=== PATIENT | male | born 1970 | race American Indian/Alaskan Native ===

== ENCOUNTER 2017-04-18 13:06 | Inpatient (IN) | payer MEDICARE ==
[2017-04-18 13:43] LABS: Basophils % (Auto) 0.7 % (0.0-1.8); Eosinophils % (Auto) 2.8 % (0.0-4.3); Hematocrit 25.9 % (35.5-45.6); Hemoglobin 8.1 gm/dl (11.8-15.2); Mean Corpuscular HGB Conc 31 % (32-34); Mean Corpuscular Hemoglobin 31 pg (28-32); Mean Corpuscular Volume 99 fl (84-94); Platelet Count 189 K/mm3 (140-440); Red Blood Count 2.61 M/mm3 (3.65-5.03); Red Cell Distribution Width 15.6 % (13.2-15.2); White Blood Count 6.1 K/mm3 (4.5-11.0)
[2017-04-18 13:56] LABS: BUN/Creatinine Ratio 1.57; Calcium 7.4 mg/dL (8.4-10.2); Chloride 94.6 mmol/L (98-107); Potassium 5.1 mmol/L (3.6-5.0)
[2017-04-18] MEDS ORDERED: D50W (25GM) IV PRN ×2 (14:21→15:58)
[2017-04-18] MEDS ORDERED: ZOFRAN IV ONE (14:22)
[2017-04-18] MEDS ORDERED: DILAUDID IV ONE (14:22)
--- NOTE | 2017-04-18 14:27 | Emergency Department Report ---
ED General Adult HPI - General Chief complaint: Hyperglycemia Stated complaint: HYPERGLYCEMICA Time Seen by Provider: 04/18/17 14:09 Source: patient, EMS, old records reviewed Mode of arrival: Stretcher Limitations: No Limitations - History of Present Illness Initial comments: Chief complaint: Hyperglycemia HPI: 37-year-old male with a past medical history of asthma. Diabetes, end- stage disease on dialysis, CHF, COPD, hypertension, and diabetic gastroparesis presents to the hospital with hyperglycemia. Patient was at an outpatient vascular procedure for left arm pain and sore to the left middle finger on the same side of his AV access. Glucose was found to be elevated and therefore patient was sent to the ER for evaluation. History of cholecystectomy. Last dialysis was yesterday (Monday, Monday, Monday) Mode of arrival: [EMS] Source: [Patient] Began: Today Duration: Continuous Context: Noncompliant with Levemir 10 mg twice a day 1 week. He states that his sugar dropped to 23 last week and has been afraid to take it ever since. Quality: Patient having aching lower abdominal pain that is constant Severity: 6 out of 10 Improved with: Nothing Worsened with: Palpation Associated signs and symptoms: Nausea without vomiting. No diarrhea. Patient also complains of chronic back pain and ongoing left arm pain. No fever. Patient does not make urine. 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 200] Allergies Allergy/AdvReac Type Severity Reaction Status Date / Time No Known Allergies Allergy Verified 06/20/14 15:21 ED Review of Systems ROS: Stated complaint: HYPERGLYCEMICA Other details as noted in HPI Comment: All other systems reviewed and negative Other: Constitutional: No fevers chills Eyes: No eye pain visual changes ENT: No ear pain or throat pain Neck: Denies pain Respiratory: Denies cough wheezing shortness of breath Cardiovascular: Denies chest pain, palpitations, syncope GI: As per HPI : Patient does not making Musculoskeletal: Denies back pain Skin: Denies rash, lesions, erythema Neurologic: Denies headache, numbness, weakness Psychiatric: Denies suicidal ideation, hallucinations ED Past Medical Hx - Past Medical History Previous Medical History?: Yes Hx Hypertension: Yes Hx Congestive Heart Failure: Yes Hx Diabetes: Yes Hx Pulmonary Embolism: No Hx Renal Disease: Yes (MWF dialysis) Hx Kidney Stones: Yes Hx Asthma: Yes Hx COPD: Yes Hx Tuberculosis: No Hx HIV: No Additional medical history: Diabetic gastroparesis - Surgical History Past Surgical History?: Yes Hx Cholecystectomy: Yes (In 2014) Additional Surgical History: LUE AVG - Social History Smoking Status: Never Smoker Substance Use Type: None - Medications Home Medications: Home Medications Medication Instructions Recorded Confirmed Last Taken Type Pantoprazole [Protonix TAB] 40 mg PO QDAY #30 tablet 09/10/16 10/26/16 1 Day Ago Rx Epoetin Iker 10,000 Unit [Procrit] 10,000 unit IV ELISHA PRN #1 vial 09/11/1610/26 1 Day Ago Rx Insulin Glargine [Lantus VIAL] 5 units SUB-Q QHS #100 units 09/11/16 10/26/16 1 Day Ago Rx Erythromycin Ethylsuccinate 200 mg PO Q6H 14 Days 09/13/16 10/26/16 1 Day Ago Rx [E.e.s. 200] ED Physical Exam - General Limitations: No Limitations - Other Other exam information: General: No limitations, patient is alert in no acute distress Head exam: Atraumatic, normocephalic Eyes exam: Normal appearance ENT: Moist mucous membrane Neck exam: Normal inspection, full range of motion Respiratory exam: Clear to auscultation bilateral, no wheezes, rales, crackles Cardiovascular: Normal rate and rhythm, normal heart sounds Abdomen: Soft, nondistended, lower abdominal tenderness, with normal bowel sounds, no rebound, or guarding Extremity: Full range of motion normal inspection no deformity. Left arm AV access positive thrill. Ulceration noted to the radial side of the left middle finger with edema. No erythema or warmth Back: Normal Inspection, full range of motion, no tenderness Neurologic: Alert, oriented x3, cranial nerves intact, no motor or sensory deficit Psychiatric: normal affect, normal mood Skin: Warm, dry, intact ED Course Vital Signs 04/18/17 04/18/17 14:18 14:20 Temperature 98.3 F Pulse Rate 97 H Respiratory 16 18 Rate Blood Pressure 136/85 [Right] O2 Sat by Pulse 100 99 Oximetry - Reevaluation(s) Reevaluation #1: 04/18/17 14:28 Meds ordered Regular insulin bolus Regular insulin IV drip Dilaudid and Zofran ED Medical Decision Making - Lab Data Result diagrams: 04/18/17 13:25 04/18/17 13:25 Lab Results 04/18/17 04/18/17 04/18/17 Range/Units 13:25 13:25 13:25 WBC 6.1 (4.5-11.0) K/mm3 RBC 2.61 L (3.65-5.03) M/mm3 Hgb 8.1 L (11.8-15.2) gm/dl Hct 25.9 L (35.5-45.6) % MCV 99 H (84-94) fl MCH 31 (28-32) pg MCHC 31 L (32-34) % RDW 15.6 H (13.2-15.2) % Plt Count 189 (140-440) K/mm3 Lymph % (Auto) 17.3 (13.4-35.0) % [place] % (Auto) 10.9 H (0.0-7.3) % Eos % (Auto) 2.8 (0.0-4.3) % Baso % (Auto) 0.7 (0.0-1.8) % Lymph # 1.0 L (1.2-5.4) K/mm3 [place] # 0.7 (0.0-0.8) K/mm3 Eos # 0.2 (0.0-0.4) K/mm3 Baso # 0.0 (0.0-0.1) K/mm3 Seg Neutrophils % 68.3 (40.0-70.0) % Seg Neutrophils # 4.1 (1.8-7.7) K/mm3 VBG pH 7.282 L (7.320-7.420) Sodium 130 L (137-145) mmol/L Potassium 5.1 H (3.6-5.0) mmol/L Chloride 94.6 L (98-107) mmol/L Carbon Dioxide 20 L (22-30) mmol/L Anion Gap 21 mmol/L BUN 12 (9-20) mg/dL Creatinine 7.6 H (0.8-1.5) mg/dL Estimated GFR 9 ml/min BUN/Creatinine Ratio 1.57 % Glucose 737 H* (75-100) mg/dL Calcium 7.4 L (8.4-10.2) mg/dL - EKG Data -: EKG Interpreted by Me (sinus rate 92) - EKG Data When compared to previous EKG there are: no significant change (compared to 2015) - Medical Decision Making Patient requires admission to the hospital for hypoglycemia with findings of DKA. Medications initiated. Patient also likely need further vascular consultation for resolution of left arm issues. - Differential Diagnosis gastroparesis, hyperglycemia, DKA, medication noncompliance, vascular abnor Critical Care Time: No Critical care attestation.: If time is entered above; I have spent that time in minutes in the direct care of this critically ill patient, excluding procedure time. ED Disposition Clinical Impression: DKA (diabetic ketoacidoses), Noncompliance with medication regimen, Hyperkalemia, Finger ulcer, Abdominal pain, Anemia, ESRD (end stage renal disease) on dialysis Disposition: OP ADMIT IP TO THIS HOSP Is pt being admited?: Yes Time of Disposition: 14:32 (DR kennedy/hosp)
--- NOTE | 2017-04-18 14:56 | History and Physical Report ---
History of Present Illness Chief complaint: My sugar is high History of present illness: 47 YO Male with ESRD on HD(M,W,F), HTN, DM, Gastroparesis, CHF, COPD presents to ED for evaluation. Pt states that his blood sugar is really high. Pt was seen in an outpatient clinic for a preop evaluation for a vascular procedure and a lesion on his Left middle finger. Pt was found to have an elevated glucose and was instructed to present to ED for evaluation. Pt seen and evaluated in ED and found to be in DKA and fluid overload. Past History Past Medical History: COPD, diabetes, dialysis, ESRD, heart failure, hypertension Past Surgical History: cholecystectomy, Other (LUE AVF) Social history: . denies: smoking, alcohol abuse, prescription drug abuse Family history: diabetes, hypertension Medications and Allergies Allergies Allergy/AdvReac Type Severity Reaction Status Date / Time No Known Allergies Allergy Verified 06/20/14 15:21 Home Medications Medication Instructions Recorded Confirmed Last Taken Type No Known Home Medications [No 04/18/17 04/18/17 Unknown History Reported Home Medications] Active Meds: Active Medications Dextrose (D50w (25gm)) 0 ml IV PRN PRN PRN Reason: Hypoglycemia Insulin Human Regular 100 (units/ Sodium Chloride) 100 mls @ 1 mls/hr IV TITR OLIVIA; 1 UNITS/HR PRN Reason: Protocol Review of Systems All systems: negative Constitutional: other (high blood glucose) Exam - Constitutional Vitals: Temp Pulse Resp BP Pulse Ox 98.3 F 97 H 18 136/85 99 04/18/17 14:18 04/18/17 14:18 04/18/17 14:20 04/18/17 14:18 04/18/17 14:20 General appearance: Present: mild distress - EENT Eyes: Present: PERRL ENT: hearing intact, clear oral mucosa - Neck Neck: Present: supple, normal ROM - Respiratory Respiratory: bilateral: diminished - Cardiovascular Rhythm: regular Heart Sounds: Present: S1 & S2 - Extremities Extremities: pulses symmetrical, No edema Peripheral Pulses: within normal limits - Abdominal General gastrointestinal: Present: soft, non-tender, non-distended Male genitourinary: Present: normal - Integumentary Integumentary: Present: clear, dry, decreased turgor - Musculoskeletal Musculoskeletal: gait normal, strength equal bilaterally - Psychiatric Psychiatric: appropriate mood/affect, intact judgment & insight - Neurologic Neurologic: CNII-XII intact, moves all extremities Results - Labs CBC & Chem 7: 04/18/17 13:25 04/18/17 16:19 Labs: Abnormal lab results 04/18/17 04/18/17 04/18/17 Range/Units 13:25 13:25 13:25 RBC 2.61 L (3.65-5.03) M/mm3 Hgb 8.1 L (11.8-15.2) gm/dl Hct 25.9 L (35.5-45.6) % MCV 99 H (84-94) fl MCHC 31 L (32-34) % RDW 15.6 H (13.2-15.2) % [place] % (Auto) 10.9 H (0.0-7.3) % Lymph # 1.0 L (1.2-5.4) K/mm3 VBG pH 7.282 L (7.320-7.420) Sodium 130 L (137-145) mmol/L Potassium 5.1 H (3.6-5.0) mmol/L Chloride 94.6 L (98-107) mmol/L Carbon Dioxide 20 L (22-30) mmol/L Creatinine 7.6 H (0.8-1.5) mg/dL Glucose 737 H* (75-100) mg/dL Calcium 7.4 L (8.4-10.2) mg/dL Assessment and Plan - Patient Problems (1) DKA (diabetic ketoacidoses) Current Visit: Yes Status: Acute Qualifiers: Diabetes mellitus type: D Diabetes mellitus complication detail: D Plan to address problem: DKA Protocol: Insulin drip, serial bmp, monitor anion gap, gentle ivf, The high probability of a clinically significant, sudden or life threatening deterioration of the [endocrine, renal, pulmonary] system(s) required my full and direct attention, intervention and personal management. The aggregate critical care time was [65] minutes. This time is in addition to time spent performing reported procedures but includes the following: [x] Data Review and interpretation [x] Patient assessment and monitoring of vital signs [x] Documentation [x] Medication orders and management (2) ESRD (end stage renal disease) on dialysis Current Visit: Yes Status: Acute Plan to address problem: Nephrology consulted in ED, dialysis as per renal service (3) Finger ulcer Current Visit: Yes Status: Acute Qualifiers: Non-pressure ulcer stage: N Plan to address problem: wound care consulted, (4) Noncompliance with medication regimen Current Visit: Yes Status: Acute Plan to address problem: PT counseled (5) Metabolic acidosis Current Visit: Yes Status: Acute Plan to address problem: Treat DKA, IVF, supportive care (6) DVT prophylaxis Current Visit: No Status: Acute
[2017-04-18] MEDS ORDERED: NovoLIN R 100 UNITS in NACL 0.9% 99 ML IV SCH ×2 (15:00→16:00)
--- NOTE | 2017-04-18 15:07 | Admit Criteria Form ---
Admission Criteria Documentation: GENERAL ADMISSION CRITERIA (Place 'X' for any and all applicable criteria): Admission is indicated for ANY ONE of the following: [ ]I. Hemodynamic instability as indicated by ANY ONE of the following(1)(2) (3)(4)(5): [ ]a) Vital sign abnormality not readily corrected by appropriate treatment within 12 to 24 hours indicated by ANY ONE of the following: [ ]i) Hypotension [ ]ii) Symptomatic Tachycardia unresponsive to treatment (eg , analgesia, fluids, sedation as indicated) [ ]iii) Orthostatic vital sign changes unresponsive to treatment (eg, fluids) [ ]b) Vital sign abnormality that is severe indicated by ANY ONE of the following: [ ]i) Inadequate perfusion indicated by ANY ONE of the following: [ ]1) Lactic acidosis (greater than 2 mmol/L) [ ]2) New abnormal capillary refill (greater than 3 seconds) [ ]3) Other metabolic acidosis (arterial pH less than 7.35) not otherwise explained [ ]4) Reduced urine output [ ]5) Altered mental status [ ]6) Myocardial Ischemia [ ]v) Mean arterial pressure[A] less than 60 mm Hg [ ]vi) Mean arterial pressure[A] less than 70 mm Hg after 30 minutes of appropriate treatment (eg, fluid resuscitation) [ ]vii) IV inotropic or vasopressor medication required to maintain adequate blood pressure or perfusion [ ]viii) Sustained heart rate greater than 120 beats per minute in adult or child 6 years or older[B]] [ ]II. Hypertension requiring inpatient treatment as indicated by ANY ONE of the following(6)(7)(8): [ ]a) SBP greater than 220 mm Hg or DBP greater than 120 mm Hg despite treatment [ ]b) SBP greater than 140 mm Hg or DBP greater than 100 mm Hg with evidence of acute end organ damage as indicated by ANY ONE of the following: [ ]i) Encephalopathy [ ]ii) Acute renal failure as indicated by new onset of ANY ONE of the following(9)(10)(11)(12)(13): [ ]1) A 3-fold rise in serum creatinine from baseline [ ]2) Serum creatinine greater than 4 mg/dL ( 354 micromoles/L) with acute rise greater than 0.5 mg/dL (44.2 micromoles/L) [ ]3) Reduction of more than 75% in estimated glomerular filtration rate from baseline [ ]4) Estimated glomerular filtration rate less than 35 mL/min/1.73m2 (0.59 mL/sec/1.73m2) in child up to 18 years of age [ ]5) Cessation of urine output indicated by ALL of the following: [ ]A. Adequate volume status [ ]B. Inadequate urine output as indicated by ANY ONE of the following: [ ]a. Urine output less than 0.3 mL/kg/hr for 24 hours [ ]b. Anuria (urine output less than 0.1 mL/kg/hr) for 12 hours [ ]iii) Aortic dissection [ ]iv) Myocardial ischemia [ ]v) Left ventricular heart failure [ ]vi) Retinal hemorrhage [ ]vii) Other significant finding [ ]c) Hypertension in child requiring inpatient treatment as indicated by ALL of the following(14)(15)(16): [ ]i) Outpatient treatment not effective, not available, or not appropriate [ ]ii) SBP or DBP greater than 95th percentile for age [ ]iii) Evidence of acute end organ damage as indicated by ANY ONE of the following: [ ]1) Altered mental status [ ]2) Acute renal failure as indicated by new onset of ANY ONE of the following(9)(10)(11)(12)(13): [ ]A. A 3-fold rise in serum creatinine from baseline [ ]B. Serum creatinine greater than 4 mg/dL (354 micromoles/L) with acute rise greater than 0.5 mg/dL (44.2 micromoles/L) [ ]C. Reduction of more than 75% in estimated glomerular filtration rate from baseline [ ]D. Estimated glomerular filtration rate less than 35 mL/min/1.73m2 (0.59 mL/sec/1.73m2)in child up to 18 years of age [ ]E. Cessation of urine output indicated by ALL of the following: [ ]a. Adequate volume status [ ]b. Inadequate urine output as indicated by ANY ONE of the following: [ ]1) Urine output less than 0.3 mL/kg/hr for 24 hours [ ]2) Anuria (urine output less than 0.1 mL/kg/hr) for 12 hours [ ]3) Severe headache [ ]4) Visual disturbance [ ]5) Retinal hemorrhage [ ]6) Other significant finding [ ]III. Acute cardiac or peripheral ischemia as indicated by ANY ONE of the following: [ ]a) Acute coronary syndrome(17)(18) [ ]b) Acute peripheral ischemia (eg, pulseless, cool, mottled, or cyanotic extremity)(19) [ ]IV. Cardiac arrhythmias or findings of immediate concern indicated by ANY ONE of the following(20)(21): [ ]a) Heart rhythms that are inherently dangerous or unstable indicated by ANY ONE of the following(22)(23)(24): [ ]i) Resuscitated ventricular fibrillation or cardiac arrest [ ]ii) Ventricular escape rhythm [ ]iii) Sustained ventricular tachycardia (30 seconds or more of ventricular rhythm at greater than 100 beats per minute) [ ]iv) Nonsustained ventricular tachycardia and ANY ONE of the following: [ ]1) Suspected cardiac ischemia as cause or consequence of ventricular tachycardia [ ]2) In setting of acute myocarditis [ ]b) Unstable cardiac conduction defects indicated by ANY ONE of the following(24)(25)(26): [ ]i) Type II second-degree atrioventricular block [ ]ii) Third-degree atrioventricular block [ ]iii) New-onset left bundle branch block with suspected myocardial ischemia [ ]c) Any heart rhythm and ANY ONE of the following(22)(23)(27)(28)( 29): [ ] i) Continuous long-term ECG monitoring needed (eg, initiation of drug requiring monitoring for more than 24 hours) [ ] ii) Patient has automatic implanted cardioverter defibrillator that is repeatedly firing, malfunctioning, or in need of immediate adjustment of settings beyond the scope of ambulatory or observation care. [ ]d) Heart rhythms of concern due to ANY ONE of the following: [ ]i) Hypotension [ ]ii) Respiratory distress [ ]iii) Association with other significant symptoms (eg, bradycardia with syncope or ongoing dizziness, supraventricular tachycardia with chest pain) (27)(28) (30) [ ] V. Severe heart failure as indicated by ANY ONE of the following ( 31)(32): [ ]a) Respiratory distress [ ]b) Hypotension [ ]c) Anasarca (refractory to outpatient therapy) [ ]d) Cardiac arrhythmias of immediate concern [ ]e) Myocardial ischemia [ ]. Respiratory abnormalities, including ANY ONE of the following(33)(34) (35)(36): [ ]a) Respiratory rate greater than 30 breaths per minute unresponsive to treatment [A] [ ]b) New saturation of arterial oxygen less than 90% [ ]c) New partial pressure of carbon dioxide greater than 44 mm Hg ( 5.9 kPa) [ ]d) Supplemental oxygen or respiratory treatments needed that are new or not performable at other levels of care [ ]e) New-onset cyanosis [ ]f) Inability to protect airway [ ]g) Chronic lung disease with severe deterioration (not responsive to emergency and observation care treatment as appropriate) as indicated by ANY ONE of the following(34)(36 ): [ ]i) SaO2 5% below baseline in patient with chronic hypoxemia [ ]ii) New requirement for supplemental oxygen to keep SaO2 at baseline or acceptable level [ ]iii) Required supplemental oxygen performable only in acute inpatient setting [ ]iv) Severe airflow or ventilation abnormalities [ ]v) Previously mobile patient unable to walk between rooms [ ]vi Inability to eat or sleep due to dyspnea [ ]vii) Rapid rate of exacerbation onset [ ]viii) Altered mental status ]VII. Severe airflow or ventilation abnormalities (not responsive to emergency and observation care treatment as appropriate) as indicated by ANY ONE of the following(33)(34)(35)(37): [ ]a) PCO2 greater than 42 mm Hg (5.6 kPa) and pH less than 7.35 (new ) [ ]b) Documented PCO2 increased more than 5 mm Hg (0.7 kPa) from disease baseline [ ]c) Airflow measurements [B] less than 60% of previous best or predicted (eg, peak expiratory flow rate less than 300 L/minute) despite intensive emergent treatment [C] [ ]d) Required respiratory treatments that are performable only in acute inpatient setting [ ]VIII. Impending or actual respiratory arrest ( Also use Respiratory Failure GRG for severe respiratory disease and long-term mechanical ventilation patients) [ ]IX. Neurologic abnormalities, including ANY ONE of the following: [ ]a) New findings that suggest ANY ONE of the following: [ ]i) [employer] infection(38) [ ]ii) Cerebral bleeding, ischemia, or vasospasm(39)(40) [ ]iii) Increased intracranial pressure, hydrocephalus, or cerebral edema(41)(42)(43) [ ]iv) Spinal cord injury(44) [ ]b) Uncontrolled seizures(45) [ ]c) New-onset coma (eg, [place] coma scale score less than 9) or unexplained abnormal mental status (eg, [place] coma scale score less than 14) [D](41)(46)(47) [ ]X. New-onset severe neurologic findings requiring inpatient care; examples include(42)(48)(49): [ ]a) Papilledema [ ]b) Cerebral edema [ ]c) Mass effect on CT scan [ ]XI. Suspected acute intra-abdominal process with peritoneal signs, abdominal mass, or similar findings (50)(51)(52) [X ]XII. Severe physiologic disorder remaining after emergency or observation level care (as appropriate) as indicated by ANY ONE of the following (53): [ ]a) Significant dehydration [ X]b) Diabetic ketoacidosis [ ]c) Hyperglycemic hyperosmolar state (eg, osmolality greater than 320 mOsm/kg (mmol/kg) [ ]d) Hypoglycemia [ ]e) Other (new) acid-base disorder with pH less than 7.35 or greater than 7.5(54) [ ]f) Thyroid storm (55) [ ]g) Myxedema coma (55) [ ]XIII. Abdominal abnormalities with ANY ONE of the following(56)(57): [ ]a) Absent bowel sounds with complete ileus [ ]b) Signs of intestinal obstruction or peritonitis [E] [ ]c) Nausea and vomiting that cannot be controlled with outpatient or observation care [ ]XIV. Acute renal failure as indicated by new onset of ANY ONE of the following(9)(10)(11)(12)(13): [ ]a) A 3-fold rise in serum creatinine from baseline [ ]b) Serum creatinine greater than 4 mg/dL (354 micromoles/L) with acute rise greater than 0.5 mg/dL (44.2 micromoles/L) [ ]c) Reduction of more than 75% in estimated glomerular filtration rate from baseline [ ]d) Estimated glomerular filtration rate less than 35 mL/min/ 1.73m2 (0.59 mL/sec/1.73m2) in child up to 18 years of age [ ]e) Cessation of urine output indicated by ALL of the following: [ ]i) Adequate volume status [ ]ii) Inadequate urine output as indicated by ANY ONE of the following: [ ]1) Urine output less than 0.3 mL/kg/hr for 24 hours [ ]2) Anuria (urine output less than 0.1 mL/kg/hr) for 12 hours [ ]XV. Significant uremic complications as indicated by ANY ONE of the following(58)(59)(60): [ ]a) Outpatient therapy is ineffective or not feasible for ANY ONE of the following: [ ]i) Severe heart failure [ ]ii) Severehypertension [ ]iii) Pleural effusion [ ]iv) Pericarditis or pericardial effusion [ ]b) Cardiac arrhythmias of immediate concern [ ]c) Intractable nausea or vomiting [ ]d) Recurrent seizures [ ]e) Encephalopathy [ ]f) Bleeding abnormalities (eg, platelet dysfunction) with active (eg, gastrointestinal) bleeding [ ]g) Dialysis indicated before long-term access or ambulatory arrangements can be made [ ]h) Significant metabolic or electrolyte abnormalities (eg, severe acidosis or hyperkalemia) [ ]XVI. High fever or other high-risk infection situation as indicated by ANY ONE of the following(61)(62)(63)(64): [ ]a) Outpatient and observation care antimicrobial treatment unavailable, not effective, or not appropriate [ ]b) Documented bacteremia [ ]c) Temperature greater than 40.5 degrees C (104.9 degrees F) ( oral) [ ]d) Temperature greater than 39.5 degrees C (103.1 degrees F) ( oral) or less than 36 degrees C (96.8 degrees F) (rectal) that does not respond to e treatment and observation care [ ] XVII. Temperature less than 95 degrees F (35 degrees C)(rectal)(65) [ ] XVIII. Severe nutritional abnormalities as indicated by ALL of the following (66)(67): [ ]a) Inability to tolerate or establish sufficient oral or other enteral nutrition in outpatient setting [ ]b) Parenteral nutrition regimen need that must be implemented on inpatient basis [ ] XIX. Severe electrolyte abnormalities indicated by ALL of the following(68) (69)(70): [ ]a) Electrolytes and associated findings are not as expected for patient baseline or acceptable treatment effects. [ ]b) Severe abnormalities indicated by ANY ONE of the following: [ ]i) Sodium less than 130 mEq/L (mmol/L) (new) [ ]ii)Sodium less than 135 mEq/L (mmol/L) with ANY ONE of the following: [ ]1) Uncorrectable (to near normal or chronic baseline) after trial of outpatient and emergency treatment [ ]2) Altered mental status [ ]3) Seizures [ ]4) Severe medical etiology requiring inpatient management (eg, heart failure, hypovolemia) [ ]iii) Sodium greater than 155 mEq/L (mmol/L) [ ]iv) Sodium greater than 150 mEq/L (mmol/L) with ANY ONE of the following: [ ]1) Uncorrectable (to near normal or chronic baseline) with outpatient and emergency treatment [ ]2) Altered mental status [ ]3) Seizures [ ]4) Severe medical etiology (eg, hypovolemia, diabetes insipidus) [ ]v) Potassium less than 2.5 mEq/L (mmol/L) despite outpatient and emergency treatment [ ]vi) Potassium less than 3 mEq/L (mmol/L) with ANY ONE of the following: [ ]1) Weakness [ ]2) Cardiac abnormality (eg, arrhythmia, conduction disturbance) [ ]3) Cardiac ischemia [ ]4) Ileus [ ]5) Ongoing medical cause requiring inpatient management (eg, acute renal wasting or SIADH) [ ]6) Other severe symptoms [ ]vii) Potassium greater than 6.5 mEq/L (mmol/L) [ ]viii) Potassium greater than 5 mEq/L (mmol/L) with ANY ONE of the following: [ ]1) Uncorrectable (to near normal or chronic baseline) with outpatient and emergency treatment [ ]2) Severe ECG findings [F] [ ]3) Acute worsening of renal failure (creatinine greater than 2.5 mg/dL (221 micromoles/L) or significant elevation for age and size) [ ]4) Severe weakness [ ]5) Severe medical etiology (eg, hemolysis, infection, drug overdose) [ ]ix) Calcium less than 7 mg/dL (1.75 mmol/L) despite outpatient and emergency treatment (72) [ ]x) Calcium less than 8 mg/dL (2 mmol/L) with significant symptoms or findings; examples include(72): [ ]1) Altered mental status [ ]2) Muscle spasms [ ]3) Seizures [ ]4) Breathing difficulty [ ]5) Cardiac abnormality (eg, arrhythmia or conduction disturbance) [ ]xi) Calcium greater than 14 mg/dL (3.5 mmol/L)(72) [ ]xii) Calcium greater than 12 mg/dL (3 mmol/L) with ANY ONE of the following(72): [ ]1) Uncorrectable (to near normal or chronic baseline) with outpatient and emergency treatment [ ]2) Significant dehydration or hypovolemia as indicated by ALL of the following(70)(73)(74): [ ]A. Not resolved with initial treatments [ ]B. Clinically significant dehydration as indicated by ANY ONE of the following: [ ]a. Vomiting refractory to outpatient treatment (ie, precluding oral rehydration) [ ]b. Inability to drink [ ]c. Hypernatremia or other electrolyte abnormality unable to be corrected with outpatient and emergency treatment [ ]d. Failure to remain hydrated with outpatient therapy [ ]e. Reduced urine output [ ]f. Hypotension [ ]g. Serious cause for dehydration requiring acute hospitalization (eg, bowel obstruction, increased intracranial pressure, infectious cause) [ ]h. Child with ANY ONE of the following(75): [ ]1) Severe abdominal tenderness [ ]2) Adequate care not available at home [ ]3) Severe dehydration ( greater than 9% loss of body weight) [ ]4) Significant symptoms or findings; examples include: [ ]A. Altered mental status [ ]B. Cardiac abnormality (eg, arrhythmia, conduction disturbance) [ ]C. Malignant etiology requiring inpatient treatment [ ]xiii) Phosphorus less than 1 mg/dL (0.32 mmol/L) [ ]xiv) Phosphorus less than 1.5 mg/dL (0.48 mmol/L) with ANY ONE of the following: [ ]1) Patient unresponsive to outpatient and emergency treatment [ ]2) Significant symptoms or findings; examples include: [ ]A. Weakness [ ]B. Altered mental status [ ]C. Breathing difficulty [ ]D. Seizures [ ]E. Rhabdomyolysis [ ]xv) Phosphorus greater than 10 mg/dL (3.2 mmol/L) [ ]xvi) Phosphorus greater than 4.5 mg/dL (1.45 mmol/L) (new) with ANY ONE of the following: [ ]1) Severe medical etiology (eg, crush injury, acute renal failure) [ ]2) Associated hypocalcemia with significant findings; examples include: [ ]A. Neurologic symptoms [ ]B. Altered mental status [ ]C. Muscle spasms [ ]D. Seizures [ ]E. Breathing difficulty [ ]F. Cardiac abnormality (eg, arrhythmia, conduction disturbance) [ ]xvii) Magnesium less than 1 mg/dL (0.41 mmol/L) [ ]xviii) Magnesium less than 1.5 mg/dL (0.62 mmol/L) with ANY ONE of the following: [ ]1) Patient unresponsive to outpatient and emergency treatment [ ]2) Associated hypocalcemia with significant findings; examples include: [ ]A. Altered mental status [ ]B. Muscle spasms [ ]C. Seizures [ ]D. Breathing difficulty [ ]E. Cardiac abnormality (eg, arrhythmia , conduction disturbance) [ ]3) Associated hypokalemia (potassium less than 3 mEq/L (mmol/L)) with risk of arrhythmia [ ]xix) Magnesium greater than 4 mEq/L (2 mmol/L) [ ]xx) Magnesium greater than 2.5 mEq/L (1.25 mmol/L) with significant symptoms or findings; examples include: [ ]1) Weakness [ ]2) Altered mental status [ ]3) Cardiac abnormality (eg, arrhythmia, conduction disturbance) [ ]4) Breathing difficulty [ ]5) Severe medical etiology (eg, renal failure, hypovolemia) [ ]xxi) Uric acid greater than 20 mg/dL (1190 micromoles/L)(76) [ ]xxii) Uric acid greater than 8 mg/dL (476 micromoles/L) with significant symptoms or findings of tumor lysis syndrome; examples include(76): [ ]1) Creatinine greater than 1.5 times upper limit of normal [ ]2) Cardiac abnormality (eg, arrhythmia, conduction disturbance) [ ]3) Seizure [ ]XX. Acute blood loss causing significant abnormality as indicated by ANY ONE of the following(77)(78): [ ]a) Hemoglobin less than 10 g/dL (100 g/L) (not baseline) [ ]b) Hematocrit less than 30% (0.30) (not baseline) [ ]c) Repeat hematocrit decreased more than 2% (0.02) [ ]d) Uncontrolled bleeding [ ]XXI. Severe anemia indicated by ANY ONE of the following(78)(79): [ ]a) Altered mental status [ ]b) Chest pain [ ]c) Exertional dyspnea [ ]d) Syncope [ ]e) Other findings suggesting inadequate perfusion [ ]f) Treatment with transfusion or volume replacement is ineffective at resolving ANY ONE of the following [G]: [ ]i) Tachycardia for age [ ]ii) Orthostatic vital sign changes as indicated by ANY ONE of the following(80): [ ]1) Fall in SBP of 20 mm Hg or more 1 to 3 minutes after patient sits or stands from recumbent position [ ]2) Fall in DBP of 10 mm Hg or more 1 to 3 minutes after patient sits or stands from recumbent position [ ]XXII. High-risk low platelet count as indicated by ANY ONE of the following( 81)(82): [ ]a) Severe or life-threatening bleeding (eg, intracranial, major gastrointestinal, or extensive mucosal bleeding), with any reduced platelet count [ ]b) Platelet count less than 20,000/mm3 (20 x109/L) with any active bleeding [ ]c) Platelet count less than 10,000/mm3 (10 x109/L) with minor purpura or petechiae [ ]d) Platelet count less than 5000/mm3 (5 x109/L) [ ]e) Low platelet count with hemolytic anemia [ ]XXIII. Disseminated intravascular coagulation(77)(83) [ ]XXIV. Severe adverse drug or systemic toxin reaction requiring inpatient treatment; examples include(84)(85): [ ]a) Serotonin syndrome(86) [ ]b) Neuroleptic malignant syndrome(86) [ ]c) Cholinergic syndrome with severe symptoms (eg, bronchorrhea, weakness, mental status changes, seizures) [ ]d) Sympathetic syndrome with severe symptoms (eg, seizures, mental status changes, cardiac dysrhythmias) [ ]e) Anticholinergic syndrome [ ]XXV. Severe pain requiring acute inpatient management as indicated by ALL of the following (87)(88)(89): [ ]a) Continuous or frequent (eg, every 2 to 4 hours) parenteral analgesics required [H] [ ]b) Rapid improvement expected from treatment or acute intervention (eg, surgery, anesthesia procedure) [ ]XXVI.Severe behavioral health issues judged unmanageable at a lower level of care (eg, residential) in a patient who is ANY ONE of the following(91) [ ]a) Acutely suicidal [ ]b) A danger to self (eg, self-mutilating or suicidal behavior) [ ]c) A danger to others (eg, assaultive or homicidal behavior) [ ]d) Incapacitated because of grave disability (eg, inability to provide for self at lower level of care) (92) [ ]XXVII. Inpatient monitoring needed; examples include(1)(3)(87)(93)(94)(95)(96 ): [ ]a) Vital signs, neurologic signs, or vascular checks more frequently than every 4 hours [ ]b) Cardiac or respiratory monitoring beyond the scope (eg, over 24 hours) of observation care [ ]c) Pulmonary artery catheter monitoring [ ]d) Suspected compartment syndrome(97) (98) [ ]e) Cerebral bleeding, hydrocephalus, or vasospasm monitoring [ ]f) Increased intracranial pressure or cerebral edema monitoring [ ]g) monitoring [ ]XXVIII. Treatment requiring inpatient care; examples include: [ ]a) IV fluid to replace significant ongoing losses (greater than 3 L/m2 per day)(53) [ ]b) High concentration oxygen (greater than 40%)(33)(99)(100) [ ]c) Frequent respiratory therapy (more frequently than every 4 hours) to maintain airflow rates greater than 60% of baseline(33)(99)(100) [ ]d) Epidural analgesia(87) [ ]e) IV anticoagulation, vasoactive, or antiarrhythmic medication(19 )(23) [ ]f) Acute thrombolytics (generally require 24 hours of observation )(101)(102) [ ]XXIX. Emergency procedures needed; examples include: [ ]a) Emergency inpatient surgery [ ]b) Temporary pacemaker placement(103) [ ]c) Chest tube placement with active evacuation (eg, suction, drainage)(104) [ ]d) Emergent cardioversion(105) [ ]e) Emergent cardiac or vascular procedures (eg, cardiac catheterization, angioplasty) (17)(18) [ ]f) Emergent dialysis access placement and institution(10)(106) [ ]g) Emergent pericardiocentesis(107) [ ]h) Emergent plasmapheresis or leukapheresis(83) [ ]i) Emergent tracheostomy The original [employer] content created by [employer] has been revised. The portions of the content which have been revised are identified through the use of italic text or in bold, and [employer] has neither reviewed nor approved the modified material. All other unmodified content is copyright [employer]. Please see references footnoted in the original [employer] edition 2016 Admission Criteria Met: Yes
[2017-04-18] MEDS ORDERED: NACL 0.9% 1000 ML 1,000 ML IV SCH (16:00)
[2017-04-18 16:56] LABS: BUN/Creatinine Ratio 1.51; Calcium 7.6 mg/dL (8.4-10.2); Chloride 91.8 mmol/L (98-107)
[2017-04-18 17:16] LABS: Phosphorous 4.5 mg/dL (2.5-4.5)
[2017-04-18] MEDS: E.E.S. 200 PO SCH (18:58)
[2017-04-18 19:08] LABS: BUN/Creatinine Ratio 1.53; Calcium 7.9 mg/dL (8.4-10.2); Chloride 93.7 mmol/L (98-107); Potassium 4.3 mmol/L (3.6-5.0)
[2017-04-18] MEDS ORDERED: D5W/0.45% NACL/KCL 20 MEQ 20 MEQ/1,000 ML BAG IV ONE (19:10)
[2017-04-18] MEDS ORDERED: NACL 0.45% 1000 ML 1,000 ML IV SCH (20:00)
[2017-04-18] MEDS ORDERED: PERCOCET 5/325 PO ONE (20:00)
[2017-04-18 20:34] LABS: BUN/Creatinine Ratio 1.64; Calcium 8.3 mg/dL (8.4-10.2); Chloride 97.9 mmol/L (98-107); Potassium 3.5 mmol/L (3.6-5.0)
[2017-04-19 00:12] LABS: BUN/Creatinine Ratio 1.58; Calcium 7.9 mg/dL (8.4-10.2); Chloride 98.9 mmol/L (98-107); Potassium 3.9 mmol/L (3.6-5.0)
[2017-04-19] MEDS: E.E.S. 200 PO SCH ×5 (00:50→22:36)
[2017-04-19 05:52] LABS: BUN/Creatinine Ratio 1.66; Chloride 98.8 mmol/L (98-107); Potassium 4.3 mmol/L (3.6-5.0)
[2017-04-19 09:21] LABS: BUN/Creatinine Ratio 1.49; Calcium 7.7 mg/dL (8.4-10.2); Chloride 101.4 mmol/L (98-107); Potassium 4.2 mmol/L (3.6-5.0)
--- NOTE | 2017-04-19 09:29 | Progress Note ---
Assessment and Plan 47 YO Male with ESRD on HD(M,W,F), HTN, DM, Gastroparesis, CHF, COPD presents to ED for evaluation. Pt states that his blood sugar is really high. Pt was seen in an outpatient clinic for a preop evaluation for a vascular procedure and a lesion on his Left middle finger. Pt was found to have an elevated glucose and was instructed to present to ED for evaluation. Pt seen and evaluated in ED and found to be in DKA and fluid overload. DKA (diabetic ketoacidoses) Placed on DKA Protocol: Insulin drip, serial bmp, monitor anion gap, gentle ivf, BG much improved, will d/c insulin drip will place on ADA diet and subcu insulin ESRD (end stage renal disease) on dialysis Nephrology consulted in ED, dialysis as per renal service Finger ulcer wound care consulted, Plan for angeogram per vascular surgery tomorrow consulted ortho for further recommendation Noncompliance with medication regimen PT counseled COPD not on any exacerbation Treat with as needed nebulizer CHF with EF 40-45% (chronic) cont aspirin, statin No ACEI or beta juan as BP at low normotensive DVT prophylaxis place on heparin Subjective Date of service: 04/19/17 Interval history: Patient seen and examined. Medical records and medication list reviewed. No acute event overnight noted by the RN. Patient c/o left hand pain, getting HD today Objective - Exam Narrative Exam: GENERAL: well-developed AAM lying on bed appeared to be in no discomfort. HEENT: Normocephalic. Atraumatic. No conjunctival congestion or icterus. Patient has moist mucous membranes. NECK: Supple. Trachea midline. CHEST/LUNGS: Clear to auscultated bilaterally, breathing nonlabored. No wheezes crackles or rhonchi. HEART/CARDIOVASCULAR: Regular in rate and rhythm. S1 and S2 positive. ABDOMEN: Abdomen is soft, nontender. Patient has normal bowel sounds. SKIN: There is no rash. Warm and dry. NEURO: No focal motor deficit. Follows command. MUSCULOSKELETAL: ulceration of the lateral aspect of the left third digit along the middle phalanx. EXTRIMITY: No edema, no cyanosis or clubbing. PSYCH: Cooperative. - Constitutional Vitals: Vital Signs - 12hr 04/18/17 04/18/17 04/18/17 21:41 21:50 22:00 Temperature Pulse Rate 89 85 83 Pulse Rate [ Left Radial] Pulse Rate [ Right Radial] Respiratory 20 15 12 Rate Blood Pressure 107/56 Blood Pressure [Left Arm] Blood Pressure [Right Arm] O2 Sat by Pulse 100 100 100 Oximetry 04/18/17 04/19/17 22:45 07:15 Temperature 97.8 F 98.2 F Pulse Rate Pulse Rate [ 86 Left Radial] Pulse Rate [ 94 H Right Radial] Respiratory 18 16 Rate Blood Pressure Blood Pressure 111/63 [Left Arm] Blood Pressure 119/77 [Right Arm] O2 Sat by Pulse 97 100 Oximetry - Labs CBC & Chem 7: 04/18/17 13:25 04/19/17 17:15 Labs: Abnormal lab results 04/18/17 04/18/17 04/18/17 Range/Units 16:19 16:19 18:37 Sodium 127 L 131 L (137-145) mmol/L Potassium 6.0 H (3.6-5.0) mmol/L Chloride 91.8 L 93.7 L (98-107) mmol/L Carbon Dioxide 18 L 17 L (22-30) mmol/L Creatinine 7.9 H 7.8 H (0.8-1.5) mg/dL Glucose 690 H* 652 H* (75-100) mg/dL POC Glucose (70-105) Hemoglobin A1c 10.4 H (4-6) % Calcium 7.6 L 7.9 L (8.4-10.2) mg/dL 04/18/17 04/18/17 04/18/17 Range/Units 20:05 21:45 23:33 Sodium 135 L (137-145) mmol/L Potassium 3.5 L (3.6-5.0) mmol/L Chloride 97.9 L (98-107) mmol/L Carbon Dioxide 20 L (22-30) mmol/L Creatinine 7.9 H 8.2 H (0.8-1.5) mg/dL Glucose 49 L 225 H (75-100) mg/dL POC Glucose 183 H (70-105) Hemoglobin A1c (4-6) % Calcium 8.3 L 7.9 L (8.4-10.2) mg/dL 04/19/17 04/19/17 04/19/17 Range/Units 04:41 06:14 08:17 Sodium 135 L 135 L (137-145) mmol/L Potassium (3.6-5.0) mmol/L Chloride (98-107) mmol/L Carbon Dioxide 20 L 21 L (22-30) mmol/L Creatinine 8.4 H 8.7 H (0.8-1.5) mg/dL Glucose 230 H 199 H (75-100) mg/dL POC Glucose 227 H (70-105) Hemoglobin A1c (4-6) % Calcium 8.0 L 7.7 L (8.4-10.2) mg/dL
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
--- NOTE | 2017-04-19 09:59 | Consultation ---
History of Present Illness - Reason for Consult Consult date: 04/19/17 - History of Present Illness pt was seen and examined. Admitted for hyperglycemia. HD on //-HD as ordered for today Past History Past Medical History: COPD, diabetes, dialysis, ESRD, heart failure, hypertension Past Surgical History: cholecystectomy, Other (LUE AVF) Social history: . denies: smoking, alcohol abuse, prescription drug abuse Family history: diabetes, hypertension Medications and Allergies Allergies Allergy/AdvReac Type Severity Reaction Status Date / Time No Known Allergies Allergy Verified 06/20/14 15:21 Home Medications Medication Instructions Recorded Confirmed Last Taken Type No Known Home Medications [No 04/18/17 04/18/17 Unknown History Reported Home Medications] Active Meds: Active Medications Dextrose (D50w (25gm)) 0 ml IV ONCE PRN PRN Reason: Hypoglycemia Epoetin Iker (Procrit) 10,000 unit IV ELISHA PRN PRN Reason: hemodialysis Erythromycin Ethylsuccinate (E.E.S. 200) 200 mg PO Q6H OLIVIA Last Admin: 04/19/17 05:25 Dose: 200 mg Insulin Human Regular 100 (units/ Sodium Chloride) 100 mls @ 1 mls/hr IV TITR OLIVIA; 1 UNITS/HR PRN Reason: Protocol Last Titration: 04/18/17 19:04 Dose: 0 units/hr, 0 mls/hr Sodium Chloride (Nacl 0.45% 1000 Ml) 1,000 mls @ 42 mls/hr IV DIRECT OLIVIA Last Admin: 04/18/17 20:23 Dose: 42 mls/hr Pantoprazole Sodium (Protonix) 40 mg PO QDAY OLIVIA Exam - Constitutional Vitals: Temp Pulse Resp BP Pulse Ox 98.2 F 94 H 16 119/77 100 04/19/17 07:15 04/19/17 07:15 04/19/17 07:15 04/19/17 07:15 04/19/17 07:15 Results - Labs CBC & Chem 7: 04/18/17 13:25 04/19/17 08:17 Labs: Abnormal lab results 04/18/17 04/18/17 04/18/17 Range/Units 16:19 16:19 18:37 Sodium 127 L 131 L (137-145) mmol/L Potassium 6.0 H (3.6-5.0) mmol/L Chloride 91.8 L 93.7 L (98-107) mmol/L Carbon Dioxide 18 L 17 L (22-30) mmol/L Creatinine 7.9 H 7.8 H (0.8-1.5) mg/dL Glucose 690 H* 652 H* (75-100) mg/dL POC Glucose (70-105) Hemoglobin A1c 10.4 H (4-6) % Calcium 7.6 L 7.9 L (8.4-10.2) mg/dL 04/18/17 04/18/17 04/18/17 Range/Units 20:05 21:45 23:33 Sodium 135 L (137-145) mmol/L Potassium 3.5 L (3.6-5.0) mmol/L Chloride 97.9 L (98-107) mmol/L Carbon Dioxide 20 L (22-30) mmol/L Creatinine 7.9 H 8.2 H (0.8-1.5) mg/dL Glucose 49 L 225 H (75-100) mg/dL POC Glucose 183 H (70-105) Hemoglobin A1c (4-6) % Calcium 8.3 L 7.9 L (8.4-10.2) mg/dL 04/19/17 04/19/17 04/19/17 Range/Units 04:41 06:14 08:17 Sodium 135 L 135 L (137-145) mmol/L Potassium (3.6-5.0) mmol/L Chloride (98-107) mmol/L Carbon Dioxide 20 L 21 L (22-30) mmol/L Creatinine 8.4 H 8.7 H (0.8-1.5) mg/dL Glucose 230 H 199 H (75-100) mg/dL POC Glucose 227 H (70-105) Hemoglobin A1c (4-6) % Calcium 8.0 L 7.7 L (8.4-10.2) mg/dL
[2017-04-19] MEDS: PROTONIX PO SCH (10:00)
[2017-04-19] MEDS ORDERED: NACL 0.9% 100 ML IV PRN ×2 (10:02→10:07)
[2017-04-19] MEDS ORDERED: NACL 0.9 (PRIMING MACHINE ONLY DIALYSIS) MC ONE (11:24)
[2017-04-19] MEDS: PROCRIT IV PRN (11:30)
--- NOTE | 2017-04-19 15:07 | Event Note ---
Date: 04/19/17 Dr. Pearson thank you for asking me to participate in the care of this patient. Full consultation dictated. Pulmonary consultation dictation number [id number] This is 47 year old male admitted for DKA.Patient also has history of COPD,CHF, diabetes, gastroperesis and ESRD on dialysis.Patient has history of smoking !/2 a pack a day for 30 years. Denies alcohol or drug abuse.Denies allergies to the medications.Not and has 3 children. IMMPRESSION; 1. DKA 2. COPD 3. ESRD AND ON DIALYSIS. 4. HYPERTENSION 5. GASTROPERESIS. PLAN; 1.O2 2 LITRES VIA NASAL CANULA 2.ABGS ON ROOM AIR 3.ALBUTEROL/ATROVENT AEROSOL TREATMENTS Q 6 HOURS. 4. LOVENOX 30 MG s/c QD. 5. CONTINUE PROTONIX. 6. PFTs as outpatient.
[2017-04-19] MEDS: PERCOCET 5/325 PO PRN ×2 (15:54→22:35)
[2017-04-19 16:20] LABS: BUN/Creatinine Ratio 1.31; Calcium 9.4 mg/dL (8.4-10.2); Chloride 97.4 mmol/L (98-107)
[2017-04-19 18:04] LABS: BUN/Creatinine Ratio 1.21; Calcium 8.7 mg/dL (8.4-10.2); Chloride 94.6 mmol/L (98-107); Potassium 4.3 mmol/L (3.6-5.0)
[2017-04-19] MEDS ORDERED: DUONEB 0.5 MG-3 MG/3 ML SOLN IH SCH (20:00)
[2017-04-19] MEDS ORDERED: PROVENTIL IH PRN (20:17)
[2017-04-19] MEDS ORDERED: LEVEMIR SUB-Q SCH (22:00)
[2017-04-19] MEDS: ZOFRAN IV PRN (22:36)
[2017-04-20] MEDS: E.E.S. 200 PO SCH ×5 (05:29→23:35)
[2017-04-20] MEDS: D50W (25GM) IV PRN (06:29)
--- NOTE | 2017-04-20 07:17 | Consultation ---
RENAL CONSULTATION REASON FOR CONSULTATION: Renal failure. HISTORY OF PRESENT ILLNESS: This 47-year-old -Spanish male with end-stage renal disease, diabetes with end-organ damage, hypertension, was brought to the access procedure over the left upper arm dialysis access. However, procedure was canceled because of significantly elevated blood sugar levels, hence he was admitted for further evaluation. The patient goes to [facility] on Monday, Monday, and Monday. The patient lately developed ischemic sore over the left middle finger and left index finger for which he is followed by [facility]. The patient has history of recurrent diabetic gastroparesis and frequent admissions for uncontrolled diabetes and gastroparesis. PAST MEDICAL HISTORY: COPD, hypertension, congestive heart failure, brittle diabetes, end-stage renal disease, status post cholecystectomy. PERSONAL HISTORY: Denies smoking, alcohol, or drug abuse. FAMILY HISTORY: No family history of kidney failure. ALLERGIES: None. CURRENT MEDICATIONS: Erythromycin 200 mg q.6 hours, insulin, Zofran p.r.n., pantoprazole 40 mg once a day. REVIEW OF SYSTEMS: The patient complains of generalized weakness and tiredness. Complains of chronic pain, asking for pain medications, history of recurrent nausea and vomiting. Denies fever or chills. Denies chest pain or shortness of breath at present time. Appetite poor. Denies abdominal pain or GI bleeding. Other review of systems reviewed and negative. PHYSICAL EXAMINATION: GENERAL: The patient is alert, oriented x3, chronically ill looking thin built male. VITAL SIGNS: Blood pressure 118/78, pulse 98, afebrile. HEENT: Conjunctivae pale. Oral mucosa and tongue are dry. Lips noncyanotic. NECK: No JVD. No thyroid enlargement. LUNGS: Diminished breath sounds in bases. HEART: S1, S2 regular. No pericardial rub. A 2/6 systolic murmur along the left sternal border. ABDOMEN: Soft, bowel sounds present, nontender. No liver or spleen palpable. EXTREMITIES: A 1+ edema, left upper arm AV access has bruit and thrill. Left middle finger lateral aspect and index finger medial aspect has ischemic sores. LABORATORY DATA: WBC 6.1, hemoglobin 8.1, hematocrit 25.9, platelets 189. Sodium 127, potassium 6.0, chloride 91, CO2 18, BUN 12, creatinine 7.9, glucose 690. Venous; pH 7.282. ASSESSMENT AND PLAN: 1. Brittle diabetes with hyperglycemia. 2. End-stage renal disease. 3. Ischemic ulcer over the left middle and index fingers. 4. Metabolic acidosis. 5. End-stage renal disease. 6. Anemia and chronic kidney disease. 7. Malnutrition. Hemodialysis on Monday, Monday, Monday as scheduled. Advised on tight glycemic control. Consider nutrition support. Naseem per protocol. JOB# [id number] K/NTS
[2017-04-20] MEDS ORDERED: D50W (25GM) IV ONE ×2 (08:30→12:47)
[2017-04-20] MEDS ORDERED: GLUCAGEN IM ONE (09:00)
--- NOTE | 2017-04-20 09:31 | Progress Note ---
Assessment and Plan - Patient Problems (1) ESRD (end stage renal disease) Current Visit: Yes Status: Acute Plan to address problem: HD on M/W/F (2) Diabetes Current Visit: Yes Status: Chronic Qualifiers: Diabetes mellitus type: D Diabetes mellitus complication status: with hyperglycemia Diabetes mellitus complication detail: D Diabetic retinopathy severity: D Proliferative retinopathy type: P Diabetes mellitus macular edema: D Diabetes mellitus correction insulin use: D Laterality: L Chronic kidney disease stage: C Plan to address problem: brittle DM, noted hypoglycemic episode earlier (3) Diabetic gastroparesis associated with type 2 diabetes mellitus Current Visit: Yes Status: Acute (4) Finger ulcer Current Visit: Yes Status: Acute Qualifiers: Non-pressure ulcer stage: N Plan to address problem: had AV access procedure today--vascular surgery notes reviewed (5) Diabetic gastroparesis Current Visit: No Status: Chronic (6) Hypertension Current Visit: No Status: Chronic Qualifiers: Hypertension type: H Subjective Date of service: 04/20/17 Interval history: pt is alert, oriented, denies nausea or vomitings. Denies bleeding. Had access procedure today Objective - Vital Signs Vital signs: Vital Signs - 12hr 04/19/17 04/20/17 04/20/17 22:35 00:00 08:00 Temperature 98.4 F 97.9 F Pulse Rate [ 104 H 84 Right Radial] Respiratory 20 18 18 Rate Blood Pressure 102/56 112/68 [Right Arm] O2 Sat by Pulse 100 97 Oximetry - General Appearance General appearance: chronically ill EENT: mucous membranes moist Neck: no JVD Respiratory: Present: Clear to Ascultation Cardiology: regular, systolic murmur Gastrointestinal: normoactive bowel sounds Neurologic: alert and oriented x3 Musculoskeletal: other (left arm AVF has bruit and thrill, left middle finger ischemic sore-same) Psychiatric: mood/affect appropriate, cooperative - Lab 04/18/17 13:25 04/19/17 17:15 Most recent lab results Calcium 8.7 mg/dL (8.4-10.2) 04/19/17 17:15 Phosphorus 4.50 mg/dL (2.5-4.5) 04/18/17 16:19 Magnesium 2.00 mg/dL (1.7-2.3) 04/18/17 16:19
[2017-04-20] MEDS: HALFPRIN EC PO SCH (09:56)
[2017-04-20] MEDS: PERCOCET 5/325 PO PRN ×2 (09:56→14:06)
[2017-04-20] MEDS: LOVENOX SUB-Q SCH (09:57)
[2017-04-20] MEDS: PROTONIX PO SCH (09:58)
[2017-04-20] MEDS ORDERED: D5NS 1,000 ML IV SCH (10:00)
[2017-04-20] MEDS ORDERED: HEPARIN/NS 5000 UNIT/500ML(CATH LAB) 1,000 ML IR ONE (11:48)
[2017-04-20] MEDS ORDERED: NACL 0.9% 250ML 250 ML ONE (11:49)
[2017-04-20] MEDS ORDERED: HEPARIN 10,000 UNITS/10 ML ONE (11:49)
[2017-04-20] MEDS ORDERED: ANCEF/STERILE WATER 2 GM/20 ML 2 GM/20 ML SYRINGE IV ONE (11:49)
--- NOTE | 2017-04-20 12:29 | Progress Note ---
Assessment and Plan - Patient Problems (1) DKA (diabetic ketoacidoses) Current Visit: Yes Status: Acute Qualifiers: Diabetes mellitus type: D Diabetes mellitus complication detail: D Plan to address problem: - resolved - encouraged better medication compliance - continue SSI - re-introduced home meds (2) ESRD (end stage renal disease) on dialysis Current Visit: Yes Status: Acute Plan to address problem: - HD/UF per nephrology - no signs of significant volume overload - follow electrolytes and correct as necessary (3) Pleural effusion, right Current Visit: No Status: Acute Plan to address problem: - not clinically evident - continue HD/UF for volume control (4) COPD (chronic obstructive pulmonary disease) Current Visit: Yes Status: Acute Qualifiers: COPD type: C Chronic bronchitis type: C Emphysema type: E Plan to address problem: - he denies a history of COPD - continue prn albuterol - outpatient pulmonary clinic f/up +/- PFT's Subjective Date of service: 04/20/17 Principal diagnosis: DKA; Shortness of breath: COPD Interval history: Seen and examined at bedside; 24 hour events reviewed; nursing and respiratory care staff consulted; no adverse overnight events reported to me; weaned off IV insulin; denies acute chest pains or increased SOB; No N/V/F/C/Abdominal pains today Objective Vital Signs - 12hr 04/20/17 08:00 Temperature 97.9 F Pulse Rate [ 84 Right Radial] Respiratory 18 Rate Blood Pressure 112/68 [Right Arm] O2 Sat by Pulse 97 Oximetry Constitutional: no acute distress, alert Eyes: non-icteric ENT: oropharynx moist Neck: supple Effort: normal Ascultation: Bilateral: clear, diminished breath sounds Cardiovascular: regular rate and rhythm Gastrointestinal: normoactive bowel sounds, soft, non-tender, non-distended Integumentary: normal Extremities: no cyanosis, no edema, pulses normal, no ischemia or petechiae Neurologic: normal mental status, non-focal exam, pupils equal and round, motor strength normal and Psychiatric: mood appropriate, affect normal CBC and BMP: 04/18/17 13:25 04/22/17 13:36 Abnormal lab findings: Abnormal Labs 04/18/17 04/18/17 04/18/17 16:19 16:19 18:37 Sodium 127 L 131 L Potassium 6.0 H Chloride 91.8 L 93.7 L Carbon Dioxide 18 L 17 L BUN Creatinine 7.9 H 7.8 H Glucose 690 H* 652 H* POC Glucose Hemoglobin A1c 10.4 H Calcium 7.6 L 7.9 L 04/18/17 04/18/17 04/18/17 20:05 21:45 23:33 Sodium 135 L Potassium 3.5 L Chloride 97.9 L Carbon Dioxide 20 L BUN Creatinine 7.9 H 8.2 H Glucose 49 L 225 H POC Glucose 183 H Hemoglobin A1c Calcium 8.3 L 7.9 L 04/19/17 04/19/17 04/19/17 04:41 06:14 08:17 Sodium 135 L 135 L Potassium Chloride Carbon Dioxide 20 L 21 L BUN Creatinine 8.4 H 8.7 H Glucose 230 H 199 H POC Glucose 227 H Hemoglobin A1c Calcium 8.0 L 7.7 L 04/19/17 04/19/17 04/19/17 14:48 15:14 15:25 Sodium Potassium Chloride 97.4 L Carbon Dioxide BUN 5 L Creatinine 3.8 H D Glucose 214 H POC Glucose 268 H 233 H Hemoglobin A1c Calcium 04/19/17 04/19/17 04/20/17 17:15 21:04 06:05 Sodium 136 L Potassium Chloride 94.6 L Carbon Dioxide BUN 5 L Creatinine 4.1 H Glucose 340 H POC Glucose 392 H < 40 L Hemoglobin A1c Calcium 04/20/17 04/20/17 06:59 07:42 Sodium Potassium Chloride Carbon Dioxide BUN Creatinine Glucose POC Glucose 45 L < 40 L Hemoglobin A1c Calcium
[2017-04-20] MEDS: SUBLIMAZE ONE ×2 (12:38→12:55)
[2017-04-20] MEDS: VERSED ONE ×2 (12:38→12:55)
[2017-04-20] MEDS: XYLOCAINE 2% INFILTRATI ONE ×2 (12:40→12:54)
[2017-04-20] MEDS: BENADRYL ONE ×2 (13:21→13:28)
--- NOTE | 2017-04-20 13:42 | Operative Report ---
Operative Report Operative Report: EXAM: 1. Ultrasound-guided access of the left common femoral vein 2. Placement of a 7 [place] triple-lumen catheter in the left common femoral vein 3. Ultrasound-guided access of the right common femoral artery 4. Angiography of the right lower extremity 5. Selection of the ascending thoracic aorta with aortography 6. Selection of the left brachial artery with angiography of the left upper extremity 7. Angioplasty of the left brachial artery with a 6 mg angioplasty balloon 8. Selection of the left axillary artery with left upper extremity angiography 9. Selection of the left subclavian artery with left upper extremity angiography 10. Closure of the arteriotomy with a 6 [place] Angio-Seal DATE: 04/20/17 TURPENTINE FARMER: BOBBY ALBARRAN MD INDICATION: Ulcer of the left third digit of the upper extremity with a left upper extremity dialysis access. Patient has been hypoglycemic with difficulty obtaining IV access with persistent hypoglycemia. MEDICATIONS: Please see nursing report for full details. DEVICES: 6 mm angioplasty balloon CONTRAST: 190 mL of nonionic contrast PROCEDURE: The risks, benefits, and alternatives were discussed with the patient; written informed consent was obtained. The patient's groins were prepped and draped in a sterile fashion. The patient's blood sugar was checked and was found to be 41. The left common femoral vein was evaluated under ultrasound was patent. Under direct ultrasound guidance, the left common femoral vein was accessed with a 21- gauge micro-puncture needle. 0.018 inch wire was passed into the IVC. Wire was exchanged with a transitional dilator for 0.035 inch wire. Transitional dilator was exchanged for a 7 [place] triple lumen catheter. 2-0 Ethilon was used to secure the catheter and sterile dressing with Biopatch was applied. All lumens were aspirated and flushed with heparinized normal saline. D50 was then administered to one of the lumens and flushed with heparinized normal saline. 15 minutes later, blood sugar was rechecked and was in the low 100s. The right common femoral artery was evaluated under ultrasound and was patent. Under direct ultrasound guidance, the right common femoral artery was accessed with a 21-gauge micropuncture needle. 0.018 inch wire was passed into the aorta. Wire was exchanged with a transitional dilator for a 0.035 inch wire. Transitional dilator was exchanged for a 5 [place] sheath. Digital subtraction angiography was performed demonstrating an appropriate puncture, above the bifurcation and below the inferior epigastric artery. The right common femoral artery, the right external iliac artery, the right proximal superficial femoral artery, and the right profunda femoral artery were patent. 5 [place] pigtail catheter was advanced over the 0.035 inch Miller wire into the ascending thoracic aorta. Digital subtraction angiography was performed demonstrating patency of the ascending and descending thoracic aorta. The right innominate artery, the right proximal subclavian artery, the right proximal common carotid artery, the r left proximal common carotid artery, and the left subclavian artery were patent. The patient was heparinized. Glidewire advantage in a 4 [place]i vertebral catheter used to select the left brachial artery. Digital subtraction angiography was performed demonstrating patency of the left ulnar, radial, and interosseous artery. The dominant artery was the radial artery. Flow extended into the palmar arches of the hands. The catheter was retracted into the proximal brachial artery and digital subtraction angiography was performed, but visualize if there is narrowing in the brachial artery near the left brachial axillary graft take off possibly from a mild clamp injury. This was repeated demonstrating mild narrowing at this location. Sheath was then exchanged for a 6 [place] 90 cm [place] destination. 6 mm angioplasty balloon was advanced over the wire needs to perform very angioplasty of the distal brachial artery. Digital subtraction angiography demonstrated resolution of the 30-40% narrowing of the distal brachial artery. Digital subtraction angiography was repeated demonstrating patency of the radial , ulnar, and interosseous arteries area she does retracted into the axillary artery which was then selected. Digital subtraction angiography demonstrated patency of the left axillary artery and proximal brachial artery. She does retracted into the left subclavian artery and digital subtraction angiography was performed of ensuring patency of the left labia and artery and vertebral artery. The AV graft was also visualized, which demonstrated mild narrowing at the venous anastomosis. The rest of the graft was patent. The central venous circulation was also patent. Sheath was retracted into the abdominal aorta and a wire was retracted into the thoracic aorta. Sheath was then removed exchanged for 6 [place] Angio-Seal which was used to close the arteriotomy with near immediate hemostasis. No immediate postprocedural cup rotation. Patient tolerated the procedure well. Dermabond applied. Sterile dressing applied. Patient had a palpable left ulnar and radial artery at the conclusion of the procedure. Patient was alert and oriented, not encephalopathic from hypoglycemia which had been corrected. FINDINGS: Please see procedure note above IMPRESSION: 1. Successful selection of the left upper extremity and angiography of the left upper extremity. 2. Successful revascularization of the left brachial artery. 3. Successful placement with fluoroscopic and sonography guidance of a left common femoral vein triple lumen catheter.
--- NOTE | 2017-04-20 16:09 | Progress Note ---
Assessment and Plan 47 YO Male with ESRD on HD(M,W,F), HTN, DM, Gastroparesis, CHF, COPD presents to ED for evaluation. Pt states that his blood sugar is really high. Pt was seen in an outpatient clinic for a preop evaluation for a vascular procedure and a lesion on his Left middle finger. Pt was found to have an elevated glucose and was instructed to present to ED for evaluation. Pt seen and evaluated in ED and found to be in DKA and fluid overload. DKA (diabetic ketoacidoses) Placed on DKA Protocol: Insulin drip, serial bmp, monitor anion gap, gentle ivf, BG much improved, insulin drip now off will continue on ADA diet and subcu insulin ESRD (end stage renal disease) on dialysis Nephrology consulted in ED, dialysis as per renal service Finger ulcer wound care consulted, s/p Angioplasty of the left brachial artery with a 6 mg angioplasty balloon by vascular consulted ortho for further recommendation, which is pending Noncompliance with medication regimen PT counseled COPD not on any exacerbation Treat with as needed nebulizer CHF with EF 40-45% (chronic) cont aspirin, statin No ACEI or beta juan as BP at low normotensive DVT prophylaxis placed on heparin ` Subjective Date of service: 04/20/17 Interval history: Patient seen and examined. Medical records and medication list reviewed. No acute event overnight noted by the RN. Patient is s/p angiogram with Angioplasty of the left brachial artery with a 6 mg angioplasty balloon tolerated procedure well, left hand pain much improved Objective - Exam Narrative Exam: GENERAL: well-developed AAM lying on bed appeared to be in no discomfort. HEENT: Normocephalic. Atraumatic. No conjunctival congestion or icterus. Patient has moist mucous membranes. NECK: Supple. Trachea midline. CHEST/LUNGS: Clear to auscultated bilaterally, breathing nonlabored. No wheezes crackles or rhonchi. HEART/CARDIOVASCULAR: Regular in rate and rhythm. S1 and S2 positive. ABDOMEN: Abdomen is soft, nontender. Patient has normal bowel sounds. SKIN: There is no rash. Warm and dry. NEURO: No focal motor deficit. Follows command. MUSCULOSKELETAL: ulceration of the lateral aspect of the left third digit along the middle phalanx. EXTRIMITY: No edema, no cyanosis or clubbing. PSYCH: Cooperative. - Constitutional Vitals: Vital Signs - 12hr 04/20/17 08:00 Temperature 97.9 F Pulse Rate [ 84 Right Radial] Respiratory 18 Rate Blood Pressure 112/68 [Right Arm] O2 Sat by Pulse 97 Oximetry - Labs CBC & Chem 7: 04/18/17 13:25 04/19/17 17:15 Labs: Abnormal lab results 04/19/17 04/19/17 04/19/17 Range/Units 15:25 17:15 21:04 Sodium 136 L (137-145) mmol/L Chloride 97.4 L 94.6 L (98-107) mmol/L BUN 5 L 5 L (9-20) mg/dL Creatinine 3.8 H D 4.1 H (0.8-1.5) mg/dL Glucose 214 H 340 H (75-100) mg/dL POC Glucose 392 H (70-105) 04/20/17 04/20/17 04/20/17 Range/Units 06:05 06:59 07:42 Sodium (137-145) mmol/L Chloride (98-107) mmol/L BUN (9-20) mg/dL Creatinine (0.8-1.5) mg/dL Glucose (75-100) mg/dL POC Glucose < 40 L 45 L < 40 L (70-105)
[2017-04-20] MEDS: ZOFRAN IV PRN (17:50)
[2017-04-20 17:58] LABS: ISTAT Base Excess -3; ISTAT DEVICE 0; ISTAT HCO3 23.2; ISTAT PCO2 44.6 (35-45); ISTAT PH 7.324 (7.35-7.45); ISTAT PO2 98 (80-105); ISTAT SO2 97; ISTAT TCO2 25
[2017-04-21] MEDS: ZOFRAN IV PRN ×3 (01:07→18:09)
[2017-04-21] MEDS: PERCOCET 5/325 PO PRN ×4 (01:07→22:13)
[2017-04-21] MEDS: E.E.S. 200 PO SCH ×2 (05:37→12:00)
[2017-04-21] MEDS: LEVEMIR SUB-Q SCH (08:45)
--- NOTE | 2017-04-21 09:01 | XRay Report ---
X-ray RIGHT MIDDLE FINGER THREE VIEWS: 04/21/17 CLINICAL: Ulcer of the middle finger. FINDINGS: No fracture or dislocation. Soft tissue swelling of the middle finger and a soft tissue ulcer on the medial aspect of the distal half of the digit. No foreign body. There is questionable air in the web spaces of digits 2 through five. The bones are normal. The joint spaces are normal. IMPRESSION: Soft tissue ulcer of the middle finger and possible soft tissue air in the web spaces of the hand. No signs of osteomyelitis.
[2017-04-21] MEDS: HALFPRIN EC PO SCH (09:11)
[2017-04-21] MEDS: LOVENOX SUB-Q SCH (09:11)
[2017-04-21] MEDS: PROTONIX PO SCH (09:12)
[2017-04-21] MEDS ORDERED: BENADRYL PO ONE (11:30)
[2017-04-21] MEDS ORDERED: NACL 0.9 (PRIMING MACHINE ONLY DIALYSIS) MC ONE (12:04)
[2017-04-21] MEDS: PROCRIT IV PRN (12:07)
--- NOTE | 2017-04-21 12:15 | Progress Note ---
Assessment and Plan (1) DKA (diabetic ketoacidoses) Current Visit: Yes Status: Acute Qualifiers: Diabetes mellitus type: D Diabetes mellitus complication detail: D Plan to address problem: - resolved - again encouraged better medication compliance - continue SSI - re-introduced home meds (2) ESRD (end stage renal disease) on dialysis Current Visit: Yes Status: Acute Plan to address problem: - continue HD/UF per nephrology - follow electrolytes and correct as necessary (3) Pleural effusion, right Current Visit: No Status: Acute Plan to address problem: - not clinically evident - continue HD/UF for volume control - CXR if clinically indicated (4) COPD (chronic obstructive pulmonary disease) Current Visit: Yes Status: Acute Qualifiers: COPD type: C Chronic bronchitis type: C Emphysema type: E Plan to address problem: - earlier denies a history of COPD (but states that he has used broncchodilators in past) - continue prn albuterol - outpatient pulmonary clinic f/up +/- PFT's Subjective Date of service: 04/21/17 Principal diagnosis: DKA; COPD Interval history: Seen and examined at bedside; 24 hour events reviewed; nursing and respiratory care staff consulted; no adverse overnight events reported to me; continues to do well; denies acute chest pains or increased SOB Objective Vital Signs - 12hr 04/21/17 04/21/17 04/21/17 04:29 08:00 10:00 Temperature 98.9 F 98.1 F 98.2 F Pulse Rate 95 H Pulse Rate [ 89 94 H Right Radial] Respiratory 20 16 18 Rate Blood Pressure 140/82 Blood Pressure 95/64 112/62 [Right Arm] O2 Sat by Pulse 100 98 Oximetry 04/21/17 04/21/17 04/21/17 10:15 10:30 10:45 Temperature Pulse Rate 92 H 87 92 H Pulse Rate [ Right Radial] Respiratory Rate Blood Pressure 126/76 100/45 107/53 Blood Pressure [Right Arm] O2 Sat by Pulse Oximetry 04/21/17 04/21/17 04/21/17 11:00 11:15 11:30 Temperature Pulse Rate 88 89 92 H Pulse Rate [ Right Radial] Respiratory Rate Blood Pressure 123/76 122/76 117/72 Blood Pressure [Right Arm] O2 Sat by Pulse Oximetry Constitutional: no acute distress, alert Eyes: non-icteric ENT: oropharynx moist Neck: supple, no lymphadenopathy Effort: normal Ascultation: Bilateral: diminished breath sounds, rales (posterior bases) Cardiovascular: regular rate and rhythm Gastrointestinal: normoactive bowel sounds, soft, non-tender, non-distended Integumentary: normal Extremities: no cyanosis, no edema, pulses normal, no ischemia or petechiae Neurologic: normal mental status, non-focal exam, pupils equal and round, motor strength normal and Psychiatric: mood appropriate, affect normal CBC and BMP: 04/18/17 13:25 04/22/17 13:36 ABG, PT/INR, D-dimer: ABG POC ABG pH 7.324 (7.35-7.45) L 04/20/17 17:49 POC ABG pCO2 44.6 (35-45) 04/20/17 17:49 POC ABG pO2 98 (80-105) 04/20/17 17:49 POC ABG HCO3 23.2 04/20/17 17:49 POC ABG Total CO2 25 04/20/17 17:49 POC ABG O2 Sat 97 04/20/17 17:49 Abnormal lab findings: Abnormal Labs 04/18/17 04/18/17 04/18/17 16:19 16:19 18:37 POC ABG pH Sodium 127 L 131 L Potassium 6.0 H Chloride 91.8 L 93.7 L Carbon Dioxide 18 L 17 L BUN Creatinine 7.9 H 7.8 H Glucose 690 H* 652 H* POC Glucose Hemoglobin A1c 10.4 H Calcium 7.6 L 7.9 L 04/18/17 04/18/17 04/18/17 20:05 21:45 23:33 POC ABG pH Sodium 135 L Potassium 3.5 L Chloride 97.9 L Carbon Dioxide 20 L BUN Creatinine 7.9 H 8.2 H Glucose 49 L 225 H POC Glucose 183 H Hemoglobin A1c Calcium 8.3 L 7.9 L 04/19/17 04/19/17 04/19/17 04:41 06:14 08:17 POC ABG pH Sodium 135 L 135 L Potassium Chloride Carbon Dioxide 20 L 21 L BUN Creatinine 8.4 H 8.7 H Glucose 230 H 199 H POC Glucose 227 H Hemoglobin A1c Calcium 8.0 L 7.7 L 06/14/17 06/14/17 06/14/17 14:48 15:14 15:25 POC ABG pH Sodium Potassium Chloride 97.4 L Carbon Dioxide BUN 5 L Creatinine 3.8 H D Glucose 214 H POC Glucose 268 H 233 H Hemoglobin A1c Calcium 04/19/17 04/19/17 04/20/17 17:15 21:04 06:05 POC ABG pH Sodium 136 L Potassium Chloride 94.6 L Carbon Dioxide BUN 5 L Creatinine 4.1 H Glucose 340 H POC Glucose 392 H < 40 L Hemoglobin A1c Calcium 04/20/17 04/20/17 04/20/17 06:59 07:42 16:43 POC ABG pH Sodium Potassium Chloride Carbon Dioxide BUN Creatinine Glucose POC Glucose 45 L < 40 L 253 H Hemoglobin A1c Calcium 04/20/17 04/20/17 04/21/17 17:49 21:24 06:40 POC ABG pH 7.324 L Sodium Potassium Chloride Carbon Dioxide BUN Creatinine Glucose POC Glucose > 500 H 162 H Hemoglobin A1c Calcium
--- NOTE | 2017-04-21 12:33 | Progress Note ---
Assessment and Plan Impression * End-stage renal disease on maintenance hemodialysis * Peripheral vascular disease * Hypertension * COPD * Diabetes * Anemia secondary to ESRD Recommendations * Patient is undergoing hemodialysis. Tolerating well * Shall keep him on Monday, Wednesdays and Fridays schedule for now * Patient is status post angioplasty of his left brachial artery * Adjust diet and meds for ESRD state * No IV, BP or venipuncture in his access arm * Binders with diet * Procrit with dialysis per protocol Subjective Date of service: 04/21/17 Principal diagnosis: DKA; COPD Interval history: Patient is currently undergoing dialysis. Tolerating well. He does complain of some itching and requesting Benadryl. No shortness of breath. No nausea or vomiting. Objective - Vital Signs Vital signs: Vital Signs - 12hr 04/21/17 04/21/17 04/21/17 04:29 08:00 10:00 Temperature 98.9 F 98.1 F 98.2 F Pulse Rate 95 H Pulse Rate [ 89 94 H Right Radial] Respiratory 20 16 18 Rate Blood Pressure 140/82 Blood Pressure 95/64 112/62 [Right Arm] O2 Sat by Pulse 100 98 Oximetry 04/21/17 04/21/17 04/21/17 10:15 10:30 10:45 Temperature Pulse Rate 92 H 87 92 H Pulse Rate [ Right Radial] Respiratory Rate Blood Pressure 126/76 100/45 107/53 Blood Pressure [Right Arm] O2 Sat by Pulse Oximetry 04/21/17 04/21/17 04/21/17 11:00 11:15 11:30 Temperature Pulse Rate 88 89 92 H Pulse Rate [ Right Radial] Respiratory Rate Blood Pressure 123/76 122/76 117/72 Blood Pressure [Right Arm] O2 Sat by Pulse Oximetry - General Appearance General appearance: well-developed, well-nourished, appears stated age EENT: PERRL, mucous membranes moist Neck: no JVD, no thyromegaly, no carotid bruit, supple Respiratory: Present: Clear to Ascultation Cardiology: regular, normal heart rate, S1S2, no murmurs Gastrointestinal: normal, normoactive bowel sounds Integumentary: no rash, warm and dry, other (AV fistula in his left upper arm. Cannulated for dialysis. Left middle finger wrapped with a bandage) - Lab 04/18/17 13:25 04/19/17 17:15 Most recent lab results Calcium 8.7 mg/dL (8.4-10.2) 04/19/17 17:15 Phosphorus 4.50 mg/dL (2.5-4.5) 04/18/17 16:19 Magnesium 2.00 mg/dL (1.7-2.3) 04/18/17 16:19
--- NOTE | 2017-04-21 12:41 | Discharge Summary ---
Providers - Providers Date of Admission: 04/18/17 15:58 Date of discharge: 04/21/17 Attending physician: ANDRES SALINAS 04/18/17 17:20 Consult to Physician [CONS] Urgent Consulting Provider: ROME GIBBS Reason For Exam: ccu admit Place consult to:: Dr. Vázquez Notified:: Y Was contact made?: Yes If yes, spoke with:: Elliott NUÑEZ Time called:: 17:25 04/19/17 09:28 Consult to Physician [CONS] Routine Consulting Provider: HUGO SALGADO Reason For Exam: ESRD Place consult to:: renal Notified:: office Phone number called:: [phone] Was contact made?: Yes If yes, spoke with:: radha Time called:: 10:17 04/19/17 09:40 Consult to Wound/ET Nurse [CONS] Routine Reason For Exam: wound eval 04/19/17 14:22 Consult to Physician [CONS] Routine Consulting Provider: LOU GALEANO Reason For Exam: 4th infected digit Place consult to:: director of curriculum and instruction ortho Notified:: dr. galeano Phone number called:: [phone] Was contact made?: No Time called:: 15:10 Comment:: left message on cell phone 04/20/17 08:35 Midline [Consult to PICC Line RN] [CONS] Stat Reason For Exam: no INT FOR SURGERY TODAY Type Line:: Midline Primary care physician: ELECTROPHYSIOLOGY SCIENTIST Hospitalization Condition: Stable Disposition: DC-01 TO HOME OR SELFCARE Time spent for discharge: 32 minutes Core Measure Documentation - Palliative Care Palliative Care/ Comfort Measures: Not Applicable - Core Measures Any of the following diagnoses?: none Exam - Physical Exam Narrative exam: GENERAL: well-developed AAM lying on bed appeared to be in no discomfort. HEENT: Normocephalic. Atraumatic. No conjunctival congestion or icterus. Patient has moist mucous membranes. NECK: Supple. Trachea midline. CHEST/LUNGS: Clear to auscultated bilaterally, breathing nonlabored. No wheezes crackles or rhonchi. HEART/CARDIOVASCULAR: Regular in rate and rhythm. S1 and S2 positive. ABDOMEN: Abdomen is soft, nontender. Patient has normal bowel sounds. SKIN: There is no rash. Warm and dry. NEURO: No focal motor deficit. Follows command. MUSCULOSKELETAL: ulceration of the lateral aspect of the left third digit along the middle phalanx. EXTRIMITY: No edema, no cyanosis or clubbing. PSYCH: Cooperative. - Constitutional Vitals: Temp Pulse Resp BP Pulse Ox 98.2 F 89 18 122/76 98 04/21/17 10:00 04/21/17 11:45 04/21/17 10:00 04/21/17 11:45 04/21/17 08:00 Plan Activity: advance as tolerated Weight Bearing Status: Weight Bear as Tolerated Diet: diabetic, renal Wound: per wound nurse instructions Follow up with: PRIMARY CARE,MD [Primary Care Provider] - 7 Days Prescriptions: AtorvaSTATin [Lipitor] 20 mg PO QHS #30 tablet Aspirin EC [Aspirin Enteric Coated TAB] 81 mg PO QDAY #30 tablet Clindamycin [Clindamycin CAP] 600 mg PO BID #14 capsule Insulin Detemir [Levemir] 10 units SUB-Q QAMDIAB 30 Days Pantoprazole [Protonix TAB] 40 mg PO QDAY #30 tablet
[2017-04-21] MEDS ORDERED: CLEOCIN PO SCH (14:00)
--- NOTE | 2017-04-21 14:54 | Vascular Lab Report ---
MISCELLANEOUS VESSEL IDENTIFICATION: COMMENTS ON THE SCAN: The left common femoral vein was identified and under real-time ultrasound guidance was cannulated. IMPRESSION: Successful ultrasound guided vein cannulation.
--- NOTE | 2017-04-21 14:57 | Vascular Lab Report ---
MISCELLANEOUS VESSEL IDENTIFICATION: COMMENTS ON THE SCAN: The right common femoral artery was identified and under real-time ultrasound guidance was cannulated. IMPRESSION: Successful ultrasound guided arterial cannulation.
--- NOTE | 2017-04-21 15:11 | Event Note ---
Date: 04/21/17 Patient is awake and alert without specific complaint at present. He is status post revascularization of his left upper extremity secondary steal syndrome. He states his arm pain is significantly improved, he continues to have mild-to- moderate discomfort to the lower arm and hand. Patient was draining purulence from his left third finger upon admission. An x- ray of the digit suggest possible soft tissue air in the webspace of the hand. Orthopedics have been consulted. When hold discharge until patient has been evaluated. Patient states the hemodialysis nurse had difficulty accessing his AV graft yesterday. He has a slightly diminished thrill from the midportion of the access distally. He likely would benefit from fistulogram. Patient will follow -up in our office as an outpatient.
--- NOTE | 2017-04-21 15:35 | Progress Note ---
Assessment and Plan 47 YO Male with ESRD on HD(M,W,F), HTN, DM, Gastroparesis, CHF, COPD presents to ED for evaluation. Pt states that his blood sugar is really high. Pt was seen in an outpatient clinic for a preop evaluation for a vascular procedure and a lesion on his Left middle finger. Pt was found to have an elevated glucose and was instructed to present to ED for evaluation. Pt seen and evaluated in ED and found to be in DKA and fluid overload. DKA (diabetic ketoacidoses) Placed on DKA Protocol: Insulin drip, serial bmp, monitor anion gap, gentle ivf, BG much improved, insulin drip now off will continue on ADA diet and subcu insulin Superior vena cava steel syndrom s/p Angioplasty of the left brachial artery with a 6 mg angioplasty balloon by vascular ESRD (end stage renal disease) on dialysis Nephrology consulted in ED, dialysis as per renal service pt has AV graft with diminished thrill, need fistulogram as outpt Finger ulcer wound care following consulted ortho for further recommendation, which is pending on clindamycin iv Noncompliance with medication regimen Patient counseled COPD not on any exacerbation Treat with as needed nebulizer CHF with EF 40-45% (chronic) cont aspirin, statin No ACEI or beta juan as BP at low normotensive DVT prophylaxis placed on heparin ` Subjective Date of service: 04/21/17 Principal diagnosis: DKA; COPD Interval history: Patient seen and examined. Medical records and medication list reviewed. No acute event overnight noted by the RN. still having purulent discharges from the left 3rd finger XRY of hand showed soft tissue infection with gas formation at the finger web space Objective - Exam Narrative Exam: GENERAL: well-developed AAM lying on bed appeared to be in no discomfort. HEENT: Normocephalic. Atraumatic. No conjunctival congestion or icterus. Patient has moist mucous membranes. NECK: Supple. Trachea midline. CHEST/LUNGS: Clear to auscultated bilaterally, breathing nonlabored. No wheezes crackles or rhonchi. HEART/CARDIOVASCULAR: Regular in rate and rhythm. S1 and S2 positive. ABDOMEN: Abdomen is soft, nontender. Patient has normal bowel sounds. SKIN: There is no rash. Warm and dry. NEURO: No focal motor deficit. Follows command. MUSCULOSKELETAL: ulceration of the lateral aspect of the left third digit along the middle phalanx. EXTRIMITY: No edema, no cyanosis or clubbing. PSYCH: Cooperative. - Constitutional Vitals: Vital Signs - 12hr 04/21/17 04/21/17 04/21/17 04:29 08:00 10:00 Temperature 98.9 F 98.1 F 98.2 F Pulse Rate 95 H Pulse Rate [ 89 94 H Right Radial] Respiratory 20 16 18 Rate Blood Pressure 140/82 Blood Pressure 95/64 112/62 [Right Arm] O2 Sat by Pulse 100 98 Oximetry 04/21/17 04/21/17 04/21/17 10:15 10:30 10:45 Temperature Pulse Rate 92 H 87 92 H Pulse Rate [ Right Radial] Respiratory Rate Blood Pressure 126/76 100/45 107/53 Blood Pressure [Right Arm] O2 Sat by Pulse Oximetry 04/21/17 04/21/17 04/21/17 11:00 11:15 11:30 Temperature Pulse Rate 88 89 92 H Pulse Rate [ Right Radial] Respiratory Rate Blood Pressure 123/76 122/76 117/72 Blood Pressure [Right Arm] O2 Sat by Pulse Oximetry 04/21/17 04/21/17 04/21/17 11:45 12:00 12:15 Temperature Pulse Rate 89 91 H 92 H Pulse Rate [ Right Radial] Respiratory Rate Blood Pressure 122/76 113/70 122/75 Blood Pressure [Right Arm] O2 Sat by Pulse Oximetry 04/21/17 04/21/17 04/21/17 12:30 12:45 13:00 Temperature Pulse Rate 91 H 90 88 Pulse Rate [ Right Radial] Respiratory Rate Blood Pressure 138/82 125/65 130/87 Blood Pressure [Right Arm] O2 Sat by Pulse Oximetry 04/21/17 04/21/17 04/21/17 13:15 13:30 13:50 Temperature 98.1 F Pulse Rate 88 90 93 H Pulse Rate [ Right Radial] Respiratory 18 Rate Blood Pressure 132/86 127/77 146/82 Blood Pressure [Right Arm] O2 Sat by Pulse Oximetry - Labs CBC & Chem 7: 04/18/17 13:25 04/21/17 15:29 Labs: Abnormal lab results 04/20/17 04/20/17 04/20/17 Range/Units 16:43 17:49 21:24 POC ABG pH 7.324 L (7.35-7.45) POC Glucose 253 H > 500 H (70-105) 04/21/17 Range/Units 06:40 POC ABG pH (7.35-7.45) POC Glucose 162 H (70-105)
[2017-04-21 16:24] LABS: BUN/Creatinine Ratio 1.42; Calcium 8.8 mg/dL (8.4-10.2); Chloride 99.3 mmol/L (98-107); Potassium 4.6 mmol/L (3.6-5.0)
[2017-04-21] MEDS: CLEOCIN 600 MG/50 mL 600 MG/50 ML BAG IV SCH (18:03)
[2017-04-22] MEDS: CLEOCIN 600 MG/50 mL 600 MG/50 ML BAG IV SCH ×2 (01:10→11:05)
[2017-04-22] MEDS: ZOFRAN IV PRN ×2 (01:11→09:11)
[2017-04-22] MEDS: PERCOCET 5/325 PO PRN ×3 (06:15→16:44)
[2017-04-22] MEDS: LEVEMIR SUB-Q SCH (09:05)
[2017-04-22] MEDS: HALFPRIN EC PO SCH (11:02)
[2017-04-22] MEDS: LOVENOX SUB-Q SCH (11:02)
[2017-04-22] MEDS: PROTONIX PO SCH (11:02)
--- NOTE | 2017-04-22 11:53 | Discharge Summary ---
Providers - Providers Date of Admission: 04/18/17 15:58 Date of discharge: 04/22/17 Attending physician: DEVIN RAMIREZ 04/18/17 17:20 Consult to Physician [CONS] Urgent Consulting Provider: ROME GIBBS Reason For Exam: ccu admit Place consult to:: Dr. Vázquez Notified:: Y Was contact made?: Yes If yes, spoke with:: Elliott NUÑEZ Time called:: 17:25 04/19/17 09:28 Consult to Physician [CONS] Routine Consulting Provider: HUGO SALGADO Reason For Exam: ESRD Place consult to:: renal Notified:: office Phone number called:: [phone] Was contact made?: Yes If yes, spoke with:: radha Time called:: 10:17 04/19/17 09:40 Consult to Wound/ET Nurse [CONS] Routine Reason For Exam: wound eval 04/19/17 14:22 Consult to Physician [CONS] Routine Consulting Provider: LOU GALEANO Reason For Exam: 4th infected digit Place consult to:: special education aide ortho Notified:: dr. galeano Phone number called:: [phone] Was contact made?: No Time called:: 15:10 Comment:: left message on cell phone 04/20/17 08:35 Midline [Consult to PICC Line RN] [CONS] Stat Reason For Exam: no INT FOR SURGERY TODAY Type Line:: Midline Primary care physician: RETAIL SALESMAN Hospitalization Reason for admission: DKA Condition: Stable Procedures: HD, angioplasty left brachial artery and left femoral catheter placement Hospital course: 47 YO Male with ESRD on HD(M,W,F), HTN, DM, Gastroparesis, CHF, COPD presents to ED for evaluation. Pt states that his blood sugar is really high. Pt was seen in an outpatient clinic for a preop evaluation for a vascular procedure and a lesion on his Left middle finger. Pt was found to have an elevated glucose and was instructed to present to ED for evaluation. Pt seen and evaluated in ED and found to be in DKA and fluid overload. Assessment and plan: DKA (diabetic ketoacidoses) Placed on DKA Protocol: Insulin drip, serial bmp, monitor anion gap, gentle ivf, BG much improved, insulin drip now off stable for discharge We will provide scripts for basal insulin and regular insulin and syringes per patient request Superior vena cava steel syndrom s/p Angioplasty of the left brachial artery with a 6 mg angioplasty balloon by vascular ESRD (end stage renal disease) on dialysis Nephrology consulted in ED, dialysis as per renal service pt has AV graft with diminished thrill, need fistulogram as outpt He will follow-up with vascular for outpatient fistulogram He says he goes to hemodialysis in [place] Finger ulcer Wound is dry and now Be hemolytic tender We will discharge the patient on oral Cleocin for 7 days Noncompliance with medication regimen Patient counseled COPD not on any exacerbation Treat with as needed nebulizer CHF with EF 40-45% (chronic) cont aspirin, statin No ACEI or beta juan as BP at low normotensive Patient is alert and oriented and clinically and medically stable for discharge His blood sugars are still moderately high Patient states that his diabetes is labile, and his sugars drop when he exceeds more than 10 units of Levemir insulin twice daily Prefers to keep the same dose and continue with the sliding scale Disposition: DC- TO HOME OR SELFCARE Time spent for discharge: 35 min Core Measure Documentation - Palliative Care Palliative Care/ Comfort Measures: Not Applicable - Core Measures Any of the following diagnoses?: none Exam - Constitutional Vitals: Temp Pulse Resp BP Pulse Ox 98.3 F 95 H 14 112/74 100 04/22/17 07:30 04/22/17 07:30 04/22/17 07:30 04/22/17 07:30 04/22/17 07:30 General appearance: Present: no acute distress - EENT Eyes: Present: PERRL, EOM intact ENT: hearing intact, clear oral mucosa, no thrush - Neck Neck: Present: supple, normal ROM. Absent: masses or JVD - Respiratory Respiratory effort: normal Respiratory: bilateral: CTA - Cardiovascular Rhythm: regular Heart Sounds: Present: S1 & S2 - Extremities Extremities: No edema Extremity abnormal: other (dry ulcer over the mid left index finger. Minimally tender and there is no discharge) - Abdominal General gastrointestinal: Present: soft, non-tender. Absent: hepatomegaly, splenomegaly - Rectal Rectal Exam: deferred - Musculoskeletal Musculoskeletal: strength equal bilaterally - Neurologic Neurologic: no focal deficits Plan Activity: advance as tolerated Weight Bearing Status: Full Weight Bearing Diet: low fat, low cholesterol, low salt, diabetic, renal, low carbohydrate Wound: keep clean and dry Special Instructions: restrict fluid intake to (1000 cc/day) Follow up with: PRIMARY CARE, [Primary Care Provider] - 7 Days ROXI YUSUF MD [Staff Physician] - 7 Days BOBBY ALBARRAN MD [Staff Physician] - 7 Days Prescriptions: Aspirin EC [Aspirin Enteric Coated TAB] 81 mg PO QDAY #30 tablet AtorvaSTATin [Lipitor] 20 mg PO QHS #30 tablet Clindamycin [Clindamycin CAP] 600 mg PO BID #14 capsule Insulin Detemir [Levemir] 10 units SUB-Q QAMDIAB 30 Days Insulin Regular, Human [HumuLIN R] 6 units SUB-Q ACHS #10 ml oxyCODONE /ACETAMINOPHEN [Percocet 5/325 mg] 1 tab PO Q4H PRN #14 tablet PRN Reason: Pain, Moderate (4-6) Pantoprazole [Protonix TAB] 40 mg PO QDAY #30 tablet
[2017-04-22] MEDS: D50W (25GM) IV PRN (12:09)
--- NOTE | 2017-04-22 14:32 | Progress Note ---
Assessment and Plan Impression * End-stage renal disease on maintenance hemodialysis * Peripheral vascular disease * Hypertension * COPD * Diabetes * Anemia secondary to ESRD Recommendations * Uneventful hemodialysis yesterday * Shall keep him on Monday, Wednesdays and Fridays schedule for now * Patient is status post angioplasty of his left brachial artery * Adjust diet and meds for ESRD state * No IV, BP or venipuncture in his access arm * Binders with diet * Procrit with dialysis per protocol * Okay to discharge patient home from renal standpoint Subjective Date of service: 04/22/17 Principal diagnosis: DKA; COPD Interval history: Patient feels well this morning. Anxious to go home. Denies any shortness of breath. Uneventful hemodialysis yesterday Objective - Vital Signs Vital signs: Vital Signs - 12hr 04/22/17 04/22/17 04:21 07:30 Temperature 98.9 F 98.3 F Pulse Rate [ 94 H 95 H Right Radial] Respiratory 18 14 Rate Blood Pressure 93/61 112/74 [Right Arm] O2 Sat by Pulse 100 100 Oximetry - General Appearance General appearance: well-developed, well-nourished, appears stated age EENT: PERRL, mucous membranes moist Neck: no JVD, no thyromegaly, no carotid bruit, supple Respiratory: Present: Clear to Ascultation Cardiology: regular, normal heart rate Gastrointestinal: normal, normoactive bowel sounds Integumentary: no rash, other (AV fistula in his left upper arm. Good bruit and thrill. Ulceration noted in his left middle finger) - Lab 04/18/17 13:25 04/22/17 13:36 Most recent lab results Calcium 8.8 mg/dL (8.4-10.2) 04/21/17 15:29 Phosphorus 4.50 mg/dL (2.5-4.5) 04/18/17 16:19 Magnesium 2.00 mg/dL (1.7-2.3) 04/18/17 16:19
--- NOTE | 2017-04-22 15:11 | Progress Note ---
Assessment and Plan - Patient Problems (1) COPD (chronic obstructive pulmonary disease) Current Visit: Yes Status: Acute Qualifiers: COPD type: C Chronic bronchitis type: C Emphysema type: E Qualified Code(s): J42 - Unspecified chronic bronchitis Plan to address problem: Albuterol inhalor 2 puffs po qid prn for shortness of breath. Counselled to stop smoking. PFTs as out patient. (2) DKA (diabetic ketoacidoses) Current Visit: Yes Status: Acute Qualifiers: Diabetes mellitus type: D Diabetes mellitus complication detail: D Plan to address problem: Improved. Management as per primary care. (3) ESRD (end stage renal disease) on dialysis Current Visit: Yes Status: Acute Plan to address problem: Management as per nephrology. Subjective Date of service: 04/22/17 Principal diagnosis: DKA; COPD Interval history: No complaint of chest pain or shortness of breath or cough. Patient still smoking, Before coming into the hospital.Counselled to stop smoking. If any pulmonary help needed can come to my office as out patient. Objective Vital Signs - 12hr 04/22/17 04/22/17 04:21 07:30 Temperature 98.9 F 98.3 F Pulse Rate [ 94 H 95 H Right Radial] Respiratory 18 14 Rate Blood Pressure 93/61 112/74 [Right Arm] O2 Sat by Pulse 100 100 Oximetry Constitutional: no acute distress, alert Eyes: non-icteric ENT: oropharynx moist Neck: supple, no lymphadenopathy Effort: normal Ascultation: Bilateral: diminished breath sounds, rales (posterior bases) Cardiovascular: regular rate and rhythm Gastrointestinal: normoactive bowel sounds, soft, non-tender, non-distended Integumentary: normal Extremities: no cyanosis, no edema, pulses normal, no ischemia or petechiae Neurologic: normal mental status, non-focal exam, pupils equal and round, motor strength normal and Psychiatric: mood appropriate, affect normal CBC and BMP: 04/18/17 13:25 04/22/17 13:36 ABG, PT/INR, D-dimer: ABG POC ABG pH 7.324 (7.35-7.45) L 04/20/17 17:49 POC ABG pCO2 44.6 (35-45) 04/20/17 17:49 POC ABG pO2 98 (80-105) 04/20/17 17:49 POC ABG HCO3 23.2 04/20/17 17:49 POC ABG Total CO2 25 04/20/17 17:49 POC ABG O2 Sat 97 04/20/17 17:49 Abnormal lab findings: Abnormal Labs 04/18/17 04/18/17 04/18/17 16:19 16:19 18:37 POC ABG pH Sodium 127 L 131 L Potassium 6.0 H Chloride 91.8 L 93.7 L Carbon Dioxide 18 L 17 L BUN Creatinine 7.9 H 7.8 H Glucose 690 H* 652 H* POC Glucose Hemoglobin A1c 10.4 H Calcium 7.6 L 7.9 L 04/18/17 04/18/17 04/18/17 20:05 21:45 23:33 POC ABG pH Sodium 135 L Potassium 3.5 L Chloride 97.9 L Carbon Dioxide 20 L BUN Creatinine 7.9 H 8.2 H Glucose 49 L 225 H POC Glucose 183 H Hemoglobin A1c Calcium 8.3 L 7.9 L 04/19/17 04/19/17 04/19/17 04:41 06:14 08:17 POC ABG pH Sodium 135 L 135 L Potassium Chloride Carbon Dioxide 20 L 21 L BUN Creatinine 8.4 H 8.7 H Glucose 230 H 199 H POC Glucose 227 H Hemoglobin A1c Calcium 8.0 L 7.7 L 04/19/17 04/19/17 04/19/17 14:48 15:14 15:25 POC ABG pH Sodium Potassium Chloride 97.4 L Carbon Dioxide BUN 5 L Creatinine 3.8 H D Glucose 214 H POC Glucose 268 H 233 H Hemoglobin A1c Calcium 04/19/17 04/19/17 04/20/17 17:15 21:04 06:05 POC ABG pH Sodium 136 L Potassium Chloride 94.6 L Carbon Dioxide BUN 5 L Creatinine 4.1 H Glucose 340 H POC Glucose 392 H < 40 L Hemoglobin A1c Calcium 04/20/17 04/20/17 04/20/17 06:59 07:42 16:43 POC ABG pH Sodium Potassium Chloride Carbon Dioxide BUN Creatinine Glucose POC Glucose 45 L < 40 L 253 H Hemoglobin A1c Calcium 04/20/17 04/20/17 04/21/17 17:49 21:24 06:40 POC ABG pH 7.324 L Sodium Potassium Chloride Carbon Dioxide BUN Creatinine Glucose POC Glucose > 500 H 162 H Hemoglobin A1c Calcium 04/21/17 04/21/17 04/21/17 15:29 17:22 20:57 POC ABG pH Sodium Potassium Chloride Carbon Dioxide BUN 5 L Creatinine 3.5 H Glucose 155 H POC Glucose 302 H 137 H Hemoglobin A1c Calcium 04/22/17 04/22/17 04/22/17 06:29 11:59 13:36 POC ABG pH Sodium Potassium Chloride Carbon Dioxide BUN Creatinine Glucose 218 H POC Glucose 420 H < 40 L Hemoglobin A1c Calcium
[2017-04-22] MEDS ORDERED: TRIPLE ANTIBIOTIC TP ONE (18:06)
[2017-04-22 18:31] VITALS: BP 95/70
[2017-04-22] MEDS ORDERED: TRIPLE ANTIBIOTIC TP SCH (20:00)
--- NOTE | 2017-04-23 01:34 | Consultation ---
CONSULTED BY: Dr. Alexandre PIPE WASHER: Dr. Demond Chavez REASON FOR CONSULTATION: COPD and his smoking history. Dr. Alexandre Thank you for asking us to participate in the care of this patient. HISTORY OF PRESENT ILLNESS: This is a 47-year-old -[place] male admitted for BKA. The patient has a history of COPD, CHF, diabetes mellitus, gastroparesis and end-stage renal disease, on dialysis. The patient has a history of smoking half a pack a day for 30 years. Denies alcohol or drug abuse and denies any allergies to the medications. He is not . He has 3 children. The patient was seen in outpatient clinic for vascular procedure and the patient was found to have an elevated glucose and the patient came to the Emergency Room. The patient found to be in BKA and the patient was treated with insulin and IV fluids and his BKA is improved and the patient is noncompliant with his medications and I counseled him the importance of taking his medications. PHYSICAL EXAMINATION: GENERAL: The patient is alert, awake, not in any acute respiratory distress. HEENT: Pupils are equal and reactive. NECK: Supple. RESPIRATORY: There is slight wheezing and no rales and rhonchi. CARDIOVASCULAR: Regular rate and rhythm. ABDOMEN: Soft. Bowel sounds present. No CVA tenderness. MUSCULOSKELETAL: No edema. No calf tenderness. NEUROLOGIC: DTRs present. Babinski negative. No focal neurological deficits. LABORATORY DATA: The patient's CBC: WBC 6.1, hemoglobin 8.1, hematocrit 26 and platelet count is 189. This patient's PT 14, INR is ____, PTT is 26. The patient's arterial blood gases: pH 7.32, pCO2 of 45, pO2 98, bicarbonate 25 and O2 saturation 97%. The patient's CMP: Sodium 140, potassium 4.6, BUN 5, creatinine 3.5 and AST 87, ALT 93. Chest x-ray not done. IMPRESSION: 1. Diabetic ketoacidosis. 2. Possible chronic obstructive pulmonary disease. 3. End-stage renal disease, on dialysis. 4. Hypertension. 5. Gastroparesis. PLAN: 1. O2 of 2 liters via nasal cannula. 2. ABGs on room air. 3. Albuterol, Atrovent, aerosol treatments. 4. Lovenox 30 mg subQ once a day. 5. Continue Protonix. 6. Chest x-ray. 7. PFTs as an outpatient. I want to thank Dr. Alexandre for this consultation. I will follow the patient with her. JOB# [id number] ALBARO/BETH
== END 2017-04-22 19:30 | disposition home or self-care (01) | DRG 628 ==
LOC: ED 13:06 → CC1 15:58 → 3A 20:35
PROVIDERS: ADMIT Internal Medicine; ATTEND Internal Medicine
PROC: 5A1D60Z (ICD-10-PCS; 2017-04-19)
PROC: 03783ZZ Dilation of Left Brachial Artery, Percutaneous Approach (ICD-10-PCS; principal; 2017-04-20)
PROC: B41F1ZZ Fluoroscopy of Right Lower Extremity Arteries using Low Osmolar Contrast (ICD-10-PCS; 2017-04-20)
PROC: B3101ZZ Fluoroscopy of Thoracic Aorta using Low Osmolar Contrast (ICD-10-PCS; 2017-04-20)
PROC: B31J1ZZ Fluoroscopy of Left Upper Extremity Arteries using Low Osmolar Contrast (ICD-10-PCS; 2017-04-20)
PROC: 03763ZZ Dilation of Left Axillary Artery, Percutaneous Approach (ICD-10-PCS; 2017-04-20)
PROC: 037Y3ZZ Dilation of Upper Artery, Percutaneous Approach (ICD-10-PCS; 2017-04-20)
PROC: 05HM33Z Insertion of Infusion Device into Right Internal Jugular Vein, Percutaneous Approach (ICD-10-PCS; 2017-04-20)
PROC: 06HN33Z Insertion of Infusion Device into Left Femoral Vein, Percutaneous Approach (ICD-10-PCS; 2017-04-20)
PROC: 4A033R1 Measurement of Arterial Saturation, Peripheral, Percutaneous Approach (ICD-10-PCS; 2017-04-20)
DX: E13.10 Other specified diabetes mellitus with ketoacidosis without coma (principal); N18.6 End stage renal disease; I13.2 Hypertensive heart and chronic kidney disease with heart failure and with stage 5 chronic kidney disease, or end stage renal disease; E46 Unspecified protein-calorie malnutrition; I50.9 Heart failure, unspecified; J44.9 Chronic obstructive pulmonary disease, unspecified; E11.43 Type 2 diabetes mellitus with diabetic autonomic (poly)neuropathy; K31.84 Gastroparesis; E11.22 Type 2 diabetes mellitus with diabetic chronic kidney disease; D63.1 Anemia in chronic kidney disease; L98.499 Non-pressure chronic ulcer of skin of other sites with unspecified severity; Z90.49 Acquired absence of other specified parts of digestive tract; Z91.14 Patient's other noncompliance with medication regimen; Z79.4 Long term (current) use of insulin; Z91.19 Patient's noncompliance with other medical treatment and regimen; Z83.3 Family history of diabetes mellitus; Z99.2 Dependence on renal dialysis; Z82.49 Family history of ischemic heart disease and other diseases of the circulatory system; Z68.25 Body mass index [BMI] 25.0-25.9, adult; Z71.6 Tobacco abuse counseling
CPT/HCPCS: 36415; 36556; 36600; 37246; 75605; 75710; 76937; 77001; 80048; 82803; 82805; 82947; 82962; 83036; 83735; 84100; 85025; 93005; 93010; 96374; 96375; 96376; 99406; A6250; A9270-GY; C1725; C1751; C1760; C1769; C1887; J0690; J0885; J1170; J1200; J1610; J1644; J1650; J1815; J1818; J2250; J2405; J3010; J7030; J7042; J7050; Q9967

== ENCOUNTER 2017-05-12 18:50 | Emergency (ER) | payer MEDICARE ==
[2017-05-12 20:19] LABS: Basophils % (Auto) 0.4 % (0.0-1.8); Eosinophils % (Auto) 0.6 % (0.0-4.3); Hematocrit 34.2 % (35.5-45.6); Hemoglobin 10.9 gm/dl (11.8-15.2); Mean Corpuscular HGB Conc 32 % (32-34); Mean Corpuscular Hemoglobin 30 pg (28-32); Mean Corpuscular Volume 93 fl (84-94); Platelet Count 167 K/mm3 (140-440); Red Blood Count 3.68 M/mm3 (3.65-5.03); Red Cell Distribution Width 16.7 % (13.2-15.2); White Blood Count 9.5 K/mm3 (4.5-11.0)
[2017-05-12 20:40] LABS: Albumin 3.6 g/dL (3.9-5); Albumin/Globulin Ratio 0.8 %; BUN/Creatinine Ratio 1.42; Bilirubin,Total 0.9 mg/dL (0.1-1.2); Calcium 8.3 mg/dL (8.4-10.2); Chloride 93.2 mmol/L (98-107); Total Protein 7.9 g/dL (6.3-8.2)
[2017-05-13] MEDS ORDERED: ZOFRAN ONE (01:25)
[2017-05-13] MEDS ORDERED: ZOFRAN IM ONE (01:25)
[2017-05-13] MEDS ORDERED: PEPCID IV ONE (03:25)
[2017-05-13] MEDS ORDERED: ZOFRAN IV ONE (03:25)
[2017-05-13] MEDS ORDERED: NACL 0.9% 250ML 250 ML IV ONE (03:25)
[2017-05-13] MEDS ORDERED: DILAUDID IV ONE ×2 (03:25→05:03)
--- NOTE | 2017-05-13 04:52 | Cat Scan Report ---
FINAL REPORT PROCEDURE: CT ABDOMEN PELVIS WO CON TECHNIQUE: Computerized axial tomography of the abdomen and pelvis was performed without intravenous contrast. This study is performed without intravascular contrast material and its sensitivity for abdominal and pelvic pathology, including neoplasms, inflammation, abscess, free fluid, thrombosis, arterial dissection and infarction, is reduced compared with a contrast enhanced study. HISTORY: abd pain n,v COMPARISON: No prior studies are available for comparison. FINDINGS: Visualized lower thorax: No significant abnormality. Liver: Normal size and attenuation. Spleen: Normal size and attenuation. Gallbladder and biliary system: The gallbladder is absent. No dilatation of biliary ductal system. Pancreas: Normal. Adrenals: Normal. Kidneys: Both kidneys have normal size. No hydronephrosis. There is a 2 millimeter right renal calculus.. GI tract: Stomach is normal. The small bowel has a normal appearance without obstruction, ileus or enteritis. The cecum, appendix region and colon are normal.. Lymph nodes and mesentery: Normal. Vasculature: Mild atherosclerosis of the aorta and branching vessels.. Bladder: Normal. Reproductive organs: Normal. Peritoneum: No free fluid. Musculoskeletal structures: No significant abnormality. Other: None. IMPRESSION: There is no evidence of intestinal or urinary tract obstruction. No ileus or enteritis. Previous cholecystectomy..
--- NOTE | 2017-05-13 05:03 | Emergency Department Report ---
ED Abdominal Pain HPI - General Chief Complaint: Abdominal Pain Stated Complaint: ABD PAIN Time Seen by Provider: 05/13/17 03:14 Source: patient Mode of arrival: Ambulatory Limitations: No Limitations - History of Present Illness Initial Comments: 47-year-old male with a past medical history asthma, CHF, COPD, diabetes, hypertension, kidney stones, gastroparesis, end-stage renal disease on dialysis and previous cholecystectomy presents to the hospital complaints of abdominal pain, nausea, and vomiting with diarrhea 3 days. Patient unsure if this is similar to his previous gastroparesis episodes. Patient having lower abdominal cramping and epigastric pain. Pain is constant, worse with palpation, rated 10/ 10 intensity, and no alleviating factors reported. Patient states he does not make urine. Has been compliant with his dialysis with last dialysis on Monday ( yesterday). No complaints of recent travel, sick contacts, or fever. Severity scale (0 -10): 8 - Related Data Home Medications Medication Instructions Recorded Confirmed Last Taken Insulin Regular, Human [HumuLIN R] 0 units SUB-Q PRN 05/13/17 05/13/17 Unknown Previous Rx's Medication Instructions Recorded Last Taken Type Aspirin EC [Aspirin Enteric Coated 81 mg PO QDAY #30 tablet 04/21/17 Unknown Rx TAB] Insulin Detemir [Levemir] 10 units SUB-Q QAMDIAB 30 Days 04/21/17 Unknown Rx HYDROcodone/APAP 7.5-325 [Counce 1 each PO Q6HR PRN #20 tablet 05/13/17 Unknown Rx 7.5/325] Ondansetron [Zofran Odt] 4 mg PO Q8HR PRN #20 tab.rapdis 05/13/17 Unknown Rx Pantoprazole [Protonix] 40 mg PO QDAY #30 tablet 05/13/17 Unknown Rx Allergies Allergy/AdvReac Type Severity Reaction Status Date / Time No Known Allergies Allergy Verified 06/20/14 15:21 ED Review of Systems ROS: Stated complaint: ABD PAIN Other details as noted in HPI Comment: All other systems reviewed and negative Other: Constitutional: No fevers chills Eyes: No eye pain visual changes ENT: No ear pain or throat pain Neck: Denies pain Respiratory: Denies cough wheezing shortness of breath Cardiovascular: Denies chest pain, palpitations, syncope GI: As per HPI : aneuric Musculoskeletal: Denies back pain, joint swelling Skin: Denies rash, lesions, erythema Neurologic: Denies headache, numbness, weakness Psychiatric: Denies suicidal ideation, hallucinations ED Past Medical Hx - Past Medical History Hx Hypertension: Yes Hx Congestive Heart Failure: Yes Hx Diabetes: Yes Hx Pulmonary Embolism: No Hx Renal Disease: Yes (MWF dialysis) Hx Kidney Stones: Yes Hx Asthma: Yes Hx COPD: Yes Hx Tuberculosis: No Hx HIV: No Additional medical history: Diabetic gastroparesis - Surgical History Hx Cholecystectomy: Yes (In 2014) Additional Surgical History: LUE AVG - Social History Smoking Status: Current Every Day Smoker Substance Use Type: None - Medications Home Medications: Home Medications Medication Instructions Recorded Confirmed Last Taken Type Aspirin EC [Aspirin Enteric Coated 81 mg PO QDAY #30 tablet 04/21/17 05/13/17 Unknown Rx TAB] Insulin Detemir [Levemir] 10 units SUB-Q QAMDIAB 30 Days 04/21/17 05/13/17 Unknown Rx HYDROcodone/APAP 7.5-325 [Counce 1 each PO Q6HR PRN #20 tablet 05/13/17 Unknown Rx 7.5/325] Insulin Regular, Human [HumuLIN R] 0 units SUB-Q PRN 05/13/17 05/13/17 Unknown History Ondansetron [Zofran Odt] 4 mg PO Q8HR PRN #20 tab.rapdis 05/13/17 Unknown Rx Pantoprazole [Protonix] 40 mg PO QDAY #30 tablet 05/13/17 Unknown Rx ED Physical Exam - General Limitations: No Limitations - Other Other exam information: General: Moderate distress secondary to pain Head exam: Atraumatic, normocephalic Eyes exam: Normal appearance ENT: Dry mucous membrane Neck exam: Normal inspection, full range of motion, no meningismus nontender Respiratory exam: Clear to auscultation bilateral, no wheezes, rales, crackles Cardiovascular: Tachycardia regular rhythm Abdomen: Soft, nondistended, generalized tenderness, normal bowel sounds, no rebound or guarding Extremity: Full range of motion normal inspection no deformity Back: Normal Inspection, full range of motion, no tenderness Neurologic: Alert, oriented x3, cranial nerves intact, no motor or sensory deficit Psychiatric: normal affect, normal mood Skin: Warm, dry, intact ED Course Vital Signs 05/12/17 05/13/17 05/13/17 19:57 01:10 05:12 Temperature 98.1 F 98.6 F Pulse Rate 102 H 104 H 89 Respiratory 16 20 20 Rate Blood Pressure 130/95 Blood Pressure 129/89 133/90 [Right] O2 Sat by Pulse 100 98 100 Oximetry - Reevaluation(s) Reevaluation #1: 05/13/17 05:22 Symptoms improved with treatment. Glucose now 247. Vital signs also improved ED Medical Decision Making - Lab Data Result diagrams: 05/12/17 20:05 05/12/17 20:05 Lab Results 05/12/17 05/12/17 05/13/17 Range/Units 20:05 20:05 01:13 WBC 9.5 (4.5-11.0) K/mm3 RBC 3.68 (3.65-5.03) M/mm3 Hgb 10.9 L (11.8-15.2) gm/dl Hct 34.2 L (35.5-45.6) % MCV 93 (84-94) fl MCH 30 (28-32) pg MCHC 32 (32-34) % RDW 16.7 H (13.2-15.2) % Plt Count 167 (140-440) K/mm3 Lymph % (Auto) 8.6 L (13.4-35.0) % [place] % (Auto) 5.8 (0.0-7.3) % Eos % (Auto) 0.6 (0.0-4.3) % Baso % (Auto) 0.4 (0.0-1.8) % Lymph # 0.8 L (1.2-5.4) K/mm3 [place] # 0.5 (0.0-0.8) K/mm3 Eos # 0.1 (0.0-0.4) K/mm3 Baso # 0.0 (0.0-0.1) K/mm3 Seg Neutrophils % 84.6 H (40.0-70.0) % Seg Neutrophils # 8.0 H (1.8-7.7) K/mm3 Sodium 134 L (137-145) mmol/L Potassium 4.0 (3.6-5.0) mmol/L Chloride 93.2 L (98-107) mmol/L Carbon Dioxide 21 L (22-30) mmol/L Anion Gap 24 mmol/L BUN 10 (9-20) mg/dL Creatinine 7.0 H (0.8-1.5) mg/dL Estimated GFR 10 ml/min BUN/Creatinine Ratio 1.42 % Glucose 299 H (75-100) mg/dL POC Glucose 307 H (70-105) Calcium 8.3 L (8.4-10.2) mg/dL Total Bilirubin 0.90 (0.1-1.2) mg/dL AST 32 (5-40) units/L ALT 27 (7-56) units/L Alkaline Phosphatase 135 H (35-129) units/L Total Protein 7.9 (6.3-8.2) g/dL Albumin 3.6 L (3.9-5) g/dL Albumin/Globulin Ratio 0.8 % Lipase 17 (13-60) units/L - Radiology Data Radiology results: report reviewed (CT abdomen and pelvis noncontrast: No acute findings, previous cholecystectomy) - Medical Decision Making Meds received any ED: Dilaudid, Zofran, Pepcid, regular insulin, and 250 mL normal saline Patient feeling much better with the ED treatment and will be discharged home on meds - Differential Diagnosis gastroparesis, pancreatitis, gastroenteritis, diverticulitis, appendicitis, Critical Care Time: No Critical care attestation.: If time is entered above; I have spent that time in minutes in the direct care of this critically ill patient, excluding procedure time. ED Disposition Clinical Impression: Diabetic gastroparesis associated with type 2 diabetes mellitus, ESRD (end stage renal disease) on dialysis, Hyperglycemia Disposition: TO HOME OR SELFCARE Is pt being admited?: No Does the pt Need Aspirin: No Condition: Stable Instructions: Diabetes Mellitus Type 2 in Adults (ED), Gastroenteritis (ED) Additional Instructions: Take the medication as needed for pain and nausea. Return if symptoms worsen. Follow-up with his doctor and continue his dialysis as scheduled. Prescriptions: HYDROcodone/APAP 7.5-325 [Counce 7.5/325] 1 each PO Q6HR PRN #20 tablet PRN Reason: Pain Ondansetron [Zofran Odt] 4 mg PO Q8HR PRN #20 tab.rapdis PRN Reason: Nausea And Vomiting Pantoprazole [Protonix] 40 mg PO QDAY #30 tablet Referrals: MACEY FERNANDEZ MD [Staff Physician] - 3-5 Days PAGE,DUANE, MD [Staff Physician] - 3-5 Days (GI doctor ) Time of Disposition: 05:38
[2017-05-13 05:13] VITALS: BP 133/90
== END 2017-05-13 06:11 | disposition home or self-care (01) ==
LOC: ED 18:50
DX: E11.43 Type 2 diabetes mellitus with diabetic autonomic (poly)neuropathy (principal); E11.22 Type 2 diabetes mellitus with diabetic chronic kidney disease; I12.0 Hypertensive chronic kidney disease with stage 5 chronic kidney disease or end stage renal disease; N18.6 End stage renal disease; E11.65 Type 2 diabetes mellitus with hyperglycemia; K31.84 Gastroparesis; J44.9 Chronic obstructive pulmonary disease, unspecified; J45.909 Unspecified asthma, uncomplicated; Z79.82 Long term (current) use of aspirin; Z79.4 Long term (current) use of insulin
CPT/HCPCS: 36415; 74176; 80053; 82962; 83690; 85025; 96361; 96372; 96374; 96375; 96376; 99284; J1170; J2405; J7050; J1815

== ENCOUNTER 2017-05-14 17:52 | Inpatient (IN) | payer MEDICARE ==
[2017-05-14 18:29] LABS: Basophils % (Auto) 0.8 % (0.0-1.8); Eosinophils % (Auto) 1.7 % (0.0-4.3); Hematocrit 34.9 % (35.5-45.6); Hemoglobin 10.8 gm/dl (11.8-15.2); Mean Corpuscular HGB Conc 31 % (32-34); Mean Corpuscular Hemoglobin 30 pg (28-32); Mean Corpuscular Volume 98 fl (84-94); Platelet Count 223 K/mm3 (140-440); Red Blood Count 3.56 M/mm3 (3.65-5.03); Red Cell Distribution Width 17.6 % (13.2-15.2); White Blood Count 8.4 K/mm3 (4.5-11.0)
[2017-05-14 18:41] LABS: Albumin 3.5 g/dL (3.9-5); Albumin/Globulin Ratio 0.8 %; BUN/Creatinine Ratio 2.66; Bilirubin,Total 0.4 mg/dL (0.1-1.2); Calcium 8.2 mg/dL (8.4-10.2); Chloride 91.6 mmol/L (98-107); Potassium 4.5 mmol/L (3.6-5.0)
[2017-05-14] MEDS ORDERED: ZOFRAN IV ONE (23:29)
[2017-05-14] MEDS ORDERED: MORPHINE IV ONE (23:29)
[2017-05-14] MEDS ORDERED: NACL 0.45% 1000 ML 1,000 ML IV ONE (23:33)
[2017-05-14] MEDS ORDERED: NACL 0.45% 500 ML IV SCH (23:45)
--- NOTE | 2017-05-15 00:08 | Emergency Department Report ---
ED Abdominal Pain HPI - General Chief Complaint: Abdominal Pain Stated Complaint: CHEST AND ABD PAIN,DIARRHEA,VOMITTING Time Seen by Provider: 05/14/17 23:26 Source: patient Mode of arrival: Ambulatory Limitations: No Limitations - History of Present Illness Initial Comments: 47 yo male with PMHX end-stage renal disease, gastroparesis, chronic diarrhea is presenting to the ED complaining of abdominal pain. Patient states pain is located in epigastric region, onset started 2 days prior shortly after patient was discharged from ED with similar complaints. Patient states pain is dull intermittent pain that has no relaxing or worsening factors. Patient states pain is located in the epigastric area. Pertinent negatives: Fever/chills, cough, chest pain, bloody stools. MD Complaint: abdominal pain -: Gradual, days(s) (2) Location: epigastric Radiation: other (entire abdomen ) Severity: moderate Severity scale (0 -10): 5 Quality: cramping Consistency: intermittent Improves With: nothing Worsens With: nothing Associated Symptoms: nausea, diarrhea. denies: vomiting, constipation, dysuria , melena - Related Data Home Medications Medication Instructions Recorded Confirmed Last Taken Insulin Regular, Human [HumuLIN R] See Protocol SUB-Q PRN 05/13/17 05/15/17 2 Days Ago Insulin Detemir [Levemir] 10 units SUB-Q BID 05/15/17 05/15/17 2 Days Ago Previous Rx's Medication Instructions Recorded Last Taken Type Aspirin EC [Aspirin Enteric Coated 81 mg PO QDAY #30 tablet 04/21/17 2 Days Ago Rx TAB] Allergies Allergy/AdvReac Type Severity Reaction Status Date / Time No Known Allergies Allergy Verified 06/20/14 15:21 ED Review of Systems ROS: Stated complaint: CHEST AND ABD PAIN,DIARRHEA,VOMITTING Other details as noted in HPI ED Past Medical Hx - Past Medical History Hx Hypertension: Yes Hx Congestive Heart Failure: Yes Hx Diabetes: Yes Hx Pulmonary Embolism: No Hx Renal Disease: Yes (MWF dialysis) Hx Kidney Stones: Yes Hx Asthma: Yes Hx COPD: Yes Hx Tuberculosis: No Hx HIV: No Additional medical history: Diabetic gastroparesis - Surgical History Hx Cholecystectomy: Yes (In 2014) Additional Surgical History: LUE AVG - Social History Smoking Status: Current Every Day Smoker Substance Use Type: None - Medications Home Medications: Home Medications Medication Instructions Recorded Confirmed Last Taken Type Aspirin EC [Aspirin Enteric Coated 81 mg PO QDAY #30 tablet 04/21/17 05/15/17 2 Days Ago Rx TAB] Insulin Regular, Human [HumuLIN R] See Protocol SUB-Q PRN 05/13/17 05/15/17 2 Days Ago History Insulin Detemir [Levemir] 10 units SUB-Q BID 05/15/17 05/15/17 2 Days Ago History ED Physical Exam - General Limitations: No Limitations General appearance: alert, in no apparent distress - Head Head exam: Present: atraumatic, normocephalic - Eye Eye exam: Present: normal appearance - ENT ENT exam: Present: mucous membranes moist - Neck Neck exam: Present: normal inspection - Respiratory Respiratory exam: Present: normal lung sounds bilaterally. Absent: respiratory distress - Cardiovascular Cardiovascular Exam: Present: regular rate, normal rhythm. Absent: systolic murmur, diastolic murmur, rubs, gallop - GI/Abdominal GI/Abdominal exam: Present: soft, normal bowel sounds - Rectal Rectal exam: Present: deferred - Extremities Exam Extremities exam: Present: normal inspection - Back Exam Back exam: Present: normal inspection - Neurological Exam Neurological exam: Present: alert, oriented X3 - Psychiatric Psychiatric exam: Present: normal affect, normal mood - Skin Skin exam: Present: warm, dry, intact, normal color. Absent: rash ED Course Vital Signs 05/14/17 05/14/17 05/15/17 18:01 23:20 00:00 Temperature 98.1 F Pulse Rate 105 H Respiratory 20 Rate Blood Pressure 111/84 174/104 O2 Sat by Pulse 100 100 100 Oximetry 05/15/17 05/15/17 05/15/17 00:50 01:00 02:00 Temperature Pulse Rate Respiratory 18 Rate Blood Pressure 174/104 174/104 O2 Sat by Pulse 100 100 100 Oximetry 05/15/17 05/15/17 05/15/17 03:00 03:49 04:00 Temperature Pulse Rate Respiratory Rate Blood Pressure 174/104 146/94 O2 Sat by Pulse 100 98 100 Oximetry 05/15/17 05/15/17 05:00 06:00 Temperature Pulse Rate Respiratory Rate Blood Pressure 146/94 146/94 O2 Sat by Pulse 100 100 Oximetry ED Medical Decision Making - Lab Data Result diagrams: 05/14/17 18:17 05/16/17 02:50 - EKG Data -: EKG Interpreted by Me EKG shows normal: sinus rhythm, axis (negative), intervals (normal) Rate: tachycardia (102) Critical Care Time: Yes Critical care time in (mins) excluding proc time.: 35 Critical care attestation.: If time is entered above; I have spent that time in minutes in the direct care of this critically ill patient, excluding procedure time. 35 minutes ED Disposition Clinical Impression: Diabetes mellitus type 2 in nonobese, Acute gastroenteritis, Diabetic gastroparesis, DKA (diabetic ketoacidoses) Disposition: DC-09 OP ADMIT IP TO THIS HOSP Is pt being admited?: Yes Does the pt Need Aspirin: No Condition: Stable
[2017-05-15] MEDS ORDERED: D50W (25GM) IV PRN (02:11)
[2017-05-15] MEDS ORDERED: NovoLIN R 100 UNITS in NACL 0.9% 99 ML IV SCH (03:00)
[2017-05-15] MEDS ORDERED: NACL 0.9% 1000 ML 1,000 ML IV SCH ×2 (03:00→08:00)
[2017-05-15] MEDS ORDERED: MORPHINE IV ONE (03:29)
[2017-05-15] MEDS ORDERED: ZOFRAN ONE (03:41)
[2017-05-15 04:10] LABS: BUN/Creatinine Ratio 2.74; Calcium 8.4 mg/dL (8.4-10.2); Chloride 93.7 mmol/L (98-107); Potassium 3.9 mmol/L (3.6-5.0)
[2017-05-15 04:20] LABS: Magnesium 2.4 mg/dL (1.7-2.3); Phosphorous 6.7 mg/dL (2.5-4.5)
[2017-05-15] MEDS ORDERED: ZOFRAN IV ONE (04:40)
[2017-05-15 05:16] LABS: BUN/Creatinine Ratio 3.19; Calcium 8.2 mg/dL (8.4-10.2); Chloride 91.8 mmol/L (98-107)
[2017-05-15 05:43] LABS: Potassium 5.6 mmol/L (3.6-5.0)
[2017-05-15] MEDS ORDERED: D5W/0.45% NACL/KCL 20 MEQ 20 MEQ/1,000 ML BAG IV SCH ×3 (06:13→10:00)
--- NOTE | 2017-05-15 07:38 | XRay Report ---
ABDOMINAL SERIES: History: Abdominal pain. Erect chest film shows no acute or significant changes involving the heart or lung dewey. There is no evidence of free air beneath the diaphragms. The gas pattern within the abdomen is unremarkable. There is no evidence of bowel dilatation, significant air-fluid levels, or masses. Organ shadows are unremarkable. Cholecystectomy changes are noted. IMPRESSION: Abdominal series within normal limits.
--- NOTE | 2017-05-15 07:41 | History and Physical Report ---
History of Present Illness Date of examination: 05/15/17 Date of admission: 05/15/17 02:09 Chief complaint: Chief complaint is abdominal pain History of present illness: History of present illness patient is a 47-year-old male with epigastric abdominal pain going on for about 2 days, pain is associated with shortness of breath nausea vomiting and diaphoresis, there is no history of fever or chills and no history of diarrhea, patient states pain occasionally radiates up to the retrosternal area Past History Past Medical History: COPD, diabetes, ESRD, other (GASTRITIS,ASTHMA) Past Surgical History: cholecystectomy, Other (LEFT UPPER LIMB DIALYSIS A-V GRAFT) Medications and Allergies Allergies Allergy/AdvReac Type Severity Reaction Status Date / Time No Known Allergies Allergy Verified 06/20/14 15:21 Home Medications Medication Instructions Recorded Confirmed Last Taken Type Aspirin EC [Aspirin Enteric Coated 81 mg PO QDAY #30 tablet 04/21/17 05/15/17 2 Days Ago Rx TAB] Insulin Regular, Human [HumuLIN R] See Protocol SUB-Q PRN 05/13/17 05/15/17 2 Days Ago History Insulin Detemir [Levemir] 10 units SUB-Q BID 05/15/17 05/15/17 2 Days Ago History Active Meds: Active Medications Dextrose (D50w (25gm)) 0 ml IV PRN PRN PRN Reason: Hypoglycemia Heparin Sodium (Porcine) (Heparin) 5,000 unit SUB-Q Q12HR OLIVIA Sodium Chloride (Nacl 0.9% 1000 Ml) 1,000 mls @ 100 mls/hr IV DIRECT OLIVIA Last Admin: 05/15/17 06:14 Dose: Not Given Insulin Human Regular 100 (units/ Sodium Chloride) 100 mls @ 1 mls/hr IV TITR OLIVIA; 1 UNITS/HR PRN Reason: Protocol Last Admin: 05/15/17 06:09 Dose: 5 units/hr, 5 mls/hr Potassium Chloride/Dextrose/Sod Cl (D5w/0.45% Nacl/Kcl 20 Meq) 20 meq in 1,000 mls @ 75 mls/hr IV DIRECT OLIVIA Last Admin: 05/15/17 06:13 Dose: 75 mls/hr Review of Systems Constitutional: no weight loss, no weight gain, no fever, no sweats, no night sweats, no weakness, no malaise, no daytime sleepiness Eyes: bilateral: other (NO BILATERAL EYE SYMPTOMS) Ears, nose, mouth and throat: no ear pain, no ear discharge, no decreased hearing, no nose pain, no nasal congestion, no mouth pain, no dysphagia, no hoarseness, no post-nasal drip, no headache, no pain front of neck Cardiovascular: chest pain, shortness of breath, no edema, no syncope, no lightheadedness, no paroxysmal nocturnal dyspnea, no high blood pressure, no decreased exercise tolerance Respiratory: shortness of breath, no cough, no cough with sputum, no excessive sputum, no congestion, no wheezing, no pleurisy, no respiratory infections Gastrointestinal: abdominal pain, nausea, vomiting, no diarrhea, no constipation , no change in bowel habits, no melena, no hematochezia, no loss of appetite, no early satiety, no dyspepsia/bloating, no early satiety Genitourinary Male: dysuria, no hematuria, no flank pain, no discharge, no urinary frequency, no urinary hesitancy, no nocturia, no incontinence, no decreased libido, no testicular pain, no testicular lump, no urinary retention Rectal: no pain, no itching, no hemorrhoids, no flatulence Musculoskeletal: no neck pain, no shooting arm pain, no arm numbness/tingling, no low back pain, no morning stiffness, no muscle weakness, no muscle cramps, no fractures, no loss of height Integumentary: no rash, no pruritis, no redness, no sores, no wounds, no jaundice, no bullae, no lesions, no darkening of skin, no depigmentation, no acne, no dryness, no brittle nails, no striae, no hirsutism, no onychomycosis Neurological: no transient paralysis, no weakness, no parathesias, no numbness, no seizures, no syncope, no tremors, no vertigo, no headaches, no migraines, no convulsions, no change in speech, no change in mentation, no confusion, no motor disturbance, no sensory deficit, no double vision, no loss of vision, no hearing difficulties Psychiatric: no memory loss, no change in sleep habits, no insomnia, no hypersomnia, no change in appetite, no change in libido, no suicidal ideation, no disorientation, no depression, no anhedonia, no anxiety attacks, no difficulties concentrating, no confusion Endocrine: no cold intolerance, no polyphagia, no polydipsia, no polyuria, no increase in ring/shoe/hat size, no deepening of the voice, no thyroid mass, no palpatations, no high blood sugars, no low blood sugars Hematologic/Lymphatic: no easy bruising, no easy bleeding, no lymphadenopathy, no thrombophilia Exam - Constitutional Vitals: Temp Pulse Resp BP Pulse Ox 98.1 F 105 H 18 146/94 100 05/14/17 18:01 05/14/17 18:01 05/15/17 00:50 05/15/17 06:00 05/15/17 06:00 General appearance: Present: no acute distress - EENT Eyes: Present: PERRL, EOM intact. Absent: conjunctival injection, miosis ENT: hearing intact, clear oral mucosa, no oropharyngeal erythema, no poor dentition, no edentulous - Neck Neck: Present: supple, normal ROM. Absent: masses or JVD, carotid bruits - Respiratory Respiratory effort: normal - Cardiovascular Rhythm: regular Heart Sounds: Present: S1 & S2. Absent: gallop, systolic murmur, diastolic murmur, rub, click - Extremities Extremities: no ischemia, No edema Peripheral Pulses: within normal limits - Abdominal General gastrointestinal: Present: soft, non-tender, non-distended, normal bowel sounds. Absent: tender, distended, rigid, hepatomegaly, splenomegaly Male genitourinary: Present: deferred - Rectal Rectal Exam: deferred - Integumentary Integumentary: Present: clear, warm, dry. Absent: jaundice, clammy, normal turgor - Musculoskeletal Musculoskeletal: strength equal bilaterally - Psychiatric Psychiatric: appropriate mood/affect Results - Labs CBC & Chem 7: 05/14/17 18:17 05/15/17 Unknown Labs: Laboratory Last Values WBC 8.4 K/mm3 (4.5-11.0) 05/14/17 18: RBC 3.56 M/mm3 (3.65-5.03) L 05/14/17 18: Hgb 10.8 gm/dl (11.8-15.2) L 05/14/17 18: Hct 34.9 % (35.5-45.6) L 05/14/17 18:17 MCV 98 fl (84-94) H D 05/14/17 18:17 MCH 30 pg (28-32) 05/14/17 18:17 MCHC 31 % (32-34) L 05/14/17 18:17 RDW 17.6 % (13.2-15.2) H 05/14/17 18:17 Plt Count 223 K/mm3 (140-440) 05/14/17 18:17 Lymph % (Auto) 10.9 % (13.4-35.0) L 05/14/17 18:17 [place] % (Auto) 5.6 % (0.0-7.3) 05/14/17 18:17 Eos % (Auto) 1.7 % (0.0-4.3) 05/14/17 18:17 Baso % (Auto) 0.8 % (0.0-1.8) 05/14/17 18:17 Lymph # 0.9 K/mm3 (1.2-5.4) L 05/14/17 18:17 [place] # 0.5 K/mm3 (0.0-0.8) 05/14/17 18:17 Eos # 0.1 K/mm3 (0.0-0.4) 05/14/17 18:17 Baso # 0.1 K/mm3 (0.0-0.1) 05/14/17 18:17 Seg Neutrophils % 81.0 % (40.0-70.0) H 05/14/17 18:17 Seg Neutrophils # 6.8 K/mm3 (1.8-7.7) 05/14/17 18:17 VBG pH 7.318 (7.320-7.420) L 05/14/17 20:11 Sodium 137 mmol/L (137-145) 05/15/17 Unknown Potassium 3.9 mmol/L (3.6-5.0) 05/15/17 Unknown Chloride 93.7 mmol/L (98-107) L 05/15/17 Unknown Carbon Dioxide 17 mmol/L (22-30) L 05/15/17 Unknown Anion Gap 30 mmol/L 05/15/17 Unknown BUN 36 mg/dL (9-20) H 05/15/17 Unknown Creatinine 13.1 mg/dL (0.8-1.5) H 05/15/17 Unknown Estimated GFR 5 ml/min 05/15/17 Unknown BUN/Creatinine Ratio 2.74 % 05/15/17 Unknown Glucose 276 mg/dL (75-100) H 05/15/17 Unknown POC Glucose 252 (70-105) H 05/15/17 06:59 Lactic Acid 1.80 mmol/L (0.7-2.0) 05/14/17 20:11 Calcium 8.4 mg/dL (8.4-10.2) 05/15/17 Unknown Phosphorus 6.70 mg/dL (2.5-4.5) H 05/15/17 Unknown Magnesium 2.40 mg/dL (1.7-2.3) H 05/15/17 Unknown Total Bilirubin 0.40 mg/dL (0.1-1.2) 05/14/17 18:17 AST 13 units/L (5-40) 05/14/17 18:17 ALT 15 units/L (7-56) 05/14/17 18:17 Alkaline Phosphatase 124 units/L (35-129) 05/14/17 18:17 Troponin T 0.076 ng/mL (0.00-0.029) H 05/15/17 01:53 Total Protein 8.0 g/dL (6.3-8.2) 05/14/17 18:17 Albumin 3.5 g/dL (3.9-5) L 05/14/17 18:17 Albumin/Globulin Ratio 0.8 % 05/14/17 18:17 Triglycerides 307 mg/dL (2-149) H 05/14/17 18:17 Cholesterol 164 mg/dL (50-199) 05/14/17 18:17 LDL Cholesterol Direct 40 mg/dL (50-130) L 05/14/17 18:17 HDL Cholesterol 63 mg/dL (40-59) H 05/14/17 18:17 Cholesterol/HDL Ratio 2.60 % 05/14/17 18:17 Lipase 17 units/L (13-60) 05/14/17 18:17 Assessment and Plan - Patient Problems (1) DKA (diabetic ketoacidoses) Current Visit: Yes Status: Acute Qualifiers: Diabetes mellitus type: D Diabetes mellitus complication detail: D Plan to address problem: Patient will be admitted to ICU using DKA pathway and will be on IV insulin drip , also patient will be on IV normal saline at 75 mL an hour because of end- stage renal disease, the insulin drip will be titrated onto blood sugar is below 2 50 mg/dL and then the IV fluid will be changed to D5 half-normal with potassium. Patient will have nephrology consult with Dr. Kaur for management of end-stage renal disease. Patient will have cardiac enzyme checked every 6 hours 2 more levels and will be on IV Zofran 4 mg every 6 hours for nausea vomiting and IV morphine 2 mg every 3 hours as needed for pain (2) ESRD needing dialysis Current Visit: No Status: Chronic
[2017-05-15 08:19] LABS: BUN/Creatinine Ratio 2.96; Calcium 8.4 mg/dL (8.4-10.2); Chloride 91.8 mmol/L (98-107); Potassium 4.7 mmol/L (3.6-5.0)
[2017-05-15 09:18] LABS: BUN/Creatinine Ratio 3.02; Calcium 8.1 mg/dL (8.4-10.2); Chloride 98.2 mmol/L (98-107); Potassium 3.7 mmol/L (3.6-5.0)
[2017-05-15] MEDS: HALFPRIN EC PO SCH (09:24)
[2017-05-15] MEDS: MORPHINE IV PRN ×3 (09:25→23:24)
[2017-05-15] MEDS: HEPARIN SUB-Q SCH ×2 (09:25→22:17)
--- NOTE | 2017-05-15 09:33 | Consultation ---
History of Present Illness - Reason for Consult Consult date: 05/15/17 - History of Present Illness This 47 yr old AA male with Brittle DM, Recurrent diabetic gastroparesis, ESRD, HTN was brought to ER with Nausea, vomitings, Hyperglycemia/DKA. Pt says that he did not take Insulin as his appetite been poor, not eating much. Denies fever or chills. Pt goes to [facility] [place] for HD on // Past History Past Medical History: COPD, diabetes, ESRD, other (GASTRITIS,ASTHMA) Past Surgical History: cholecystectomy, Other (LEFT UPPER LIMB DIALYSIS A-V GRAFT) Medications and Allergies Allergies Allergy/AdvReac Type Severity Reaction Status Date / Time No Known Allergies Allergy Verified 06/20/14 15:21 Home Medications Medication Instructions Recorded Confirmed Last Taken Type Aspirin EC [Aspirin Enteric Coated 81 mg PO QDAY #30 tablet 04/21/17 05/15/17 2 Days Ago Rx TAB] Insulin Regular, Human [HumuLIN R] See Protocol SUB-Q PRN 05/13/17 05/15/17 2 Days Ago History Insulin Detemir [Levemir] 10 units SUB-Q BID 05/15/17 05/15/17 2 Days Ago History Active Meds: Active Medications Aspirin (Halfprin Ec) 81 mg PO QDAY OL[facility] Last Admin: 05/15/17 09:24 Dose: 81 mg Dextrose (D50w (25gm)) 0 ml IV PRN PRN PRN Reason: Hypoglycemia Heparin Sodium (Porcine) (Heparin) 5,000 unit SUB-Q Q12HR OLIV[facility] Last Admin: 05/15/17 09:25 Dose: 5,000 unit Sodium Chloride (Nacl 0.9% 1000 Ml) 1,000 mls @ 100 mls/hr IV DIRECT [facility]IV[facility] Last Admin: 05/15/17 06:14 Dose: Not Given Insulin Human Regular 100 (units/ Sodium Chloride) 100 mls @ 1 mls/hr IV TITR OLIVIA; 1 UNITS/HR PRN Reason: Protocol Last Titration: 05/15/17 09:00 Dose: 1 units/hr, 1 mls/hr Potassium Chloride/Dextrose/Sod Cl (D5w/0.45% Nacl/Kcl 20 Meq) 20 meq in 1,000 mls @ 75 mls/hr IV DIRECT OLIVIA Morphine Sulfate (Morphine) 2 mg IV Q4H PRN PRN Reason: Pain, Moderate (4-6) Last Admin: 05/15/17 09:25 Dose: 2 mg Review of Systems All systems: negative Constitutional: fatigue, weakness, poor appetite Gastrointestinal: abdominal pain, nausea, vomiting Exam - Constitutional Vitals: Temp Pulse Resp BP Pulse Ox 97.8 F 86 18 146/94 100 05/15/17 08:00 05/15/17 08:12 05/15/17 00:50 05/15/17 06:00 05/15/17 06:00 General appearance: Present: other (chronically ill looking) - EENT ENT: other (oral mucosa dry) - Respiratory Respiratory: bilateral: CTA - Cardiovascular Rhythm: regular Heart Sounds: Present: systolic murmur - Extremities Extremities: No edema - Abdominal General gastrointestinal: Present: soft, non-distended, normal bowel sounds - Musculoskeletal Musculoskeletal: other (upper arm AV access has bruit and thrill) Results - Labs CBC & Chem 7: 05/14/17 18:17 05/15/17 Unknown Labs: Abnormal lab results 05/15/17 05/15/17 05/15/17 Range/Units 03:07 04:20 05:50 Sodium 131 L (137-145) mmol/L Potassium 5.6 H D (3.6-5.0) mmol/L Chloride 91.8 L (98-107) mmol/L Carbon Dioxide 16 L (22-30) mmol/L BUN 38 H (9-20) mg/dL Creatinine 11.9 H (0.8-1.5) mg/dL Glucose 208 H (75-100) mg/dL POC Glucose 200 H 253 H (70-105) Calcium 8.2 L (8.4-10.2) mg/dL Phosphorus (2.5-4.5) mg/dL Magnesium (1.7-2.3) mg/dL Troponin T (0.00-0.029) ng/mL 05/15/17 05/15/17 05/15/17 Range/Units 06:15 06:30 06:59 Sodium 134 L (137-145) mmol/L Potassium (3.6-5.0) mmol/L Chloride 91.8 L (98-107) mmol/L Carbon Dioxide 13 L (22-30) mmol/L BUN 38 H (9-20) mg/dL Creatinine 12.8 H (0.8-1.5) mg/dL Glucose 239 H (75-100) mg/dL POC Glucose 252 H (70-105) Calcium (8.4-10.2) mg/dL Phosphorus (2.5-4.5) mg/dL Magnesium (1.7-2.3) mg/dL Troponin T 0.071 H (0.00-0.029) ng/mL 05/15/17 05/15/17 05/15/17 Range/Units 08:01 08:33 08:55 Sodium (137-145) mmol/L Potassium (3.6-5.0) mmol/L Chloride (98-107) mmol/L Carbon Dioxide 19 L (22-30) mmol/L BUN 39 H (9-20) mg/dL Creatinine 12.9 H (0.8-1.5) mg/dL Glucose 136 H (75-100) mg/dL POC Glucose 161 H 122 H (70-105) Calcium 8.1 L (8.4-10.2) mg/dL Phosphorus (2.5-4.5) mg/dL Magnesium (1.7-2.3) mg/dL Troponin T (0.00-0.029) ng/mL 05/15/17 05/15/17 Range/Units Unknown Unknown Sodium (137-145) mmol/L Potassium (3.6-5.0) mmol/L Chloride 93.7 L (98-107) mmol/L Carbon Dioxide 17 L (22-30) mmol/L BUN 36 H (9-20) mg/dL Creatinine 13.1 H (0.8-1.5) mg/dL Glucose 276 H (75-100) mg/dL POC Glucose (70-105) Calcium (8.4-10.2) mg/dL Phosphorus 6.70 H (2.5-4.5) mg/dL Magnesium 2.40 H (1.7-2.3) mg/dL Troponin T (0.00-0.029) ng/mL Assessment and Plan - Patient Problems (1) DKA (diabetic ketoacidoses) Current Visit: Yes Status: Acute Qualifiers: Diabetes mellitus type: D Diabetes mellitus complication detail: D (2) DKA (diabetic ketoacidoses) Current Visit: No Status: Acute Qualifiers: Diabetes mellitus type: D Diabetes mellitus complication detail: D (3) ESRD (end stage renal disease) on dialysis Current Visit: No Status: Chronic Plan to address problem: HD today as ordered. Stop IVF. Encourage oral hydration and protein supplements. BG readings better. Counseling done on compliance. Pt to follow up with [facility] doctor regarding recurrent diabetic gastroparesis. (4) Malnutrition Current Visit: No Status: Acute (5) Metabolic acidosis Current Visit: No Status: Acute (6) Diabetic gastroparesis associated with type 2 diabetes mellitus Current Visit: No Status: Chronic (7) Hypertension Current Visit: No Status: Chronic Qualifiers: Hypertension type: H
[2017-05-15] MEDS ORDERED: NACL 0.9% 1,000 ML IV PRN (09:36)
--- NOTE | 2017-05-15 11:23 | Consultation ---
History of Present Illness - Reason for Consult Consult date: 05/15/17 DKA Requesting physician: MAURY PEARCE - History of Present Illness 47 y/o male with known ESRD on HD MWF, known history of gastroparesis admitted with nausea vomiting and abdominal pain. Found to have a blood sugar greater than 400 and started on Insulin Drip. K was elevated but has since improved with insulin drip. Sugars are better and patient is now actually hypoglycemic. Remainder of the review is positive for persistent nausea. Past History Past Medical History: diabetes, ESRD, other (GASTRITIS,ASTHMA) Past Surgical History: cholecystectomy, Other (LEFT UPPER LIMB DIALYSIS A-V GRAFT) Medications and Allergies Allergies Allergy/AdvReac Type Severity Reaction Status Date / Time No Known Allergies Allergy Verified 06/20/14 15:21 Home Medications Medication Instructions Recorded Confirmed Last Taken Type Aspirin EC [Aspirin Enteric Coated 81 mg PO QDAY #30 tablet 04/21/17 05/15/17 2 Days Ago Rx TAB] Insulin Regular, Human [HumuLIN R] See Protocol SUB-Q PRN 05/13/17 05/15/17 2 Days Ago History Insulin Detemir [Levemir] 10 units SUB-Q BID 05/15/17 05/15/17 2 Days Ago History Active Meds: Active Medications Aspirin (Halfprin Ec) 81 mg PO QDAY [facility] Last Admin: 05/15/17 09:24 Dose: 81 mg Dextrose (D50w (25gm)) 0 ml IV PRN PRN PRN Reason: Hypoglycemia Dextrose (D50w (25gm)) 50 gm IV ONCE ONE Stop: 05/15/17 12:01 Last Admin: 05/15/17 11:13 Dose: 50 gm Heparin Sodium (Porcine) (Heparin) 5,000 unit SUB-Q Q12HR [facility] Last Admin: 05/15/17 09:25 Dose: 5,000 unit Sodium Chloride (Nacl 0.9% 1000 Ml) 1,000 mls @ 100 mls/hr IV DIRECT [facility] Last Admin: 05/15/17 06:14 Dose: Not Given Insulin Human Regular 100 (units/ Sodium Chloride) 100 mls @ 1 mls/hr IV TITR OLIVIA; 1 UNITS/HR PRN Reason: Protocol Last Titration: 05/15/17 09:00 Dose: 1 units/hr, 1 mls/hr Sodium Chloride (Nacl 0.9%) 1,000 mls @ 999 mls/hr IV ELISHA PRN PRN Reason: Hypotension Morphine Sulfate (Morphine) 2 mg IV Q4H PRN PRN Reason: Pain, Moderate (4-6) Last Admin: 05/15/17 09:25 Dose: 2 mg Review of Systems All systems: negative Exam - Constitutional Vitals: Temp Pulse Resp BP Pulse Ox 97.8 F 86 18 146/94 100 05/15/17 08:00 05/15/17 08:12 05/15/17 00:50 05/15/17 06:00 05/15/17 06:00 General appearance: Present: no acute distress - EENT Eyes: Present: PERRL ENT: hearing intact - Neck Neck: Present: supple - Respiratory Respiratory effort: normal Respiratory: bilateral: CTA - Cardiovascular Rhythm: regular Heart Sounds: Present: S1 & S2 - Extremities Extremities: no ischemia Results - Labs CBC & Chem 7: 05/14/17 18:17 05/15/17 Unknown Labs: Abnormal lab results 05/15/17 05/15/17 05/15/17 Range/Units 03:07 04:20 05:50 Sodium 131 L (137-145) mmol/L Potassium 5.6 H D (3.6-5.0) mmol/L Chloride 91.8 L (98-107) mmol/L Carbon Dioxide 16 L (22-30) mmol/L BUN 38 H (9-20) mg/dL Creatinine 11.9 H (0.8-1.5) mg/dL Glucose 208 H (75-100) mg/dL POC Glucose 200 H 253 H (70-105) Calcium 8.2 L (8.4-10.2) mg/dL Phosphorus (2.5-4.5) mg/dL Magnesium (1.7-2.3) mg/dL Troponin T (0.00-0.029) ng/mL 05/15/17 05/15/17 05/15/17 Range/Units 06:15 06:30 06:59 Sodium 134 L (137-145) mmol/L Potassium (3.6-5.0) mmol/L Chloride 91.8 L (98-107) mmol/L Carbon Dioxide 13 L (22-30) mmol/L BUN 38 H (9-20) mg/dL Creatinine 12.8 H (0.8-1.5) mg/dL Glucose 239 H (75-100) mg/dL POC Glucose 252 H (70-105) Calcium (8.4-10.2) mg/dL Phosphorus (2.5-4.5) mg/dL Magnesium (1.7-2.3) mg/dL Troponin T 0.071 H (0.00-0.029) ng/mL 05/15/17 05/15/17 05/15/17 Range/Units 08:01 08:33 08:55 Sodium (137-145) mmol/L Potassium (3.6-5.0) mmol/L Chloride (98-107) mmol/L Carbon Dioxide 19 L (22-30) mmol/L BUN 39 H (9-20) mg/dL Creatinine 12.9 H (0.8-1.5) mg/dL Glucose 136 H (75-100) mg/dL POC Glucose 161 H 122 H (70-105) Calcium 8.1 L (8.4-10.2) mg/dL Phosphorus (2.5-4.5) mg/dL Magnesium (1.7-2.3) mg/dL Troponin T (0.00-0.029) ng/mL 05/15/17 05/15/17 Range/Units Unknown Unknown Sodium (137-145) mmol/L Potassium (3.6-5.0) mmol/L Chloride 93.7 L (98-107) mmol/L Carbon Dioxide 17 L (22-30) mmol/L BUN 36 H (9-20) mg/dL Creatinine 13.1 H (0.8-1.5) mg/dL Glucose 276 H (75-100) mg/dL POC Glucose (70-105) Calcium (8.4-10.2) mg/dL Phosphorus 6.70 H (2.5-4.5) mg/dL Magnesium 2.40 H (1.7-2.3) mg/dL Troponin T (0.00-0.029) ng/mL - Imaging and Cardiology Chest x-ray: image reviewed (per report from abdominal series, clear) Assessment and Plan 47 y/o male with known ESRD, Diabetes and history of gastroparesis admitted with DKA and hyperkalemia. 1. Stop insulin drip and start long acting insulin with sliding scale 2. Add zofran for nausea 3. May need GI consult for recs on how to treat gastroparesis outside of glucose control 4. Should be stable for transfer to floor, later this afternoon. CCT 31 minutes.
[2017-05-15] MEDS ORDERED: D5W/0.45% NACL/KCL 20 MEQ 20 MEQ/1,000 ML BAG IV ONE (11:59)
[2017-05-15] MEDS ORDERED: D50W (25GM) IV ONE (12:00)
[2017-05-15] MEDS: ZOFRAN IV PRN (12:36)
[2017-05-15] MEDS: NOVOLOG SUB-Q SCH ×3 (12:36→22:15)
[2017-05-15 13:51] LABS: BUN/Creatinine Ratio 2.87; Chloride 95.2 mmol/L (98-107); Potassium 3.9 mmol/L (3.6-5.0)
--- NOTE | 2017-05-15 14:55 | Event Note ---
Date: 05/15/17 Patient seen and evaluated in ICU this morning medical records reviewed Patient was admitted this morning DKA, elevated cardiac enzymes, end-stage renal disease On insulin drip per protocol, patient's blood sugars are reasonably level, insulin drip discontinued Started on long-acting 70/30, change Accu-Cheks to 2 before meals and at bedtime , sliding scale coverage H with NovoLog Diabetic diet, diabetic education and nutrition education requested Patient is stable to be transferred out of ICU to medical flow, possible discharge in 1-2 days if stable Counseling done patient strongly advised to comply with medications diet and follow-up with PMD
--- NOTE | 2017-05-15 16:15 | Admit Criteria Form ---
Admission Criteria Documentation: GENERAL ADMISSION CRITERIA (Place 'X' for any and all applicable criteria): Admission is indicated for ANY ONE of the following: [ ]I. Hemodynamic instability as indicated by ANY ONE of the following(1)(2) (3)(4)(5): [ ]a) Vital sign abnormality not readily corrected by appropriate treatment within 12 to 24 hours indicated by ANY ONE of the following: [ ]i) Hypotension [ ]ii) Symptomatic Tachycardia unresponsive to treatment (eg , analgesia, fluids, sedation as indicated) [ ]iii) Orthostatic vital sign changes unresponsive to treatment (eg, fluids) [ ]b) Vital sign abnormality that is severe indicated by ANY ONE of the following: [ ]i) Inadequate perfusion indicated by ANY ONE of the following: [ ]1) Lactic acidosis (greater than 2 mmol/L) [ ]2) New abnormal capillary refill (greater than 3 seconds) [ ]3) Other metabolic acidosis (arterial pH less than 7.35) not otherwise explained [ ]4) Reduced urine output [ ]5) Altered mental status [ ]6) Myocardial Ischemia [ ]v) Mean arterial pressure[A] less than 60 mm Hg [ ]vi) Mean arterial pressure[A] less than 70 mm Hg after 30 minutes of appropriate treatment (eg, fluid resuscitation) [ ]vii) IV inotropic or vasopressor medication required to maintain adequate blood pressure or perfusion [ ]viii) Sustained heart rate greater than 120 beats per minute in adult or child 6 years or older[B]] [ ]II. Hypertension requiring inpatient treatment as indicated by ANY ONE of the following(6)(7)(8): [ ]a) SBP greater than 220 mm Hg or DBP greater than 120 mm Hg despite treatment [ ]b) SBP greater than 140 mm Hg or DBP greater than 100 mm Hg with evidence of acute end organ damage as indicated by ANY ONE of the following: [ ]i) Encephalopathy [ ]ii) Acute renal failure as indicated by new onset of ANY ONE of the following(9)(10)(11)(12)(13): [ ]1) A 3-fold rise in serum creatinine from baseline [ ]2) Serum creatinine greater than 4 mg/dL ( 354 micromoles/L) with acute rise greater than 0.5 mg/dL (44.2 micromoles/L) [ ]3) Reduction of more than 75% in estimated glomerular filtration rate from baseline [ ]4) Estimated glomerular filtration rate less than 35 mL/min/1.73m2 (0.59 mL/sec/1.73m2) in child up to 18 years of age [ ]5) Cessation of urine output indicated by ALL of the following: [ ]A. Adequate volume status [ ]B. Inadequate urine output as indicated by ANY ONE of the following: [ ]a. Urine output less than 0.3 mL/kg/hr for 24 hours [ ]b. Anuria (urine output less than 0.1 mL/kg/hr) for 12 hours [ ]iii) Aortic dissection [ ]iv) Myocardial ischemia [ ]v) Left ventricular heart failure [ ]vi) Retinal hemorrhage [ ]vii) Other significant finding [ ]c) Hypertension in child requiring inpatient treatment as indicated by ALL of the following(14)(15)(16): [ ]i) Outpatient treatment not effective, not available, or not appropriate [ ]ii) SBP or DBP greater than 95th percentile for age [ ]iii) Evidence of acute end organ damage as indicated by ANY ONE of the following: [ ]1) Altered mental status [ ]2) Acute renal failure as indicated by new onset of ANY ONE of the following(9)(10)(11)(12)(13): [ ]A. A 3-fold rise in serum creatinine from baseline [ ]B. Serum creatinine greater than 4 mg/dL (354 micromoles/L) with acute rise greater than 0.5 mg/dL (44.2 micromoles/L) [ ]C. Reduction of more than 75% in estimated glomerular filtration rate from baseline [ ]D. Estimated glomerular filtration rate less than 35 mL/min/1.73m2 (0.59 mL/sec/1.73m2)in child up to 18 years of age [ ]E. Cessation of urine output indicated by ALL of the following: [ ]a. Adequate volume status [ ]b. Inadequate urine output as indicated by ANY ONE of the following: [ ]1) Urine output less than 0.3 mL/kg/hr for 24 hours [ ]2) Anuria (urine output less than 0.1 mL/kg/hr) for 12 hours [ ]3) Severe headache [ ]4) Visual disturbance [ ]5) Retinal hemorrhage [ ]6) Other significant finding [ ]III. Acute cardiac or peripheral ischemia as indicated by ANY ONE of the following: [ ]a) Acute coronary syndrome(17)(18) [ ]b) Acute peripheral ischemia (eg, pulseless, cool, mottled, or cyanotic extremity)(19) [ ]IV. Cardiac arrhythmias or findings of immediate concern indicated by ANY ONE of the following(20)(21): [ ]a) Heart rhythms that are inherently dangerous or unstable indicated by ANY ONE of the following(22)(23)(24): [ ]i) Resuscitated ventricular fibrillation or cardiac arrest [ ]ii) Ventricular escape rhythm [ ]iii) Sustained ventricular tachycardia (30 seconds or more of ventricular rhythm at greater than 100 beats per minute) [ ]iv) Nonsustained ventricular tachycardia and ANY ONE of the following: [ ]1) Suspected cardiac ischemia as cause or consequence of ventricular tachycardia [ ]2) In setting of acute myocarditis [ ]b) Unstable cardiac conduction defects indicated by ANY ONE of the following(24)(25)(26): [ ]i) Type II second-degree atrioventricular block [ ]ii) Third-degree atrioventricular block [ ]iii) New-onset left bundle branch block with suspected myocardial ischemia [ ]c) Any heart rhythm and ANY ONE of the following(22)(23)(27)(28)( 29): [ ] i) Continuous long-term ECG monitoring needed (eg, initiation of drug requiring monitoring for more than 24 hours) [ ] ii) Patient has automatic implanted cardioverter defibrillator that is repeatedly firing, malfunctioning, or in need of immediate adjustment of settings beyond the scope of ambulatory or observation care. [ ]d) Heart rhythms of concern due to ANY ONE of the following: [ ]i) Hypotension [ ]ii) Respiratory distress [ ]iii) Association with other significant symptoms (eg, bradycardia with syncope or ongoing dizziness, supraventricular tachycardia with chest pain) (27)(28) (30) [ ] V. Severe heart failure as indicated by ANY ONE of the following ( 31)(32): [ ]a) Respiratory distress [ ]b) Hypotension [ ]c) Anasarca (refractory to outpatient therapy) [ ]d) Cardiac arrhythmias of immediate concern [ ]e) Myocardial ischemia [ ]. Respiratory abnormalities, including ANY ONE of the following(33)(34) (35)(36): [ ]a) Respiratory rate greater than 30 breaths per minute unresponsive to treatment [A] [ ]b) New saturation of arterial oxygen less than 90% [ ]c) New partial pressure of carbon dioxide greater than 44 mm Hg ( 5.9 kPa) [ ]d) Supplemental oxygen or respiratory treatments needed that are new or not performable at other levels of care [ ]e) New-onset cyanosis [ ]f) Inability to protect airway [ ]g) Chronic lung disease with severe deterioration (not responsive to emergency and observation care treatment as appropriate) as indicated by ANY ONE of the following(34)(36 ): [ ]i) SaO2 5% below baseline in patient with chronic hypoxemia [ ]ii) New requirement for supplemental oxygen to keep SaO2 at baseline or acceptable level [ ]iii) Required supplemental oxygen performable only in acute inpatient setting [ ]iv) Severe airflow or ventilation abnormalities [ ]v) Previously mobile patient unable to walk between rooms [ ]vi Inability to eat or sleep due to dyspnea [ ]vii) Rapid rate of exacerbation onset [ ]viii) Altered mental status ]VII. Severe airflow or ventilation abnormalities (not responsive to emergency and observation care treatment as appropriate) as indicated by ANY ONE of the following(33)(34)(35)(37): [ ]a) PCO2 greater than 42 mm Hg (5.6 kPa) and pH less than 7.35 (new ) [ ]b) Documented PCO2 increased more than 5 mm Hg (0.7 kPa) from disease baseline [ ]c) Airflow measurements [B] less than 60% of previous best or predicted (eg, peak expiratory flow rate less than 300 L/minute) despite intensive emergent treatment [C] [ ]d) Required respiratory treatments that are performable only in acute inpatient setting [ ]VIII. Impending or actual respiratory arrest ( Also use Respiratory Failure GRG for severe respiratory disease and long-term mechanical ventilation patients) [ ]IX. Neurologic abnormalities, including ANY ONE of the following: [ ]a) New findings that suggest ANY ONE of the following: [ ]i) RIGHT OF WAY CLEARER infection(38) [ ]ii) Cerebral bleeding, ischemia, or vasospasm(39)(40) [ ]iii) Increased intracranial pressure, hydrocephalus, or cerebral edema(41)(42)(43) [ ]iv) Spinal cord injury(44) [ ]b) Uncontrolled seizures(45) [ ]c) New-onset coma (eg, Eola coma scale score less than 9) or unexplained abnormal mental status (eg, E[place] coma scale score less than 14) [D](41)(46)(47) [ ]X. New-onset severe neurologic findings requiring inpatient care; examples include(42)(48)(49): [ ]a) Papilledema [ ]b) Cerebral edema [ ]c) Mass effect on CT scan [ ]XI. Suspected acute intra-abdominal process with peritoneal signs, abdominal mass, or similar findings (50)(51)(52) [X ]XII. Severe physiologic disorder remaining after emergency or observation level care (as appropriate) as indicated by ANY ONE of the following (53): [ ]a) Significant dehydration [ X]b) Diabetic ketoacidosis [ ]c) Hyperglycemic hyperosmolar state (eg, osmolality greater than 320 mOsm/kg (mmol/kg) [ ]d) Hypoglycemia [ ]e) Other (new) acid-base disorder with pH less than 7.35 or greater than 7.5(54) [ ]f) Thyroid storm (55) [ ]g) Myxedema coma (55) [ ]XIII. Abdominal abnormalities with ANY ONE of the following(56)(57): [ ]a) Absent bowel sounds with complete ileus [ ]b) Signs of intestinal obstruction or peritonitis [E] [ ]c) Nausea and vomiting that cannot be controlled with outpatient or observation care [ ]XIV. Acute renal failure as indicated by new onset of ANY ONE of the following(9)(10)(11)(12)(13): [ ]a) A 3-fold rise in serum creatinine from baseline [ ]b) Serum creatinine greater than 4 mg/dL (354 micromoles/L) with acute rise greater than 0.5 mg/dL (44.2 micromoles/L) [ ]c) Reduction of more than 75% in estimated glomerular filtration rate from baseline [ ]d) Estimated glomerular filtration rate less than 35 mL/min/ 1.73m2 (0.59 mL/sec/1.73m2) in child up to 18 years of age [ ]e) Cessation of urine output indicated by ALL of the following: [ ]i) Adequate volume status [ ]ii) Inadequate urine output as indicated by ANY ONE of the following: [ ]1) Urine output less than 0.3 mL/kg/hr for 24 hours [ ]2) Anuria (urine output less than 0.1 mL/kg/hr) for 12 hours [ ]XV. Significant uremic complications as indicated by ANY ONE of the following(58)(59)(60): [ ]a) Outpatient therapy is ineffective or not feasible for ANY ONE of the following: [ ]i) Severe heart failure [ ]ii) Severehypertension [ ]iii) Pleural effusion [ ]iv) Pericarditis or pericardial effusion [ ]b) Cardiac arrhythmias of immediate concern [ ]c) Intractable nausea or vomiting [ ]d) Recurrent seizures [ ]e) Encephalopathy [ ]f) Bleeding abnormalities (eg, platelet dysfunction) with active (eg, gastrointestinal) bleeding [ ]g) Dialysis indicated before long-term access or ambulatory arrangements can be made [ ]h) Significant metabolic or electrolyte abnormalities (eg, severe acidosis or hyperkalemia) [ ]XVI. High fever or other high-risk infection situation as indicated by ANY ONE of the following(61)(62)(63)(64): [ ]a) Outpatient and observation care antimicrobial treatment unavailable, not effective, or not appropriate [ ]b) Documented bacteremia [ ]c) Temperature greater than 40.5 degrees C (104.9 degrees F) ( oral) [ ]d) Temperature greater than 39.5 degrees C (103.1 degrees F) ( oral) or less than 36 degrees C (96.8 degrees F) (rectal) that does not respond to e treatment and observation care [ ] XVII. Temperature less than 95 degrees F (35 degrees C)(rectal)(65) [ ] XVIII. Severe nutritional abnormalities as indicated by ALL of the following (66)(67): [ ]a) Inability to tolerate or establish sufficient oral or other enteral nutrition in outpatient setting [ ]b) Parenteral nutrition regimen need that must be implemented on inpatient basis [ ] XIX. Severe electrolyte abnormalities indicated by ALL of the following(68) (69)(70): [ ]a) Electrolytes and associated findings are not as expected for patient baseline or acceptable treatment effects. [ ]b) Severe abnormalities indicated by ANY ONE of the following: [ ]i) Sodium less than 130 mEq/L (mmol/L) (new) [ ]ii)Sodium less than 135 mEq/L (mmol/L) with ANY ONE of the following: [ ]1) Uncorrectable (to near normal or chronic baseline) after trial of outpatient and emergency treatment [ ]2) Altered mental status [ ]3) Seizures [ ]4) Severe medical etiology requiring inpatient management (eg, heart failure, hypovolemia) [ ]iii) Sodium greater than 155 mEq/L (mmol/L) [ ]iv) Sodium greater than 150 mEq/L (mmol/L) with ANY ONE of the following: [ ]1) Uncorrectable (to near normal or chronic baseline) with outpatient and emergency treatment [ ]2) Altered mental status [ ]3) Seizures [ ]4) Severe medical etiology (eg, hypovolemia, diabetes insipidus) [ ]v) Potassium less than 2.5 mEq/L (mmol/L) despite outpatient and emergency treatment [ ]vi) Potassium less than 3 mEq/L (mmol/L) with ANY ONE of the following: [ ]1) Weakness [ ]2) Cardiac abnormality (eg, arrhythmia, conduction disturbance) [ ]3) Cardiac ischemia [ ]4) Ileus [ ]5) Ongoing medical cause requiring inpatient management (eg, acute renal wasting or SIADH) [ ]6) Other severe symptoms [ ]vii) Potassium greater than 6.5 mEq/L (mmol/L) [ ]viii) Potassium greater than 5 mEq/L (mmol/L) with ANY ONE of the following: [ ]1) Uncorrectable (to near normal or chronic baseline) with outpatient and emergency treatment [ ]2) Severe ECG findings [F] [ ]3) Acute worsening of renal failure (creatinine greater than 2.5 mg/dL (221 micromoles/L) or significant elevation for age and size) [ ]4) Severe weakness [ ]5) Severe medical etiology (eg, hemolysis, infection, drug overdose) [ ]ix) Calcium less than 7 mg/dL (1.75 mmol/L) despite outpatient and emergency treatment (72) [ ]x) Calcium less than 8 mg/dL (2 mmol/L) with significant symptoms or findings; examples include(72): [ ]1) Altered mental status [ ]2) Muscle spasms [ ]3) Seizures [ ]4) Breathing difficulty [ ]5) Cardiac abnormality (eg, arrhythmia or conduction disturbance) [ ]xi) Calcium greater than 14 mg/dL (3.5 mmol/L)(72) [ ]xii) Calcium greater than 12 mg/dL (3 mmol/L) with ANY ONE of the following(72): [ ]1) Uncorrectable (to near normal or chronic baseline) with outpatient and emergency treatment [ ]2) Significant dehydration or hypovolemia as indicated by ALL of the following(70)(73)(74): [ ]A. Not resolved with initial treatments [ ]B. Clinically significant dehydration as indicated by ANY ONE of the following: [ ]a. Vomiting refractory to outpatient treatment (ie, precluding oral rehydration) [ ]b. Inability to drink [ ]c. Hypernatremia or other electrolyte abnormality unable to be corrected with outpatient and emergency treatment [ ]d. Failure to remain hydrated with outpatient therapy [ ]e. Reduced urine output [ ]f. Hypotension [ ]g. Serious cause for dehydration requiring acute hospitalization (eg, bowel obstruction, increased intracranial pressure, infectious cause) [ ]h. Child with ANY ONE of the following(75): [ ]1) Severe abdominal tenderness [ ]2) Adequate care not available at home [ ]3) Severe dehydration ( greater than 9% loss of body weight) [ ]4) Significant symptoms or findings; examples include: [ ]A. Altered mental status [ ]B. Cardiac abnormality (eg, arrhythmia, conduction disturbance) [ ]C. Malignant etiology requiring inpatient treatment [ ]xiii) Phosphorus less than 1 mg/dL (0.32 mmol/L) [ ]xiv) Phosphorus less than 1.5 mg/dL (0.48 mmol/L) with ANY ONE of the following: [ ]1) Patient unresponsive to outpatient and emergency treatment [ ]2) Significant symptoms or findings; examples include: [ ]A. Weakness [ ]B. Altered mental status [ ]C. Breathing difficulty [ ]D. Seizures [ ]E. Rhabdomyolysis [ ]xv) Phosphorus greater than 10 mg/dL (3.2 mmol/L) [ ]xvi) Phosphorus greater than 4.5 mg/dL (1.45 mmol/L) (new) with ANY ONE of the following: [ ]1) Severe medical etiology (eg, crush injury, acute renal failure) [ ]2) Associated hypocalcemia with significant findings; examples include: [ ]A. Neurologic symptoms [ ]B. Altered mental status [ ]C. Muscle spasms [ ]D. Seizures [ ]E. Breathing difficulty [ ]F. Cardiac abnormality (eg, arrhythmia, conduction disturbance) [ ]xvii) Magnesium less than 1 mg/dL (0.41 mmol/L) [ ]xviii) Magnesium less than 1.5 mg/dL (0.62 mmol/L) with ANY ONE of the following: [ ]1) Patient unresponsive to outpatient and emergency treatment [ ]2) Associated hypocalcemia with significant findings; examples include: [ ]A. Altered mental status [ ]B. Muscle spasms [ ]C. Seizures [ ]D. Breathing difficulty [ ]E. Cardiac abnormality (eg, arrhythmia , conduction disturbance) [ ]3) Associated hypokalemia (potassium less than 3 mEq/L (mmol/L)) with risk of arrhythmia [ ]xix) Magnesium greater than 4 mEq/L (2 mmol/L) [ ]xx) Magnesium greater than 2.5 mEq/L (1.25 mmol/L) with significant symptoms or findings; examples include: [ ]1) Weakness [ ]2) Altered mental status [ ]3) Cardiac abnormality (eg, arrhythmia, conduction disturbance) [ ]4) Breathing difficulty [ ]5) Severe medical etiology (eg, renal failure, hypovolemia) [ ]xxi) Uric acid greater than 20 mg/dL (1190 micromoles/L)(76) [ ]xxii) Uric acid greater than 8 mg/dL (476 micromoles/L) with significant symptoms or findings of tumor lysis syndrome; examples include(76): [ ]1) Creatinine greater than 1.5 times upper limit of normal [ ]2) Cardiac abnormality (eg, arrhythmia, conduction disturbance) [ ]3) Seizure [ ]XX. Acute blood loss causing significant abnormality as indicated by ANY ONE of the following(77)(78): [ ]a) Hemoglobin less than 10 g/dL (100 g/L) (not baseline) [ ]b) Hematocrit less than 30% (0.30) (not baseline) [ ]c) Repeat hematocrit decreased more than 2% (0.02) [ ]d) Uncontrolled bleeding [ ]XXI. Severe anemia indicated by ANY ONE of the following(78)(79): [ ]a) Altered mental status [ ]b) Chest pain [ ]c) Exertional dyspnea [ ]d) Syncope [ ]e) Other findings suggesting inadequate perfusion [ ]f) Treatment with transfusion or volume replacement is ineffective at resolving ANY ONE of the following [G]: [ ]i) Tachycardia for age [ ]ii) Orthostatic vital sign changes as indicated by ANY ONE of the following(80): [ ]1) Fall in SBP of 20 mm Hg or more 1 to 3 minutes after patient sits or stands from recumbent position [ ]2) Fall in DBP of 10 mm Hg or more 1 to 3 minutes after patient sits or stands from recumbent position [ ]XXII. High-risk low platelet count as indicated by ANY ONE of the following( 81)(82): [ ]a) Severe or life-threatening bleeding (eg, intracranial, major gastrointestinal, or extensive mucosal bleeding), with any reduced platelet count [ ]b) Platelet count less than 20,000/mm3 (20 x109/L) with any active bleeding [ ]c) Platelet count less than 10,000/mm3 (10 x109/L) with minor purpura or petechiae [ ]d) Platelet count less than 5000/mm3 (5 x109/L) [ ]e) Low platelet count with hemolytic anemia [ ]XXIII. Disseminated intravascular coagulation(77)(83) [ ]XXIV. Severe adverse drug or systemic toxin reaction requiring inpatient treatment; examples include(84)(85): [ ]a) Serotonin syndrome(86) [ ]b) Neuroleptic malignant syndrome(86) [ ]c) Cholinergic syndrome with severe symptoms (eg, bronchorrhea, weakness, mental status changes, seizures) [ ]d) Sympathetic syndrome with severe symptoms (eg, seizures, mental status changes, cardiac dysrhythmias) [ ]e) Anticholinergic syndrome [ ]XXV. Severe pain requiring acute inpatient management as indicated by ALL of the following (87)(88)(89): [ ]a) Continuous or frequent (eg, every 2 to 4 hours) parenteral analgesics required [H] [ ]b) Rapid improvement expected from treatment or acute intervention (eg, surgery, anesthesia procedure) [ ]XXVI.Severe behavioral health issues judged unmanageable at a lower level of care (eg, residential) in a patient who is ANY ONE of the following(91) [ ]a) Acutely suicidal [ ]b) A danger to self (eg, self-mutilating or suicidal behavior) [ ]c) A danger to others (eg, assaultive or homicidal behavior) [ ]d) Incapacitated because of grave disability (eg, inability to provide for self at lower level of care) (92) [ ]XXVII. Inpatient monitoring needed; examples include(1)(3)(87)(93)(94)(95)(96 ): [ ]a) Vital signs, neurologic signs, or vascular checks more frequently than every 4 hours [ ]b) Cardiac or respiratory monitoring beyond the scope (eg, over 24 hours) of observation care [ ]c) Pulmonary artery catheter monitoring [ ]d) Suspected compartment syndrome(97) (98) [ ]e) Cerebral bleeding, hydrocephalus, or vasospasm monitoring [ ]f) Increased intracranial pressure or cerebral edema monitoring [ ]g) monitoring [ ]XXVIII. Treatment requiring inpatient care; examples include: [ ]a) IV fluid to replace significant ongoing losses (greater than 3 L/m2 per day)(53) [ ]b) High concentration oxygen (greater than 40%)(33)(99)(100) [ ]c) Frequent respiratory therapy (more frequently than every 4 hours) to maintain airflow rates greater than 60% of baseline(33)(99)(100) [ ]d) Epidural analgesia(87) [ ]e) IV anticoagulation, vasoactive, or antiarrhythmic medication(19 )(23) [ ]f) Acute thrombolytics (generally require 24 hours of observation )(101)(102) [ ]XXIX. Emergency procedures needed; examples include: [ ]a) Emergency inpatient surgery [ ]b) Temporary pacemaker placement(103) [ ]c) Chest tube placement with active evacuation (eg, suction, drainage)(104) [ ]d) Emergent cardioversion(105) [ ]e) Emergent cardiac or vascular procedures (eg, cardiac catheterization, angioplasty) (17)(18) [ ]f) Emergent dialysis access placement and institution(10)(106) [ ]g) Emergent pericardiocentesis(107) [ ]h) Emergent plasmapheresis or leukapheresis(83) [ ]i) Emergent tracheostomy The original [employer] content created by [employer] has been revised. The portions of the content which have been revised are identified through the use of italic text or in bold, and [employer] has neither reviewed nor approved the modified material. All other unmodified content is copyright [employer]. Please see references footnoted in the original [employer] edition 2016 Admission Criteria Met: Yes
[2017-05-15] MEDS ORDERED: NOVOLOG SUB-Q SCH (16:30)
--- NOTE | 2017-05-15 16:51 | Consultation ---
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 Patient also had the abdominal pain/discomfort. He also had nausea, vomiting and diarrhea. He was seen during hemodialysis. His chest pain was not radiating and not associated with any palpitations or diaphoresism,increases on breathing. No history of presyncope or syncope. His serial troponins were minimally increased to 0.082, 0.076 and 0.071. Blood sugar was found to be more than 400 and he was diagnosed as having diabetic ketoacidosis and treated for the same with improvement. Most recent blood sugar is 296. He is known to have an dilated nonischemic cardiomyopathy and his Lexiscan stress nuclear scan done on 06/18/2016 did not reveal any perfusion defect. Left ventricle ejection fraction at that time by myocardial scan was 39%. His echocardiogram done on 07/02/16 revealed mild concentric left hypertrophy and mild dilatation. His CAT scan of the chest done on 2015 revealed a large right pleural effusion and right basilar infiltrate versus atelectasis and also lung nodules. He also has history of kidney stones in the past. He has history of firm surgery for AV fistula placement in the left upper extremity and history of cholecystectomy in the past.. Past History Past Medical History: diabetes, ESRD, other (GASTRITIS,ASTHMA, Diabetic gastroparesis) Past Surgical History: cholecystectomy, Other (LEFT UPPER LIMB DIALYSIS A-V GRAFT) Social history: denies: smoking, alcohol abuse Family history: other (Negative for premature CAD.) Medications and Allergies Allergies Allergy/AdvReac Type Severity Reaction Status Date / Time No Known Allergies Allergy Verified 06/20/14 15:21 Home Medications Medication Instructions Recorded Confirmed Last Taken Type Aspirin EC [Aspirin Enteric Coated 81 mg PO QDAY #30 tablet 04/21/17 05/15/17 2 Days Ago Rx TAB] Insulin Regular, Human [HumuLIN R] See Protocol SUB-Q PRN 05/13/17 05/15/17 2 Days Ago History Insulin Detemir [Levemir] 10 units SUB-Q BID 05/15/17 05/15/17 2 Days Ago History Active Meds: Active Medications Aspirin (Halfprin Ec) 81 mg PO QDAY [facility] Last Admin: 05/15/17 09:24 Dose: 81 mg Dextrose (D50w (25gm)) 0 ml IV PRN PRN PRN Reason: Hypoglycemia Heparin Sodium (Porcine) (Heparin) 5,000 unit SUB-Q Q12HR [facility] Last Admin: 05/15/17 09:25 Dose: 5,000 unit Sodium Chloride (Nacl 0.9%) 1,000 mls @ 999 mls/hr IV ELISHA PRN PRN Reason: Hypotension Insulin Aspart (Novolog) 0 units SUB-Q ACHS OLIVIA PRN Reason: Protocol Last Admin: 05/15/17 12:36 Dose: 3 units Insulin Detemir (Levemir) 5 units SUB-Q QHS OLIVIA Morphine Sulfate (Morphine) 2 mg IV Q4H PRN PRN Reason: Pain, Moderate (4-6) Last Admin: 05/15/17 09:25 Dose: 2 mg Ondansetron HCl (Zofran) 4 mg IV Q6H PRN PRN Reason: Nausea And Vomiting Last Admin: 05/15/17 12:36 Dose: 4 mg Review of Systems Constitutional: fatigue Ears, nose, mouth and throat: no ear discharge, no bleeding gums Cardiovascular: chest pain, shortness of breath, dyspnea on exertion Respiratory: cough, shortness of breath, dyspnea on exertion Gastrointestinal: abdominal pain, nausea, vomiting, diarrhea, heartburn Genitourinary Male: kidney stones Musculoskeletal: no low back pain, no redness of joints, no frequent falls Integumentary: no rash Neurological: no tremors, no ataxia, no convulsions, no paralysis Psychiatric: no anxiety, no hallucinations Endocrine: polydipsia, polyuria Hematologic/Lymphatic: no easy bruising Allergic/Immunologic: no urticaria Physical Examination Vital Signs Temp Pulse Resp BP Pulse Ox 98.1 F 105 H 20 111/84 100 05/14/17 18:01 05/14/17 18:01 05/14/17 18:01 05/14/17 18:01 05/14/17 18:01 General appearance: other (Not in acute distress.) HEENT: Positive: PERRL, Mucus Membranes Moist Neck: Positive: neck supple, trachea midline Cardiac: Positive: Reg Rate and Rhythm Lungs: Positive: clear to auscultation, Normal Breath Sounds, No Wheeze, Rales, Rhonchi Neuro: Positive: Grossly Intact Abdomen: Positive: Soft, Active Bowel Sounds Male genitourinary: Positive: deferred Skin: Negative: Rash Musculoskeletal: No Fluid Collection, No Pain, Normal Range of Motion Extremities: Present: upper extr. pulses, lower extr. pulses. Absent: edema Results 05/14/17 18:17 05/15/17 Unknown Comprehensive Metabolic Panel 05/15/17 05/15/17 05/15/17 Range/Units 04:20 06:15 08:33 Sodium 131 L 134 L 137 (137-145) mmol/L Potassium 5.6 H D 4.7 3.7 D (3.6-5.0) mmol/L Chloride 91.8 L 91.8 L 98.2 (98-107) mmol/L Carbon Dioxide 16 L 13 L 19 L (22-30) mmol/L BUN 38 H 38 H 39 H (9-20) mg/dL Creatinine 11.9 H 12.8 H 12.9 H (0.8-1.5) mg/dL Glucose 208 H 239 H 136 H (75-100) mg/dL Calcium 8.2 L 8.4 8.1 L (8.4-10.2) mg/dL 05/15/17 05/15/17 Range/Units 12:43 Unknown Sodium 137 137 (137-145) mmol/L Potassium 3.9 3.9 (3.6-5.0) mmol/L Chloride 95.2 L 93.7 L (98-107) mmol/L Carbon Dioxide 18 L 17 L (22-30) mmol/L BUN 38 H 36 H (9-20) mg/dL Creatinine 13.2 H 13.1 H (0.8-1.5) mg/dL Glucose 268 H 276 H (75-100) mg/dL Calcium 8.0 L 8.4 (8.4-10.2) mg/dL - Imaging and Cardiology Echo: report reviewed EKG: report reviewed, image reviewed - EKG Interpretation EKG: sinus rhythm EKG shows: tachycardia EKG interpretations - Telemetry EKG Rhythm: Sinus Rhythm - EKG Sinus rhythms and dysrhythmias: sinus tachycardia Chamber hypertrophy or enlargement: left atrial enlargement Myocardial infarction: septal [place] (old age or ind Assessment and Plan Negative Lexiscan stress less than a year ago.Mild increase in troponins - most likely secondary to CKD and CHF. Pleuritic type of CP.Will order Echo in AM to assess LV function and to rule out pericardial effusion. - Patient Problems (1) DKA (diabetic ketoacidoses) Current Visit: Yes Status: Acute Qualifiers: Diabetes mellitus type: D Diabetes mellitus complication detail: D (2) Acute abdominal pain Current Visit: No Status: Acute (3) Acute gastroenteritis Current Visit: No Status: Acute (4) Acute hyperglycemia Current Visit: No Status: Acute (5) Acute on chronic renal failure Current Visit: No Status: Acute Qualifiers: Acute renal failure type: A Chronic kidney disease stage: C (6) Anemia Current Visit: No Status: Chronic Qualifiers: Anemia type: A Iron deficiency anemia type: I Vitamin B12 deficiency anemia type: V Folate deficiency anemia type: F Bone marrow failure anemia type: B Hemolytic anemia type: H Other causes of anemia: O Chronic kidney disease stage: C (7) Atypical chest pain Current Visit: No Status: Acute (8) CHF (congestive heart failure) Current Visit: No Status: Acute Qualifiers: Congestive heart failure type: systolic Congestive heart failure chronicity : C (9) CKD (chronic kidney disease) Current Visit: No Status: Chronic Qualifiers: Chronic kidney disease stage: C (10) COPD (chronic obstructive pulmonary disease) Current Visit: No Status: Chronic Qualifiers: COPD type: C Chronic bronchitis type: C Emphysema type: E Qualified Code(s): J42 - Unspecified chronic bronchitis (11) Diabetic gastroparesis associated with type 2 diabetes mellitus Current Visit: No Status: Chronic (12) Elevated troponin Current Visit: No Status: Acute (13) Full code status Current Visit: No Status: Acute (14) Hyperkalemia Current Visit: No Status: Acute (15) Malnutrition Current Visit: No Status: Acute (16) Chronic diarrhea Current Visit: No Status: Chronic (17) GERD (gastroesophageal reflux disease) Current Visit: No Status: Chronic Qualifiers: Esophagitis presence: E
--- NOTE | 2017-05-15 18:37 | Progress Note ---
Assessment and Plan Assessment and plan: --DKA; continue insulin drip, DC'd drip and start long-acting insulin once her anion gap is reduced IV hydration, clear liquid diet, advance as tolerated --Type 2 diabetes mellitus; on insulin and medical noncompliance Patient counseled the importance of adhering to the treatment plan --End-stage renal disease on hemodialysis; nephrology evaluation Dialysis per schedule --Nonspecific elevated cardiac enzymes/atypical chest pain Cardiology evaluation, continue current cardiac medications follow echocardiogram and cardiology recommendations --Anemia; secondary to end-stage renal disease Closely monitor transfuse as needed --GERD; continue Protonix and supportive care --DVT prophylaxis; with heparin renal dose Closely monitor the patient and adjust management as needed Once insulin drip is discontinued , will start long-acting insulin , and transfer out of ICU in stable Possible discharge in 1-2 days if hemodynamically and clinically stable Plan of care discussed with the patient, his nurse and the case management History Interval history: Patient seen and evaluated in ICU, medical records reviewed Admitted with diabetic ketoacidosis, on DKA protocol, insulin drip Patient's blood sugars are reasonable level Alert awake oriented 3 no new complaints Hospitalist Physical - Constitutional Vitals: Temp Pulse Resp BP Pulse Ox 97.5 F L 83 20 103/56 99 05/15/17 14:00 05/15/17 17:30 05/15/17 14:00 05/15/17 17:30 05/15/17 17:20 General appearance: Present: no acute distress, well-nourished, other (Not in acute distress.) - EENT Eyes: Present: PERRL, EOM intact - Neck Neck: Present: supple, normal ROM - Respiratory Respiratory effort: normal Respiratory: negative: rales, rhonchi, wheezing - Cardiovascular Rhythm: regular Heart Sounds: Present: S1 & S2 - Extremities Extremities: no ischemia, pulses intact - Abdominal General gastrointestinal: soft, non-tender, non-distended, normal bowel sounds - Integumentary Integumentary: Present: clear, warm - Psychiatric Psychiatric: appropriate mood/affect, cooperative - Neurologic Neurologic: CNII-XII intact, moves all extremities Results - Labs CBC & Chem 7: 05/14/17 18:17 05/16/17 02:50 Labs: Laboratory Last Values WBC 8.4 K/mm3 (4.5-11.0) 05/14/17 18:17 RBC 3.56 M/mm3 (3.65-5.03) L 05/14/17 18:17 Hgb 10.8 gm/dl (11.8-15.2) L 05/14/17 18:17 Hct 34.9 % (35.5-45.6) L 05/14/17 18:17 MCV 98 fl (84-94) H D 05/14/17 18:17 MCH 30 pg (28-32) 05/14/17 18:17 MCHC 31 % (32-34) L 05/14/17 18:17 RDW 17.6 % (13.2-15.2) H 05/14/17 18:17 Plt Count 223 K/mm3 (140-440) 05/14/17 18:17 Lymph % (Auto) 10.9 % (13.4-35.0) L 05/14/17 18:17 [place] % (Auto) 5.6 % (0.0-7.3) 05/14/17 18:17 Eos % (Auto) 1.7 % (0.0-4.3) 05/14/17 18:17 Baso % (Auto) 0.8 % (0.0-1.8) 05/14/17 18:17 Lymph # 0.9 K/mm3 (1.2-5.4) L 05/14/17 18:17 [place] # 0.5 K/mm3 (0.0-0.8) 05/14/17 18:17 Eos # 0.1 K/mm3 (0.0-0.4) 05/14/17 18:17 Baso # 0.1 K/mm3 (0.0-0.1) 05/14/17 18:17 Seg Neutrophils % 81.0 % (40.0-70.0) H 05/14/17 18:17 Seg Neutrophils # 6.8 K/mm3 (1.8-7.7) 05/14/17 18:17 VBG pH 7.318 (7.320-7.420) L 05/14/17 20:11 Sodium 137 mmol/L (137-145) 05/15/17 Unknown Potassium 3.9 mmol/L (3.6-5.0) 05/15/17 Unknown Chloride 93.7 mmol/L (98-107) L 05/15/17 Unknown Carbon Dioxide 17 mmol/L (22-30) L 05/15/17 Unknown Anion Gap 30 mmol/L 05/15/17 Unknown BUN 36 mg/dL (9-20) H 05/15/17 Unknown Creatinine 13.1 mg/dL (0.8-1.5) H 05/15/17 Unknown Estimated GFR 5 ml/min 05/15/17 Unknown BUN/Creatinine Ratio 2.74 % 05/15/17 Unknown Glucose 276 mg/dL (75-100) H 05/15/17 Unknown POC Glucose 296 (70-105) H 05/15/17 11:48 Lactic Acid 1.80 mmol/L (0.7-2.0) 05/14/17 20:11 Calcium 8.4 mg/dL (8.4-10.2) 05/15/17 Unknown Phosphorus 6.70 mg/dL (2.5-4.5) H 05/15/17 Unknown Magnesium 2.40 mg/dL (1.7-2.3) H 05/15/17 Unknown Total Bilirubin 0.40 mg/dL (0.1-1.2) 05/14/17 18:17 AST 13 units/L (5-40) 05/14/17 18:17 ALT 15 units/L (7-56) 05/14/17 18:17 Alkaline Phosphatase 124 units/L (35-129) 05/14/17 18:17 Troponin T 0.071 ng/mL (0.00-0.029) H 05/15/17 06:30 Total Protein 8.0 g/dL (6.3-8.2) 05/14/17 18:17 Albumin 3.5 g/dL (3.9-5) L 05/14/17 18:17 Albumin/Globulin Ratio 0.8 % 05/14/17 18:17 Triglycerides 307 mg/dL (2-149) H 05/14/17 18:17 Cholesterol 164 mg/dL (50-199) 05/14/17 18:17 LDL Cholesterol Direct 40 mg/dL (50-130) L 05/14/17 18:17 HDL Cholesterol 63 mg/dL (40-59) H 05/14/17 18:17 Cholesterol/HDL Ratio 2.60 % 05/14/17 18:17 Lipase 17 units/L (13-60) 05/14/17 18:17
[2017-05-15] MEDS ORDERED: LEVEMIR SUB-Q SCH ×2 (22:00)
[2017-05-16 03:36] LABS: BUN/Creatinine Ratio 2.55; Calcium 8.4 mg/dL (8.4-10.2); Chloride 93.5 mmol/L (98-107)
[2017-05-16] MEDS: MORPHINE IV PRN ×3 (04:20→12:42)
--- NOTE | 2017-05-16 08:25 | Progress Note ---
Assessment and Plan Assessment and plan: --DKA; resolved Blood sugars reasonable levels, continue Accu-Chek sliding scale coverage and ADA diet insulin --Type 2 diabetes mellitus; moderate control, continue current management --End-stage renal disease on hemodialysis; nephrology following Dialysis prescription scheduled --Nonspecific elevated cardiac enzymes/atypical chest pain Cardiology following, follow echocardiogram and cardiology recommendations --Anemia; secondary to end-stage renal disease Closely monitor transfuse as needed --GERD; continue Protonix and supportive care --DVT prophylaxis; with heparin renal dose Closely monitor the patient and adjust management as needed Follow the echocardiogram, possible discharge in 1-2 days if stable And cleared by nephrology and cardiology Plan of care discussed with the patient and his nurse History Interval history: Patient Seen and evaluated medical records reviewed No new events reported by the nursing staff blood sugars reasonable levels Hospitalist Physical - Constitutional Vitals: Temp Pulse Resp BP Pulse Ox 97.5 F L 83 18 119/76 100 05/15/17 23:00 05/15/17 23:00 05/16/17 04:20 05/15/17 23:00 05/15/17 23:00 General appearance: Present: no acute distress, well-nourished, other ( chronically ill looking) - EENT Eyes: Present: PERRL, EOM intact - Neck Neck: Present: supple, normal ROM - Respiratory Respiratory effort: normal Respiratory: negative: rales, rhonchi, wheezing - Cardiovascular Rhythm: regular Heart Sounds: Present: S1 & S2 - Extremities Extremities: no ischemia, pulses intact, pulses symmetrical - Abdominal General gastrointestinal: soft, non-tender, non-distended, normal bowel sounds - Integumentary Integumentary: Present: clear, warm - Psychiatric Psychiatric: appropriate mood/affect, cooperative - Neurologic Neurologic: CNII-XII intact, moves all extremities Results - Labs CBC & Chem 7: 05/14/17 18:17 05/16/17 02:50 Labs: Laboratory Last Values WBC 8.4 K/mm3 (4.5-11.0) 05/14/17 18: RBC 3.56 M/mm3 (3.65-5.03) L 05/14/17 18:17 Hgb 10.8 gm/dl (11.8-15.2) L 05/14/17 18: Hct 34.9 % (35.5-45.6) L 05/14/17 18:17 MCV 98 fl (84-94) H D 05/14/17 18:17 MCH 30 pg (28-32) 05/14/17 18:17 MCHC 31 % (32-34) L 05/14/17 18:17 RDW 17.6 % (13.2-15.2) H 05/14/17 18:17 Plt Count 223 K/mm3 (140-440) 05/14/17 18:17 Lymph % (Auto) 10.9 % (13.4-35.0) L 05/14/17 18:17 [place] % (Auto) 5.6 % (0.0-7.3) 05/14/17 18:17 Eos % (Auto) 1.7 % (0.0-4.3) 05/14/17 18:17 Baso % (Auto) 0.8 % (0.0-1.8) 05/14/17 18:17 Lymph # 0.9 K/mm3 (1.2-5.4) L 05/14/17 18:17 [place] # 0.5 K/mm3 (0.0-0.8) 05/14/17 18:17 Eos # 0.1 K/mm3 (0.0-0.4) 05/14/17 18:17 Baso # 0.1 K/mm3 (0.0-0.1) 05/14/17 18:17 Seg Neutrophils % 81.0 % (40.0-70.0) H 05/14/17 18:17 Seg Neutrophils # 6.8 K/mm3 (1.8-7.7) 05/14/17 18:17 VBG pH 7.318 (7.320-7.420) L 05/14/17 20:11 Sodium 135 mmol/L (137-145) L 05/16/17 02:50 Potassium 4.0 mmol/L (3.6-5.0) 05/16/17 02:50 Chloride 93.5 mmol/L (98-107) L 05/16/17 02:50 Carbon Dioxide 25 mmol/L (22-30) D 05/16/17 02:50 Anion Gap 21 mmol/L 05/16/17 02:50 BUN 22 mg/dL (9-20) H 05/16/17 02:50 Creatinine 8.6 mg/dL (0.8-1.5) H 05/16/17 02:50 Estimated GFR 8 ml/min 05/16/17 02:50 BUN/Creatinine Ratio 2.55 % 05/16/17 02:50 Glucose 41 mg/dL (75-100) L 05/16/17 02:50 POC Glucose 172 (70-105) H 05/16/17 05:14 Lactic Acid 1.80 mmol/L (0.7-2.0) 05/14/17 20:11 Calcium 8.4 mg/dL (8.4-10.2) 05/16/17 02:50 Phosphorus 6.70 mg/dL (2.5-4.5) H 05/15/17 Unknown Magnesium 2.40 mg/dL (1.7-2.3) H 05/15/17 Unknown Total Bilirubin 0.40 mg/dL (0.1-1.2) 05/14/17 18:17 AST 13 units/L (5-40) 05/14/17 18:17 ALT 15 units/L (7-56) 05/14/17 18:17 Alkaline Phosphatase 124 units/L (35-129) 05/14/17 18:17 Troponin T 0.071 ng/mL (0.00-0.029) H 05/15/17 06:30 Total Protein 8.0 g/dL (6.3-8.2) 05/14/17 18:17 Albumin 3.5 g/dL (3.9-5) L 05/14/17 18:17 Albumin/Globulin Ratio 0.8 % 05/14/17 18:17 Triglycerides 307 mg/dL (2-149) H 05/14/17 18:17 Cholesterol 164 mg/dL (50-199) 05/14/17 18:17 LDL Cholesterol Direct 40 mg/dL (50-130) L 05/14/17 18:17 HDL Cholesterol 63 mg/dL (40-59) H 05/14/17 18:17 Cholesterol/HDL Ratio 2.60 % 05/14/17 18:17 Lipase 17 units/L (13-60) 05/14/17 18:17
[2017-05-16] MEDS: NOVOLOG SUB-Q SCH ×2 (08:30→12:46)
[2017-05-16] MEDS: ZOFRAN IV PRN (08:31)
[2017-05-16 08:45] VITALS: BP 104/75
--- NOTE | 2017-05-16 09:18 | Progress Note ---
Assessment and Plan - Patient Problems (1) DKA (diabetic ketoacidoses) Current Visit: Yes Status: Acute Qualifiers: Diabetes mellitus type: D Diabetes mellitus complication detail: D (2) DKA (diabetic ketoacidoses) Current Visit: No Status: Acute Qualifiers: Diabetes mellitus type: D Diabetes mellitus complication detail: D (3) ESRD (end stage renal disease) on dialysis Current Visit: No Status: Chronic (4) Malnutrition Current Visit: No Status: Acute (5) Metabolic acidosis Current Visit: No Status: Acute (6) Diabetic gastroparesis associated with type 2 diabetes mellitus Current Visit: No Status: Chronic (7) Hypertension Current Visit: No Status: Chronic Qualifiers: Hypertension type: H Subjective Date of service: 05/16/17 Objective - Vital Signs Vital signs: Vital Signs - 12hr 05/15/17 05/15/17 05/15/17 22:00 23:00 23:24 Temperature 97.5 F L Pulse Rate [ 83 From Monitor] Pulse Rate [ 83 Left Radial] Pulse Rate [ 83 Right] Respiratory 16 18 Rate Respiratory 18 Rate [chest pain] Blood Pressure 119/76 [Right Arm] O2 Sat by Pulse 100 Oximetry 05/16/17 05/16/17 04:20 07:45 Temperature 98.9 F Pulse Rate [ 93 H From Monitor] Pulse Rate [ 93 H Left Radial] Pulse Rate [ 93 H Right] Respiratory 18 18 Rate Respiratory Rate [chest pain] Blood Pressure 104/75 [Right Arm] O2 Sat by Pulse 100 Oximetry - Lab 05/14/17 18:17 05/16/17 02:50 Most recent lab results Calcium 8.4 mg/dL (8.4-10.2) 05/16/17 02:50 Phosphorus 6.70 mg/dL (2.5-4.5) H 05/15/17 Unknown Magnesium 2.40 mg/dL (1.7-2.3) H 05/15/17 Unknown
[2017-05-16] MEDS: HALFPRIN EC PO SCH (12:46)
[2017-05-16] MEDS: HEPARIN SUB-Q SCH (12:47)
--- NOTE | 2017-05-16 12:53 | Progress Note ---
Assessment and Plan Negative Lexiscan stress less than a year ago. Mild increase in troponins - most likely secondary to ESRD and CHF. Await echo. Consider GI consultation. The patient has been seen in conjunction with Dr. Bonds who agrees with the assessment and plan of care. - Patient Problems (1) DKA (diabetic ketoacidoses) Current Visit: Yes Status: Acute Qualifiers: Diabetes mellitus type: D Diabetes mellitus complication detail: D (2) Acute abdominal pain Current Visit: No Status: Acute (3) Acute gastroenteritis Current Visit: No Status: Acute (4) Acute hyperglycemia Current Visit: No Status: Acute (5) Acute on chronic renal failure Current Visit: No Status: Acute Qualifiers: Acute renal failure type: A Chronic kidney disease stage: C (6) Anemia Current Visit: No Status: Chronic Qualifiers: Anemia type: A Iron deficiency anemia type: I Vitamin B12 deficiency anemia type: V Folate deficiency anemia type: F Bone marrow failure anemia type: B Hemolytic anemia type: H Other causes of anemia: O Chronic kidney disease stage: C (7) Atypical chest pain Current Visit: No Status: Acute (8) CHF (congestive heart failure) Current Visit: No Status: Acute Qualifiers: Congestive heart failure type: systolic Congestive heart failure chronicity : C (9) CKD (chronic kidney disease) Current Visit: No Status: Chronic Qualifiers: Chronic kidney disease stage: C (10) COPD (chronic obstructive pulmonary disease) Current Visit: No Status: Chronic Qualifiers: COPD type: C Chronic bronchitis type: C Emphysema type: E Qualified Code(s): J42 - Unspecified chronic bronchitis (11) Diabetic gastroparesis associated with type 2 diabetes mellitus Current Visit: No Status: Chronic (12) Elevated troponin Current Visit: No Status: Acute (13) Full code status Current Visit: No Status: Acute (14) Hyperkalemia Current Visit: No Status: Acute (15) Malnutrition Current Visit: No Status: Acute (16) Chronic diarrhea Current Visit: No Status: Chronic (17) GERD (gastroesophageal reflux disease) Current Visit: No Status: Chronic Qualifiers: Esophagitis presence: E Subjective Date of service: 05/16/17 Principal diagnosis: atypical chest pain Interval history: Pt resting comfortably in bed. Had echo this AM. Still c/o intermittent epigastric and substernal pain which is aggravated by eating. Also c/o "food getting stuck" in his throat. VSS. Objective Last Vital Signs Temp 98.9 F 05/16/17 07:45 Pulse 93 H 05/16/17 07:45 Resp 18 05/16/17 07:45 BP 104/75 05/16/17 07:45 Pulse Ox 100 05/16/17 07:45 - Physical Examination General: Appears Well HEENT: Positive: PERRL, Mucus Membranes Moist Neck: Positive: neck supple, trachea midline Cardiac: Positive: Reg Rate and Rhythm, S1/S2 Lungs: Positive: clear to auscultation Neuro: Positive: Grossly Intact Abdomen: Positive: Soft, Active Bowel Sounds Skin: Negative: Rash Musculoskeletal: No Fluid Collection, No Pain, Normal Range of Motion Extremities: Present: upper extr. pulses, lower extr. pulses. Absent: edema - Labs and Meds Comprehensive Metabolic Panel 05/15/17 05/16/17 Range/Units 12:43 02:50 Sodium 137 135 L (137-145) mmol/L Potassium 3.9 4.0 (3.6-5.0) mmol/L Chloride 95.2 L 93.5 L (98-107) mmol/L Carbon Dioxide 18 L 25 D (22-30) mmol/L BUN 38 H 22 H (9-20) mg/dL Creatinine 13.2 H 8.6 H (0.8-1.5) mg/dL Glucose 268 H 41 L (75-100) mg/dL Calcium 8.0 L 8.4 (8.4-10.2) mg/dL - Imaging and Cardiology EKG: report reviewed, image reviewed Echo: report reviewed - Telemetry EKG Rhythm: Sinus Rhythm - EKG Sinus rhythms and dysrhythmias: sinus tachycardia Chamber hypertrophy or enlargement: left atrial enlargement Myocardial infarction: septal [place] (old age or ind
== END 2017-05-16 14:00 | disposition left against medical advice (07) | DRG 637 ==
LOC: ED 17:52 → CC1 05-15 02:09 → 3A 05-15 17:44
PROVIDERS: ADMIT Internal Medicine; ATTEND Internal Medicine
PROC: 5A1D00Z (ICD-10-PCS; principal; 2017-05-15)
DX: E13.10 Other specified diabetes mellitus with ketoacidosis without coma (principal); N18.6 End stage renal disease; I13.2 Hypertensive heart and chronic kidney disease with heart failure and with stage 5 chronic kidney disease, or end stage renal disease; E46 Unspecified protein-calorie malnutrition; Z68.1 Body mass index [BMI] 19.9 or less, adult; I42.0 Dilated cardiomyopathy; N17.9 Acute kidney failure, unspecified; I50.22 Chronic systolic (congestive) heart failure; E11.22 Type 2 diabetes mellitus with diabetic chronic kidney disease; E11.43 Type 2 diabetes mellitus with diabetic autonomic (poly)neuropathy; K31.84 Gastroparesis; J44.9 Chronic obstructive pulmonary disease, unspecified; F17.210 Nicotine dependence, cigarettes, uncomplicated; E87.5 Hyperkalemia; R07.89 Other chest pain; D63.1 Anemia in chronic kidney disease; K21.9 Gastro-esophageal reflux disease without esophagitis; R91.1 Solitary pulmonary nodule; K52.9 Noninfective gastroenteritis and colitis, unspecified; Z79.4 Long term (current) use of insulin; Z99.2 Dependence on renal dialysis; Z90.49 Acquired absence of other specified parts of digestive tract; Z79.82 Long term (current) use of aspirin
CPT/HCPCS: 36415; 74022; 74176; 80048; 80053; 80061; 82140; 82805; 82962; 83690; 83735; 84100; 84484; 85025; 93005; 93010; 96361; 96372; 96374; 96375; 96376; 99406; J1170; J1644; J1815; J1818; J2270; J2405; J7030; J7050

== ENCOUNTER 2017-07-04 05:59 | Emergency (ER) | payer MEDICARE ==
[2017-07-04 07:29] LABS: Basophils % (Auto) 0.8 % (0.0-1.8); Eosinophils % (Auto) 4.7 % (0.0-4.3); Hematocrit 38.3 % (35.5-45.6); Hemoglobin 12.1 gm/dl (11.8-15.2); Mean Corpuscular HGB Conc 32 % (32-34); Mean Corpuscular Hemoglobin 30 pg (28-32); Mean Corpuscular Volume 94 fl (84-94); Platelet Count 258 K/mm3 (140-440); Red Blood Count 4.07 M/mm3 (3.65-5.03); Red Cell Distribution Width 15.8 % (13.2-15.2); White Blood Count 9.1 K/mm3 (4.5-11.0)
[2017-07-04 07:41] LABS: Albumin 3.4 g/dL (3.9-5); Albumin/Globulin Ratio 0.8 %; BUN/Creatinine Ratio 2.63; Bilirubin,Total 0.2 mg/dL (0.1-1.2); Calcium 7.9 mg/dL (8.4-10.2); Chloride 94.8 mmol/L (98-107); Potassium 3.8 mmol/L (3.6-5.0); Total Protein 7.9 g/dL (6.3-8.2)
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
[2017-07-04 12:48] VITALS: BP 110/70
== END 2017-07-04 12:48 | disposition home or self-care (01) ==
LOC: ED 05:59
DX: L02.811 Cutaneous abscess of head [any part, except face] (principal); I12.0 Hypertensive chronic kidney disease with stage 5 chronic kidney disease or end stage renal disease; N18.6 End stage renal disease; E10.65 Type 1 diabetes mellitus with hyperglycemia; I50.9 Heart failure, unspecified; E10.43 Type 1 diabetes mellitus with diabetic autonomic (poly)neuropathy; K31.84 Gastroparesis; F17.200 Nicotine dependence, unspecified, uncomplicated; J45.909 Unspecified asthma, uncomplicated; Z99.2 Dependence on renal dialysis; Z79.82 Long term (current) use of aspirin; Z79.4 Long term (current) use of insulin
CPT/HCPCS: 36415; 80053; 85025; 96372; J1815

== ENCOUNTER 2017-11-14 16:20 | Inpatient (IN) | payer MEDICARE ==
[2017-11-14 18:07] LABS: Basophils # (Auto) 0.1 K/mm3 (0.0-0.1); Basophils % (Auto) 1.4 % (0.0-1.8); Eosinophils # (Auto) 0.3 K/mm3 (0.0-0.4); Eosinophils % (Auto) 5.4 % (0.0-4.3); Hematocrit 26.2 % (35.5-45.6); Hemoglobin 8.5 gm/dl (11.8-15.2); Lymphocytes # (Auto) 0.9 K/mm3 (1.2-5.4); Lymphocytes % (Auto) 18.4 % (13.4-35.0); Mean Corpuscular HGB Conc 32 % (32-34); Mean Corpuscular Hemoglobin 31 pg (28-32); Mean Corpuscular Volume 95 fl (84-94); Monocytes # (Auto) 0.7 K/mm3 (0.0-0.8); Monocytes % (Auto) 13.6 % (0.0-7.3); Platelet Count 274 K/mm3 (140-440); Red Blood Count 2.77 M/mm3 (3.65-5.03); Red Cell Distribution Width 15.8 % (13.2-15.2)
[2017-11-14 18:19] LABS: Calcium 7.3 mg/dL (8.4-10.2)
--- NOTE | 2017-11-14 18:43 | XRay Report ---
FINAL REPORT EXAM: XR CHEST ROUTINE 2V HISTORY: Shortness of breath TECHNIQUE: Two view chest PA and lateral PRIORS: Comparison is dated August 17, 2016 FINDINGS: Cardiac and mediastinal contours are unremarkable. No focal pulmonary infiltrate is identified. No pleural fluid collection seen. Pulmonary vasculature is unremarkable. IMPRESSION: Negative two-view chest
[2017-11-14 18:49] LABS: Chol/HDL Ratio 2.02 %
[2017-11-15] MEDS ORDERED: KIONEX PO ONE (12:17)
[2017-11-15] MEDS ORDERED: D50W (25GM) Syringe IV ONE (12:17)
[2017-11-15] MEDS ORDERED: MORPHINE IV ONE (12:18)
[2017-11-15] MEDS ORDERED: ZOFRAN IV ONE (12:18)
--- NOTE | 2017-11-15 12:23 | Emergency Department Report ---
ED Chest Pain HPI - General Chief Complaint: Chest Pain Stated Complaint: CHEST PAIN Time Seen by Provider: 11/15/17 12:12 Source: patient, EMS Mode of arrival: Wheelchair Limitations: Other - History of Present Illness Initial Comments: Patient is 47 years old male history of end-stage renal disease on dialysis. Patient stated that he missed a whole week dialysis because he was in jail and he was just released. Patient complaining of chest pain and asking for pain medicine. He also reported a vomiting and diarrhea. He denied any fever cough or congestion. MD Complaint: chest pain -: week(s) Onset: during rest Pain Location: left chest Severity: moderate Severity scale (0 -10): 8 Quality: tightness Improves With: nothing - Related Data Home Medications Medication Instructions Recorded Confirmed Last Taken Insulin Regular, Human [HumuLIN R] See Protocol SUB-Q PRN 05/13/17 05/15/17 2 Days Ago ~05/13/17 Insulin Detemir [Levemir] 10 units SUB-Q BID 05/15/17 05/15/17 2 Days Ago ~05/13/17 Previous Rx's Medication Instructions Recorded Last Taken Type Aspirin EC [Aspirin Enteric Coated 81 mg PO QDAY #30 tablet 04/21/17 2 Days Ago Rx TAB] ~05/13/17 Sulfamethoxazole/Trimethoprim 1 each PO BID #14 tablet 07/04/17 Unknown Rx [Bactrim DS TAB] traMADol [Ultram] 50 mg PO Q6HR PRN #10 tablet 07/04/17 Unknown Rx HYDROcodone/APAP 5-325 [[place] 1 each PO Q6HR PRN #15 tablet 09/06/17 Unknown Rx 5/325] Allergies Allergy/AdvReac Type Severity Reaction Status Date / Time No Known Allergies Allergy Verified 06/20/14 15:21 Heart Score - HEART Score History: Moderately suspicious EKG: Non-specific Age: 45-65 Risk factors: > 3 risk factors or hx of atherosclerotic disease Troponin: < normal limit HEART Score: 5 - Critical Actions Critical Actions: 4-6 pts:12-16.6% risk of adverse cardiac event. Should be admitted ED Review of Systems ROS: Stated complaint: CHEST PAIN Other details as noted in HPI Comment: All other systems reviewed and negative Constitutional: denies: chills, fever Respiratory: shortness of breath. denies: cough, orthopnea, SOB with exertion, SOB at rest Cardiovascular: chest pain. denies: palpitations, dyspnea on exertion Gastrointestinal: nausea, vomiting, diarrhea. denies: constipation, hematemesis , hematochezia Neurological: denies: headache, weakness, numbness, paresthesias, confusion, abnormal gait, vertigo ED Past Medical Hx - Past Medical History Previous Medical History?: Yes Hx Hypertension: Yes Hx Congestive Heart Failure: No Hx Diabetes: Yes Hx Pulmonary Embolism: No Hx Renal Disease: Yes (MWF dialysis) Hx Kidney Stones: No Hx Asthma: No Hx COPD: No Hx Tuberculosis: No Hx HIV: No Additional medical history: Diabetic gastroparesis, chronic diarrhea - Surgical History Past Surgical History?: Yes Hx Cholecystectomy: Yes (In 2014) Additional Surgical History: LUE AVG - Social History Smoking Status: Current Every Day Smoker Substance Use Type: Alcohol, Marijuana, Prescribed - Medications Home Medications: Home Medications Medication Instructions Recorded Confirmed Last Taken Type Aspirin EC [Aspirin Enteric Coated 81 mg PO QDAY #30 tablet 04/21/17 05/15/17 2 Days Ago Rx TAB] ~05/13/17 Insulin Regular, Human [HumuLIN R] See Protocol SUB-Q PRN 05/13/17 05/15/17 2 Days Ago History ~05/13/17 Insulin Detemir [Levemir] 10 units SUB-Q BID 05/15/17 05/15/17 2 Days Ago History ~05/13/17 Sulfamethoxazole/Trimethoprim 1 each PO BID #14 tablet 07/04/17 Unknown Rx [Bactrim DS TAB] traMADol [Ultram] 50 mg PO Q6HR PRN #10 tablet 07/04/17 Unknown Rx HYDROcodone/APAP 5-325 [[place] 1 each PO Q6HR PRN #15 tablet 09/06/17 Unknown Rx 5/325] ED Physical Exam - General Limitations: Other General appearance: alert, in no apparent distress - Head Head exam: Present: atraumatic, normocephalic - Eye Eye exam: Present: normal appearance, PERRL - ENT ENT exam: Present: normal exam, normal orophraynx, mucous membranes moist - Neck Neck exam: Present: normal inspection, full ROM. Absent: tenderness, meningismus, lymphadenopathy - Respiratory Respiratory exam: Present: normal lung sounds bilaterally. Absent: respiratory distress, wheezes, rales, rhonchi, chest wall tenderness, accessory muscle use, decreased breath sounds, prolonged expiratory - Cardiovascular Cardiovascular Exam: Present: regular rate, normal rhythm, normal heart sounds - GI/Abdominal GI/Abdominal exam: Present: soft, normal bowel sounds. Absent: distended, tenderness, guarding, rebound, rigid, organomegaly, mass, bruit, pulsatile mass , hernia - Extremities Exam Extremities exam: Present: normal inspection, full ROM, normal capillary refill - Back Exam Back exam: Present: normal inspection, full ROM. Absent: tenderness, CVA tenderness (R), CVA tenderness (L), muscle spasm - Neurological Exam Neurological exam: Present: alert, oriented X3, CN II-XII intact, normal gait - Skin Skin exam: Present: warm, intact, normal color ED Course Vital Signs 11/14/17 11/15/17 11/15/17 16:55 04:15 11:21 Temperature 97.4 F L 98.6 F 98.6 F Pulse Rate 77 72 68 Respiratory 20 18 16 Rate Blood Pressure 120/60 104/66 Blood Pressure 93/55 [Left] O2 Sat by Pulse 98 99 100 Oximetry - Reevaluation(s) Reevaluation #1: 11/15/17 12:36 Discussed with Alessandra DETENTION OFFICER with Dr. Rock, informed about the patient she stated that she will "order for emergency dialysis. ED Medical Decision Making - Lab Data Result diagrams: 11/14/17 17:30 11/14/17 17:30 - EKG Data -: EKG Interpreted by Sd EKG shows normal: sinus rhythm Rate: normal - EKG Data Interpretation: no acute changes - Radiology Data Radiology results: report reviewed Referring Physician: ED DOC Patient Name: LONNIE RICO Date of : 1970 Sex: Male Report Date: 2017-11-14 Report Status: Finalized Findings [facility] [address] [place] [address] XRay Report Signed Patient: LONNIE RICO JR MR#: [id number] : 1970 Acct:[id number] Age/Sex: 47 / M ADM Date: 11/14/17 Loc: ED Attending Dr: Ordering Physician: ED MD TOO Date of Service: 11/14/17 Procedure(s): XR chest routine 2V Accession Number(s): [id number] cc: ED DOC, Fluoro Time In Minutes: FINAL REPORT EXAM: XR CHEST ROUTINE 2V HISTORY: Shortness of breath TECHNIQUE: Two view chest PA and lateral PRIORS: Comparison is dated August 17, 2016 FINDINGS: Cardiac and mediastinal contours are unremarkable. No focal pulmonary infiltrate is identified. No pleural fluid collection seen. Pulmonary vasculature is unremarkable. IMPRESSION: Negative two-view chest Transcribed By: LILLIE Dictated By: LILLIAM MURPHY MD Electronically Authenticated By: LILLIAM MURPHY MD Signed Date/Time: 11/14/171439 DD/ 39 TD/TT: 11/14/171439 - Medical Decision Making Discussed with Dr. Lama, I presented the patient to him, he agreed to admit the patient to his service. Critical Care Time: Yes Critical care time in (mins) excluding proc time.: 35 Critical care attestation.: If time is entered above; I have spent that time in minutes in the direct care of this critically ill patient, excluding procedure time. ED Disposition Clinical Impression: Elevated troponin, Chest pain, ESRD needing dialysis, Acute hyperkalemia Disposition: OP ADMIT IP TO THIS HOSP Is pt being admited?: Yes Condition: Stable Instructions: Chest Pain (ED) Referrals: CHARLES JOHNSON MD [Primary Care Provider] - 3-5 Days
[2017-11-15] MEDS ORDERED: NACL 0.9 (PRIMING MACHINE ONLY DIALYSIS) MC ONE (19:07)
--- NOTE | 2017-11-15 23:37 | History and Physical Report ---
History of Present Illness Date of examination: 11/15/17 Date of admission: 11/15/17 13:09 Chief complaint: SOB 1 day History of present illness: History of Present Illness Patient is 47 years old male history of end-stage renal disease on dialysis. Patient stated that he missed a whole week dialysis because he was in long-term and he was just released. Patient complaining of chest pain and asking for pain medicine. He also reported a vomiting and diarrhea. He denied any fever cough or congestion.No exacerbating or relieving factors Past Medical History Previous Medical History?: Yes Hypertension: Yes Diabetes: Yes Renal Disease: Yes (MWF dialysis) Diabetic gastroparesis, chronic diarrhea Surgical History Past Surgical History?: Yes Hx Cholecystectomy: Yes (In 2014) Additional Surgical History: [place] Social History Smoking Status: Current Every Day Smoker Substance Use Type: Alcohol, Marijuana, Prescribed Fam Hx HTn Medications Home Medications: Home Medications Medication Instructions Recorded Confirmed Last Taken Type Aspirin EC [Aspirin Enteric Coated 81 mg PO QDAY #30 tablet 04/21/17 05/15/17 2 Days Ago Rx TAB] ~05/13/17 Insulin Regular, Human [HumuLIN R] See Protocol SUB-Q PRN 05/13/17 05/15/17 2 Days Ago History ~05/13/17 Insulin Detemir [Levemir] 10 units SUB-Q BID 05/15/17 05/15/17 2 Days Ago History ~05/13/17 Sulfamethoxazole/Trimethoprim 1 each PO BID #14 tablet 07/04/17 Unknown Rx [Bactrim DS TAB] traMADol [Ultram] 50 mg PO Q6HR PRN #10 tablet 07/04/17 Unknown Rx HYDROcodone/APAP 5-325 [[place] 1 each PO Q6HR PRN #15 tablet 09/06/17 Unknown Rx 5/325] ROS: Stated complaint: CHEST PAIN Other details as noted in HPI Comment: All other systems reviewed and negative Constitutional: denies: chills, fever Respiratory: shortness of breath. denies: cough, orthopnea, SOB with exertion, SOB at rest Cardiovascular: chest pain. denies: palpitations, dyspnea on exertion Gastrointestinal: nausea, vomiting, diarrhea. denies: constipation, hematemesis , hematochezia Neurological: denies: headache, weakness, numbness, paresthesias, confusion, abnormal gait, vertigo Medications and Allergies Allergies Allergy/AdvReac Type Severity Reaction Status Date / Time No Known Allergies Allergy Verified 06/20/14 15:21 Home Medications Medication Instructions Recorded Confirmed Last Taken Type Insulin Regular, Human [HumuLIN R] See Protocol SUB-Q PRN 05/13/17 11/15/17 2 Days Ago History ~05/13/17 Insulin Detemir [Levemir] 10 units SUB-Q BID 05/15/17 11/15/17 2 Days Ago History ~05/13/17 Active Meds: Active Medications Oxycodone/Acetaminophen (Percocet 5/325) 1 tab PO Q4H PRN PRN Reason: Pain, Moderate (4-6) Exam - Constitutional Vitals: Temp Pulse Resp BP Pulse Ox 98.6 F 75 22 128/77 100 11/15/17 11:21 11/15/17 15:30 11/15/17 15:05 11/15/17 15:30 11/15/17 15:05 General appearance: Present: mild distress, well-nourished - EENT Eyes: Present: PERRL ENT: hearing intact, clear oral mucosa - Neck Neck: Present: supple, normal ROM - Respiratory Respiratory effort: normal Respiratory: bilateral: CTA - Cardiovascular Heart rate: 80 Rhythm: regular Heart Sounds: Present: S1 & S2. Absent: rub, click - Extremities Extremities: no ischemia, pulses intact, pulses symmetrical, No edema Peripheral Pulses: within normal limits - Abdominal General gastrointestinal: Present: soft, non-tender, non-distended, normal bowel sounds Male genitourinary: Present: normal - Integumentary Integumentary: Present: clear, warm, dry - Musculoskeletal Musculoskeletal: gait normal, strength equal bilaterally - Psychiatric Psychiatric: appropriate mood/affect, intact judgment & insight - Neurologic Neurologic: CNII-XII intact, moves all extremities - Allied Health Allied health notes reviewed: nursing, case management Results - Labs CBC & Chem 7: 11/14/17 17:30 11/16/17 04:40 Labs: Laboratory Last Values WBC 5.1 K/mm3 (4.5-11.0) 11/14/17 17:30 RBC 2.77 M/mm3 (3.65-5.03) L 11/14/17 17:30 Hgb 8.5 gm/dl (11.8-15.2) L 11/14/17 17:30 Hct 26.2 % (35.5-45.6) L 11/14/17 17:30 MCV 95 fl (84-94) H 11/14/17 17:30 MCH 31 pg (28-32) 11/14/17 17:30 MCHC 32 % (32-34) 11/14/17 17:30 RDW 15.8 % (13.2-15.2) H 11/14/17 17:30 Plt Count 274 K/mm3 (140-440) 11/14/17 17:30 Lymph % (Auto) 18.4 % (13.4-35.0) 11/14/17 17:30 [place] % (Auto) 13.6 % (0.0-7.3) H 11/14/17 17:30 Eos % (Auto) 5.4 % (0.0-4.3) H 11/14/17 17:30 Baso % (Auto) 1.4 % (0.0-1.8) 11/14/17 17:30 Lymph # 0.9 K/mm3 (1.2-5.4) L 11/14/17 17:30 [place] # 0.7 K/mm3 (0.0-0.8) 11/14/17 17:30 Eos # 0.3 K/mm3 (0.0-0.4) 11/14/17 17:30 Baso # 0.1 K/mm3 (0.0-0.1) 11/14/17 17:30 Seg Neutrophils % 61.2 % (40.0-70.0) 11/14/17 17:30 Seg Neutrophils # 3.1 K/mm3 (1.8-7.7) 11/14/17 17:30 Sodium 141 mmol/L (137-145) 11/14/17 17:30 Potassium 6.7 mmol/L (3.6-5.0) H* 11/14/17 17:30 Chloride 103.8 mmol/L (98-107) 11/14/17 17:30 Carbon Dioxide 10 mmol/L (22-30) L 11/14/17 17:30 Anion Gap 34 mmol/L 11/14/17 17:30 BUN 65 mg/dL (9-20) H 11/14/17 17:30 Creatinine 24.0 mg/dL (0.8-1.5) H 11/14/17 17:30 Estimated GFR 2 ml/min 11/14/17 17:30 BUN/Creatinine Ratio 3 % 11/14/17 17:30 Glucose 231 mg/dL (75-100) H 11/14/17 17:30 POC Glucose 124 (70-105) H 11/15/17 21:53 Calcium 7.3 mg/dL (8.4-10.2) L 11/14/17 17:30 Troponin T 0.104 ng/mL (0.00-0.029) H* 11/14/17 17:30 Triglycerides 128 mg/dL (2-149) 11/14/17 17:30 Cholesterol 99 mg/dL (50-199) 11/14/17 17:30 LDL Cholesterol Direct 25 mg/dL (50-130) L 11/14/17 17:30 HDL Cholesterol 49 mg/dL (40-59) 11/14/17 17:30 Cholesterol/HDL Ratio 2.02 % 11/14/17 17:30 - Imaging and Cardiology EKG: report reviewed Chest x-ray: report reviewed Assessment and Plan Advance Directives: Yes (Full code) VTE prophylaxis?: Chemical Plan of care discussed with patient/family: Yes - Patient Problems (1) Acute hyperkalemia Current Visit: Yes Status: Acute Plan to address problem: Was [id number]/Insulin and Kayexalate in Er and undergoing emergent HD (2) Chest pain Current Visit: Yes Status: Acute Qualifiers: Chest pain type: unspecified Qualified Code(s): R07.9 - Chest pain, unspecified Plan to address problem: Sec to volume overload Lexiscan for 11/16 (3) Elevated troponin Current Visit: Yes Status: Acute Plan to address problem: To trend Troponin Mostly nonspecific sec to ESRD (4) ESRD needing dialysis Current Visit: Yes Status: Chronic Plan to address problem: Emergent HD (5) CHF (congestive heart failure) Current Visit: No Status: Chronic Qualifiers: Congestive heart failure type: combined Plan to address problem: Increased UF (6) IDDM (insulin dependent diabetes mellitus) Current Visit: Yes Status: Chronic Plan to address problem: Adjust dosage Check A1c (7) DVT prophylaxis Current Visit: Yes Status: Acute Plan to address problem: Heparin SQ
[2017-11-16] MEDS: PERCOCET 5/325 PO PRN ×2 (01:09→17:52)
[2017-11-16] MEDS: LEVEMIR SUB-Q SCH ×2 (02:07→10:57)
[2017-11-16] MEDS ORDERED: D50W (25GM) Syringe IV ONE (07:30)
--- NOTE | 2017-11-16 09:16 | Consultation ---
History of Present Illness - Reason for Consult Consult date: 11/16/17 end stage renal disease - History of Present Illness Mr. Scott is a 47yo with ESRD on HD who presented to the ED with chest pain He was recently incarcerated and released last week. However, dialysis clinic was not secured prior to release. He has not dialyzed in appx 1 week. He is s/p dialysis yesterday. Today, he is feeling better. He denies SOB, nausea, vomiting. Appetite is good. He denies chest pain. Past History Past Medical History: diabetes, ESRD, hypertension Past Surgical History: Other (AV access placement) Family history: no significant family history Medications and Allergies Allergies Allergy/AdvReac Type Severity Reaction Status Date / Time No Known Allergies Allergy Verified 06/20/14 15:21 Home Medications Medication Instructions Recorded Confirmed Last Taken Type Insulin Regular, Human [HumuLIN R] See Protocol SUB-Q PRN 05/13/17 11/15/17 2 Days Ago History ~05/13/17 Insulin Detemir [Levemir] 10 units SUB-Q BID 05/15/17 11/15/17 2 Days Ago History ~05/13/17 Active Meds: Active Medications Insulin Detemir (Levemir) 10 units SUB-Q BID [facility] Last Admin: 11/16/17 02:07 Dose: 10 units Insulin Human Regular (Novolin R) 0 units SUB-Q ACHS [facility] PRN Reason: Protocol Last Admin: 11/16/17 08:38 Dose: 2 units Oxycodone/Acetaminophen (Percocet 5/325) 1 tab PO Q4H PRN PRN Reason: Pain, Moderate (4-6) Last Admin: 11/16/17 01:09 Dose: 1 tab Review of Systems All systems: negative Cardiovascular: no chest pain Respiratory: no shortness of breath Gastrointestinal: no nausea, no vomiting Exam - Vital Signs Vital signs: Vital Signs Temp Pulse Resp BP Pulse Ox 97.4 F L 77 20 120/60 98 11/14/17 16:55 11/14/17 16:55 11/14/17 16:55 11/14/17 16:55 11/14/17 16:55 - General Appearance General appearance: well-developed, well-nourished EENT: ATNC Respiratory: Clear to Ascultation Heart: regular, S1S2 Gastrointestinal: Present: normal. Absent: tenderness, distended Integumentary: no rash Neurologic: alert and oriented x3 Musculoskeletal: Present: other (no edema) Psychiatric: cooperative Results - Lab Results 11/14/17 17:30 11/16/17 04:40 Most recent lab results Calcium 7.0 mg/dL (8.4-10.2) L 11/16/17 04:40 Assessment and Plan Impression * End stage renal disease on IHD * Chest pain * Diabetes mellitus * Anemia secondary to ESRD * Secondary hyperparathyroidism Recommendations * Continue HD MWF * Glycemic control per primary team * Epogen with dialysis * Avoid nephrotoxins * No IV, BP or venipuncture in his access arm * Renal diet
--- NOTE | 2017-11-16 10:48 | Progress Note ---
Assessment and Plan Assessment and plan: Patient is 47 years old male history of end-stage renal disease on dialysis. Patient stated that he missed a whole week dialysis because he was in [facility] and he was just released. Patient complaining of chest pain and asking for pain medicine. He also reported a vomiting and diarrhea. He denied any fever cough or congestion.No exacerbating or relieving factors Acute hyperkalemia Was [id number]/Insulin and Kayexalate in Er and undergoing emergent HD Chest pain Sec to volume overload Lexiscan for 11/17 Elevated troponin To trend Troponin Mostly nonspecific sec to ESRD ESRD needing dialysis Emergent HD Patient does not have an outpatient hemodialysis center, this was discussed with case management. Awaiting dialysis placement and chair time CHF (congestive heart failure) Increased UF IDDM (insulin dependent diabetes mellitus) was hypoglycemic, dc levemir, continue ssi DVT prophylaxis Heparin SQ History Interval history: His nurse reported multiple episodes of hypoglycemia. He did receive Levemir last night which he had not been getting while he was in [facility] Review of systems Constitutional: No fevers, no malaise, no joint pains CVS: No chest pain, no orthopnea, no dyspnea on exertion, no pedal edema GI: No abdominal pain, no diarrhea, no vomiting, no constipation Respiratory: No shortness of breath, no wheezing, no coughing Hospitalist Physical - Physical exam Narrative exam: General.: Appears well, no distress, nontoxic HEENT: Moist mucous membranes, extraocular muscles intact, no lymphadenopathy Neck: supple Cardiac: S1-S2 heard Lungs: clear to auscultation bilaterally Abdomen: soft , nontender, nondistended, bowel sounds positive Extremities: no edema clubbing or cyanosis Skin: no rash or lesions Neurologic: no gross focal deficits Psych: appropriate behavior, appropriate mood, corporative, judgment intact - Constitutional Vitals: Temp Pulse Resp BP Pulse Ox 97.6 F 81 16 98/45 100 11/16/17 07:45 11/16/17 07:45 11/16/17 07:45 11/16/17 07:45 11/16/17 07:45 General appearance: Present: mild distress, well-nourished Results - Labs CBC & Chem 7: 11/14/17 17:30 11/16/17 04:40 Labs: Laboratory Last Values WBC 5.1 K/mm3 (4.5-11.0) 11/14/17 17:30 RBC 2.77 M/mm3 (3.65-5.03) L 11/14/17 17:30 Hgb 8.5 gm/dl (11.8-15.2) L 11/14/17 17:30 Hct 26.2 % (35.5-45.6) L 11/14/17 17:30 MCV 95 fl (84-94) H 11/14/17 17:30 MCH 31 pg (28-32) 11/14/17 17:30 MCHC 32 % (32-34) 11/14/17 17:30 RDW 15.8 % (13.2-15.2) H 11/14/17 17:30 Plt Count 274 K/mm3 (140-440) 11/14/17 17:30 Lymph % (Auto) 18.4 % (13.4-35.0) 11/14/17 17:30 [place] % (Auto) 13.6 % (0.0-7.3) H 11/14/17 17:30 Eos % (Auto) 5.4 % (0.0-4.3) H 11/14/17 17:30 Baso % (Auto) 1.4 % (0.0-1.8) 11/14/17 17:30 Lymph # 0.9 K/mm3 (1.2-5.4) L 11/14/17 17:30 [place] # 0.7 K/mm3 (0.0-0.8) 11/14/17 17:30 Eos # 0.3 K/mm3 (0.0-0.4) 11/14/17 17:30 Baso # 0.1 K/mm3 (0.0-0.1) 11/14/17 17:30 Seg Neutrophils % 61.2 % (40.0-70.0) 11/14/17 17:30 Seg Neutrophils # 3.1 K/mm3 (1.8-7.7) 11/14/17 17:30 Sodium 143 mmol/L (137-145) 11/16/17 04:40 Potassium 4.2 mmol/L (3.6-5.0) D 11/16/17 04:40 Chloride 98.4 mmol/L (98-107) 11/16/17 04:40 Carbon Dioxide 23 mmol/L (22-30) D 11/16/17 04:40 Anion Gap 26 mmol/L 11/16/17 04:40 BUN 31 mg/dL (9-20) H 11/16/17 04:40 Creatinine 13.8 mg/dL (0.8-1.5) H 11/16/17 04:40 Estimated GFR 5 ml/min 11/16/17 04:40 BUN/Creatinine Ratio 2 % 11/16/17 04:40 Glucose 52 mg/dL (75-100) L 11/16/17 04:40 POC Glucose 183 (70-105) H 11/16/17 08:04 Calcium 7.0 mg/dL (8.4-10.2) L 11/16/17 04:40 Troponin T 0.104 ng/mL (0.00-0.029) H* 11/14/17 17:30 Triglycerides 128 mg/dL (2-149) 11/14/17 17:30 Cholesterol 99 mg/dL (50-199) 11/14/17 17:30 LDL Cholesterol Direct 25 mg/dL (50-130) L 11/14/17 17:30 HDL Cholesterol 49 mg/dL (40-59) 11/14/17 17:30 Cholesterol/HDL Ratio 2.02 % 11/14/17 17:30
--- NOTE | 2017-11-16 14:44 | Consultation ---
History of Present Illness Consult date: 11/16/17 Requesting physician: BUTCH CONN Consult reason: elevated troponin History of present illness: Patient is 47 years old male with a past medical history significant for dilated CMP (presumably nonischemic given negative stress test 06/2016), ESRD on HD, COPD, DM, gastroparesis, GERD and tobacco use. He has been seen by our practice on prior hospitalization but is not regularly followed in our office. He presented with complaints of "hurting all over", including an aching pain in his chest for several days prior to arrival. He reports that he missed a week of HD because he was just released from correction. He also c/o some SOB and nausea and vomiting. Pt is a rather poor historian and provides no additional details. Lexiscan stress nuclear scan done on 06/18/2016 did not reveal any perfusion defect, LVEF 39%. His echocardiogram done on 07/02/16 revealed mild concentric left hypertrophy and mild dilatation with EF 40-45%. Past History Past Medical History: COPD, diabetes, dialysis, ESRD Past Surgical History: cholecystectomy Social history: smoking. denies: alcohol abuse, prescription drug abuse Medications and Allergies Allergies Allergy/AdvReac Type Severity Reaction Status Date / Time No Known Allergies Allergy Verified 06/20/14 15:21 Home Medications Medication Instructions Recorded Confirmed Last Taken Type Insulin Regular, Human [HumuLIN R] See Protocol SUB-Q PRN 05/13/17 11/15/17 2 Days Ago History ~05/13/17 Insulin Detemir [Levemir] 10 units SUB-Q BID 05/15/17 11/15/17 2 Days Ago History ~05/13/17 Active Meds: Active Medications Insulin Human Regular (Novolin R) 0 units SUB-Q ACHS [facility] PRN Reason: Protocol Last Admin: 11/16/17 11:18 Dose: Not Given Oxycodone/Acetaminophen (Percocet 5/325) 1 tab PO Q4H PRN PRN Reason: Pain, Moderate (4-6) Last Admin: 11/16/17 01:09 Dose: 1 tab Review of Systems Constitutional: other (generalized pain ), no weight loss, no weight gain, no fever, no chills, no sweats Ears, nose, mouth and throat: no ear pain, no nose pain Cardiovascular: chest pain, shortness of breath, no orthopnea, no palpitations, no rapid/irregular heart beat, no edema, no syncope, no lightheadedness, no high blood pressure, no leg edema Respiratory: shortness of breath, no cough, no congestion, no wheezing, no pain on inspiration Gastrointestinal: nausea, vomiting, no abdominal pain, no diarrhea, no constipation, no change in bowel habits Genitourinary Male: no dysuria, no hematuria, no flank pain, no discharge, no urinary frequency, no urinary hesitancy Musculoskeletal: no neck stiffness, no neck pain, no shooting arm pain, no arm numbness/tingling, no low back pain, no shooting leg pain, no leg numbness/ tingling, no redness of joints Integumentary: no rash, no pruritis, no redness, no sores, no wounds Neurological: no head injury, no syncope Endocrine: no cold intolerance, no heat intolerance Hematologic/Lymphatic: no easy bruising, no easy bleeding Allergic/Immunologic: no urticaria, no wheezing Physical Examination Vital Signs Temp Pulse Resp BP Pulse Ox 97.4 F L 77 20 120/60 98 11/14/17 16:55 11/14/17 16:55 11/14/17 16:55 11/14/17 16:55 11/14/17 16:55 General appearance: other (restless, NAD) HEENT: Positive: PERRL, Normocephaly, Mucus Membranes Moist Neck: Positive: neck supple, trachea midline Cardiac: Positive: Reg Rate and Rhythm, S1/S2 Lungs: Positive: clear to auscultation Neuro: Positive: Grossly Intact Abdomen: Positive: Soft. Negative: Tender Skin: Positive: Clear. Negative: Rash, Wound Musculoskeletal: No Fluid Collection, No Pain, Normal Range of Motion Extremities: Absent: edema Results 11/14/17 17:30 11/16/17 04:40 Comprehensive Metabolic Panel 11/16/17 Range/Units 04:40 Sodium 143 (137-145) mmol/L Potassium 4.2 D (3.6-5.0) mmol/L Chloride 98.4 (98-107) mmol/L Carbon Dioxide 23 D (22-30) mmol/L BUN 31 H (9-20) mg/dL Creatinine 13.8 H (0.8-1.5) mg/dL Glucose 52 L (75-100) mg/dL Calcium 7.0 L (8.4-10.2) mg/dL - Imaging and Cardiology Echo: report reviewed (07/02/16 revealed mild concentric left hypertrophy and mild dilatation with EF 40-45%) EKG: report reviewed, image reviewed EKG interpretations - Telemetry EKG Rhythm: Sinus Rhythm - EKG Sinus rhythms and dysrhythmias: sinus rhythm Assessment and Plan Assessment: Chest pain - ECG with NAF Elevated troponin - currently nonspecific in setting of ESRD Dilated CMP - EF 40-45% ESRD on HD / noncompliance with HD Anemia Hyperkalemia - improved DM Gastroparesis COPD Tobacco use - cessation encouraged Plan: Cont to trend Shaggy. Plan for lexiscan MPI stress test in AM. NPO after MN. F/u echo. Assessment and plan reviewed with pt at bedside. The patient has been seen in conjunction with Dr. Ramachandran who agrees with the assessment and plan of care.
[2017-11-16] MEDS ORDERED: D50W (25GM) Syringe IV PRN (15:31)
[2017-11-16 16:09] LABS: Creatine Kinase MB 4.5 ng/mL (0.0-4.0)
[2017-11-16 16:17] LABS: Hepatitis A Antibody IgM Non-Reactive (NonReactive); Hepatitis B Core IgM Non-Reactive (NonReactive); Hepatitis B Surface Antigen Non-Reactive (Negative); Hepatitis C Virus Antibody Non-Reactive (NonReactive)
[2017-11-16] MEDS: NOVOLOG SUB-Q SCH ×2 (17:50→23:12)
[2017-11-16] MEDS: ASPIRIN PO SCH (17:52)
[2017-11-17] MEDS ORDERED: LEXISCAN IV ONE ×2 (08:02→08:03)
[2017-11-17] MEDS: NOVOLOG SUB-Q SCH ×4 (08:26→23:37)
--- NOTE | 2017-11-17 10:37 | Progress Note ---
Assessment and Plan Assessment: Chest pain - currently resolved; ECG with NAF Elevated troponin - flat; currently nonspecific in setting of ESRD H/o Dilated CMP - EF 40-45% ESRD on HD / noncompliance with HD Anemia Hyperkalemia - improved DM Gastroparesis COPD Tobacco use - cessation encouraged Plan: S/p lexiscan NE stress test this AM which was negative for ischemia. Echo reviewed - EF 50-55%, impaired relaxation. Currently stable cardiac status. Pt may discharge home from cardiology standpoint. Recommend follow up in our office with Marilyn Dee NP, within 1-2 weeks of hospital discharge ([phone]). Assessment and plan reviewed with pt at bedside. The patient has been seen in conjunction with Dr. Ramachandran who agrees with the assessment and plan of care. Subjective Date of service: 11/17/17 Principal diagnosis: cp Interval history: Pt seen in stress lab. no current complaints. Objective Last Vital Signs Temp 98.9 F 11/17/17 03:34 Pulse 95 H 11/17/17 08:55 Resp 16 11/17/17 03:34 BP 88/56 11/17/17 08:55 Pulse Ox 98 11/17/17 03:34 - Physical Examination HEENT: Positive: PERRL, Normocephaly, Mucus Membranes Moist Neck: Positive: neck supple, trachea midline Cardiac: Positive: Reg Rate and Rhythm, S1/S2 Lungs: Positive: clear to auscultation Neuro: Positive: Grossly Intact Abdomen: Positive: Soft. Negative: Tender Skin: Positive: Clear. Negative: Rash, Wound Musculoskeletal: No Fluid Collection, No Pain, Normal Range of Motion Extremities: Absent: edema - Labs and Meds Cardiac Enzymes 11/16/17 Range/Units 14:55 CK-MB (CK-2) 4.5 H (0.0-4.0) ng/mL - Imaging and Cardiology EKG: report reviewed, image reviewed Echo: report reviewed (07/02/16 revealed mild concentric left hypertrophy and mild dilatation with EF 40-45%) - EKG Sinus rhythms and dysrhythmias: sinus rhythm
[2017-11-17] MEDS: PERCOCET 5/325 PO PRN ×2 (12:30→20:49)
[2017-11-17] MEDS: ASPIRIN PO SCH (12:33)
[2017-11-17] MEDS ORDERED: NACL 0.9% 100 ML IV PRN (13:44)
--- NOTE | 2017-11-17 14:39 | Progress Note ---
Assessment and Plan Impression * End stage renal disease on IHD * Chest pain * Diabetes mellitus * Anemia secondary to ESRD * Secondary hyperparathyroidism Recommendations * Continue HD MWF * Glycemic control per primary team * Epogen with dialysis * Avoid nephrotoxins * No IV, BP or venipuncture in his access arm * Renal diet * Awaiting outpatient dialysis clinic placement Subjective Date of service: 11/17/17 Interval history: Patient has no complaints today - seen on HD. Objective - Vital Signs Vital signs: Vital Signs - 12hr 11/17/17 11/17/17 11/17/17 03:34 08:10 08:51 Temperature 98.9 F Pulse Rate 94 H 90 92 H Respiratory 16 Rate Blood Pressure 86/47 116/80 88/56 O2 Sat by Pulse 98 Oximetry 11/17/17 11/17/17 11/17/17 08:52 08:53 08:54 Temperature Pulse Rate 95 H 95 H 95 H Respiratory Rate Blood Pressure 88/56 88/56 88/56 O2 Sat by Pulse Oximetry 11/17/17 11/17/17 08:55 12:12 Temperature 98.3 F Pulse Rate 95 H Respiratory 18 Rate Blood Pressure 88/56 112/63 O2 Sat by Pulse Oximetry - General Appearance General appearance: well-developed, well-nourished EENT: ATNC Neck: no JVD Respiratory: Present: Clear to Ascultation Cardiology: regular, S1S2 Gastrointestinal: normal Integumentary: no rash Neurologic: no focal deficit Musculoskeletal: other (no edema) Psychiatric: cooperative - Lab 11/14/17 17:30 11/16/17 04:40 Most recent lab results Calcium 7.0 mg/dL (8.4-10.2) L 11/16/17 04:40
[2017-11-17] MEDS ORDERED: BENADRYL PO STA (15:45)
[2017-11-17] MEDS ORDERED: NACL 0.9 (PRIMING MACHINE ONLY DIALYSIS) MC ONE (16:00)
--- NOTE | 2017-11-17 16:32 | Progress Note ---
<SHAUN ERNST - Last Filed: 11/17/17 16:41> Assessment and Plan Assessment and plan: Patient is 47 years old male history of end-stage renal disease on dialysis. Patient stated that he missed a whole week dialysis because he was in [facility] and he was just released. Patient complaining of chest pain and asking for pain medicine. He also reported a vomiting and diarrhea. He denied any fever cough or congestion.No exacerbating or relieving factors Acute hyperkalemia Was [id number]/Insulin and Kayexalate in Er and underwent emergent HD Will continue to monitor Chest pain Sec to volume overload Lexiscan results pending Anemia likely secondary to ESRD Epogen with HD per Nephrology Elevated troponin To trend Troponin Mostly nonspecific sec to ESRD ESRD needing dialysis s/p Emergent HD Patient does not have an outpatient hemodialysis center, this was discussed with case management. Awaiting dialysis placement and chair time CHF (congestive heart failure) Increased UF IDDM (insulin dependent diabetes mellitus) was hypoglycemic, dc levemir, continue ssi DVT prophylaxis Heparin SQ 500 range working History Interval history: Patient seen and examined. He continues to complain of chest pain. He denies shortness of breath, nausea, vomiting. Hospitalist Physical - Constitutional Vitals: Temp Pulse Resp BP Pulse Ox 98.3 F 95 H 18 112/63 98 11/17/17 12:12 11/17/17 08:55 11/17/17 12:12 11/17/17 12:12 11/17/17 03:34 General appearance: Present: no acute distress, well-nourished - EENT Eyes: Present: PERRL, EOM intact ENT: hearing intact, clear oral mucosa - Neck Neck: Present: supple, normal ROM - Respiratory Respiratory effort: normal Respiratory: bilateral: CTA - Cardiovascular Rhythm: regular Heart Sounds: Present: S1 & S2 - Extremities Extremities: no ischemia, No edema - Abdominal General gastrointestinal: soft, non-tender - Integumentary Integumentary: Present: clear, warm, dry - Psychiatric Psychiatric: appropriate mood/affect, cooperative - Neurologic Neurologic: CNII-XII intact, moves all extremities - Allied Health Allied health notes reviewed: nursing Results - Labs CBC & Chem 7: 11/14/17 17:30 11/16/17 04:40 Labs: Laboratory Last Values WBC 5.1 K/mm3 (4.5-11.0) 11/14/17 17:30 RBC 2.77 M/mm3 (3.65-5.03) L 11/14/17 17:30 Hgb 8.5 gm/dl (11.8-15.2) L 11/14/17 17:30 Hct 26.2 % (35.5-45.6) L 11/14/17 17:30 MCV 95 fl (84-94) H 11/14/17 17:30 MCH 31 pg (28-32) 11/14/17 17:30 MCHC 32 % (32-34) 11/14/17 17:30 RDW 15.8 % (13.2-15.2) H 11/14/17 17:30 Plt Count 274 K/mm3 (140-440) 11/14/17 17:30 Lymph % (Auto) 18.4 % (13.4-35.0) 11/14/17 17:30 [place] % (Auto) 13.6 % (0.0-7.3) H 11/14/17 17:30 Eos % (Auto) 5.4 % (0.0-4.3) H 11/14/17 17:30 Baso % (Auto) 1.4 % (0.0-1.8) 11/14/17 17:30 Lymph # 0.9 K/mm3 (1.2-5.4) L 11/14/17 17:30 [place] # 0.7 K/mm3 (0.0-0.8) 11/14/17 17:30 Eos # 0.3 K/mm3 (0.0-0.4) 11/14/17 17:30 Baso # 0.1 K/mm3 (0.0-0.1) 11/14/17 17:30 Seg Neutrophils % 61.2 % (40.0-70.0) 11/14/17 17:30 Seg Neutrophils # 3.1 K/mm3 (1.8-7.7) 11/14/17 17:30 Sodium 143 mmol/L (137-145) 11/16/17 04:40 Potassium 4.2 mmol/L (3.6-5.0) D 11/16/17 04:40 Chloride 98.4 mmol/L (98-107) 11/16/17 04:40 Carbon Dioxide 23 mmol/L (22-30) D 11/16/17 04:40 Anion Gap 26 mmol/L 11/16/17 04:40 BUN 31 mg/dL (9-20) H 11/16/17 04:40 Creatinine 13.8 mg/dL (0.8-1.5) H 11/16/17 04:40 Estimated GFR 5 ml/min 11/16/17 04:40 BUN/Creatinine Ratio 2 % 11/16/17 04:40 Glucose 52 mg/dL (75-100) L 11/16/17 04:40 POC Glucose 119 (70-105) H 11/17/17 12:27 Hemoglobin A1c 10.9 % (4-6) H 11/17/17 05:22 Calcium 7.0 mg/dL (8.4-10.2) L 11/16/17 04:40 Total Creatine Kinase 145 units/L (55-170) 11/16/17 14:55 CK-MB (CK-2) 4.5 ng/mL (0.0-4.0) H 11/16/17 14:55 CK-MB (CK-2) Rel Index 3.1 (0-4) 11/16/17 14:55 Troponin T 0.118 ng/mL (0.00-0.029) H* 11/16/17 21:06 Triglycerides 128 mg/dL (2-149) 11/14/17 17:30 Cholesterol 99 mg/dL (50-199) 11/14/17 17:30 LDL Cholesterol Direct 25 mg/dL (50-130) L 11/14/17 17:30 HDL Cholesterol 49 mg/dL (40-59) 11/14/17 17:30 Cholesterol/HDL Ratio 2.02 % 11/14/17 17:30 Hepatitis A IgM Ab Non-reactive (NonReactive) 11/16/17 14:55 Hep Bs Antigen Non-reactive (Negative) 11/16/17 14:55 Hep B Core IgM Ab Non-reactive (NonReactive) 11/16/17 14:55 Hepatitis C Antibody Non-reactive (NonReactive) 11/16/17 14:55 <BUTCH CONN M - Last Filed: 11/18/17 15:34> Hospitalist Physical - Constitutional Vitals: Temp Pulse Resp BP Pulse Ox 99.1 F 88 18 89/49 98 11/18/17 06:48 11/18/17 06:48 11/18/17 06:48 11/18/17 06:48 11/18/17 06:48 Results - Labs CBC & Chem 7: 11/14/17 17:30 11/18/17 12:41 Labs: Laboratory Last Values WBC 5.1 K/mm3 (4.5-11.0) 11/14/17 17:30 RBC 2.77 M/mm3 (3.65-5.03) L 11/14/17 17:30 Hgb 8.5 gm/dl (11.8-15.2) L 11/14/17 17:30 Hct 26.2 % (35.5-45.6) L 11/14/17 17:30 MCV 95 fl (84-94) H 11/14/17 17:30 MCH 31 pg (28-32) 11/14/17 17:30 MCHC 32 % (32-34) 11/14/17 17:30 RDW 15.8 % (13.2-15.2) H 11/14/17 17:30 Plt Count 274 K/mm3 (140-440) 11/14/17 17:30 Lymph % (Auto) 18.4 % (13.4-35.0) 11/14/17 17:30 [place] % (Auto) 13.6 % (0.0-7.3) H 11/14/17 17:30 Eos % (Auto) 5.4 % (0.0-4.3) H 11/14/17 17:30 Baso % (Auto) 1.4 % (0.0-1.8) 11/14/17 17:30 Lymph # 0.9 K/mm3 (1.2-5.4) L 11/14/17 17:30 [place] # 0.7 K/mm3 (0.0-0.8) 11/14/17 17:30 Eos # 0.3 K/mm3 (0.0-0.4) 11/14/17 17:30 Baso # 0.1 K/mm3 (0.0-0.1) 11/14/17 17:30 Seg Neutrophils % 61.2 % (40.0-70.0) 11/14/17 17:30 Seg Neutrophils # 3.1 K/mm3 (1.8-7.7) 11/14/17 17:30 Sodium 143 mmol/L (137-145) 11/16/17 04:40 Potassium 4.2 mmol/L (3.6-5.0) D 11/16/17 04:40 Chloride 98.4 mmol/L (98-107) 11/16/17 04:40 Carbon Dioxide 23 mmol/L (22-30) D 11/16/17 04:40 Anion Gap 26 mmol/L 11/16/17 04:40 BUN 31 mg/dL (9-20) H 11/16/17 04:40 Creatinine 13.8 mg/dL (0.8-1.5) H 11/16/17 04:40 Estimated GFR 5 ml/min 11/16/17 04:40 BUN/Creatinine Ratio 2 % 11/16/17 04:40 Glucose 430 mg/dL (75-100) H 11/18/17 12:41 POC Glucose 241 (70-105) H 11/18/17 13:58 Hemoglobin A1c 10.9 % (4-6) H 11/17/17 05:22 Calcium 7.0 mg/dL (8.4-10.2) L 11/16/17 04:40 Total Creatine Kinase 145 units/L (55-170) 11/16/17 14:55 CK-MB (CK-2) 4.5 ng/mL (0.0-4.0) H 11/16/17 14:55 CK-MB (CK-2) Rel Index 3.1 (0-4) 11/16/17 14:55 Troponin T 0.118 ng/mL (0.00-0.029) H* 11/16/17 21:06 Triglycerides 128 mg/dL (2-149) 11/14/17 17:30 Cholesterol 99 mg/dL (50-199) 11/14/17 17:30 LDL Cholesterol Direct 25 mg/dL (50-130) L 11/14/17 17:30 HDL Cholesterol 49 mg/dL (40-59) 11/14/17 17:30 Cholesterol/HDL Ratio 2.02 % 11/14/17 17:30 Hepatitis A IgM Ab Non-reactive (NonReactive) 11/16/17 14:55 Hep Bs Antigen Non-reactive (Negative) 11/16/17 14:55 Hep B Core IgM Ab Non-reactive (NonReactive) 11/16/17 14:55 Hepatitis C Antibody Non-reactive (NonReactive) 11/16/17 14:55
--- NOTE | 2017-11-18 00:16 | Treadmill Report ---
NUCLEAR PERFUSION SCAN REFERRING PHYSICIAN: Shashank Lama M.D. PROTOCOL: The patient was brought to the stress lab in a postabsorptive state, given 10 mCi of technetium 99m at rest. The patient underwent rest imaging. The patient underwent Lexiscan stress test per standard protocol. At peak stress, the patient was given 28 mCi of technetium 99m. Shortly thereafter, the patient underwent stress imaging. Raw imaging reveals mild GI artifact. No significant motion artifact. SPECT imaging examined carefully in horizontal long axis, vertical long axis, and short axis views. There is normal homogenous uptake of radioisotope in all reported segments. No evidence of a significant fixed or reversible perfusion defects suggestive of prior infarction or ischemia. Gated wall motion reveals normal systolic thickening, calculated ejection fraction of 52%. No TID. CONCLUSIONS: 1. Normal myocardial perfusion scan without evidence of active ischemia or prior infarction. 2. Normal left ventricular systolic performance without evidence of transient ischemic dilatation or stress-induced segmental wall motion abnormalities. JOB# [id number] HINA/BETH
[2017-11-18] MEDS: PERCOCET 5/325 PO PRN ×4 (03:29→22:18)
[2017-11-18] MEDS: NOVOLOG SUB-Q SCH ×4 (08:26→22:19)
--- NOTE | 2017-11-18 10:32 | Progress Note ---
Assessment and Plan Assessment and plan: Patient is 47 years old male history of end-stage renal disease on dialysis. Patient stated that he missed a whole week dialysis because he was in retirement and he was just released. Patient complaining of chest pain and asking for pain medicine. He also reported a vomiting and diarrhea. He denied any fever cough or congestion.No exacerbating or relieving factors Acute hyperkalemia medically rx and received HD, now resolved Chest pain Sec to CHF exacerbation Lexiscan was negative, now resolved Elevated troponin due to ESRD, non cardiac etiology -case dw cardiology, no further workup required ESRD needing dialysis Emergent HD Patient does not have an outpatient hemodialysis center, this was discussed with case management. Awaiting dialysis placement and chair time acute on chronic diastolic CHF (congestive heart failure) continue HD for fluid removal, now euvolemic IDDM (insulin dependent diabetes mellitus) was hypoglycemic, restart insulins at reduced dose, continue ssi a1c is 10.9, glc is labile, will change SSI to low dose, and add small dose of 70/30 DVT prophylaxis Heparin SQ History Interval history: Review of systems Constitutional: No fevers, no malaise, no joint pains CVS: No chest pain, no orthopnea, no dyspnea on exertion, no pedal edema GI: c/o nausea and vomiting x1 after taking oxycodone Respiratory: No shortness of breath, no wheezing, no coughing Hospitalist Physical - Physical exam Narrative exam: General.: Appears well, no distress, nontoxic HEENT: Moist mucous membranes, extraocular muscles intact, no lymphadenopathy Neck: supple Cardiac: S1-S2 heard Lungs: clear to auscultation bilaterally Abdomen: soft , nontender, nondistended, bowel sounds positive Extremities: no edema clubbing or cyanosis Skin: no rash or lesions Neurologic: no gross focal deficits Psych: appropriate behavior, appropriate mood, corporative, judgment intact - Constitutional Vitals: Temp Pulse Resp BP Pulse Ox 99.1 F 88 18 89/49 98 11/18/17 06:48 11/18/17 06:48 11/18/17 06:48 11/18/17 06:48 11/18/17 06:48 General appearance: Present: no acute distress, well-nourished Results - Labs CBC & Chem 7: 11/14/17 17:30 11/18/17 12:41 Labs: Laboratory Last Values WBC 5.1 K/mm3 (4.5-11.0) 11/14/17 17:30 RBC 2.77 M/mm3 (3.65-5.03) L 11/14/17 17:30 Hgb 8.5 gm/dl (11.8-15.2) L 11/14/17 17:30 Hct 26.2 % (35.5-45.6) L 11/14/17 17:30 MCV 95 fl (84-94) H 11/14/17 17:30 MCH 31 pg (28-32) 11/14/17 17:30 MCHC 32 % (32-34) 11/14/17 17:30 RDW 15.8 % (13.2-15.2) H 11/14/17 17:30 Plt Count 274 K/mm3 (140-440) 11/14/17 17:30 Lymph % (Auto) 18.4 % (13.4-35.0) 11/14/17 17:30 [place] % (Auto) 13.6 % (0.0-7.3) H 11/14/17 17:30 Eos % (Auto) 5.4 % (0.0-4.3) H 11/14/17 17:30 Baso % (Auto) 1.4 % (0.0-1.8) 11/14/17 17:30 Lymph # 0.9 K/mm3 (1.2-5.4) L 11/14/17 17:30 [place] # 0.7 K/mm3 (0.0-0.8) 11/14/17 17:30 Eos # 0.3 K/mm3 (0.0-0.4) 11/14/17 17:30 Baso # 0.1 K/mm3 (0.0-0.1) 11/14/17 17:30 Seg Neutrophils % 61.2 % (40.0-70.0) 11/14/17 17:30 Seg Neutrophils # 3.1 K/mm3 (1.8-7.7) 11/14/17 17:30 Sodium 143 mmol/L (137-145) 11/16/17 04:40 Potassium 4.2 mmol/L (3.6-5.0) D 11/16/17 04:40 Chloride 98.4 mmol/L (98-107) 11/16/17 04:40 Carbon Dioxide 23 mmol/L (22-30) D 11/16/17 04:40 Anion Gap 26 mmol/L 11/16/17 04:40 BUN 31 mg/dL (9-20) H 11/16/17 04:40 Creatinine 13.8 mg/dL (0.8-1.5) H 11/16/17 04:40 Estimated GFR 5 ml/min 11/16/17 04:40 BUN/Creatinine Ratio 2 % 11/16/17 04:40 Glucose 52 mg/dL (75-100) L 11/16/17 04:40 POC Glucose 303 (70-105) H 11/18/17 06:30 Hemoglobin A1c 10.9 % (4-6) H 11/17/17 05:22 Calcium 7.0 mg/dL (8.4-10.2) L 11/16/17 04:40 Total Creatine Kinase 145 units/L (55-170) 11/16/17 14:55 CK-MB (CK-2) 4.5 ng/mL (0.0-4.0) H 11/16/17 14:55 CK-MB (CK-2) Rel Index 3.1 (0-4) 11/16/17 14:55 Troponin T 0.118 ng/mL (0.00-0.029) H* 11/16/17 21:06 Triglycerides 128 mg/dL (2-149) 11/14/17 17:30 Cholesterol 99 mg/dL (50-199) 11/14/17 17:30 LDL Cholesterol Direct 25 mg/dL (50-130) L 11/14/17 17:30 HDL Cholesterol 49 mg/dL (40-59) 11/14/17 17:30 Cholesterol/HDL Ratio 2.02 % 11/14/17 17:30 Hepatitis A IgM Ab Non-reactive (NonReactive) 11/16/17 14:55 Hep Bs Antigen Non-reactive (Negative) 11/16/17 14:55 Hep B Core IgM Ab Non-reactive (NonReactive) 11/16/17 14:55 Hepatitis C Antibody Non-reactive (NonReactive) 11/16/17 14:55
[2017-11-18] MEDS: ZOFRAN IV PRN ×3 (10:38→22:21)
[2017-11-18] MEDS ORDERED: ULTRAM PO PRN (12:50)
[2017-11-18] MEDS: ASPIRIN PO SCH (12:53)
--- NOTE | 2017-11-18 19:13 | Progress Note ---
Assessment and Plan Impression * End stage renal disease on IHD * Chest pain * Diabetes mellitus * Anemia secondary to ESRD * Secondary hyperparathyroidism Recommendations * Continue HD MWF * Glycemic control per primary team * Epogen with dialysis * Avoid nephrotoxins * No IV, BP or venipuncture in his access arm * Renal diet * Awaiting outpatient dialysis clinic placement Subjective Date of service: 11/18/17 Principal diagnosis: cp Interval history: Patient has no complaints today. Objective - Vital Signs Vital signs: Vital Signs - 12hr 11/18/17 16:12 Temperature 97.6 F Pulse Rate 80 Respiratory 15 Rate Blood Pressure 110/68 O2 Sat by Pulse 100 Oximetry - General Appearance General appearance: well-developed, well-nourished EENT: ATNC Respiratory: Present: Clear to Ascultation Cardiology: regular, S1S2 Gastrointestinal: normal, no tenderness, no distended Integumentary: no rash Neurologic: no focal deficit, alert and oriented x3 Musculoskeletal: other (no edema) Psychiatric: cooperative - Lab 11/14/17 17:30 11/18/17 12:41 Most recent lab results Calcium 7.0 mg/dL (8.4-10.2) L 11/16/17 04:40
[2017-11-19] MEDS ORDERED: NACL 0.9% 250ML 250 ML IV ONE (01:26)
[2017-11-19] MEDS: NOVOLOG SUB-Q SCH ×4 (07:29→23:00)
--- NOTE | 2017-11-19 07:33 | Progress Note ---
Assessment and Plan Assessment and plan: Patient is 47 years old male history of end-stage renal disease on dialysis. Patient stated that he missed a whole week dialysis because he was in [facility] and he was just released. Patient complaining of chest pain and asking for pain medicine. He also reported a vomiting and diarrhea. He denied any fever cough or congestion.No exacerbating or relieving factors Acute hyperkalemia medically rx and received HD, now resolved Chest pain Sec to CHF exacerbation -S/p lexiscan CT stress test which was negative for ischemia. Echo reviewed - EF 50-55%, impaired relaxation. Elevated troponin due to ESRD, non cardiac etiology -case dw cardiology, no further workup required ESRD needing dialysis Emergent HD Patient does not have an outpatient hemodialysis center, this was discussed with case management. Awaiting dialysis placement and chair time acute on chronic diastolic CHF (congestive heart failure) continue HD for fluid removal, now euvolemic IDDM (insulin dependent diabetes mellitus) was hypoglycemic, restart insulins at reduced dose, continue ssi a1c is 10.9, glc is labile, continue low dose ssi only, no oral meds at this time DVT prophylaxis Heparin SQ History Interval history: Review of systems Constitutional: No fevers, no malaise, no joint pains CVS: No chest pain, no orthopnea, no dyspnea on exertion, no pedal edema GI: no vomiting today Respiratory: No shortness of breath, no wheezing, no coughing Hospitalist Physical - Physical exam Narrative exam: General.: Appears well, no distress, nontoxic HEENT: Moist mucous membranes, extraocular muscles intact, no lymphadenopathy Neck: supple Cardiac: S1-S2 heard Lungs: clear to auscultation bilaterally Abdomen: soft , nontender, nondistended, bowel sounds positive Extremities: no edema clubbing or cyanosis Skin: no rash or lesions Neurologic: no gross focal deficits Psych: appropriate behavior, appropriate mood, corporative, judgment intact - Constitutional Vitals: Temp Pulse Resp BP Pulse Ox 98.5 F 83 16 102/67 100 11/19/17 03:36 11/19/17 03:36 11/19/17 03:36 11/19/17 03:36 11/19/17 03:36 General appearance: Present: no acute distress, well-nourished Results - Labs CBC & Chem 7: 11/14/17 17:30 11/18/17 12:41 Labs: Laboratory Last Values WBC 5.1 K/mm3 (4.5-11.0) 11/14/17 17:30 RBC 2.77 M/mm3 (3.65-5.03) L 11/14/17 17:30 Hgb 8.5 gm/dl (11.8-15.2) L 11/14/17 17:30 Hct 26.2 % (35.5-45.6) L 11/14/17 17:30 MCV 95 fl (84-94) H 11/14/17 17:30 MCH 31 pg (28-32) 11/14/17 17:30 MCHC 32 % (32-34) 11/14/17 17:30 RDW 15.8 % (13.2-15.2) H 11/14/17 17:30 Plt Count 274 K/mm3 (140-440) 11/14/17 17:30 Lymph % (Auto) 18.4 % (13.4-35.0) 11/14/17 17:30 [place] % (Auto) 13.6 % (0.0-7.3) H 11/14/17 17:30 Eos % (Auto) 5.4 % (0.0-4.3) H 11/14/17 17:30 Baso % (Auto) 1.4 % (0.0-1.8) 11/14/17 17:30 Lymph # 0.9 K/mm3 (1.2-5.4) L 11/14/17 17:30 [place] # 0.7 K/mm3 (0.0-0.8) 11/14/17 17:30 Eos # 0.3 K/mm3 (0.0-0.4) 11/14/17 17:30 Baso # 0.1 K/mm3 (0.0-0.1) 11/14/17 17:30 Seg Neutrophils % 61.2 % (40.0-70.0) 11/14/17 17:30 Seg Neutrophils # 3.1 K/mm3 (1.8-7.7) 11/14/17 17:30 Sodium 143 mmol/L (137-145) 11/16/17 04:40 Potassium 4.2 mmol/L (3.6-5.0) D 11/16/17 04:40 Chloride 98.4 mmol/L (98-107) 11/16/17 04:40 Carbon Dioxide 23 mmol/L (22-30) D 11/16/17 04:40 Anion Gap 26 mmol/L 11/16/17 04:40 BUN 31 mg/dL (9-20) H 11/16/17 04:40 Creatinine 13.8 mg/dL (0.8-1.5) H 11/16/17 04:40 Estimated GFR 5 ml/min 11/16/17 04:40 BUN/Creatinine Ratio 2 % 11/16/17 04:40 Glucose 430 mg/dL (75-100) H 11/18/17 12:41 POC Glucose 156 (70-105) H 11/19/17 05:58 Hemoglobin A1c 10.9 % (4-6) H 11/17/17 05:22 Calcium 7.0 mg/dL (8.4-10.2) L 11/16/17 04:40 Total Creatine Kinase 145 units/L (55-170) 11/16/17 14:55 CK-MB (CK-2) 4.5 ng/mL (0.0-4.0) H 11/16/17 14:55 CK-MB (CK-2) Rel Index 3.1 (0-4) 11/16/17 14:55 Troponin T 0.118 ng/mL (0.00-0.029) H* 11/16/17 21:06 Triglycerides 128 mg/dL (2-149) 11/14/17 17:30 Cholesterol 99 mg/dL (50-199) 11/14/17 17:30 LDL Cholesterol Direct 25 mg/dL (50-130) L 11/14/17 17:30 HDL Cholesterol 49 mg/dL (40-59) 11/14/17 17:30 Cholesterol/HDL Ratio 2.02 % 11/14/17 17:30 Hepatitis A IgM Ab Non-reactive (NonReactive) 11/16/17 14:55 Hep Bs Antigen Non-reactive (Negative) 11/16/17 14:55 Hep B Core IgM Ab Non-reactive (NonReactive) 11/16/17 14:55 Hepatitis C Antibody Non-reactive (NonReactive) 11/16/17 14:55
[2017-11-19] MEDS: ZOFRAN IV PRN (07:34)
[2017-11-19] MEDS: ASPIRIN PO SCH ×2 (08:47→19:08)
[2017-11-19] MEDS: PERCOCET 5/325 PO PRN ×3 (08:47→22:47)
[2017-11-19] MEDS: ZOFRAN ODT PO PRN ×2 (16:04→22:47)
--- NOTE | 2017-11-19 16:49 | Progress Note ---
Assessment and Plan Impression * End stage renal disease on IHD * Chest pain * Diabetes mellitus * Anemia secondary to ESRD * Secondary hyperparathyroidism Recommendations * Continue HD MWF * Glycemic control per primary team * Epogen with dialysis * Avoid nephrotoxins * No IV, BP or venipuncture in his access arm * Renal diet * Awaiting outpatient dialysis clinic placement Subjective Date of service: 11/19/17 Principal diagnosis: cp Interval history: Patient has no complaints Objective - Vital Signs Vital signs: Vital Signs - 12hr 11/19/17 11/19/17 11/19/17 07:38 12:27 15:20 Temperature 98.9 F 97.6 F Pulse Rate 86 82 78 Respiratory 18 16 Rate Blood Pressure 95/55 86/50 O2 Sat by Pulse 97 100 100 Oximetry - General Appearance General appearance: well-developed, well-nourished EENT: ATNC Respiratory: Present: Clear to Ascultation Cardiology: regular, S1S2 Gastrointestinal: normal, no tenderness, no distended Integumentary: no rash, warm and dry Neurologic: no focal deficit, alert and oriented x3 Musculoskeletal: other (no edema) Psychiatric: cooperative - Lab 11/14/17 17:30 11/18/17 12:41 Most recent lab results Calcium 7.0 mg/dL (8.4-10.2) L 11/16/17 04:40
[2017-11-20] MEDS: NOVOLOG SUB-Q SCH ×2 (08:06→12:59)
--- NOTE | 2017-11-20 09:01 | Progress Note ---
Assessment and Plan Assessment and plan: Patient is 47 years old male history of end-stage renal disease on dialysis. Patient stated that he missed a whole week dialysis because he was in halfway and he was just released. Patient complaining of chest pain and asking for pain medicine. He also reported a vomiting and diarrhea. He denied any fever cough or congestion.No exacerbating or relieving factors Acute hyperkalemia medically rx and received HD, now resolved Chest pain Sec to CHF exacerbation -S/p lexiscan [place] stress test which was negative for ischemia. Echo reviewed - EF 50-55%, impaired relaxation. Elevated troponin due to ESRD, non cardiac etiology -case dw cardiology, no further workup required ESRD needing dialysis Emergent HD Patient does not have an outpatient hemodialysis center, this was discussed with case management. Awaiting dialysis placement and chair time acute on chronic diastolic CHF (congestive heart failure) continue HD for fluid removal, now euvolemic IDDM (insulin dependent diabetes mellitus) was hypoglycemic, restart insulins at reduced dose, continue ssi a1c is 10.9, glc is labile, continue low dose ssi only, no oral meds at this time DVT prophylaxis Heparin SQ History Interval history: Review of systems Constitutional: No fevers, no malaise, no joint pains CVS: No chest pain, no orthopnea, no dyspnea on exertion, no pedal edema GI: no vomiting today Respiratory: No shortness of breath, no wheezing, no coughing Hospitalist Physical - Physical exam Narrative exam: General.: Appears well, no distress, nontoxic HEENT: Moist mucous membranes, extraocular muscles intact, no lymphadenopathy Neck: supple Cardiac: S1-S2 heard Lungs: clear to auscultation bilaterally Abdomen: soft , nontender, nondistended, bowel sounds positive Extremities: no edema clubbing or cyanosis Skin: no rash or lesions Neurologic: no gross focal deficits Psych: appropriate behavior, appropriate mood, corporative, judgment intact - Constitutional Vitals: Temp Pulse Resp BP Pulse Ox 98.4 F 87 18 110/70 98 11/20/17 08:01 11/20/17 08:01 11/20/17 08:01 11/20/17 08:01 11/20/17 08:01 General appearance: Present: no acute distress, well-nourished Results - Labs CBC & Chem 7: 11/14/17 17:30 11/18/17 12:41 Labs: Laboratory Last Values WBC 5.1 K/mm3 (4.5-11.0) 11/14/17 17:30 RBC 2.77 M/mm3 (3.65-5.03) L 11/14/17 17:30 Hgb 8.5 gm/dl (11.8-15.2) L 11/14/17 17:30 Hct 26.2 % (35.5-45.6) L 11/14/17 17:30 MCV 95 fl (84-94) H 11/14/17 17:30 MCH 31 pg (28-32) 11/14/17 17:30 MCHC 32 % (32-34) 11/14/17 17:30 RDW 15.8 % (13.2-15.2) H 11/14/17 17:30 Plt Count 274 K/mm3 (140-440) 11/14/17 17:30 Lymph % (Auto) 18.4 % (13.4-35.0) 11/14/17 17:30 [place] % (Auto) 13.6 % (0.0-7.3) H 11/14/17 17:30 Eos % (Auto) 5.4 % (0.0-4.3) H 11/14/17 17:30 Baso % (Auto) 1.4 % (0.0-1.8) 11/14/17 17:30 Lymph # 0.9 K/mm3 (1.2-5.4) L 11/14/17 17:30 [place] # 0.7 K/mm3 (0.0-0.8) 11/14/17 17:30 Eos # 0.3 K/mm3 (0.0-0.4) 11/14/17 17:30 Baso # 0.1 K/mm3 (0.0-0.1) 11/14/17 17:30 Seg Neutrophils % 61.2 % (40.0-70.0) 11/14/17 17:30 Seg Neutrophils # 3.1 K/mm3 (1.8-7.7) 11/14/17 17:30 Sodium 143 mmol/L (137-145) 11/16/17 04:40 Potassium 4.2 mmol/L (3.6-5.0) D 11/16/17 04:40 Chloride 98.4 mmol/L (98-107) 11/16/17 04:40 Carbon Dioxide 23 mmol/L (22-30) D 11/16/17 04:40 Anion Gap 26 mmol/L 11/16/17 04:40 BUN 31 mg/dL (9-20) H 11/16/17 04:40 Creatinine 13.8 mg/dL (0.8-1.5) H 11/16/17 04:40 Estimated GFR 5 ml/min 11/16/17 04:40 BUN/Creatinine Ratio 2 % 11/16/17 04:40 Glucose 430 mg/dL (75-100) H 11/18/17 12:41 POC Glucose 147 (70-105) H 11/20/17 06:23 Hemoglobin A1c 10.9 % (4-6) H 11/17/17 05:22 Calcium 7.0 mg/dL (8.4-10.2) L 11/16/17 04:40 Total Creatine Kinase 145 units/L (55-170) 11/16/17 14:55 CK-MB (CK-2) 4.5 ng/mL (0.0-4.0) H 11/16/17 14:55 CK-MB (CK-2) Rel Index 3.1 (0-4) 11/16/17 14:55 Troponin T 0.118 ng/mL (0.00-0.029) H* 11/16/17 21:06 Triglycerides 128 mg/dL (2-149) 11/14/17 17:30 Cholesterol 99 mg/dL (50-199) 11/14/17 17:30 LDL Cholesterol Direct 25 mg/dL (50-130) L 11/14/17 17:30 HDL Cholesterol 49 mg/dL (40-59) 11/14/17 17:30 Cholesterol/HDL Ratio 2.02 % 11/14/17 17:30 Hepatitis A IgM Ab Non-reactive (NonReactive) 11/16/17 14:55 Hep Bs Antigen Non-reactive (Negative) 11/16/17 14:55 Hep B Core IgM Ab Non-reactive (NonReactive) 11/16/17 14:55 Hepatitis C Antibody Non-reactive (NonReactive) 11/16/17 14:55
--- NOTE | 2017-11-20 09:01 | Discharge Summary ---
Providers - Providers Date of Admission: 11/15/17 13:09 Attending physician: BUTCH CONN MD 11/16/17 08:22 Consult to Physician [CONS] Routine Consulting Provider: LORI GAFFNEY Reason For Exam: ESRD Place consult to:: DR. GAFFNEY Notified:: DR. GAFFNEY Phone number called:: IN HOUSE Was contact made?: Yes If yes, spoke with:: DR. GAFFNEY Time called:: 09:30 11/16/17 09:16 Consult to Case Management [CONS] Routine Services Needed at Discharge: Other Notified:: COPY GIVEN TO CM Additional Physician Instructions: Outpatient dialysis clinic placement at [facility] 11/16/17 11:46 Consult to Physician [CONS] Routine Consulting Provider: MIRYAM RAMIREZ Reason For Exam: elevated troponin Place consult to:: Dr Brittney Ramirez Notified:: ANGEL Phone number called:: IN HOUSE Was contact made?: Yes 11/16/17 14:17 Consult to Wound/ET Nurse [CONS] Routine Reason For Exam: wound eval Primary care physician: CHARLES JOHNSON Hospitalization Condition: Stable Hospital course: Patient is 47 years old male history of end-stage renal disease on dialysis. Patient stated that he missed a whole week dialysis because he was in [facility] and he was just released. Patient complaining of chest pain and asking for pain medicine. He also reported a vomiting and diarrhea. The patient was found to have fluid overload due to missed hemodialysis. He went on to have ultrafiltration by dialysis. After which his symptoms resolved. His chest pain as well as leg secondary to diastolic CHF exacerbation, but he went on to have a Lexiscan MPI which was negative. He was noted to have very labile blood glucose is extremely sensitive to insulin. Therefore insulin was discontinued as he had many episodes of hypoglycemia, and lifestyle/diet control was recommended instead. After an outpatient hemodialysis chair time was set up , he was subsequently discharged Diagnoses Acute hyperkalemia Chest pain Sec to CHF exacerbation Elevated troponin due to end-stage renal disease/CHF, noncardiac etiology ESRD needing dialysis acute on chronic diastolic CHF (congestive heart failure) IDDM (insulin dependent diabetes mellitus) Disposition: TO HOME OR SELFCARE Time spent for discharge: 33 minutes Core Measure Documentation - Palliative Care Palliative Care/ Comfort Measures: Not Applicable - Core Measures Any of the following diagnoses?: none Exam - Physical Exam Narrative exam: General.: Appears well, no distress, nontoxic HEENT: Moist mucous membranes, extraocular muscles intact, no lymphadenopathy Neck: supple Cardiac: S1-S2 heard Lungs: clear to auscultation bilaterally Abdomen: soft , nontender, nondistended, bowel sounds positive Extremities: no edema clubbing or cyanosis Skin: no rash or lesions Neurologic: no gross focal deficits Psych: appropriate behavior, appropriate mood, corporative, judgment intact - Constitutional Vitals: Temp Pulse Resp BP Pulse Ox 98.4 F 87 18 110/70 98 11/20/17 08:01 11/20/17 08:01 11/20/17 08:01 11/20/17 08:01 11/20/17 08:01 Plan Follow up with: CHARLES JOHNSON MD [Primary Care Provider] - 3-5 Days Prescriptions: Aspirin EC [Aspirin Enteric Coated TAB] 81 mg PO QDAY #30 tablet. oxyCODONE /ACETAMINOPHEN [Percocet 5/325 mg] 1 tab PO Q4H PRN #14 tablet PRN Reason: Pain, Moderate (4-6)
--- NOTE | 2017-11-20 09:46 | Progress Note ---
Subjective Principal diagnosis: cp Interval history: Patient was seen today for follow-up on multiple renal related issues Events of this hospitalization noted, he is currently pending acceptance Patient denies having any chest pain pressure or shortness of breath Vitals labs intake output medications were reviewed Social history: Reviewed Allergies: Reviewed Family history: Reviewed Physical examination HEENT: Oral mucosa moist no pallor or icterus Neck: Supple no JVD Chest: Clear to auscultation anteriorly CVS: Regular rate and rhythm S1 and S2 heard Abdomen: Soft nontender no suprapubic masses no organomegaly appreciable Extremity: Dry skin less than 1+ peripheral edema Musculoskeletal: No joint effusion noted in knees and ankle Neurological: Alert awake Dermatology: No petechial rashes Psychiatry: No evidence of any agitation and aggression noted Assessment and plan Assessment and plan End-stage renal disease: Patient has been initiated on renal replacement therapy he will continue with Monday hemodialysis, patient will need hemodialysis in the outpatient setting which has been arranged Anemia in end-stage renal disease: To monitor and follow Secondary hyperparathyroidism: Educated about phosphorus and PTH bone mineral disorder End-stage renal disease related dietary counseling and education was done patient needs to be in high protein diet Low-grade fever 100.4 please monitor and follow Hypertension: Appears to be well controlled, blood pressure has been on the low side Diabetes mellitus type 2 poorly controlled hemoglobin A1c 10.9 Admission hemoglobin was 8.5 will need a follow-up We'll continue to follow and make recommendation from renal standpoint Patient was adequately counseled and educated regarding multiple renal related issues Pertinent lab findings were discussed with patient, patient does exhibit good understanding of renal issues We'll continue to follow and make recommendation from renal standpoint Objective - Vital Signs Vital signs: Vital Signs - 12hr 11/19/17 11/20/17 11/20/17 22:00 00:39 04:13 Temperature 100.4 F H 98.7 F Pulse Rate 77 85 Pulse Rate [ 82 Right Radial] Respiratory 16 16 16 Rate Blood Pressure 93/57 106/71 O2 Sat by Pulse 99 99 Oximetry 11/20/17 08:01 Temperature 98.4 F Pulse Rate 87 Pulse Rate [ Right Radial] Respiratory 18 Rate Blood Pressure 110/70 O2 Sat by Pulse 98 Oximetry - Lab 11/20/17 11:38 11/18/17 12:41 Most recent lab results Calcium 7.0 mg/dL (8.4-10.2) L 11/16/17 04:40
[2017-11-20] MEDS: ASPIRIN PO SCH (10:36)
[2017-11-20] MEDS: PERCOCET 5/325 PO PRN (10:37)
[2017-11-20 11:48] LABS: Basophils % (Auto) 0.5 % (0.0-1.8); Eosinophils # (Auto) 0.6 K/mm3 (0.0-0.4); Eosinophils % (Auto) 7.6 % (0.0-4.3); Hematocrit 27.3 % (35.5-45.6); Hemoglobin 8.9 gm/dl (11.8-15.2); Lymphocytes # (Auto) 1.5 K/mm3 (1.2-5.4); Lymphocytes % (Auto) 18.2 % (13.4-35.0); Mean Corpuscular HGB Conc 33 % (32-34); Mean Corpuscular Hemoglobin 30 pg (28-32); Mean Corpuscular Volume 93 fl (84-94); Monocytes # (Auto) 0.7 K/mm3 (0.0-0.8); Monocytes % (Auto) 8.8 % (0.0-7.3); Platelet Count 325 K/mm3 (140-440); Red Blood Count 2.96 M/mm3 (3.65-5.03); Red Cell Distribution Width 14.9 % (13.2-15.2)
[2017-11-20] MEDS ORDERED: NACL 0.9% 100 ML IV PRN (12:21)
[2017-11-20 18:15] VITALS: BP 124/74
== END 2017-11-20 19:10 | disposition home or self-care (01) | DRG 291 ==
LOC: ED 16:20 → 3A 11-15 13:09
PROVIDERS: ADMIT Internal Medicine; ATTEND Internal Medicine
PROC: 5A1D70Z Performance of Urinary Filtration, Intermittent, Less than 6 Hours Per Day (ICD-10-PCS; principal; 2017-11-15)
PROC: 5A1D70Z Performance of Urinary Filtration, Intermittent, Less than 6 Hours Per Day (ICD-10-PCS; 2017-11-17)
PROC: 5A1D70Z Performance of Urinary Filtration, Intermittent, Less than 6 Hours Per Day (ICD-10-PCS; 2017-11-20)
DX: I13.2 Hypertensive heart and chronic kidney disease with heart failure and with stage 5 chronic kidney disease, or end stage renal disease (principal); I50.33 Acute on chronic diastolic (congestive) heart failure; N18.6 End stage renal disease; N25.81 Secondary hyperparathyroidism of renal origin; K31.84 Gastroparesis; E87.5 Hyperkalemia; E87.70 Fluid overload, unspecified; E11.22 Type 2 diabetes mellitus with diabetic chronic kidney disease; F12.90 Cannabis use, unspecified, uncomplicated; D63.1 Anemia in chronic kidney disease; I42.0 Dilated cardiomyopathy; J44.9 Chronic obstructive pulmonary disease, unspecified; F17.200 Nicotine dependence, unspecified, uncomplicated; E11.43 Type 2 diabetes mellitus with diabetic autonomic (poly)neuropathy; Z79.4 Long term (current) use of insulin; Z90.49 Acquired absence of other specified parts of digestive tract; Z72.89 Other problems related to lifestyle; Z79.82 Long term (current) use of aspirin; Z79.899 Other long term (current) drug therapy; Z71.6 Tobacco abuse counseling
CPT/HCPCS: 36415; 71046; 78452; 80048; 80061; 80074; 82550; 82553; 82947; 82962; 83036; 83970; 84100; 84484; 85025; 93005; 93010; 93017; 93306; 96374; 96375; A9502; J1815; J1818; J2270; J2405; J2785; J7030; J7050; Q0162

== ENCOUNTER 2017-12-07 12:49 | Inpatient (IN) | payer MEDICARE ==
[2017-12-07] MEDS ORDERED: NACL 0.9% 500 ML 500 ML IV ONE (12:53)
[2017-12-07] MEDS ORDERED: XYLOCAINE 1% 20 mL ONE (12:54)
[2017-12-07] MEDS ORDERED: ARTIFICIAL TEARS OPHTH OINT OU PRN (13:12)
[2017-12-07] MEDS ORDERED: VASELINE LIP THERAPY TP PRN (13:12)
[2017-12-07 13:26] LABS: Mean Corpuscular HGB Conc 27 % (32-34); Mean Corpuscular Hemoglobin 30 pg (28-32); Platelet Count 210 K/mm3 (140-440); Red Blood Count 2.55 M/mm3 (3.65-5.03); Red Cell Distribution Width 17.5 % (13.2-15.2)
[2017-12-07 13:32] LABS: Hematocrit 28.4 % (35.5-45.6); Hemoglobin 7.7 gm/dl (11.8-15.2); Mean Corpuscular Volume 111 fl (84-94)
[2017-12-07] MEDS ORDERED: KEPPRA 1,000 MG/NS 0.75% 100ML 1,000 MG/100 ML BAG IV ONE (13:33)
[2017-12-07 13:36] LABS: INR 1.67 (0.87-1.13)
[2017-12-07 13:46] LABS: Alanine Aminotransferase 13 units/L (7-56); Albumin 3.2 g/dL (3.9-5)
[2017-12-07 13:47] LABS: Albumin 3.3 g/dL (3.9-5); Calcium 7.8 mg/dL (8.4-10.2)
[2017-12-07] MEDS ORDERED: D50W (25GM) Syringe IV ONE ×2 (13:48→13:56)
[2017-12-07] MEDS: SODIUM BICARBONATE IV ONE ×2 (13:50→14:29)
[2017-12-07] MEDS: CALCIUM CHLORIDE IV ONE ×2 (13:50→14:34)
[2017-12-07 13:51] LABS: Bilirubin,Direct < 0.2 mg/dL (0-0.2)
[2017-12-07] MEDS ORDERED: SODIUM BICARBONATE IV ONE ×2 (13:55→15:00)
[2017-12-07] MEDS ORDERED: CALCIUM CHLORIDE IVP ONE (13:55)
[2017-12-07] MEDS ORDERED: VANCOMYCIN PHARMACY TO DOSE IV SCH (14:00)
[2017-12-07] MEDS ORDERED: PROVENTIL IH ONE (14:00)
[2017-12-07] MEDS ORDERED: ZOSYN/NS 3.375GM/50ML 50 ML IV ONE (14:00)
[2017-12-07] MEDS ORDERED: ALUM-MAG HYDROX-SIMETH 200-200-20MG/5ML PO PRN (14:10)
[2017-12-07] MEDS ORDERED: DULCOLAX PR PRN (14:10)
[2017-12-07] MEDS ORDERED: MILK OF MAGNESIA PO PRN (14:10)
--- NOTE | 2017-12-07 14:11 | Emergency Department Report ---
ED General Adult HPI - General Chief complaint: Altered Mental Status Stated complaint: UNRESPONSIVE Time Seen by Provider: 12/07/17 13:30 Source: EMS Mode of arrival: Stretcher Limitations: Altered Mental Status - History of Present Illness Initial comments: The patient was found poorly responsive by EMS in his apartment. Medics were unable to get IV access. He was transported to this facility without any specific intervention other than supplemental oxygen. He arrived here and was not responding to sternal rub. He had conjugate gaze deviation to the left. We resuscitated him on an emergency basis. A central line was placed in the right femoral vein without difficulty. Blood was drawn for emergency labs. We proceeded with elective intubation. Succinyl choline was not given due to the patient's end-stage renal disease and possibility of hyperkalemia. He was found to have a very anterior airway with no glottic visualization even with a Mac 4. This is surprising secondary to his small stature. However he was easy to ventilate. He was intubated using a bougie and a 7 Nepali endotracheal tube. End-tidal CO2 was verified as well as breath sounds. Endotracheal tube is in good position. There is no signs of volume overload. On the monitor the patient had an intraventricular conduction delay what appeared to be atrial fibrillation with a rate in the 50s. He was presumed to have hypertension only me with a 12-lead EKG showing P T waves as well. He was empirically given albuterol nebulized, D50, insulin, calcium 1 amp and bicarbonate 1 amp. Labs were later resulted indicating a potassium of 9 and a CO2 of 2 with a creatinine of greater than 30 and a BUN greater than 100. He was given an additional amp of calcium and 1 of bicarbonate. I spoke to Alessandra of [facility] nephrology. She will be working with Dr. Rock to provide emergency dialysis. Dr. Levin of the hospital service has already seen the patient and he will be admitted to the ICU. -: unknown Severity scale (0 -10): 0 - Related Data Previous Rx's Medication Instructions Recorded Last Taken Type Aspirin EC [Aspirin Enteric Coated 81 mg PO QDAY #30 tablet. 11/20/17 Unknown Rx TAB] oxyCODONE /ACETAMINOPHEN [Percocet 1 tab PO Q4H PRN #14 tablet 11/20/17 Unknown Rx 5/325 mg] Allergies Allergy/AdvReac Type Severity Reaction Status Date / Time No Known Allergies Allergy Verified 06/20/14 15:21 ED Review of Systems ROS: Stated complaint: UNRESPONSIVE Other details as noted in HPI Comment: Unobtainable due to pts medical conditions ED Past Medical Hx - Past Medical History Previous Medical History?: Yes Hx Hypertension: Yes Hx Congestive Heart Failure: No Hx Diabetes: Yes Hx Pulmonary Embolism: No Hx Renal Disease: Yes (ESRD MWF dialysis) Hx Kidney Stones: No Hx Asthma: No Hx COPD: No Hx Tuberculosis: No Hx HIV: No Additional medical history: Diabetic gastroparesis, chronic diarrhea - Surgical History Past Surgical History?: Yes Hx Cholecystectomy: Yes (In 2014) Additional Surgical History: LUE AVG - Social History Smoking Status: Unknown if ever smoked - Medications Home Medications: Home Medications Medication Instructions Recorded Confirmed Last Taken Type Aspirin EC [Aspirin Enteric Coated 81 mg PO QDAY #30 tablet. 11/20/17 Unknown Rx TAB] oxyCODONE /ACETAMINOPHEN [Percocet 1 tab PO Q4H PRN #14 tablet 11/20/17 Unknown Rx 5/325 mg] ED Physical Exam - General Limitations: Altered Mental Status General appearance: obtunded - Head Head exam: Present: atraumatic - Eye Eye exam: Present: other (conjugate gaze deviation to the left). Absent: scleral icterus - ENT ENT exam: Present: other (sharp frontal incisor noted upper right lateral largely edentulous maxilla) - Neck Neck exam: Present: normal inspection. Absent: meningismus - Respiratory Respiratory exam: Present: decreased breath sounds, other - Cardiovascular Cardiovascular Exam: Present: bradycardia, irregular rhythm - GI/Abdominal GI/Abdominal exam: Present: soft. Absent: distended, tenderness, guarding, rebound, rigid - Extremities Exam Extremities exam: Present: normal inspection - Neurological Exam Neurological exam: Present: other (obtunded, conjugate gaze deviation, unresponsive to sternal rub, possible posturing with both arms flexed up) - Psychiatric Psychiatric exam: Present: other (obtunded patient) - Skin Skin exam: Present: other (cool extremities) ED Course Vital Signs 12/07/17 12/07/17 12/07/17 12:50 12:55 12:58 Temperature Pulse Rate 55 L Pulse Rate [ 54 L Intra-Procedure ] Pulse Rate [ Post-Procedure] Pulse Rate [Pre 55 L 55 L -Procedure] Respiratory 20 Rate Respiratory 16 Rate [Intra- Procedure] Respiratory Rate [Post- Procedure] Respiratory 20 20 Rate [Pre- Procedure] Blood Pressure 95/39 Blood Pressure 89/46 [Intra- Procedure] Blood Pressure [Post-Procedure ] Blood Pressure 95/39 95/39 [Pre-Procedure] Blood Pressure [Right] O2 Sat by Pulse 96 Oximetry O2 Sat by Pulse 96 Oximetry [ Intra-Procedure ] O2 Sat by Pulse Oximetry [Post -Procedure] 12/07/17 12/07/17 12/07/17 13:03 13:34 14:21 Temperature 95.0 F L Pulse Rate 55 L 52 L Pulse Rate [ 54 L Intra-Procedure ] Pulse Rate [ 54 L Post-Procedure] Pulse Rate [Pre 55 L -Procedure] Respiratory 18 16 Rate Respiratory 16 Rate [Intra- Procedure] Respiratory 18 Rate [Post- Procedure] Respiratory 20 Rate [Pre- Procedure] Blood Pressure Blood Pressure 89/46 [Intra- Procedure] Blood Pressure 90/42 [Post-Procedure ] Blood Pressure 95/39 [Pre-Procedure] Blood Pressure 93/49 82/40 [Right] O2 Sat by Pulse 99 100 Oximetry O2 Sat by Pulse 96 Oximetry [ Intra-Procedure ] O2 Sat by Pulse 95 Oximetry [Post -Procedure] - Reevaluation(s) Reevaluation #1: Patient was given a bolus of IV fluid in addition to the above. His lactic acid level was 10. Therefore he was given Zosyn and Vanco. His rectal temperature will was yet pending. However, the nurses were directed to utilize a bear hugger appropriately. He is responding to resuscitation with his blood pressure improving and his heart rate becoming more regular. The T waves are less prominent already. He will need emergency dialysis. Hopefully, his blood pressure will improve. 12/07/17 14:17 - Central Line Placement Right Femoral Consent Obtained: emergent situation Time Out Performed: No Patient Placed on Monitor/Pulse Ox: Yes MD Prep: mask, gown, gloves Central Line Prep: Chlorhexidine scrub Local Anesthesia Used: Lidocaine 1% Amount of Anesthesia Used (mls): 6 Ultrasound Used for Placement: No Central Line Lumen Inserted: triple Bloods Obtained for Lab: Yes Central Line Position: good blood return (nonpulsatile venous), sutured in place with 3-0 Dressing Applied: Tegaderm Post Procedure X-Ray: other (x-ray not indicated) Patient Tolerated Procedure: well Complications: none - Intubation Time Out Performed: No Sedative: Etomidate Paralytic: Rocuronium Laryngoscope: Demetrio Size: 4 Assist Device Used: Bougie ET Tube Size: 7 Tube Secured Depth (cm): 22 Tube Secured Location: teeth Patient Tolerated Procedure: well Intubation Complications: difficult intubation (no visualization of the epiglottis as above described. Bougie intubation without difficulty.) ED Medical Decision Making - Lab Data Result diagrams: 12/07/17 13:16 12/07/17 13:16 Laboratory Results - last 24 hr 12/07/17 12/07/17 12/07/17 13:16 13:16 13:16 WBC 9.2 RBC 2.55 L Hgb 7.7 L Hct 28.4 L MCV 111 H MCH 30 MCHC 27 L RDW 17.5 H Plt Count 210 PT 20.6 H INR 1.67 H VBG pH Sodium 152 H Potassium 9.0 H* Chloride 108.7 H Carbon Dioxide 2 L* Anion Gap 50 BUN 105 H Creatinine 32.6 H Estimated GFR 2 BUN/Creatinine Ratio 3 Glucose 128 H Lactic Acid Calcium 7.8 L Total Bilirubin 0.20 Direct Bilirubin Indirect Bilirubin AST 15 ALT 13 Alkaline Phosphatase 147 H Total Protein 7.1 Albumin 3.3 L Albumin/Globulin Ratio 0.9 Blood Type Antibody Screen 12/07/17 12/07/17 12/07/17 13:16 13:16 13:16 WBC RBC Hgb Hct MCV MCH MCHC RDW Plt Count PT INR VBG pH 6.682 L* Sodium Potassium Chloride Carbon Dioxide Anion Gap BUN Creatinine Estimated GFR BUN/Creatinine Ratio Glucose Lactic Acid 10.20 H* Calcium Total Bilirubin Direct Bilirubin Indirect Bilirubin AST ALT Alkaline Phosphatase Total Protein Albumin Albumin/Globulin Ratio Blood Type A POSITIVE Antibody Screen Negative 12/07/17 13:16 WBC RBC Hgb Hct MCV MCH MCHC RDW Plt Count PT INR VBG pH Sodium Potassium Chloride Carbon Dioxide Anion Gap BUN Creatinine Estimated GFR BUN/Creatinine Ratio Glucose Lactic Acid Calcium Total Bilirubin 0.20 Direct Bilirubin < 0.2 Indirect Bilirubin 0.0 AST 15 ALT 13 Alkaline Phosphatase 148 H Total Protein 7.1 Albumin 3.2 L Albumin/Globulin Ratio 0.8 Blood Type Antibody Screen - EKG Data -: EKG Interpreted by Me - EKG Data Interpretation: other (probable A. fib interventricular conduction delay it assistant with hyperkalemia) - Radiology Data interpreted by me: Chest x-ray with good tube placement and no evidence of fluid overload Critical Care Time: Yes Critical care time in (mins) excluding proc time.: 60 Critical care attestation.: If time is entered above; I have spent that time in minutes in the direct care of this critically ill patient, excluding procedure time. ED Disposition Clinical Impression: Metabolic encephalopathy, Hyperkalemia, Metabolic acidosis, End-stage renal disease needing dialysis Disposition: 09 OP ADMIT IP TO THIS HOSP Is pt being admited?: Yes Does the pt Need Aspirin: No (hold aspirin until CT rules out hemorrhage) Condition: Stable
[2017-12-07] MEDS ORDERED: VANCOMYCIN 1,250 MG in NACL 0.9% 250ML 250 ML IV ONE (14:15)
[2017-12-07] MEDS ORDERED: ATIVAN 100 MG in NACL 0.9% 50 ML, VIAFLEX EMPTY CONTAINER 0 ML IV SCH (14:15)
[2017-12-07] MEDS ORDERED: NACL 0.9% 100 ML IV PRN ×2 (14:16→18:34)
[2017-12-07 14:32] LABS: Acanthocytes 1+; Anisocytosis 1+; Eosinophils % (Manual) 0 % (0.0-4.3); Poikilocytosis 1+; Total Cells Counted 100
[2017-12-07 14:33] LABS: Burr Cells Few
[2017-12-07 14:34] LABS: Toxic Granulation Few; Toxic Vacuolation Few
[2017-12-07 14:36] LABS: Platelet Estimate Cons
--- NOTE | 2017-12-07 14:57 | XRay Report ---
Portable chest: Tube placement. An endotracheal tube is in good position. The lungs are clear the mediastinal contour is unremarkable. The cardiopulmonary findings are unchanged compared to November 14, 2017.
[2017-12-07] MEDS ORDERED: SODIUM BICARBONATE 150 MEQ in D5W 1,000 ML IV ONE (15:00)
[2017-12-07] MEDS ORDERED: CALCIUM CHLORIDE IV ONE (15:00)
[2017-12-07] MEDS ORDERED: NACL 0.9% 1000 ML 1,000 ML ONE ×3 (15:12→19:59)
[2017-12-07] MEDS ORDERED: AMIDATE IV ONE (15:40)
[2017-12-07] MEDS ORDERED: ZEMURON IV ONE (15:40)
[2017-12-07] MEDS: NEO-SYNEPHRINE 100 MG in NACL 0.9% 90 ML IV ONE ×2 (15:55→16:15)
[2017-12-07] MEDS: ZOSYN/NS 2.25 GM/50ML 2.25 GM/50 ML BAG IV SCH ×2 (17:00→21:44)
--- NOTE | 2017-12-07 18:30 | Consultation ---
History of Present Illness - Reason for Consult Consult date: 12/07/17 end stage renal disease, hyperkalemia, metabolic acidosis - History of Present Illness History obtained from medical records as patient is intubated. Mr. Scott is a 47yo gentleman with ESRD on HD who was found poorly responsive by EMS in his apartment. Medics were unable to get IV access. He was transported to this facility without any specific intervention other than supplemental oxygen. He arrived to the ED and was not responding to sternal rub , w/ conjugate gaze, left deviation. He was intubated. Labs obtained and notable for K 9, Bicarb 2 and BUN >100. Nephrology was consulted. STAT HD was ordered. He is currently receiving dialysis in the ED. Past History Past Medical History: diabetes, ESRD, hypertension, other (diabetic gastroparesis) Past Surgical History: Other (AVF creation) Social history: other (Unable to obtain) Family history: other (Unable to obtain) Medications and Allergies Allergies Allergy/AdvReac Type Severity Reaction Status Date / Time No Known Allergies Allergy Verified 06/20/14 15:21 Home Medications Medication Instructions Recorded Confirmed Last Taken Type Aspirin EC [Aspirin Enteric Coated 81 mg PO QDAY #30 tablet. 11/20/17 Unknown Rx TAB] oxyCODONE /ACETAMINOPHEN [Percocet 1 tab PO Q4H PRN #14 tablet 11/20/17 Unknown Rx 5/325 mg] Active Meds: Active Medications Al Hydrox/Mg Hydrox/Simethicone (Alum-Mag Hydrox-Simeth 420-980-68lw/5ml) 30 ml PO Q4H PRN PRN Reason: Indigestion Bisacodyl (Dulcolax) 10 mg NV QDAY PRN PRN Reason: constipation unrelieved by MOM Hydrophilic Ointment (Vaseline Lip Therapy) 1 applic TP Q2HR PRN PRN Reason: Dry Lips Lorazepam 100 mg/ Sodium Chloride/ Miscellaneous Information 100 mls @ 1 mls/ hr IV TITR OLIVIA; 1 MG/HR PRN Reason: Protocol Last Titration: 12/07/17 18:14 Dose: 4 mg/hr, 4 mls/hr Sodium Chloride (Nacl 0.9%) 100 mls @ 999 mls/hr IV ELISHA PRN PRN Reason: Hypotension Sodium Bicarbonate 150 meq/ (Dextrose) 1,150 mls @ 100 mls/hr IV ONCE.ED ONE Stop: 12/08/17 02:29 Last Admin: 12/07/17 15:30 Dose: 100 mls/hr Piperacillin Sod/Tazobactam Sod (Zosyn/Ns 2.25 Gm/50ml) 2.25 gm in 50 mls @ 100 mls/hr IV Q8HR OLIVIA Phenylephrine HCl 100 mg/ (Sodium Chloride) 100 mls @ 3 mls/hr IV ONCE.ED ONE; 50 MCG/MIN PRN Reason: Protocol Stop: 12/09/17 00:32 Last Titration: 12/07/17 17:25 Dose: 50 mcg/min, 3 mls/hr Magnesium Hydroxide (Milk Of Magnesia) 30 ml PO Q4H PRN PRN Reason: Constipation Multi-Ingred Cream/Lotion/Oil/Oint (Artificial Tears Ophth Oint) 1 applic OU Q4HR PRN PRN Reason: Dry Eye(s) Vancomycin HCl (Vancomycin Pharmacy To Dose) 1 each IV PKCONSULT OLIVIA PRN Reason: Protocol Review of Systems ROS unobtainable: due to endotracheal tube Exam - Vital Signs Vital signs: Vital Signs Pulse Resp BP Pulse Ox 55 L 20 95/39 96 12/07/17 12:50 12/07/17 12:50 12/07/17 12:50 12/07/17 12:50 - General Appearance General appearance: well-developed, well-nourished, intubated EENT: ATNC, other (ETT in place) Neck: Absent: JVD/HJR Respiratory: Other (Coarse anterior breath sounds) Heart: regular, S1S2 Gastrointestinal: Present: hypoactive bowel sounds, other (soft). Absent: distended Integumentary: no rash, warm and dry Musculoskeletal: Present: other (no peripheral edema) Results - Lab Results 12/07/17 13:16 12/07/17 13:16 Most recent lab results Calcium 7.8 mg/dL (8.4-10.2) L 12/07/17 13:16 Assessment and Plan Impression: * Severe hyperkalemia - K 9 * Severe metabolic acidosis secondary to ESRD vs lactic acidosis - Bicarb 2 * ESRD * Acute respiratory failure * Hypotension r/o sepsis * Anemia secondary to ESRD vs other Plan * STAT HD ordered and in progress * BMP upon completion of HD today * Will plan for hemodialysis again tomorrow * Vent management per critical care team * Pressors to maintain MAP>65 * Blood culture pending * Empiric abx per primary team * Dose medications for renal function
[2017-12-07 19:38] LABS: Calcium 7.1 mg/dL (8.4-10.2)
[2017-12-07 20:30] LABS: Chol/HDL Ratio 5.47 %
[2017-12-08] MEDS ORDERED: NACL 0.9% 1000 ML 0 ML ONE (00:08)
[2017-12-08 04:05] LABS: Albumin 2.7 g/dL (3.9-5); Calcium 6.4 mg/dL (8.4-10.2)
[2017-12-08 04:54] LABS: Bacteria,Urine 4+ /HPF (Negative); Bilirubin,Urine NEG (Negative); Blood,Urine MOD (Negative); Color,Urine Amber (Yellow); Mucus,Urine 3+ /HPF; Nitrite,Urine NEG (Negative); Urobilinogen,Urine < 2.0 mg/dL (<2.0)
[2017-12-08 05:03] LABS: WBC,Urine > 182.0 /HPF (0.0-6.0)
[2017-12-08] MEDS ORDERED: KIONEX PR ONE (05:09)
[2017-12-08] MEDS: ZOSYN/NS 2.25 GM/50ML 2.25 GM/50 ML BAG IV SCH ×2 (06:36→14:11)
--- NOTE | 2017-12-08 07:59 | History and Physical Report ---
History of Present Illness Date of admission: 12/07/17 14:10 Chief complaint: Unresponsive History of present illness: 47 YO Male with ESRD on HD(M,W,F), HTN, DM, Noncompliance with Dialysis and Medication, Nicotine Dependence presents to ED for evaluation. Pt comatose and unable to provide history. Pt history taken from EMS, ED staff. Pt transported to [facility] by EMS. PT found down and unresponsive. Pt seen and evaluated in ED and found to have Acute Respiratory failure and is unable to protect his airway. Pt also found to have hyperkalemia with a serum potassium of 9, EKG changes consistent with acute hyperkalemia, and severe metabolic acidosis. Nephrology consulted in ED. Pt admitted to ICU, Emergency dialysis initiated in ED. Past History Past Medical History: diabetes, ESRD, hypertension, other (diabetic gastroparesis) Past Surgical History: cholecystectomy, Other (AVF creation) Social history: , smoking, other (Unable to obtain) Family history: other (Unable to obtain) Medications and Allergies Allergies Allergy/AdvReac Type Severity Reaction Status Date / Time No Known Allergies Allergy Verified 06/20/14 15:21 Home Medications Medication Instructions Recorded Confirmed Last Taken Type Aspirin EC [Aspirin Enteric Coated 81 mg PO QDAY #30 tablet. 11/20/17 Unknown Rx TAB] oxyCODONE /ACETAMINOPHEN [Percocet 1 tab PO Q4H PRN #14 tablet 11/20/17 Unknown Rx 5/325 mg] Active Meds: Active Medications Al Hydrox/Mg Hydrox/Simethicone (Alum-Mag Hydrox-Simeth 142-242-64ps/5ml) 30 ml PO Q4H PRN PRN Reason: Indigestion Bisacodyl (Dulcolax) 10 mg [place] QDAY PRN PRN Reason: constipation unrelieved by MOM Epoetin Iker (Epogen) 20,000 unit IV ELISHA PRN PRN Reason: hemodialysis Hydrophilic Ointment (Vaseline Lip Therapy) 1 applic TP Q2HR PRN PRN Reason: Dry Lips Lorazepam 100 mg/ Sodium Chloride/ Miscellaneous Information 100 mls @ 1 mls/ hr IV TITR OLIVIA; 1 MG/HR PRN Reason: Protocol Last Titration: 12/08/17 04:32 Dose: 1 mg/hr, 1 mls/hr Sodium Chloride (Nacl 0.9%) 100 mls @ 999 mls/hr IV ELISHA PRN PRN Reason: Hypotension Piperacillin Sod/Tazobactam Sod (Zosyn/Ns 2.25 Gm/50ml) 2.25 gm in 50 mls @ 100 mls/hr IV Q8HR OLIVIA Last Admin: 12/08/17 06:36 Dose: 100 mls/hr Phenylephrine HCl 100 mg/ (Sodium Chloride) 100 mls @ 3 mls/hr IV ONCE.ED ONE; 50 MCG/MIN PRN Reason: Protocol Stop: 12/09/17 00:32 Last Titration: 12/07/17 17:25 Dose: 50 mcg/min, 3 mls/hr Sodium Chloride (Nacl 0.9%) 100 mls @ 999 mls/hr IV ELISHA PRN PRN Reason: Hypotension Last Admin: 12/08/17 00:06 Dose: 999 mls/hr Magnesium Hydroxide (Milk Of Magnesia) 30 ml PO Q4H PRN PRN Reason: Constipation Multi-Ingred Cream/Lotion/Oil/Oint (Artificial Tears Ophth Oint) 1 applic OU Q4HR PRN PRN Reason: Dry Eye(s) Vancomycin HCl (Vancomycin Pharmacy To Dose) 1 each IV PKCONSULT OLIVIA PRN Reason: Protocol Review of Systems ROS unobtainable: due to mental status Exam - Constitutional Vitals: Temp Pulse Resp BP Pulse Ox 98.9 F 81 23 96/59 100 12/08/17 05:50 12/08/17 07:44 12/08/17 05:45 12/08/17 07:44 12/08/17 07:44 General appearance: Present: severe distress - EENT Eyes: Present: mydriasis - Neck Neck: Present: supple, normal ROM - Respiratory Respiratory effort: labored Respiratory: bilateral: diminished - Cardiovascular Heart Sounds: Present: S1 & S2. Absent: rub, click - Extremities Extremities: pulses symmetrical, No edema Peripheral Pulses: abnormal (capillary refill greater than 3.6 seconds) - Abdominal General gastrointestinal: Present: soft, non-tender, non-distended, normal bowel sounds Male genitourinary: Present: normal - Integumentary Integumentary: Present: clear, dry, clammy, decreased turgor - Musculoskeletal Musculoskeletal: generalized weakness - Psychiatric Psychiatric: no intact judgment & insight, no memory intact - Neurologic Neurologic: no gait normal Results - Labs CBC & Chem 7: 02/01/18 13:16 12/08/17 03:25 Labs: Abnormal lab results 12/07/17 12/07/17 12/07/17 Range/Units 13:16 13:16 13:16 RBC 2.55 L (3.65-5.03) M/mm3 Hgb 7.7 L (11.8-15.2) gm/dl Hct 28.4 L (35.5-45.6) % MCV 111 H (84-94) fl MCHC 27 L (32-34) % RDW 17.5 H (13.2-15.2) % Seg Neuts % (Manual) 71.0 H (40.0-70.0) % Nucleated RBC % 2.0 H (0.0-0.9) % PT 20.6 H (12.2-14.9) Sec. INR 1.67 H (0.87-1.13) POC ABG pH (7.35-7.45) POC ABG pCO2 (35-45) POC ABG pO2 (80-105) VBG pH (7.320-7.420) Sodium 152 H (137-145) mmol/L Potassium 9.0 H* (3.6-5.0) mmol/L Chloride 108.7 H (98-107) mmol/L Carbon Dioxide 2 L* (22-30) mmol/L BUN 105 H (9-20) mg/dL Creatinine 32.6 H (0.8-1.5) mg/dL Glucose 128 H (75-100) mg/dL Lactic Acid (0.7-2.0) mmol/L Calcium 7.8 L (8.4-10.2) mg/dL Alkaline Phosphatase 147 H (35-129) units/L Troponin T (0.00-0.029) ng/mL Total Protein (6.3-8.2) g/dL Albumin 3.3 L (3.9-5) g/dL Triglycerides (2-149) mg/dL LDL Cholesterol Direct (50-130) mg/dL HDL Cholesterol (40-59) mg/dL Urine WBC (Auto) (0.0-6.0) /HPF 12/07/17 12/07/17 12/07/17 Range/Units 13:16 13:16 13:16 RBC (3.65-5.03) M/mm3 Hgb (11.8-15.2) gm/dl Hct (35.5-45.6) % MCV (84-94) fl MCHC (32-34) % RDW (13.2-15.2) % Seg Neuts % (Manual) (40.0-70.0) % Nucleated RBC % (0.0-0.9) % PT (12.2-14.9) Sec. INR (0.87-1.13) POC ABG pH (7.35-7.45) POC ABG pCO2 (35-45) POC ABG pO2 (80-105) VBG pH 6.682 L* (7.320-7.420) Sodium (137-145) mmol/L Potassium (3.6-5.0) mmol/L Chloride (98-107) mmol/L Carbon Dioxide (22-30) mmol/L BUN (9-20) mg/dL Creatinine (0.8-1.5) mg/dL Glucose (75-100) mg/dL Lactic Acid 10.20 H* (0.7-2.0) mmol/L Calcium (8.4-10.2) mg/dL Alkaline Phosphatase 148 H (35-129) units/L Troponin T (0.00-0.029) ng/mL Total Protein (6.3-8.2) g/dL Albumin 3.2 L (3.9-5) g/dL Triglycerides (2-149) mg/dL LDL Cholesterol Direct (50-130) mg/dL HDL Cholesterol (40-59) mg/dL Urine WBC (Auto) (0.0-6.0) /HPF 12/07/17 12/07/17 12/07/17 Range/Units 14:34 15:43 19:00 RBC (3.65-5.03) M/mm3 Hgb (11.8-15.2) gm/dl Hct (35.5-45.6) % MCV (84-94) fl MCHC (32-34) % RDW (13.2-15.2) % Seg Neuts % (Manual) (40.0-70.0) % Nucleated RBC % (0.0-0.9) % PT (12.2-14.9) Sec. INR (0.87-1.13) POC ABG pH 6.605 L (7.35-7.45) POC ABG pCO2 30.3 L (35-45) POC ABG pO2 626 H (80-105) VBG pH (7.320-7.420) Sodium (137-145) mmol/L Potassium (3.6-5.0) mmol/L Chloride (98-107) mmol/L Carbon Dioxide (22-30) mmol/L BUN (9-20) mg/dL Creatinine (0.8-1.5) mg/dL Glucose (75-100) mg/dL Lactic Acid 9.70 H* (0.7-2.0) mmol/L Calcium (8.4-10.2) mg/dL Alkaline Phosphatase (35-129) units/L Troponin T 0.195 H* (0.00-0.029) ng/mL Total Protein (6.3-8.2) g/dL Albumin (3.9-5) g/dL Triglycerides 368 H (2-149) mg/dL LDL Cholesterol Direct 30 L (50-130) mg/dL HDL Cholesterol 23 L (40-59) mg/dL Urine WBC (Auto) (0.0-6.0) /HPF 12/07/17 12/08/17 12/08/17 Range/Units 19:00 03:21 03:25 RBC (3.65-5.03) M/mm3 Hgb (11.8-15.2) gm/dl Hct (35.5-45.6) % MCV (84-94) fl MCHC (32-34) % RDW (13.2-15.2) % Seg Neuts % (Manual) (40.0-70.0) % Nucleated RBC % (0.0-0.9) % PT (12.2-14.9) Sec. INR (0.87-1.13) POC ABG pH (7.35-7.45) POC ABG pCO2 (35-45) POC ABG pO2 (80-105) VBG pH (7.320-7.420) Sodium (137-145) mmol/L Potassium 5.5 H D (3.6-5.0) mmol/L Chloride 96.2 L 94.5 L (98-107) mmol/L Carbon Dioxide 15 L D 16 L (22-30) mmol/L BUN 39 H 40 H (9-20) mg/dL Creatinine 10.1 H D 11.5 H (0.8-1.5) mg/dL Glucose 200 H 279 H (75-100) mg/dL Lactic Acid 3.50 H* (0.7-2.0) mmol/L Calcium 7.1 L 6.4 L (8.4-10.2) mg/dL Alkaline Phosphatase (35-129) units/L Troponin T 0.177 H* (0.00-0.029) ng/mL Total Protein 6.2 L (6.3-8.2) g/dL Albumin 2.7 L (3.9-5) g/dL Triglycerides (2-149) mg/dL LDL Cholesterol Direct (50-130) mg/dL HDL Cholesterol (40-59) mg/dL Urine WBC (Auto) (0.0-6.0) /HPF 12/08/17 12/08/17 Range/Units 04:07 04:54 RBC (3.65-5.03) M/mm3 Hgb (11.8-15.2) gm/dl Hct (35.5-45.6) % MCV (84-94) fl MCHC (32-34) % RDW (13.2-15.2) % Seg Neuts % (Manual) (40.0-70.0) % Nucleated RBC % (0.0-0.9) % PT (12.2-14.9) Sec. INR (0.87-1.13) POC ABG pH 7.318 L (7.35-7.45) POC ABG pCO2 (35-45) POC ABG pO2 168 H (80-105) VBG pH (7.320-7.420) Sodium (137-145) mmol/L Potassium (3.6-5.0) mmol/L Chloride (98-107) mmol/L Carbon Dioxide (22-30) mmol/L BUN (9-20) mg/dL Creatinine (0.8-1.5) mg/dL Glucose (75-100) mg/dL Lactic Acid (0.7-2.0) mmol/L Calcium (8.4-10.2) mg/dL Alkaline Phosphatase (35-129) units/L Troponin T (0.00-0.029) ng/mL Total Protein (6.3-8.2) g/dL Albumin (3.9-5) g/dL Triglycerides (2-149) mg/dL LDL Cholesterol Direct (50-130) mg/dL HDL Cholesterol (40-59) mg/dL Urine WBC (Auto) > 182.0 H (0.0-6.0) /HPF Assessment and Plan - Patient Problems (1) Acute respiratory failure Current Visit: Yes Status: Acute Qualifiers: Respiratory failure complication: hypoxia Qualified Code(s): J96.01 - Acute respiratory failure with hypoxia Plan to address problem: Wean vent as tolerated, daily SBT, Daily sedation holiday, Pulmonary consulted, nebulizer therapy, diuresis, pulmonary toilet, supportive care, The high probability of a clinically significant, sudden or life threatening deterioration of the [pulmonary, cardiac, renal] system(s) required my full and direct attention, intervention and personal management. The aggregate critical care time was [65] minutes. This time is in addition to time spent performing reported procedures but includes the following: [x] Data Review and interpretation [x] Patient assessment and monitoring of vital signs [x] Documentation [x] Medication orders and management (2) Hyperkalemia Current Visit: Yes Status: Acute Plan to address problem: urgent dialysis, calcium gluconated, kayexelated, insulin, (3) Metabolic acidosis Current Visit: Yes Status: Acute Plan to address problem: urgent dialysis, IV bicarbonate, ivf resuscitation therapy as tolerated. (4) Metabolic encephalopathy Current Visit: Yes Status: Acute Plan to address problem: CT Head, neuro checks, serial physical exam, treat metabolic acidosis. (5) ESRD (end stage renal disease) on dialysis Current Visit: Yes Status: Acute Plan to address problem: Nephrology consulted for urgent dialysis, supportive care, repeat bmp (6) DVT prophylaxis Current Visit: Yes Status: Acute
--- NOTE | 2017-12-08 08:53 | Progress Note ---
Assessment and Plan Impression: * Severe hyperkalemia - K 9 at admission, improved * Severe metabolic acidosis secondary to ESRD vs lactic acidosis - Bicarb 2 at admission, improved * ESRD * Acute respiratory failure * Hypotension r/o sepsis * Anemia secondary to ESRD vs other * Type I DM Plan * Hemodialysis today - UF as tolerated * Reassess for HD need tomorrow * Vent management per critical care team * Pressors to maintain MAP>65 * Blood culture pending * Empiric abx per primary team * Dose medications for renal function Subjective Date of service: 12/08/17 Interval history: No acute events overnight. Seen on HD Objective - Vital Signs Vital signs: Vital Signs - 12hr 12/07/17 12/07/17 12/07/17 21:00 21:15 21:30 Temperature Pulse Rate 90 89 88 Respiratory 14 15 17 Rate Blood Pressure 104/60 100/57 100/57 Blood Pressure [Right] O2 Sat by Pulse 100 100 100 Oximetry 12/07/17 12/07/17 12/07/17 21:45 22:00 22:03 Temperature 100.2 F H Pulse Rate 88 88 87 Respiratory 19 20 18 Rate Blood Pressure 96/49 95/50 Blood Pressure 95/50 [Right] O2 Sat by Pulse 100 100 100 Oximetry 12/07/17 12/07/17 12/07/17 22:15 22:30 22:39 Temperature Pulse Rate 87 88 Respiratory 14 17 16 Rate Blood Pressure 98/51 97/50 Blood Pressure [Right] O2 Sat by Pulse 100 100 100 Oximetry 12/07/17 12/07/17 12/07/17 22:45 23:00 23:15 Temperature Pulse Rate 87 87 86 Respiratory 18 17 20 Rate Blood Pressure 96/51 96/51 98/53 Blood Pressure [Right] O2 Sat by Pulse 100 100 100 Oximetry 12/07/17 12/07/17 12/07/17 23:22 23:25 23:30 Temperature 99.9 F H Pulse Rate 87 86 87 Respiratory 19 23 21 Rate Blood Pressure 98/53 98/52 Blood Pressure 98/53 [Right] O2 Sat by Pulse 100 100 100 Oximetry 12/07/17 12/07/17 12/08/17 23:40 23:45 00:00 Temperature Pulse Rate 86 85 85 Respiratory 24 16 Rate Blood Pressure 98/52 96/50 94/51 Blood Pressure [Right] O2 Sat by Pulse 100 100 100 Oximetry 12/08/17 12/08/17 12/08/17 00:16 00:30 00:40 Temperature 99.6 F Pulse Rate 93 H 88 Respiratory 27 H 25 H Rate Blood Pressure 129/64 114/57 Blood Pressure [Right] O2 Sat by Pulse 99 100 Oximetry 12/08/17 12/08/17 12/08/17 00:45 01:00 01:15 Temperature Pulse Rate 85 83 Respiratory 22 20 Rate Blood Pressure 96/49 96/49 94/45 Blood Pressure [Right] O2 Sat by Pulse 100 Oximetry 12/08/17 12/08/17 12/08/17 01:30 01:45 02:00 Temperature 99.2 F Pulse Rate 83 82 82 Respiratory 17 24 16 Rate Blood Pressure 96/48 92/49 94/49 Blood Pressure [Right] O2 Sat by Pulse 100 100 100 Oximetry 12/08/17 12/08/17 12/08/17 02:15 02:30 02:45 Temperature Pulse Rate 81 81 81 Respiratory 19 19 20 Rate Blood Pressure 92/48 96/51 97/52 Blood Pressure [Right] O2 Sat by Pulse 100 100 100 Oximetry 12/08/17 12/08/17 12/08/17 03:00 03:15 03:30 Temperature Pulse Rate 81 81 78 Respiratory 21 20 17 Rate Blood Pressure 95/51 105/51 98/44 Blood Pressure [Right] O2 Sat by Pulse 100 100 100 Oximetry 12/08/17 12/08/17 12/08/17 03:45 04:00 04:15 Temperature Pulse Rate 83 81 79 Respiratory 19 23 18 Rate Blood Pressure 109/61 101/61 93/51 Blood Pressure [Right] O2 Sat by Pulse 100 100 100 Oximetry 12/08/17 12/08/17 12/08/17 04:30 04:45 04:54 Temperature Pulse Rate 79 79 81 Respiratory 18 20 Rate Blood Pressure 91/52 92/50 92/50 Blood Pressure [Right] O2 Sat by Pulse 100 100 100 Oximetry 12/08/17 12/08/17 12/08/17 05:00 05:15 05:30 Temperature Pulse Rate 80 80 80 Respiratory 18 27 H 20 Rate Blood Pressure 97/53 96/55 100/56 Blood Pressure [Right] O2 Sat by Pulse 100 100 100 Oximetry 12/08/17 12/08/17 12/08/17 05:45 05:50 07:00 Temperature 98.9 F Pulse Rate 80 82 Respiratory 23 20 Rate Blood Pressure 97/58 Blood Pressure 94/49 [Right] O2 Sat by Pulse 100 100 Oximetry 12/08/17 12/08/17 07:44 08:00 Temperature Pulse Rate 81 80 Respiratory 18 Rate Blood Pressure 96/59 Blood Pressure 88/52 [Right] O2 Sat by Pulse 100 100 Oximetry - General Appearance General appearance: intubated EENT: ATNC, other (ETT in place) Neck: no JVD Respiratory: Present: Clear to Ascultation Cardiology: regular, S1S2 Gastrointestinal: hypoactive bowel sounds, no distended Integumentary: no rash, warm and dry Musculoskeletal: other (no edema) - Lab 12/07/17 13:16 12/08/17 03:25 Most recent lab results Calcium 6.4 mg/dL (8.4-10.2) L 12/08/17 03:25
--- NOTE | 2017-12-08 14:31 | Consultation ---
History of Present Illness Consult date: 12/08/17 Requesting physician: ISAMAR ROMERO Reason for consult: other (acute respiratory failure, Altered mental status and hyperkalemia) History of present illness: 47 y/o male with renal failure admitted, unresponsive, intubated in the Ed. found to have a K of 9 and in need of emergent HD. Currently patient unresponsive but placed on ativan continuous for sedation. No family at bedside and not able to obtain history from patient. Past History Past Medical History: diabetes, ESRD, hypertension, other (diabetic gastroparesis) Past Surgical History: cholecystectomy, Other (AVF creation) Social history: , smoking, other (Unable to obtain) Family history: other (Unable to obtain) Medications and Allergies Allergies Allergy/AdvReac Type Severity Reaction Status Date / Time No Known Allergies Allergy Verified 06/20/14 15:21 Home Medications Medication Instructions Recorded Confirmed Last Taken Type Aspirin EC [Aspirin Enteric Coated 81 mg PO QDAY #30 tablet. 11/20/17 Unknown Rx TAB] oxyCODONE /ACETAMINOPHEN [Percocet 1 tab PO Q4H PRN #14 tablet 11/20/17 Unknown Rx 5/325 mg] Active Meds: Active Medications Bisacodyl (Dulcolax) 10 mg NV QDAY PRN PRN Reason: constipation unrelieved by MOM Epoetin Iker (Epogen) 20,000 unit IV ELISHA PRN PRN Reason: hemodialysis Hydrophilic Ointment (Vaseline Lip Therapy) 1 applic TP Q2HR PRN PRN Reason: Dry Lips Lorazepam 100 mg/ Sodium Chloride/ Miscellaneous Information 100 mls @ 1 mls/ hr IV TITR OLIVIA; 1 MG/HR PRN Reason: Protocol Last Titration: 12/08/17 04:32 Dose: 1 mg/hr, 1 mls/hr Sodium Chloride (Nacl 0.9%) 100 mls @ 999 mls/hr IV ELISHA PRN PRN Reason: Hypotension Piperacillin Sod/Tazobactam Sod (Zosyn/Ns 2.25 Gm/50ml) 2.25 gm in 50 mls @ 100 mls/hr IV Q8HR OLIVIA Last Admin: 12/08/17 14:11 Dose: 100 mls/hr Phenylephrine HCl 100 mg/ (Sodium Chloride) 100 mls @ 3 mls/hr IV ONCE.ED ONE; 50 MCG/MIN PRN Reason: Protocol Stop: 12/09/17 00:32 Last Titration: 12/08/17 08:30 Dose: 100 mcg/min, 6 mls/hr Sodium Chloride (Nacl 0.9%) 100 mls @ 999 mls/hr IV ELISHA PRN PRN Reason: Hypotension Last Admin: 12/08/17 00:06 Dose: 999 mls/hr Multi-Ingred Cream/Lotion/Oil/Oint (Artificial Tears Ophth Oint) 1 applic OU Q4HR PRN PRN Reason: Dry Eye(s) Vancomycin HCl (Vancomycin Pharmacy To Dose) 1 each IV PKCONSULT OLIVIA PRN Reason: Protocol Review of Systems ROS unobtainable: due to endotracheal tube, due to mental status Physical Examination Vital signs: Vital Signs Pulse Resp BP Pulse Ox 55 L 20 95/39 96 12/07/17 12:50 12/07/17 12:50 12/07/17 12:50 12/07/17 12:50 General appearance: comatose Eyes: non-icteric ENT: other (orally intubated on sedation) Neck: supple Ascultation: Bilateral: clear Percussion: Bilateral: not dull Cardiovascular: regular rate and rhythm Gastrointestinal: normoactive bowel sounds, soft Results - Laboratory Findings CBC and BMP: 12/07/17 13:16 12/08/17 03:25 ABG POC ABG pH 7.318 (7.35-7.45) L 12/08/17 04:54 POC ABG pCO2 36.7 (35-45) 12/08/17 04:54 POC ABG pO2 168 (80-105) H 12/08/17 04:54 POC ABG HCO3 18.8 12/08/17 04:54 POC ABG Total CO2 20 12/08/17 04:54 POC ABG O2 Sat 99 12/08/17 04:54 PT/INR, D-dimer PT 20.6 Sec. (12.2-14.9) H 12/07/17 13:16 INR 1.67 (0.87-1.13) H 12/07/17 13:16 Abnormal lab findings: Abnormal Labs 12/07/17 12/07/17 12/07/17 13:16 13:16 13:16 RBC 2.55 L Hgb 7.7 L Hct 28.4 L MCV 111 H MCHC 27 L RDW 17.5 H Seg Neuts % (Manual) 71.0 H Nucleated RBC % 2.0 H PT 20.6 H INR 1.67 H POC ABG pH POC ABG pCO2 POC ABG pO2 VBG pH Sodium 152 H Potassium 9.0 H* Chloride 108.7 H Carbon Dioxide 2 L* BUN 105 H Creatinine 32.6 H Glucose 128 H Lactic Acid Calcium 7.8 L Alkaline Phosphatase 147 H Troponin T Total Protein Albumin 3.3 L Triglycerides LDL Cholesterol Direct HDL Cholesterol Urine WBC (Auto) 12/07/17 12/07/17 12/07/17 13:16 13:16 13:16 RBC Hgb Hct MCV MCHC RDW Seg Neuts % (Manual) Nucleated RBC % PT INR POC ABG pH POC ABG pCO2 POC ABG pO2 VBG pH 6.682 L* Sodium Potassium Chloride Carbon Dioxide BUN Creatinine Glucose Lactic Acid 10.20 H* Calcium Alkaline Phosphatase 148 H Troponin T Total Protein Albumin 3.2 L Triglycerides LDL Cholesterol Direct HDL Cholesterol Urine WBC (Auto) 12/07/17 12/07/17 12/07/17 14:34 15:43 19:00 RBC Hgb Hct MCV MCHC RDW Seg Neuts % (Manual) Nucleated RBC % PT INR POC ABG pH 6.605 L POC ABG pCO2 30.3 L POC ABG pO2 626 H VBG pH Sodium Potassium Chloride Carbon Dioxide BUN Creatinine Glucose Lactic Acid 9.70 H* Calcium Alkaline Phosphatase Troponin T 0.195 H* Total Protein Albumin Triglycerides 368 H LDL Cholesterol Direct 30 L HDL Cholesterol 23 L Urine WBC (Auto) 12/07/17 12/08/17 12/08/17 19:00 03:21 03:25 RBC Hgb Hct MCV MCHC RDW Seg Neuts % (Manual) Nucleated RBC % PT INR POC ABG pH POC ABG pCO2 POC ABG pO2 VBG pH Sodium Potassium 5.5 H D Chloride 96.2 L 94.5 L Carbon Dioxide 15 L D 16 L BUN 39 H 40 H Creatinine 10.1 H D 11.5 H Glucose 200 H 279 H Lactic Acid 3.50 H* Calcium 7.1 L 6.4 L Alkaline Phosphatase Troponin T 0.177 H* Total Protein 6.2 L Albumin 2.7 L Triglycerides LDL Cholesterol Direct HDL Cholesterol Urine WBC (Auto) 12/08/17 12/08/17 04:07 04:54 RBC Hgb Hct MCV MCHC RDW Seg Neuts % (Manual) Nucleated RBC % PT INR POC ABG pH 7.318 L POC ABG pCO2 POC ABG pO2 168 H VBG pH Sodium Potassium Chloride Carbon Dioxide BUN Creatinine Glucose Lactic Acid Calcium Alkaline Phosphatase Troponin T Total Protein Albumin Triglycerides LDL Cholesterol Direct HDL Cholesterol Urine WBC (Auto) > 182.0 H - Diagnostic Findings Chest x-ray: image reviewed (no evidence of acute disease) Assessment and Plan 47 y/o male with acute respiratory failure secondary to encephalopathy, likely metabolic from acute on chronic renal failure. 1. Stop sedation 2. HD per renal 3. Suggest checking UDS 4. Once patient awakens, if he awakens, plan extubation CCT 31 minutes
--- NOTE | 2017-12-08 18:54 | Progress Note ---
Assessment and Plan Assessment and plan: Patient is a 47-year-old with a history of CHF, COPD, insulin-dependent type 2 diabetes mellitus, tobacco dependency, hypertension, C. difficile, anemia of chronic disease, severe protein calorie malnutrition, skull ulcerations, end- stage renal disease on hemodialysis, DKA and chronically elevated troponin around 0.1. He was just discharged from here on 2017 after missing one week of hemodialysis. -Acute hypoxic respiratory failure -Shock on vasopressor -Acute metabolic encephalopahty -ESRD, non compliant causing the above -Severe hyperkalemia due to noncompliance Hopefully hemodialysis will save this patient. History Interval history: Patient was seen and examined. Follow-up on current diagnosis of unresponsiveness. Patient is currently intubated, IV Ativan and José Miguel-Synephrine. He received emergent hemodialysis yesterday and another session of dialysis today. Imaging, nursing note, chart, labs and old chart reviewed. Hospitalist Physical - Physical exam Narrative exam: General appearance: critically ill appearing, comatose Eyes: non-icteric ENT: other (orally intubated on sedation) Neck: supple Ascultation: Bilateral: clear Percussion: Bilateral: not dull Cardiovascular: regular rate and rhythm Gastrointestinal: normoactive bowel sounds, soft - Constitutional Vitals: Temp Pulse Resp BP Pulse Ox 98.0 F 91 H 16 121/74 100 12/08/17 11:57 12/08/17 17:03 12/08/17 15:37 12/08/17 17:03 12/08/17 17:03 General appearance: Present: severe distress Results - Labs CBC & Chem 7: 12/07/17 13:16 12/08/17 03:25 Labs: Laboratory Last Values WBC 9.2 K/mm3 (4.5-11.0) 12/07/17 13:16 RBC 2.55 M/mm3 (3.65-5.03) L 12/07/17 13:16 Hgb 7.7 gm/dl (11.8-15.2) L 12/07/17 13:16 Hct 28.4 % (35.5-45.6) L 12/07/17 13:16 MCV 111 fl (84-94) H 12/07/17 13:16 MCH 30 pg (28-32) 12/07/17 13:16 MCHC 27 % (32-34) L 12/07/17 13:16 RDW 17.5 % (13.2-15.2) H 12/07/17 13:16 Plt Count 210 K/mm3 (140-440) 12/07/17 13:16 Add Manual Diff Complete 12/07/17 13:16 Total Counted 100 12/07/17 13:16 Seg Neuts % (Manual) 71.0 % (40.0-70.0) H 12/07/17 13:16 Band Neutrophils % 0 % 12/07/17 13:16 Lymphocytes % (Manual) 25.0 % (13.4-35.0) 12/07/17 13:16 Reactive Lymphs % (Man) 0 % 12/07/17 13:16 Monocytes % (Manual) 2.0 % (0.0-7.3) 12/07/17 13:16 Eosinophils % (Manual) 0 % (0.0-4.3) 12/07/17 13:16 Basophils % (Manual) 1.0 % (0.0-1.8) 12/07/17 13:16 Metamyelocytes % 1.0 % 12/07/17 13:16 Myelocytes % 0 % 12/07/17 13:16 Promyelocytes % 0 % 12/07/17 13:16 Blast Cells % 0 % 12/07/17 13:16 Nucleated RBC % 2.0 % (0.0-0.9) H 12/07/17 13:16 Seg Neutrophils # Man 6.5 K/mm3 (1.8-7.7) 12/07/17 13:16 Band Neutrophils # 0.0 K/mm3 12/07/17 13:16 Lymphocytes # (Manual) 2.3 K/mm3 (1.2-5.4) 12/07/17 13:16 Abs React Lymphs (Man) 0.0 K/mm3 12/07/17 13:16 Monocytes # (Manual) 0.2 K/mm3 (0.0-0.8) 12/07/17 13:16 Eosinophils # (Manual) 0.0 K/mm3 (0.0-0.4) 12/07/17 13:16 Basophils # (Manual) 0.1 K/mm3 (0.0-0.1) 12/07/17 13:16 Metamyelocytes # 0.1 K/mm3 12/07/17 13:16 Myelocytes # 0.0 K/mm3 12/07/17 13:16 Promyelocytes # 0.0 K/mm3 12/07/17 13:16 Blast Cells # 0.0 K/mm3 12/07/17 13:16 WBC Morphology Not Reportable 12/07/17 13:16 Hypersegmented Neuts Not Reportable 12/07/17 13:16 Hyposegmented Neuts Not Reportable 12/07/17 13:16 Hypogranular Neuts Not Reportable 12/07/17 13:16 Smudge Cells Not Reportable 12/07/17 13:16 Toxic Granulation Few 12/07/17 13:16 Toxic Vacuolation Few 12/07/17 13:16 Dohle Bodies Not Reportable 12/07/17 13:16 Pelger-Huet Anomaly Not Reportable 12/07/17 13:16 Mane Rods Not Reportable 12/07/17 13:16 Platelet Estimate Cons 12/07/17 13:16 Clumped Platelets Not Reportable 12/07/17 13:16 Plt Clumps, EDTA Not Reportable 12/07/17 13:16 Large Platelets Not Reportable 12/07/17 13:16 Giant Platelets Not Reportable 12/07/17 13:16 Platelet Satelliting Not Reportable 12/07/17 13:16 Plt Morphology Comment Not Reportable 12/07/17 13:16 RBC Morphology Not Reportable 12/07/17 13:16 Dimorphic RBCs Not Reportable 12/07/17 13:16 Polychromasia Not Reportable 12/07/17 13:16 Hypochromasia Not Reportable 12/07/17 13:16 Poikilocytosis 1+ 12/07/17 13:16 Anisocytosis 1+ 12/07/17 13:16 Microcytosis Not Reportable 12/07/17 13:16 Macrocytosis Not Reportable 12/07/17 13:16 Spherocytes Not Reportable 12/07/17 13:16 Pappenheimer Bodies Not Reportable 12/07/17 13:16 Sickle Cells Not Reportable 12/07/17 13:16 Target Cells Not Reportable 12/07/17 13:16 Tear Drop Cells Not Reportable 12/07/17 13:16 Ovalocytes Not Reportable 12/07/17 13:16 Helmet Cells Not Reportable 12/07/17 13:16 [place] Bodies Not Reportable 12/07/17 13:16 [place] Rings Not Reportable 12/07/17 13:16 [place] Cells Few 12/07/17 13:16 Bite Cells Not Reportable 12/07/17 13:16 Crenated Cell Not Reportable 12/07/17 13:16 Elliptocytes Not Reportable 12/07/17 13:16 Acanthocytes (Spur) 1+ 12/07/17 13:16 Rouleaux Not Reportable 12/07/17 13:16 Hemoglobin C Crystals Not Reportable 12/07/17 13:16 Schistocytes Not Reportable 12/07/17 13:16 Malaria parasites Not Reportable 12/07/17 13:16 Dillon Bodies Not Reportable 12/07/17 13:16 Hem Pathologist Commnt No 12/07/17 13:16 PT 20.6 Sec. (12.2-14.9) H 12/07/17 13:16 INR 1.67 (0.87-1.13) H 12/07/17 13:16 APTT 35.4 Sec. (24.2-36.6) 12/08/17 08:48 POC ABG pH 7.318 (7.35-7.45) L 12/08/17 04:54 POC ABG pCO2 36.7 (35-45) 12/08/17 04:54 POC ABG pO2 168 (80-105) H 12/08/17 04:54 POC ABG HCO3 18.8 12/08/17 04:54 POC ABG Total CO2 20 12/08/17 04:54 POC ABG O2 Sat 99 12/08/17 04:54 POC ABG Base Excess -7 12/08/17 04:54 VBG pH 6.682 (7.320-7.420) L* 12/07/17 13:16 FiO2 35 % 12/08/17 04:54 Sodium 140 mmol/L (137-145) 12/08/17 03:25 Potassium 5.5 mmol/L (3.6-5.0) H D 12/08/17 03:25 Chloride 94.5 mmol/L (98-107) L 12/08/17 03:25 Carbon Dioxide 16 mmol/L (22-30) L 12/08/17 03:25 Anion Gap 35 mmol/L 12/08/17 03:25 BUN 40 mg/dL (9-20) H 12/08/17 03:25 Creatinine 11.5 mg/dL (0.8-1.5) H 12/08/17 03:25 Estimated GFR 6 ml/min 12/08/17 03:25 BUN/Creatinine Ratio 3 % 12/08/17 03:25 Glucose 279 mg/dL (75-100) H 12/08/17 03:25 Lactic Acid 3.50 mmol/L (0.7-2.0) H* 12/08/17 03:21 Calcium 6.4 mg/dL (8.4-10.2) L 12/08/17 03:25 Total Bilirubin 0.30 mg/dL (0.1-1.2) 12/08/17 03:25 Direct Bilirubin < 0.2 mg/dL (0-0.2) 12/07/17 13:16 Indirect Bilirubin 0.0 mg/dL 12/07/17 13:16 AST 14 units/L (5-40) 12/08/17 03:25 ALT 11 units/L (7-56) 12/08/17 03:25 Alkaline Phosphatase 129 units/L (35-129) 12/08/17 03:25 Troponin T 0.177 ng/mL (0.00-0.029) H* 12/08/17 03:25 Total Protein 6.2 g/dL (6.3-8.2) L 12/08/17 03:25 Albumin 2.7 g/dL (3.9-5) L 12/08/17 03:25 Albumin/Globulin Ratio 0.8 % 12/08/17 03:25 Triglycerides 368 mg/dL (2-149) H 12/07/17 19:00 Cholesterol 126 mg/dL (50-199) 12/07/17 19:00 LDL Cholesterol Direct 30 mg/dL (50-130) L 12/07/17 19:00 HDL Cholesterol 23 mg/dL (40-59) L 12/07/17 19:00 Cholesterol/HDL Ratio 5.47 % 12/07/17 19:00 Urine Color Ayesha (Yellow) 12/08/17 04:07 Urine Turbidity Slightly cloudy (Clear) 12/08/17 04:07 Urine pH 6.0 (5.0-7.0) 12/08/17 04:07 Ur Specific [place] 1.025 (1.003-1.030) 12/08/17 04:07 Urine Protein 100 mg/dl mg/dL (Negative) 12/08/17 04:07 Urine Glucose (UA) 50 mg/dL (Negative) 12/08/17 04:07 Urine Ketones 20 mg/dL (Negative) 12/08/17 04:07 Urine Blood Mod (Negative) 12/08/17 04:07 Urine Nitrite Neg (Negative) 12/08/17 04:07 Urine Bilirubin Neg (Negative) 12/08/17 04:07 Urine Urobilinogen < 2.0 mg/dL (<2.0) 12/08/17 04:07 Ur Leukocyte Esterase Mod (Negative) 12/08/17 04:07 Urine WBC (Auto) > 182.0 /HPF (0.0-6.0) H 12/08/17 04:07 Urine RBC (Auto) 72.0 /HPF (0.0-6.0) 12/08/17 04:07 Urine Bacteria (Auto) 4+ /HPF (Negative) 12/08/17 04:07 Urine Mucus 3+ /HPF 12/08/17 04:07 Blood Type A POSITIVE 12/07/17 13:16 Antibody Screen Negative 12/07/17 13:16
[2017-12-09] MEDS: ZOSYN/NS 2.25 GM/50ML 2.25 GM/50 ML BAG IV SCH ×3 (00:03→16:00)
--- NOTE | 2017-12-09 01:09 | XRay Report ---
FINAL REPORT PROCEDURE: XR CHEST 1V AP TECHNIQUE: Chest radiograph anteroposterior view. CPT 64893 HISTORY: follow up respiratory failure COMPARISON: 11/14/2017 FINDINGS: Heart: Normal. Mediastinum/Vessels: Normal. Lungs/Pleural space: Normal. Bony thorax: No acute osseous abnormality. Life support devices: The endotracheal tube ends 6 centimeters above the edyta. A nasogastric tube ends below the hemidiaphragms. IMPRESSION: There is no evidence of an acute cardiopulmonary process. The endotracheal tube ends 6 centimeters above the edyta..
--- NOTE | 2017-12-09 09:48 | Progress Note ---
Assessment and Plan Assessment and plan: Patient is a 47-year-old with a history of CHF, COPD, insulin-dependent type 2 diabetes mellitus, tobacco dependency, hypertension, C. difficile, anemia of chronic disease, severe protein calorie malnutrition, skull ulcerations, end- stage renal disease on hemodialysis, DKA and chronically elevated troponin around 0.1. He was just discharged from here on 2017 after missing one week of hemodialysis. He present now after missing hemodialysis and being found unresponsive per chart. 12/08/17: pCXR: Tube placement. An endotracheal tube is in good position. The lungs are clear the mediastinal contour is unremarkable. The cardiopulmonary findings are unchanged compared to November 14, 2017. 12/09/17: pCXR: There is no evidence of an acute cardiopulmonary process. The endotracheal tube ends 6 centimeters above the edyta.. -Acute hypoxic respiratory failure: adjust ETT, d/w CCM and reviewed film with Dr. Diana, repeat CXR after advancing ETT 2 cm -Shock on vasopressor: trying to wean off José Miguel-syn -Acute on chronic anemia of renal disease: get stat cbc -Acute metabolic encephalopahty, comatose state: supportative care -ESRD, non compliant causing the above: Hopefully hemodialysis will save this patient. -Severe hyperkalemia due to noncompliance: Emergent hemodialysis done -H/o C diffe with diarrhea stool: send for c.diffe -DVT prophylaxis: scd only for now, repeat h/h full code 12/09/17: Still critically ill, the IV ativan has been off since yesterday per RN at bedside. He did grimace when I turned his head but his pupils are dilated and sluggish, He is still on José Miguel vasopressor at 100 mcg/min. Restraints will be renewed because of the grimacing but may not be needed, will re-access daily, He had liquid bowel movement, C.diffe and he does have a history of it. The right groin TLC is surround by diarrhea, I have asked the nurse to page the Car Worker to get permission for Arm picc line to remove the Femoral/Right groin TLC. CCT 35 minutes. History Interval history: Patient was seen and examined. Follow-up on current diagnosis of unresponsiveness. Patient is currently intubated, on José Miguel-Synephrine drip. He received emergent hemodialysis upon admission then the following day. Imaging, nursing note, chart, labs and old chart reviewed. Discussed with nursing at bedside Hospitalist Physical - Physical exam Narrative exam: GEN: Critically ill, comatose man, he does grimace when I move his head HEENT: > he has skull lesions, pupils are dilated and sluggish NECK: supple, no adenopathy, no thyromegaly, no JVD CVS/HEART: RRR, NORMAL S1S2, NO JVD, pulses present bilaterally CHEST/LUNGS: , bilateral crackles, Symmetrical chest expansion, good air entry bilaterally GI/Abdomen: soft, ND, + bowel sounds EXT/Skin: no leg edema, he does NOT grimace to palpation, he has a right groin TLC MSK: no moving x 4 Neuro: not following commands Psych: calm - Constitutional Vitals: Temp Pulse Resp BP Pulse Ox 98.0 F 92 H 18 121/77 100 12/08/17 11:57 12/09/17 08:18 12/09/17 07:00 12/09/17 07:00 12/09/17 08:18 General appearance: Present: severe distress Results - Labs CBC & Chem 7: 12/07/17 13:16 12/08/17 03:25 Labs: Laboratory Last Values WBC 9.2 K/mm3 (4.5-11.0) 12/07/17 13:16 RBC 2.55 M/mm3 (3.65-5.03) L 12/07/17 13:16 Hgb 7.7 gm/dl (11.8-15.2) L 12/07/17 13:16 Hct 28.4 % (35.5-45.6) L 12/07/17 13:16 MCV 111 fl (84-94) H 12/07/17 13:16 MCH 30 pg (28-32) 12/07/17 13:16 MCHC 27 % (32-34) L 12/07/17 13:16 RDW 17.5 % (13.2-15.2) H 12/07/17 13:16 Plt Count 210 K/mm3 (140-440) 12/07/17 13:16 Add Manual Diff Complete 12/07/17 13:16 Total Counted 100 12/07/17 13:16 Seg Neuts % (Manual) 71.0 % (40.0-70.0) H 12/07/17 13:16 Band Neutrophils % 0 % 12/07/17 13:16 Lymphocytes % (Manual) 25.0 % (13.4-35.0) 12/07/17 13:16 Reactive Lymphs % (Man) 0 % 12/07/17 13:16 Monocytes % (Manual) 2.0 % (0.0-7.3) 12/07/17 13:16 Eosinophils % (Manual) 0 % (0.0-4.3) 12/07/17 13:16 Basophils % (Manual) 1.0 % (0.0-1.8) 12/07/17 13:16 Metamyelocytes % 1.0 % 12/07/17 13:16 Myelocytes % 0 % 12/07/17 13:16 Promyelocytes % 0 % 12/07/17 13:16 Blast Cells % 0 % 12/07/17 13:16 Nucleated RBC % 2.0 % (0.0-0.9) H 12/07/17 13:16 Seg Neutrophils # Man 6.5 K/mm3 (1.8-7.7) 12/07/17 13:16 Band Neutrophils # 0.0 K/mm3 12/07/17 13:16 Lymphocytes # (Manual) 2.3 K/mm3 (1.2-5.4) 12/07/17 13:16 Abs React Lymphs (Man) 0.0 K/mm3 12/07/17 13:16 Monocytes # (Manual) 0.2 K/mm3 (0.0-0.8) 12/07/17 13:16 Eosinophils # (Manual) 0.0 K/mm3 (0.0-0.4) 12/07/17 13:16 Basophils # (Manual) 0.1 K/mm3 (0.0-0.1) 12/07/17 13:16 Metamyelocytes # 0.1 K/mm3 12/07/17 13:16 Myelocytes # 0.0 K/mm3 12/07/17 13:16 Promyelocytes # 0.0 K/mm3 12/07/17 13:16 Blast Cells # 0.0 K/mm3 12/07/17 13:16 WBC Morphology Not Reportable 12/07/17 13:16 Hypersegmented Neuts Not Reportable 12/07/17 13:16 Hyposegmented Neuts Not Reportable 12/07/17 13:16 Hypogranular Neuts Not Reportable 12/07/17 13:16 Smudge Cells Not Reportable 12/07/17 13:16 Toxic Granulation Few 12/07/17 13:16 Toxic Vacuolation Few 12/07/17 13:16 Dohle Bodies Not Reportable 12/07/17 13:16 Pelger-Huet Anomaly Not Reportable 12/07/17 13:16 Mane Rods Not Reportable 12/07/17 13:16 Platelet Estimate Cons 12/07/17 13:16 Clumped Platelets Not Reportable 12/07/17 13:16 Plt Clumps, EDTA Not Reportable 12/07/17 13:16 Large Platelets Not Reportable 12/07/17 13:16 Giant Platelets Not Reportable 12/07/17 13:16 Platelet Satelliting Not Reportable 12/07/17 13:16 Plt Morphology Comment Not Reportable 12/07/17 13:16 RBC Morphology Not Reportable 12/07/17 13:16 Dimorphic RBCs Not Reportable 12/07/17 13:16 Polychromasia Not Reportable 12/07/17 13:16 Hypochromasia Not Reportable 12/07/17 13:16 Poikilocytosis 1+ 12/07/17 13:16 Anisocytosis 1+ 12/07/17 13:16 Microcytosis Not Reportable 12/07/17 13:16 Macrocytosis Not Reportable 12/07/17 13:16 Spherocytes Not Reportable 12/07/17 13:16 Pappenheimer Bodies Not Reportable 12/07/17 13:16 Sickle Cells Not Reportable 12/07/17 13:16 Target Cells Not Reportable 12/07/17 13:16 Tear Drop Cells Not Reportable 12/07/17 13:16 Ovalocytes Not Reportable 12/07/17 13:16 Helmet Cells Not Reportable 12/07/17 13:16 Toure-Ozan Bodies Not Reportable 12/07/17 13:16 [place] Rings Not Reportable 12/07/17 13:16 [place] Cells Few 12/07/17 13:16 Bite Cells Not Reportable 12/07/17 13:16 Crenated Cell Not Reportable 12/07/17 13:16 Elliptocytes Not Reportable 12/07/17 13:16 Acanthocytes (Spur) 1+ 12/07/17 13:16 Rouleaux Not Reportable 12/07/17 13:16 Hemoglobin C Crystals Not Reportable 12/07/17 13:16 Schistocytes Not Reportable 12/07/17 13:16 Malaria parasites Not Reportable 12/07/17 13:16 Dillon Bodies Not Reportable 12/07/17 13:16 Hem Pathologist Commnt No 12/07/17 13:16 PT 20.6 Sec. (12.2-14.9) H 12/07/17 13:16 INR 1.67 (0.87-1.13) H 12/07/17 13:16 APTT 35.4 Sec. (24.2-36.6) 12/08/17 08:48 POC ABG pH 7.404 (7.35-7.45) 12/09/17 06:41 POC ABG pCO2 36.7 (35-45) 12/09/17 06:41 POC ABG pO2 106 (80-105) H 12/09/17 06:41 POC ABG HCO3 22.9 12/09/17 06:41 POC ABG Total CO2 24 12/09/17 06:41 POC ABG O2 Sat 98 12/09/17 06:41 POC ABG Base Excess -2 12/09/17 06:41 VBG pH 6.682 (7.320-7.420) L* 12/07/17 13:16 FiO2 28 % 12/09/17 06:41 Sodium 140 mmol/L (137-145) 12/08/17 03:25 Potassium 5.5 mmol/L (3.6-5.0) H D 12/08/17 03:25 Chloride 94.5 mmol/L (98-107) L 12/08/17 03:25 Carbon Dioxide 16 mmol/L (22-30) L 12/08/17 03:25 Anion Gap 35 mmol/L 12/08/17 03:25 BUN 40 mg/dL (9-20) H 12/08/17 03:25 Creatinine 11.5 mg/dL (0.8-1.5) H 12/08/17 03:25 Estimated GFR 6 ml/min 12/08/17 03:25 BUN/Creatinine Ratio 3 % 12/08/17 03:25 Glucose 279 mg/dL (75-100) H 12/08/17 03:25 Lactic Acid 3.50 mmol/L (0.7-2.0) H* 12/08/17 03:21 Calcium 6.4 mg/dL (8.4-10.2) L 12/08/17 03:25 Total Bilirubin 0.30 mg/dL (0.1-1.2) 12/08/17 03:25 Direct Bilirubin < 0.2 mg/dL (0-0.2) 12/07/17 13:16 Indirect Bilirubin 0.0 mg/dL 12/07/17 13:16 AST 14 units/L (5-40) 12/08/17 03:25 ALT 11 units/L (7-56) 12/08/17 03:25 Alkaline Phosphatase 129 units/L (35-129) 12/08/17 03:25 Troponin T 0.177 ng/mL (0.00-0.029) H* 12/08/17 03:25 Total Protein 6.2 g/dL (6.3-8.2) L 12/08/17 03:25 Albumin 2.7 g/dL (3.9-5) L 12/08/17 03:25 Albumin/Globulin Ratio 0.8 % 12/08/17 03:25 Triglycerides 368 mg/dL (2-149) H 12/07/17 19:00 Cholesterol 126 mg/dL (50-199) 12/07/17 19:00 LDL Cholesterol Direct 30 mg/dL (50-130) L 12/07/17 19:00 HDL Cholesterol 23 mg/dL (40-59) L 12/07/17 19:00 Cholesterol/HDL Ratio 5.47 % 12/07/17 19:00 Urine Color Ayesha (Yellow) 12/08/17 04:07 Urine Turbidity Slightly cloudy (Clear) 12/08/17 04:07 Urine pH 6.0 (5.0-7.0) 12/08/17 04:07 Ur Specific [place] 1.025 (1.003-1.030) 12/08/17 04:07 Urine Protein 100 mg/dl mg/dL (Negative) 12/08/17 04:07 Urine Glucose (UA) 50 mg/dL (Negative) 12/08/17 04:07 Urine Ketones 20 mg/dL (Negative) 12/08/17 04:07 Urine Blood Mod (Negative) 12/08/17 04:07 Urine Nitrite Neg (Negative) 12/08/17 04:07 Urine Bilirubin Neg (Negative) 12/08/17 04:07 Urine Urobilinogen < 2.0 mg/dL (<2.0) 12/08/17 04:07 Ur Leukocyte Esterase Mod (Negative) 12/08/17 04:07 Urine WBC (Auto) > 182.0 /HPF (0.0-6.0) H 12/08/17 04:07 Urine RBC (Auto) 72.0 /HPF (0.0-6.0) 12/08/17 04:07 Urine Bacteria (Auto) 4+ /HPF (Negative) 12/08/17 04:07 Urine Mucus 3+ /HPF 12/08/17 04:07 Random Vancomycin 11.7 ug/mL (0-40.0) 12/09/17 06:15 Blood Type A POSITIVE 12/07/17 13:16 Antibody Screen Negative 12/07/17 13:16
--- NOTE | 2017-12-09 11:21 | XRay Report ---
AP CHEST: HISTORY: Tube placement The endotracheal tube and nasogastric tube are in adequate position. Heart size remains normal. Mild perihilar prominence is unchanged since earlier today. Otherwise, the lungs are clear. IMPRESSION: No acute process.
[2017-12-09 12:34] LABS: Hematocrit 26.7 % (35.5-45.6); Hemoglobin 8.6 gm/dl (11.8-15.2); Mean Corpuscular HGB Conc 32 % (32-34); Mean Corpuscular Hemoglobin 30 pg (28-32); Mean Corpuscular Volume 93 fl (84-94); Platelet Count 152 K/mm3 (140-440); Red Blood Count 2.87 M/mm3 (3.65-5.03); Red Cell Distribution Width 15.7 % (13.2-15.2)
--- NOTE | 2017-12-09 12:51 | Progress Note ---
Assessment and Plan 47 y/o male with acute respiratory failure secondary to encephalopathy, likely metabolic from acute on chronic renal failure. 1. No further sedatives 2. Head CT 3. HD per renal 4. Overall prognosis is guarded to poor. Pending mental state 5. Will send a UDS CCT 31 minutes Subjective Date of service: 12/09/17 Interval history: Patient has been off Ativan Drip for several hours. No labs from this am. Patient is still not awake. Does withdraw some from pain. No family at bedside. Objective Vital Signs - 12hr 12/09/17 12/09/17 12/09/17 01:00 01:15 01:30 Pulse Rate 93 H 93 H 95 H Pulse Rate [ From Monitor] Respiratory 17 20 17 Rate Blood Pressure 117/76 113/72 113/72 O2 Sat by Pulse 100 99 100 Oximetry 12/09/17 12/09/17 12/09/17 01:45 02:00 02:15 Pulse Rate 94 H 93 H 93 H Pulse Rate [ From Monitor] Respiratory 16 18 20 Rate Blood Pressure 118/79 117/75 113/73 O2 Sat by Pulse 100 100 100 Oximetry 12/09/17 12/09/17 12/09/17 02:30 02:45 03:00 Pulse Rate 93 H 92 H 92 H Pulse Rate [ From Monitor] Respiratory 19 17 17 Rate Blood Pressure 113/78 110/71 108/71 O2 Sat by Pulse 100 100 100 Oximetry 12/09/17 12/09/17 12/09/17 03:15 03:30 03:45 Pulse Rate 93 H 93 H 93 H Pulse Rate [ From Monitor] Respiratory 17 20 19 Rate Blood Pressure 117/73 116/71 110/71 O2 Sat by Pulse 100 100 100 Oximetry 12/09/17 12/09/17 12/09/17 04:00 04:15 04:21 Pulse Rate 99 H 92 H 92 H Pulse Rate [ From Monitor] Respiratory 17 20 19 Rate Blood Pressure 117/74 115/73 115/73 O2 Sat by Pulse 99 100 100 Oximetry 12/09/17 12/09/17 12/09/17 04:30 04:41 04:51 Pulse Rate 91 H 92 H 93 H Pulse Rate [ From Monitor] Respiratory 17 19 17 Rate Blood Pressure 113/73 113/73 114/69 O2 Sat by Pulse 100 99 100 Oximetry 12/09/17 12/09/1718 05:00 05:11 05:21 Pulse Rate 93 H 92 H 92 H Pulse Rate [ From Monitor] Respiratory 17 18 18 Rate Blood Pressure 114/74 114/74 114/73 O2 Sat by Pulse 100 100 100 Oximetry 12/09/17 12/09/17 12/09/17 05:30 05:41 05:51 Pulse Rate 92 H 93 H 93 H Pulse Rate [ From Monitor] Respiratory 19 18 19 Rate Blood Pressure 117/76 117/76 118/79 O2 Sat by Pulse 99 100 100 Oximetry 12/09/17 12/09/17 12/09/17 06:00 06:11 06:21 Pulse Rate 94 H 93 H 94 H Pulse Rate [ From Monitor] Respiratory 17 20 20 Rate Blood Pressure 126/80 126/80 117/76 O2 Sat by Pulse 100 100 99 Oximetry 12/09/17 12/09/17 12/09/17 06:30 06:41 06:51 Pulse Rate 94 H 93 H 94 H Pulse Rate [ From Monitor] Respiratory 18 19 21 Rate Blood Pressure 116/75 116/75 121/78 O2 Sat by Pulse 99 100 100 Oximetry 12/09/17 12/09/17 12/09/17 07:00 08:18 11:27 Pulse Rate 92 H 92 H Pulse Rate [ 97 H From Monitor] Respiratory 18 20 Rate Blood Pressure 121/77 O2 Sat by Pulse 100 100 100 Oximetry 12/09/17 12:19 Pulse Rate 94 H Pulse Rate [ From Monitor] Respiratory Rate Blood Pressure 120/78 O2 Sat by Pulse 99 Oximetry Constitutional: comatose Eyes: non-icteric ENT: other (orally intubated on sedation) Neck: supple Ascultation: Bilateral: clear Percussion: Bilateral: not dull Cardiovascular: regular rate and rhythm Gastrointestinal: normoactive bowel sounds, soft CBC and BMP: 12/09/17 Unknown 12/08/17 03:25 ABG, PT/INR, D-dimer: ABG POC ABG pH 7.404 (7.35-7.45) 12/09/17 06:41 POC ABG pCO2 36.7 (35-45) 12/09/17 06:41 POC ABG pO2 106 (80-105) H 12/09/17 06:41 POC ABG HCO3 22.9 12/09/17 06:41 POC ABG Total CO2 24 12/09/17 06:41 POC ABG O2 Sat 98 12/09/17 06:41 PT/INR, D-dimer PT 20.6 Sec. (12.2-14.9) H 12/07/17 13:16 INR 1.67 (0.87-1.13) H 12/07/17 13:16 Abnormal lab findings: Abnormal Labs 12/07/17 12/07/17 12/07/17 13:16 13:16 13:16 WBC RBC 2.55 L Hgb 7.7 L Hct 28.4 L MCV 111 H MCHC 27 L RDW 17.5 H Seg Neuts % (Manual) 71.0 H Nucleated RBC % 2.0 H PT 20.6 H INR 1.67 H POC ABG pH POC ABG pCO2 POC ABG pO2 VBG pH Sodium 152 H Potassium 9.0 H* Chloride 108.7 H Carbon Dioxide 2 L* BUN 105 H Creatinine 32.6 H Glucose 128 H Lactic Acid Calcium 7.8 L Alkaline Phosphatase 147 H Troponin T Total Protein Albumin 3.3 L Triglycerides LDL Cholesterol Direct HDL Cholesterol Urine WBC (Auto) 12/07/17 12/07/17 12/07/17 13:16 13:16 13:16 WBC RBC Hgb Hct MCV MCHC RDW Seg Neuts % (Manual) Nucleated RBC % PT INR POC ABG pH POC ABG pCO2 POC ABG pO2 VBG pH 6.682 L* Sodium Potassium Chloride Carbon Dioxide BUN Creatinine Glucose Lactic Acid 10.20 H* Calcium Alkaline Phosphatase 148 H Troponin T Total Protein Albumin 3.2 L Triglycerides LDL Cholesterol Direct HDL Cholesterol Urine WBC (Auto) 12/07/17 12/07/17 12/07/17 14:34 15:43 19:00 WBC RBC Hgb Hct MCV MCHC RDW Seg Neuts % (Manual) Nucleated RBC % PT INR POC ABG pH 6.605 L POC ABG pCO2 30.3 L POC ABG pO2 626 H VBG pH Sodium Potassium Chloride Carbon Dioxide BUN Creatinine Glucose Lactic Acid 9.70 H* Calcium Alkaline Phosphatase Troponin T 0.195 H* Total Protein Albumin Triglycerides 368 H LDL Cholesterol Direct 30 L HDL Cholesterol 23 L Urine WBC (Auto) 12/07/17 12/08/17 12/08/17 19:00 03:21 03:25 WBC RBC Hgb Hct MCV MCHC RDW Seg Neuts % (Manual) Nucleated RBC % PT INR POC ABG pH POC ABG pCO2 POC ABG pO2 VBG pH Sodium Potassium 5.5 H D Chloride 96.2 L 94.5 L Carbon Dioxide 15 L D 16 L BUN 39 H 40 H Creatinine 10.1 H D 11.5 H Glucose 200 H 279 H Lactic Acid 3.50 H* Calcium 7.1 L 6.4 L Alkaline Phosphatase Troponin T 0.177 H* Total Protein 6.2 L Albumin 2.7 L Triglycerides LDL Cholesterol Direct HDL Cholesterol Urine WBC (Auto) 12/08/17 12/08/17 12/09/17 04:07 04:54 06:41 WBC RBC Hgb Hct MCV MCHC RDW Seg Neuts % (Manual) Nucleated RBC % PT INR POC ABG pH 7.318 L POC ABG pCO2 POC ABG pO2 168 H 106 H VBG pH Sodium Potassium Chloride Carbon Dioxide BUN Creatinine Glucose Lactic Acid Calcium Alkaline Phosphatase Troponin T Total Protein Albumin Triglycerides LDL Cholesterol Direct HDL Cholesterol Urine WBC (Auto) > 182.0 H 12/09/17 Unknown WBC 12.2 H RBC 2.87 L Hgb 8.6 L Hct 26.7 L MCV MCHC RDW 15.7 H Seg Neuts % (Manual) Nucleated RBC % PT INR POC ABG pH POC ABG pCO2 POC ABG pO2 VBG pH Sodium Potassium Chloride Carbon Dioxide BUN Creatinine Glucose Lactic Acid Calcium Alkaline Phosphatase Troponin T Total Protein Albumin Triglycerides LDL Cholesterol Direct HDL Cholesterol Urine WBC (Auto)
[2017-12-09 12:54] LABS: Calcium 7.1 mg/dL (8.4-10.2)
--- NOTE | 2017-12-09 13:33 | Cat Scan Report ---
CT HEAD WITHOUT CONTRAST: HISTORY: Encephalopathy, unresponsive, mental status changes. TECHNIQUE: Sequential 2.5mm CT images. COMPARISON: none. FINDINGS: Cerebral Parenchyma: Within normal limits. Cerebellum: Within normal limits. Brainstem: Within normal limits. Ventricles: Normal. Sella: Normal. Extra-axial spaces: Normal. Basal Cisterns: Normal. Intracranial Hemorrhage: None. Midline Shift: None. Calvarium: Normal. Sinuses: There is moderate mucosal thickening and fluid throughout all paranasal sinuses. Mastoid Air Cells: Normal. Visualized Orbits: Normal. IMPRESSION: Cranial CT scan within normal limits. Pansinusitis.
[2017-12-09] MEDS ORDERED: VANCOMYCIN 750 MG in NACL 0.9% 250ML 250 ML IV ONE (14:00)
--- NOTE | 2017-12-09 14:03 | Progress Note ---
Assessment and Plan Impression: * Severe hyperkalemia - K 9 at admission, improved * Severe metabolic acidosis secondary to ESRD vs lactic acidosis - Bicarb 2 at admission, improved * ESRD * Acute respiratory failure * Hypotension r/o sepsis --Blood cx - coag negative staph (?contaminant) * Anemia secondary to ESRD vs other * Type I DM Plan * No acute indication for dialysis today * Will reassess in AM * Plan for HD MWF moving forward * UF as tolerated * Vent management per critical care team - current FiO2 28% * Pressors to maintain MAP>65 * Empiric abx per primary team * Dose medications for renal function Subjective Date of service: 12/09/17 Interval history: No acute events overnight. Objective - Vital Signs Vital signs: Vital Signs - 12hr 12/09/17 12/09/17 12/09/17 02:15 02:30 02:45 Pulse Rate 93 H 93 H 92 H Pulse Rate [ From Monitor] Respiratory 20 19 17 Rate Blood Pressure 113/73 113/78 110/71 O2 Sat by Pulse 100 100 100 Oximetry 12/09/17 12/09/17 12/09/17 03:00 03:15 03:30 Pulse Rate 92 H 93 H 93 H Pulse Rate [ From Monitor] Respiratory 17 17 20 Rate Blood Pressure 108/71 117/73 116/71 O2 Sat by Pulse 100 100 100 Oximetry 12/09/17 12/09/17 12/09/17 03:45 04:00 04:15 Pulse Rate 93 H 99 H 92 H Pulse Rate [ From Monitor] Respiratory 19 17 20 Rate Blood Pressure 110/71 117/74 115/73 O2 Sat by Pulse 100 99 100 Oximetry 12/09/17 12/09/17 12/09/17 04:21 04:30 04:41 Pulse Rate 92 H 91 H 92 H Pulse Rate [ From Monitor] Respiratory 19 17 19 Rate Blood Pressure 115/73 113/73 113/73 O2 Sat by Pulse 100 100 99 Oximetry 12/09/17 12/09/17 12/09/17 04:51 05:00 05:11 Pulse Rate 93 H 93 H 92 H Pulse Rate [ From Monitor] Respiratory 17 17 18 Rate Blood Pressure 114/69 114/74 114/74 O2 Sat by Pulse 100 100 100 Oximetry 12/09/17 12/09/17 12/09/17 05:21 05:30 05:41 Pulse Rate 92 H 92 H 93 H Pulse Rate [ From Monitor] Respiratory 18 19 18 Rate Blood Pressure 114/73 117/76 117/76 O2 Sat by Pulse 100 99 100 Oximetry 12/09/17 12/09/17 12/09/17 05:51 06:00 06:11 Pulse Rate 93 H 94 H 93 H Pulse Rate [ From Monitor] Respiratory 19 17 20 Rate Blood Pressure 118/79 126/80 126/80 O2 Sat by Pulse 100 100 100 Oximetry 12/09/17 12/09/17 12/09/17 06:21 06:30 06:41 Pulse Rate 94 H 94 H 93 H Pulse Rate [ From Monitor] Respiratory 20 18 19 Rate Blood Pressure 117/76 116/75 116/75 O2 Sat by Pulse 99 99 100 Oximetry 12/09/17 12/09/17 12/09/17 06:51 07:00 08:18 Pulse Rate 94 H 92 H 92 H Pulse Rate [ From Monitor] Respiratory 21 18 Rate Blood Pressure 121/78 121/77 O2 Sat by Pulse 100 100 100 Oximetry 12/09/17 12/09/17 11:27 12:19 Pulse Rate 94 H Pulse Rate [ 97 H From Monitor] Respiratory 20 Rate Blood Pressure 120/78 O2 Sat by Pulse 100 99 Oximetry - General Appearance General appearance: intubated EENT: ATNC, other (ETT in place) Neck: no JVD Respiratory: Present: Other (coarse breath sounds) Cardiology: regular, S1S2 Gastrointestinal: normal, no tenderness, no distended Integumentary: no rash, warm and dry Musculoskeletal: other (no edema) - Lab 12/09/17 Unknown 12/09/17 Unknown Most recent lab results Calcium 7.1 mg/dL (8.4-10.2) L 12/09/17 Unknown
[2017-12-09] MEDS ORDERED: NEO-SYNEPHRINE 100 MG in NACL 0.9% 90 ML IV SCH (20:00)
[2017-12-09] MEDS: NEO-SYNEPHRINE 100 MG in NACL 0.9% 90 ML IV SCH (21:12)
[2017-12-09 21:39] LABS: Amphetamine Screen,Urine PRESUMPTIVE NEGATIVE; Cannabinoid Screen,Urine PRESUMPTIVE NEGATIVE; Cocaine Screen,Urine PRESUMPTIVE NEGATIVE; Methadone Screen,Urine PRESUMPTIVE NEGATIVE; Opiate Screen,Urine PRESUMPTIVE NEGATIVE
[2017-12-09 22:01] LABS: Benzodiazepines Screen,Urine PRESUMPTIVE POSITIVE
[2017-12-10] MEDS: NEO-SYNEPHRINE 100 MG in NACL 0.9% 90 ML IV SCH ×3 (00:36→01:21)
[2017-12-10] MEDS: ZOSYN/NS 2.25 GM/50ML 2.25 GM/50 ML BAG IV SCH ×4 (00:38→21:48)
--- NOTE | 2017-12-10 02:09 | XRay Report ---
FINAL REPORT EXAM: XR CHEST 1V AP HISTORY: follow up respiratory failure TECHNIQUE: A portable view of the chest was obtained on 12/10/2017 and compared to the study of 12/09/2017. FINDINGS: The ET tube and NG tube appear in good position. Heart size is normal. The lungs are not overtly congested. There is minimal patchy airspace disease in the juxtahilar areas bilaterally. Pleural fluid is not seen. The skeletal structures are well-maintained. IMPRESSION: Minimal patchy airspace disease in the juxtahilar areas. Satisfactory position of the ET tube and NG tube.
[2017-12-10 03:59] LABS: Hematocrit 23.8 % (35.5-45.6); Hemoglobin 7.8 gm/dl (11.8-15.2); Mean Corpuscular HGB Conc 33 % (32-34); Mean Corpuscular Hemoglobin 30 pg (28-32); Mean Corpuscular Volume 92 fl (84-94); Platelet Count 150 K/mm3 (140-440); Red Blood Count 2.59 M/mm3 (3.65-5.03); Red Cell Distribution Width 15.4 % (13.2-15.2)
[2017-12-10 04:22] LABS: Calcium 6.9 mg/dL (8.4-10.2)
--- NOTE | 2017-12-10 11:13 | Progress Note ---
Assessment and Plan 47 y/o male with acute respiratory failure secondary to encephalopathy, likely metabolic from acute on chronic renal failure. 1. No further sedatives 2. Continue VEnt support. As long as UDS is positive for BENZO's (which ED administered for continuous sedation) he will be obtunded. 3. HD per renal 4. Head CT was normal, just pansinusitis 5. Supportive care CCT 31 minutes Subjective Date of service: 12/10/17 Interval history: Remains sedated. UDS still positive for benzos. Slightly more awake today. No family at bedside. On José Miguel at 49 with a MAP of 105. Objective Vital Signs - 12hr 12/09/17 12/09/17 12/09/17 23:15 23:21 23:29 Temperature 99.5 F Pulse Rate 85 85 Respiratory 16 16 Rate Respiratory Rate [EVIE] Blood Pressure 122/71 122/71 O2 Sat by Pulse 98 97 Oximetry 12/09/17 12/09/17 12/09/17 23:31 23:33 23:45 Temperature Pulse Rate 86 82 Respiratory 16 16 16 Rate Respiratory 17 Rate [EVIE] Blood Pressure 87/48 66/21 O2 Sat by Pulse 97 98 97 Oximetry 12/10/17 12/10/17 12/10/17 00:00 00:01 00:15 Temperature Pulse Rate 79 79 75 Respiratory 16 16 Rate Respiratory Rate [EVIE] Blood Pressure 60/31 66/21 58/30 O2 Sat by Pulse 97 96 93 Oximetry 12/10/17 12/10/17 12/10/17 00:30 00:45 01:01 Temperature Pulse Rate 80 88 85 Respiratory 16 16 16 Rate Respiratory Rate [EVIE] Blood Pressure 63/32 141/79 95/58 O2 Sat by Pulse 94 97 97 Oximetry 12/10/17 12/10/17 12/10/17 01:15 01:30 01:45 Temperature Pulse Rate 83 88 87 Respiratory 16 16 16 Rate Respiratory Rate [EVIE] Blood Pressure 85/49 127/75 136/79 O2 Sat by Pulse 97 96 98 Oximetry 12/10/17 12/10/17 12/10/17 02:01 02:15 02:31 Temperature Pulse Rate 88 90 92 H Respiratory 16 16 16 Rate Respiratory Rate [EVIE] Blood Pressure 149/79 135/78 143/80 O2 Sat by Pulse 99 99 100 Oximetry 12/10/17 12/10/17 12/10/17 02:40 02:45 03:00 Temperature Pulse Rate 92 H 86 87 Respiratory 16 16 16 Rate Respiratory Rate [EVIE] Blood Pressure 147/82 142/78 O2 Sat by Pulse 98 100 100 Oximetry 12/10/17 12/10/17 12/10/17 03:15 03:30 03:45 Temperature 100.2 F H Pulse Rate 89 89 86 Respiratory 16 16 16 Rate Respiratory Rate [EVIE] Blood Pressure 142/81 136/80 139/70 O2 Sat by Pulse 100 100 100 Oximetry 12/10/17 12/10/17 12/10/17 04:00 04:10 04:15 Temperature Pulse Rate 85 85 87 Respiratory 16 16 16 Rate Respiratory Rate [EVIE] Blood Pressure 140/77 144/81 O2 Sat by Pulse 100 98 100 Oximetry 12/10/17 12/10/17 12/10/17 04:27 04:30 04:45 Temperature Pulse Rate 88 87 88 Respiratory 16 16 Rate Respiratory Rate [EVIE] Blood Pressure 144/81 143/80 144/81 O2 Sat by Pulse 100 100 100 Oximetry 12/10/17 12/10/17 12/10/17 05:00 05:15 05:30 Temperature Pulse Rate 89 82 90 Respiratory 16 16 16 Rate Respiratory Rate [EVIE] Blood Pressure 146/83 142/77 147/82 O2 Sat by Pulse 100 100 100 Oximetry 12/10/17 12/10/17 12/10/17 05:45 05:56 06:00 Temperature Pulse Rate 96 H 91 H Respiratory 17 16 16 Rate Respiratory Rate [EVIE] Blood Pressure 151/86 145/86 O2 Sat by Pulse 100 98 100 Oximetry 12/10/17 12/10/17 07:57 08:00 Temperature 100.3 F H Pulse Rate 89 Respiratory Rate Respiratory Rate [EVIE] Blood Pressure 151/83 O2 Sat by Pulse 100 Oximetry Constitutional: comatose Eyes: non-icteric ENT: other (orally intubated on sedation) Neck: supple Ascultation: Bilateral: clear Percussion: Bilateral: not dull Cardiovascular: regular rate and rhythm Gastrointestinal: normoactive bowel sounds, soft CBC and BMP: 12/10/17 Unknown 12/10/17 Unknown ABG, PT/INR, D-dimer: ABG POC ABG pH 7.420 (7.35-7.45) 12/10/17 04:47 POC ABG pCO2 37.4 (35-45) 12/10/17 04:47 POC ABG pO2 119 (80-105) H 12/10/17 04:47 POC ABG HCO3 24.2 12/10/17 04:47 POC ABG Total CO2 25 12/10/17 04:47 POC ABG O2 Sat 99 12/10/17 04:47 PT/INR, D-dimer PT 20.6 Sec. (12.2-14.9) H 12/07/17 13:16 INR 1.67 (0.87-1.13) H 12/07/17 13:16 Abnormal lab findings: Abnormal Labs 12/07/17 12/07/17 12/07/17 13:16 13:16 13:16 WBC RBC 2.55 L Hgb 7.7 L Hct 28.4 L MCV 111 H MCHC 27 L RDW 17.5 H Seg Neuts % (Manual) 71.0 H Nucleated RBC % 2.0 H PT 20.6 H INR 1.67 H POC ABG pH POC ABG pCO2 POC ABG pO2 VBG pH Sodium 152 H Potassium 9.0 H* Chloride 108.7 H Carbon Dioxide 2 L* BUN 105 H Creatinine 32.6 H Glucose 128 H POC Glucose Lactic Acid Calcium 7.8 L Alkaline Phosphatase 147 H Troponin T Total Protein Albumin 3.3 L Triglycerides LDL Cholesterol Direct HDL Cholesterol Urine WBC (Auto) 12/07/17 12/07/17 12/07/17 13:16 13:16 13:16 WBC RBC Hgb Hct MCV MCHC RDW Seg Neuts % (Manual) Nucleated RBC % PT INR POC ABG pH POC ABG pCO2 POC ABG pO2 VBG pH 6.682 L* Sodium Potassium Chloride Carbon Dioxide BUN Creatinine Glucose POC Glucose Lactic Acid 10.20 H* Calcium Alkaline Phosphatase 148 H Troponin T Total Protein Albumin 3.2 L Triglycerides LDL Cholesterol Direct HDL Cholesterol Urine WBC (Auto) 12/07/17 12/07/17 12/07/17 14:34 15:43 19:00 WBC RBC Hgb Hct MCV MCHC RDW Seg Neuts % (Manual) Nucleated RBC % PT INR POC ABG pH 6.605 L POC ABG pCO2 30.3 L POC ABG pO2 626 H VBG pH Sodium Potassium Chloride Carbon Dioxide BUN Creatinine Glucose POC Glucose Lactic Acid 9.70 H* Calcium Alkaline Phosphatase Troponin T 0.195 H* Total Protein Albumin Triglycerides 368 H LDL Cholesterol Direct 30 L HDL Cholesterol 23 L Urine WBC (Auto) 12/07/17 12/08/17 12/08/17 19:00 03:21 03:25 WBC RBC Hgb Hct MCV MCHC RDW Seg Neuts % (Manual) Nucleated RBC % PT INR POC ABG pH POC ABG pCO2 POC ABG pO2 VBG pH Sodium Potassium 5.5 H D Chloride 96.2 L 94.5 L Carbon Dioxide 15 L D 16 L BUN 39 H 40 H Creatinine 10.1 H D 11.5 H Glucose 200 H 279 H POC Glucose Lactic Acid 3.50 H* Calcium 7.1 L 6.4 L Alkaline Phosphatase Troponin T 0.177 H* Total Protein 6.2 L Albumin 2.7 L Triglycerides LDL Cholesterol Direct HDL Cholesterol Urine WBC (Auto) 12/08/17 12/08/17 12/09/17 04:07 04:54 06:41 WBC RBC Hgb Hct MCV MCHC RDW Seg Neuts % (Manual) Nucleated RBC % PT INR POC ABG pH 7.318 L POC ABG pCO2 POC ABG pO2 168 H 106 H VBG pH Sodium Potassium Chloride Carbon Dioxide BUN Creatinine Glucose POC Glucose Lactic Acid Calcium Alkaline Phosphatase Troponin T Total Protein Albumin Triglycerides LDL Cholesterol Direct HDL Cholesterol Urine WBC (Auto) > 182.0 H 12/09/17 12/09/17 12/09/17 16:12 Unknown Unknown WBC 12.2 H RBC 2.87 L Hgb 8.6 L Hct 26.7 L MCV MCHC RDW 15.7 H Seg Neuts % (Manual) Nucleated RBC % PT INR POC ABG pH POC ABG pCO2 POC ABG pO2 VBG pH Sodium Potassium Chloride 91.8 L Carbon Dioxide 21 L BUN 26 H Creatinine 7.9 H Glucose 187 H POC Glucose 224 H Lactic Acid Calcium 7.1 L Alkaline Phosphatase Troponin T Total Protein Albumin Triglycerides LDL Cholesterol Direct HDL Cholesterol Urine WBC (Auto) 12/10/17 12/10/17 12/10/17 04:47 Unknown Unknown WBC 12.4 H RBC 2.59 L Hgb 7.8 L Hct 23.8 L MCV MCHC RDW 15.4 H Seg Neuts % (Manual) Nucleated RBC % PT INR POC ABG pH POC ABG pCO2 POC ABG pO2 119 H VBG pH Sodium Potassium Chloride 93.0 L Carbon Dioxide 21 L BUN 35 H Creatinine 8.9 H Glucose 226 H POC Glucose Lactic Acid Calcium 6.9 L Alkaline Phosphatase Troponin T Total Protein Albumin Triglycerides LDL Cholesterol Direct HDL Cholesterol Urine WBC (Auto)
--- NOTE | 2017-12-10 12:03 | Progress Note ---
Assessment and Plan Impression: * Severe hyperkalemia - K 9 at admission, improved * Severe metabolic acidosis secondary to ESRD vs lactic acidosis - Bicarb 2 at admission, improved * ESRD * Acute respiratory failure * Hypotension r/o sepsis --Blood cx - coag negative staph (?contaminant) * Anemia secondary to ESRD vs other * Type I DM Plan * Hemodialysis MWF; UF as tolerated * UF as tolerated * Vent management per critical care team - current FiO2 28% * Epogen TIW prn * Transfuse pRBC per primary team * Pressors to maintain MAP>65 * Empiric abx per primary team * Dose medications for renal function Subjective Date of service: 12/10/17 Interval history: Patient remains intubated Objective - Vital Signs Vital signs: Vital Signs - 12hr 12/10/17 12/10/17 12/10/17 00:15 00:30 00:45 Temperature Pulse Rate 75 80 88 Respiratory 16 16 16 Rate Blood Pressure 58/30 63/32 141/79 O2 Sat by Pulse 93 94 97 Oximetry 12/10/17 12/10/17 12/10/17 01:01 01:15 01:30 Temperature Pulse Rate 85 83 88 Respiratory 16 16 16 Rate Blood Pressure 95/58 85/49 127/75 O2 Sat by Pulse 97 97 96 Oximetry 12/10/17 12/10/17 12/10/17 01:45 02:01 02:15 Temperature Pulse Rate 87 88 90 Respiratory 16 16 16 Rate Blood Pressure 136/79 149/79 135/78 O2 Sat by Pulse 98 99 99 Oximetry 12/10/17 12/10/17 12/10/17 02:31 02:40 02:45 Temperature Pulse Rate 92 H 92 H 86 Respiratory 16 16 16 Rate Blood Pressure 143/80 147/82 O2 Sat by Pulse 100 98 100 Oximetry 12/10/17 12/10/17 12/10/17 03:00 03:15 03:30 Temperature 100.2 F H Pulse Rate 87 89 89 Respiratory 16 16 16 Rate Blood Pressure 142/78 142/81 136/80 O2 Sat by Pulse 100 100 100 Oximetry 12/10/17 12/10/17 12/10/17 03:45 04:00 04:10 Temperature Pulse Rate 86 85 85 Respiratory 16 16 16 Rate Blood Pressure 139/70 140/77 O2 Sat by Pulse 100 100 98 Oximetry 12/10/17 12/10/1718 04:15 04:27 04:30 Temperature Pulse Rate 87 88 87 Respiratory 16 16 Rate Blood Pressure 144/81 144/81 143/80 O2 Sat by Pulse 100 100 100 Oximetry 12/10/17 12/10/17 12/10/17 04:45 05:00 05:15 Temperature Pulse Rate 88 89 82 Respiratory 16 16 16 Rate Blood Pressure 144/81 146/83 142/77 O2 Sat by Pulse 100 100 100 Oximetry 12/10/17 12/10/17 12/10/17 05:30 05:45 05:56 Temperature Pulse Rate 90 96 H Respiratory 16 17 16 Rate Blood Pressure 147/82 151/86 O2 Sat by Pulse 100 100 98 Oximetry 12/10/17 12/10/17 12/10/17 06:00 07:57 08:00 Temperature 100.3 F H Pulse Rate 91 H 89 Respiratory 16 Rate Blood Pressure 145/86 151/83 O2 Sat by Pulse 100 100 Oximetry 12/10/17 11:30 Temperature Pulse Rate 87 Respiratory Rate Blood Pressure 151/89 O2 Sat by Pulse 100 Oximetry - General Appearance General appearance: intubated EENT: ATNC, other (ETT in place) Neck: no JVD Respiratory: Present: Clear to Ascultation Cardiology: regular, S1S2 Gastrointestinal: normal, no tenderness, no distended Integumentary: no rash, warm and dry Neurologic: other (opens eyes to verbal stimuli; nods head to questions) Musculoskeletal: other (no edema) - Lab 12/10/17 Unknown 12/10/17 Unknown Most recent lab results Calcium 6.9 mg/dL (8.4-10.2) L 12/10/17 Unknown
--- NOTE | 2017-12-10 12:10 | Progress Note ---
Assessment and Plan Assessment and plan: Patient is a 47-year-old with a history of CHF, COPD, insulin-dependent type 2 diabetes mellitus, tobacco dependency, hypertension, C. difficile, anemia of chronic disease, severe protein calorie malnutrition, skull ulcerations, end- stage renal disease on hemodialysis, DKA and chronically elevated troponin around 0.1. He was just discharged from here on 2017 after missing one week of hemodialysis. He present now after missing hemodialysis and being found unresponsive per chart. 12/08/17: pCXR: Tube placement. An endotracheal tube is in good position. The lungs are clear the mediastinal contour is unremarkable. The cardiopulmonary findings are unchanged compared to November 14, 2017. 12/09/17: pCXR: There is no evidence of an acute cardiopulmonary process. The endotracheal tube ends 6 centimeters above the edyta.. -Acute hypoxic respiratory failure: CCM is following -Shock on vasopressor: trying to wean off José Miguel-syn -Acute on chronic anemia of renal disease: get stat cbc -Acute metabolic encephalopahty, comatose state: supportative care -ESRD, non compliant causing the above: Hopefully hemodialysis will save this patient. -Severe hyperkalemia due to noncompliance: Emergent hemodialysis done -H/o C diffe with diarrhea stool: send for c.diffe -DVT prophylaxis: scd only for now, repeat h/h full code 12/09/17: Still critically ill, the IV ativan has been off since yesterday per RN at bedside. He did grimace when I turned his head but his pupils are dilated and sluggish, He is still on José Miguel vasopressor at 100 mcg/min. Restraints will be renewed because of the grimacing but may not be needed, will re-access daily, He had liquid bowel movement, C.diffe and he does have a history of it. The right groin TLC is surround by diarrhea, I have asked the nurse to page the [employer] to get permission for Arm picc line to remove the Femoral/Right groin TLC. CCT 35 minutes. 12/10/17: In ICU now, still not moving and off sedation but he did spontaneously open his eyes, and he did cough per RN. He has a mild fever, C. diffe pending, will add iv flagyl, E. coli in urine, Staph epi blood ctx x 2. off vancomycin, consulted ID. CCT 32 mintues. History Interval history: Patient was seen and examined. Follow-up on current diagnosis of unresponsiveness. Patient is currently intubated, on José Miguel-Synephrine drip. He received emergent hemodialysis upon admission then the following day. Imaging, nursing note, chart, labs and old chart reviewed. Discussed with nursing at bedside Hospitalist Physical - Physical exam Narrative exam: GEN: Critically ill, comatose man, he tries to resist me examining his pupils, but still not moving ext HEENT: > he has skull lesions, pupils are dilated and sluggish NECK: supple, no adenopathy, no thyromegaly, no JVD CVS/HEART: RRR, NORMAL S1S2, NO JVD, pulses present bilaterally CHEST/LUNGS: , bilateral crackles, Symmetrical chest expansion, good air entry bilaterally GI/Abdomen: soft, ND, + bowel sounds EXT/Skin: no leg edema, he does NOT grimace to palpation, he has a right groin TLC MSK: no moving x 4 Neuro: not following commands Psych: not sedated - Constitutional Vitals: Temp Pulse Resp BP Pulse Ox 100.3 F H 87 16 151/89 100 12/10/17 08:00 12/10/17 11:30 12/10/17 06:00 12/10/17 11:30 12/10/17 11:30 General appearance: Present: severe distress Results - Labs CBC & Chem 7: 12/10/17 Unknown 12/10/17 Unknown Labs: Laboratory Last Values WBC 12.4 K/mm3 (4.5-11.0) H 12/10/17 Unknown RBC 2.59 M/mm3 (3.65-5.03) L 12/10/17 Unknown Hgb 7.8 gm/dl (11.8-15.2) L 12/10/17 Unknown Hct 23.8 % (35.5-45.6) L 12/10/17 Unknown MCV 92 fl (84-94) 12/10/17 Unknown MCH 30 pg (28-32) 12/10/17 Unknown MCHC 33 % (32-34) 12/10/17 Unknown RDW 15.4 % (13.2-15.2) H 12/10/17 Unknown Plt Count 150 K/mm3 (140-440) 02/04/18 Unknown Add Manual Diff Complete 12/07/17 13:16 Total Counted 100 12/07/17 13:16 Seg Neuts % (Manual) 71.0 % (40.0-70.0) H 12/07/17 13:16 Band Neutrophils % 0 % 12/07/17 13:16 Lymphocytes % (Manual) 25.0 % (13.4-35.0) 12/07/17 13:16 Reactive Lymphs % (Man) 0 % 12/07/17 13:16 Monocytes % (Manual) 2.0 % (0.0-7.3) 12/07/17 13:16 Eosinophils % (Manual) 0 % (0.0-4.3) 12/07/17 13:16 Basophils % (Manual) 1.0 % (0.0-1.8) 12/07/17 13:16 Metamyelocytes % 1.0 % 12/07/17 13:16 Myelocytes % 0 % 12/07/17 13:16 Promyelocytes % 0 % 12/07/17 13:16 Blast Cells % 0 % 12/07/17 13:16 Nucleated RBC % 2.0 % (0.0-0.9) H 12/07/17 13:16 Seg Neutrophils # Man 6.5 K/mm3 (1.8-7.7) 12/07/17 13:16 Band Neutrophils # 0.0 K/mm3 12/07/17 13:16 Lymphocytes # (Manual) 2.3 K/mm3 (1.2-5.4) 12/07/17 13:16 Abs React Lymphs (Man) 0.0 K/mm3 12/07/17 13:16 Monocytes # (Manual) 0.2 K/mm3 (0.0-0.8) 12/07/17 13:16 Eosinophils # (Manual) 0.0 K/mm3 (0.0-0.4) 12/07/17 13:16 Basophils # (Manual) 0.1 K/mm3 (0.0-0.1) 12/07/17 13:16 Metamyelocytes # 0.1 K/mm3 12/07/17 13:16 Myelocytes # 0.0 K/mm3 12/07/17 13:16 Promyelocytes # 0.0 K/mm3 12/07/17 13:16 Blast Cells # 0.0 K/mm3 12/07/17 13:16 WBC Morphology Not Reportable 12/07/17 13:16 Hypersegmented Neuts Not Reportable 12/07/17 13:16 Hyposegmented Neuts Not Reportable 12/07/17 13:16 Hypogranular Neuts Not Reportable 12/07/17 13:16 Smudge Cells Not Reportable 12/07/17 13:16 Toxic Granulation Few 12/07/17 13:16 Toxic Vacuolation Few 12/07/17 13:16 Dohle Bodies Not Reportable 12/07/17 13:16 Pelger-Huet Anomaly Not Reportable 12/07/17 13:16 Mane Rods Not Reportable 12/07/17 13:16 Platelet Estimate Cons 12/07/17 13:16 Clumped Platelets Not Reportable 12/07/17 13:16 Plt Clumps, EDTA Not Reportable 12/07/17 13:16 Large Platelets Not Reportable 12/07/17 13:16 Giant Platelets Not Reportable 12/07/17 13:16 Platelet Satelliting Not Reportable 12/07/17 13:16 Plt Morphology Comment Not Reportable 12/07/17 13:16 RBC Morphology Not Reportable 12/07/17 13:16 Dimorphic RBCs Not Reportable 12/07/17 13:16 Polychromasia Not Reportable 12/07/17 13:16 Hypochromasia Not Reportable 12/07/17 13:16 Poikilocytosis 1+ 12/07/17 13:16 Anisocytosis 1+ 12/07/17 13:16 Microcytosis Not Reportable 12/07/17 13:16 Macrocytosis Not Reportable 12/07/17 13:16 Spherocytes Not Reportable 12/07/17 13:16 Pappenheimer Bodies Not Reportable 12/07/17 13:16 Sickle Cells Not Reportable 12/07/17 13:16 Target Cells Not Reportable 12/07/17 13:16 Tear Drop Cells Not Reportable 12/07/17 13:16 Ovalocytes Not Reportable 12/07/17 13:16 Helmet Cells Not Reportable 12/07/17 13:16 [place] Bodies Not Reportable 12/07/17 13:16 Luana Rings Not Reportable 12/07/17 13:16 [place] Cells Few 12/07/17 13:16 Bite Cells Not Reportable 12/07/17 13:16 Crenated Cell Not Reportable 12/07/17 13:16 Elliptocytes Not Reportable 12/07/17 13:16 Acanthocytes (Spur) 1+ 12/07/17 13:16 Rouleaux Not Reportable 12/07/17 13:16 Hemoglobin C Crystals Not Reportable 12/07/17 13:16 Schistocytes Not Reportable 12/07/17 13:16 Malaria parasites Not Reportable 12/07/17 13:16 [place] Bodies Not Reportable 12/07/17 13:16 Hem Pathologist Commnt No 12/07/17 13:16 PT 20.6 Sec. (12.2-14.9) H 12/07/17 13:16 INR 1.67 (0.87-1.13) H 12/07/17 13:16 APTT 35.4 Sec. (24.2-36.6) 12/08/17 08:48 POC ABG pH 7.420 (7.35-7.45) 12/10/17 04:47 POC ABG pCO2 37.4 (35-45) 12/10/17 04:47 POC ABG pO2 119 (80-105) H 12/10/17 04:47 POC ABG HCO3 24.2 12/10/17 04:47 POC ABG Total CO2 25 12/10/17 04:47 POC ABG O2 Sat 99 12/10/17 04:47 POC ABG Base Excess 0 12/10/17 04:47 VBG pH 6.682 (7.320-7.420) L* 12/07/17 13:16 FiO2 28 % 12/10/17 04:47 Sodium 141 mmol/L (137-145) 12/10/17 Unknown Potassium 3.8 mmol/L (3.6-5.0) 12/10/17 Unknown Chloride 93.0 mmol/L (98-107) L 12/10/17 Unknown Carbon Dioxide 21 mmol/L (22-30) L 12/10/17 Unknown Anion Gap 31 mmol/L 12/10/17 Unknown BUN 35 mg/dL (9-20) H 12/10/17 Unknown Creatinine 8.9 mg/dL (0.8-1.5) H 12/10/17 Unknown Estimated GFR 8 ml/min 12/10/17 Unknown BUN/Creatinine Ratio 4 % 12/10/17 Unknown Glucose 226 mg/dL (75-100) H 12/10/17 Unknown POC Glucose 224 (70-105) H 12/09/17 16:12 Lactic Acid 3.50 mmol/L (0.7-2.0) H* 12/08/17 03:21 Calcium 6.9 mg/dL (8.4-10.2) L 12/10/17 Unknown Total Bilirubin 0.30 mg/dL (0.1-1.2) 12/08/17 03:25 Direct Bilirubin < 0.2 mg/dL (0-0.2) 12/07/17 13:16 Indirect Bilirubin 0.0 mg/dL 12/07/17 13:16 AST 14 units/L (5-40) 12/08/17 03:25 ALT 11 units/L (7-56) 12/08/17 03:25 Alkaline Phosphatase 129 units/L (35-129) 12/08/17 03:25 Troponin T 0.177 ng/mL (0.00-0.029) H* 12/08/17 03:25 Total Protein 6.2 g/dL (6.3-8.2) L 12/08/17 03:25 Albumin 2.7 g/dL (3.9-5) L 12/08/17 03:25 Albumin/Globulin Ratio 0.8 % 12/08/17 03:25 Triglycerides 368 mg/dL (2-149) H 12/07/17 19:00 Cholesterol 126 mg/dL (50-199) 12/07/17 19:00 LDL Cholesterol Direct 30 mg/dL (50-130) L 12/07/17 19:00 HDL Cholesterol 23 mg/dL (40-59) L 12/07/17 19:00 Cholesterol/HDL Ratio 5.47 % 12/07/17 19:00 Urine Color Ayesha (Yellow) 12/08/17 04:07 Urine Turbidity Slightly cloudy (Clear) 12/08/17 04:07 Urine pH 6.0 (5.0-7.0) 12/08/17 04:07 Ur Specific [place] 1.025 (1.003-1.030) 12/08/17 04:07 Urine Protein 100 mg/dl mg/dL (Negative) 12/08/17 04:07 Urine Glucose (UA) 50 mg/dL (Negative) 12/08/17 04:07 Urine Ketones 20 mg/dL (Negative) 12/08/17 04:07 Urine Blood Mod (Negative) 12/08/17 04:07 Urine Nitrite Neg (Negative) 12/08/17 04:07 Urine Bilirubin Neg (Negative) 12/08/17 04:07 Urine Urobilinogen < 2.0 mg/dL (<2.0) 12/08/17 04:07 Ur Leukocyte Esterase Mod (Negative) 12/08/17 04:07 Urine WBC (Auto) > 182.0 /HPF (0.0-6.0) H 12/08/17 04:07 Urine RBC (Auto) 72.0 /HPF (0.0-6.0) 12/08/17 04:07 Urine Bacteria (Auto) 4+ /HPF (Negative) 12/08/17 04:07 Urine Mucus 3+ /HPF 12/08/17 04:07 Random Vancomycin 11.7 ug/mL (0-40.0) 12/09/17 06:15 Urine Opiates Screen Presumptive negative 12/09/17 20:18 Urine Methadone Screen Presumptive negative 12/09/17 20:18 Ur Barbiturates Screen Presumptive negative 12/09/17 20:18 Ur Phencyclidine Scrn Presumptive negative 12/09/17 20:18 Ur Amphetamines Screen Presumptive negative 12/09/17 20:18 U Benzodiazepines Scrn Presumptive positive 12/09/17 20:18 Urine Cocaine Screen Presumptive negative 12/09/17 20:18 U Marijuana (THC) Screen Presumptive negative 12/09/17 20:18 Drugs of Abuse Note Disclamer 12/09/17 20:18 C. difficile Toxin A&B Negative (Negative) 12/09/17 10:01 Blood Type A POSITIVE 12/07/17 13:16 Antibody Screen Negative 12/07/17 13:16
[2017-12-10 12:36] LABS: Hematocrit 23.3 % (35.5-45.6); Hemoglobin 7.5 gm/dl (11.8-15.2); Mean Corpuscular HGB Conc 32 % (32-34); Mean Corpuscular Hemoglobin 30 pg (28-32); Mean Corpuscular Volume 93 fl (84-94); Platelet Count 158 K/mm3 (140-440); Red Cell Distribution Width 15.3 % (13.2-15.2)
[2017-12-10 12:43] LABS: Calcium 6.9 mg/dL (8.4-10.2)
--- NOTE | 2017-12-10 16:36 | XRay Report ---
FINAL REPORT EXAM: XR ABDOMEN 1V AP HISTORY: OG tube placement TECHNIQUE: Supine view of the abdomen PRIORS: None. FINDINGS: Nasogastric tube tip and side port terminate in the proximal stomach. A right femoral catheter is in place terminating to the right at L5. The bowel gas pattern is nonspecific. No free air is identified. Soft tissues have no evidence for mass shadows or calcifications. Surgical clips in the right upper quadrant are likely from a prior cholecystectomy. The bony structures are intact. IMPRESSION: Nonspecific, nonobstructive bowel gas pattern with no acute process noted. Satisfactory placement of nasogastric tube and a right femoral catheter.
[2017-12-11] MEDS ORDERED: D50W (25GM) Syringe IV PRN ×2 (00:53→01:16)
[2017-12-11] MEDS: NOVOLOG SUB-Q SCH ×5 (01:52→23:55)
--- NOTE | 2017-12-11 03:38 | XRay Report ---
FINAL REPORT EXAM: XR CHEST 1V AP HISTORY: follow up respiratory failure TECHNIQUE: A portable semi-upright view of the chest was obtained and compared to the study of 12/10/2017 FINDINGS: Since the previous study the patient has been extubated. The NG tube has also been removed. The heart is mildly enlarged. The lungs are not congested. There are no localized infiltrates or effusions. There are EKG leads overlying the chest wall. The bones and soft tissues do not show any acute changes. IMPRESSION: No acute infiltrates or congestion. Interval extubation and removal of the NG tube since previous study
[2017-12-11 05:00] LABS: Hematocrit 22.4 % (35.5-45.6); Hemoglobin 7.4 gm/dl (11.8-15.2); Mean Corpuscular HGB Conc 33 % (32-34); Mean Corpuscular Hemoglobin 31 pg (28-32); Mean Corpuscular Volume 93 fl (84-94); Platelet Count 159 K/mm3 (140-440); Red Blood Count 2.41 M/mm3 (3.65-5.03); Red Cell Distribution Width 15.9 % (13.2-15.2)
[2017-12-11 05:18] LABS: Calcium 7.1 mg/dL (8.4-10.2)
[2017-12-11] MEDS: ZOSYN/NS 2.25 GM/50ML 2.25 GM/50 ML BAG IV SCH ×2 (06:20→16:14)
--- NOTE | 2017-12-11 09:11 | Progress Note ---
Assessment and Plan - Patient Problems (1) ESRD (end stage renal disease) on dialysis Current Visit: Yes Status: Acute Plan to address problem: Impression: * S/P malignant hyperkalemia - K 9 at admission, improved * S/P Severe metabolic acidosis - Bicarb was 2 at admission, improved * ESRD * Acute respiratory failure-improved * Hypotension r/o sepsis --Blood cx - coag negative staph (?contaminant) * Anemia secondary to ESRD vs other * Type I DM-brittle Plan * Hemodialysis MWF; UF as tolerated Epogen TIW prn * Transfuse pRBC per primary team * Pressors to maintain MAP>65 * Empiric abx per primary team * Dose medications for renal function (2) DKA (diabetic ketoacidoses) Current Visit: No Status: Acute Subjective Date of service: 12/11/17 Interval history: S/P extubation yesterday. Feels weak. Alert, oriented to person, asking for food /feeling hungry Objective - Vital Signs Vital signs: Vital Signs - 12hr 12/10/17 12/10/17 12/10/17 21:15 21:30 21:45 Pulse Rate 88 88 91 H Respiratory 18 16 14 Rate Blood Pressure 137/87 144/84 138/77 O2 Sat by Pulse 100 100 100 Oximetry 12/10/17 12/10/17 12/10/17 22:00 22:15 22:30 Pulse Rate 80 87 87 Respiratory 14 16 16 Rate Blood Pressure 138/77 131/78 123/77 O2 Sat by Pulse 100 100 100 Oximetry 12/10/17 12/10/17 12/10/17 22:46 22:58 23:00 Pulse Rate 84 84 85 Respiratory 16 16 21 Rate Blood Pressure 129/74 129/74 132/79 O2 Sat by Pulse 100 100 100 Oximetry 12/10/17 12/10/17 12/10/17 23:15 23:22 23:30 Pulse Rate 84 82 88 Respiratory 18 19 Rate Blood Pressure 127/79 127/79 126/79 O2 Sat by Pulse 100 100 100 Oximetry 12/10/17 12/11/17 12/11/17 23:45 00:00 00:15 Pulse Rate 90 85 85 Respiratory 48 H 43 H 42 H Rate Blood Pressure 112/67 115/71 124/75 O2 Sat by Pulse 100 100 100 Oximetry 12/11/17 12/11/17 12/11/17 00:20 00:30 00:45 Pulse Rate 82 81 Respiratory 39 H 36 H Rate Blood Pressure 119/70 119/72 O2 Sat by Pulse 98 100 100 Oximetry 12/11/17 12/11/17 12/11/17 01:00 01:15 01:30 Pulse Rate 83 80 81 Respiratory 37 H 32 H 40 H Rate Blood Pressure 121/73 123/74 117/72 O2 Sat by Pulse 100 100 100 Oximetry 12/11/17 12/11/17 12/11/17 01:45 02:00 02:15 Pulse Rate 80 81 79 Respiratory 36 H 46 H 39 H Rate Blood Pressure 107/63 101/64 112/67 O2 Sat by Pulse 100 100 100 Oximetry 12/11/17 12/11/17 12/11/17 02:30 02:45 03:00 Pulse Rate 78 79 79 Respiratory 39 H 38 H 37 H Rate Blood Pressure 108/70 122/73 130/78 O2 Sat by Pulse 100 100 100 Oximetry 12/11/17 12/11/17 12/11/17 03:06 03:15 03:30 Pulse Rate 78 77 Respiratory 36 H 37 H Rate Blood Pressure 121/71 111/71 O2 Sat by Pulse 100 100 100 Oximetry 12/11/17 12/11/17 12/11/17 03:45 04:00 04:15 Pulse Rate 77 76 75 Respiratory 35 H 34 H 31 H Rate Blood Pressure 101/67 103/67 99/63 O2 Sat by Pulse 92 100 100 Oximetry 12/11/17 12/11/17 12/11/17 04:30 04:45 05:00 Pulse Rate 77 75 74 Respiratory 32 H 31 H 25 H Rate Blood Pressure 106/69 103/66 103/66 O2 Sat by Pulse 100 100 100 Oximetry 12/11/17 12/11/17 12/11/17 05:15 05:30 05:45 Pulse Rate 76 72 73 Respiratory 30 H 23 31 H Rate Blood Pressure 90/60 87/54 94/56 O2 Sat by Pulse 100 100 100 Oximetry 12/11/17 12/11/17 12/11/17 06:00 06:16 06:30 Pulse Rate 75 75 80 Respiratory 16 27 H 24 Rate Blood Pressure 94/56 93/57 93/57 O2 Sat by Pulse 100 100 100 Oximetry 12/11/17 12/11/17 12/11/17 06:46 07:00 07:15 Pulse Rate 76 74 78 Respiratory 12 30 H 28 H Rate Blood Pressure 124/70 117/68 116/74 O2 Sat by Pulse 100 98 100 Oximetry 12/11/17 12/11/17 12/11/17 07:30 07:45 08:15 Pulse Rate 77 75 Respiratory 30 H 25 H Rate Blood Pressure 121/72 112/68 O2 Sat by Pulse 98 99 99 Oximetry - General Appearance General appearance: chronically ill EENT: mucous membranes dry Neck: no JVD Respiratory: Present: Clear to Ascultation Cardiology: regular Gastrointestinal: normoactive bowel sounds Musculoskeletal: other (left upper arm AVF has bruit and thrill) Psychiatric: cooperative - Lab 12/11/17 04:00 12/11/17 04:00 Most recent lab results Calcium 7.1 mg/dL (8.4-10.2) L 12/11/17 04:00
--- NOTE | 2017-12-11 10:27 | Progress Note ---
Assessment and Plan acute respiratory failure . Currently controlled, resolved Encephalopathy, likely metabolic, appears to be slowly improving acute on chronic renal failure. Currently on hemodialysis ESRD Hypotension Recommendations Continue hemodialysis per nephrology I discuss his blood pressure issues with both nursing and hemodialysis nurse. Hemodialysis nurse reported that he tends to have low blood pressure routinely has an outpatient. Therefore we'll medicate for this only as needed DVT prophylaxis Monitor neurological status, avoid sedation If hemodynamically stable, will transfer out when okay with nephrology Critical care time was 31 minutes of fell-id-zeif evaluation and coordination of care Subjective Date of service: 12/11/17 Principal diagnosis: end-stage renal disease with acute decompensation, AMS, hyperkalemia, respi Interval history: no complains Objective Vital Signs - 12hr 12/10/17 12/10/17 12/10/17 22:30 22:46 22:58 Pulse Rate 87 84 84 Respiratory 16 16 16 Rate Blood Pressure 123/77 129/74 129/74 O2 Sat by Pulse 100 100 100 Oximetry 12/10/17 12/10/17 12/10/17 23:00 23:15 23:22 Pulse Rate 85 84 82 Respiratory 21 18 Rate Blood Pressure 132/79 127/79 127/79 O2 Sat by Pulse 100 100 100 Oximetry 12/10/17 12/10/17 12/11/17 23:30 23:45 00:00 Pulse Rate 88 90 85 Respiratory 19 48 H 43 H Rate Blood Pressure 126/79 112/67 115/71 O2 Sat by Pulse 100 100 100 Oximetry 12/11/17 12/11/17 12/11/17 00:15 00:20 00:30 Pulse Rate 85 82 Respiratory 42 H 39 H Rate Blood Pressure 124/75 119/70 O2 Sat by Pulse 100 98 100 Oximetry 12/11/17 12/11/17 12/11/17 00:45 01:00 01:15 Pulse Rate 81 83 80 Respiratory 36 H 37 H 32 H Rate Blood Pressure 119/72 121/73 123/74 O2 Sat by Pulse 100 100 100 Oximetry 12/11/17 12/11/17 12/11/17 01:30 01:45 02:00 Pulse Rate 81 80 81 Respiratory 40 H 36 H 46 H Rate Blood Pressure 117/72 107/63 101/64 O2 Sat by Pulse 100 100 100 Oximetry 12/11/17 12/11/17 12/11/17 02:15 02:30 02:45 Pulse Rate 79 78 79 Respiratory 39 H 39 H 38 H Rate Blood Pressure 112/67 108/70 122/73 O2 Sat by Pulse 100 100 100 Oximetry 12/11/17 12/11/17 12/11/17 03:00 03:06 03:15 Pulse Rate 79 78 Respiratory 37 H 36 H Rate Blood Pressure 130/78 121/71 O2 Sat by Pulse 100 100 100 Oximetry 12/11/17 12/11/17 12/11/17 03:30 03:45 04:00 Pulse Rate 77 77 76 Respiratory 37 H 35 H 34 H Rate Blood Pressure 111/71 101/67 103/67 O2 Sat by Pulse 100 92 100 Oximetry 12/11/17 12/11/17 12/11/17 04:15 04:30 04:45 Pulse Rate 75 77 75 Respiratory 31 H 32 H 31 H Rate Blood Pressure 99/63 106/69 103/66 O2 Sat by Pulse 100 100 100 Oximetry 12/11/17 12/11/17 12/11/17 05:00 05:15 05:30 Pulse Rate 74 76 72 Respiratory 25 H 30 H 23 Rate Blood Pressure 103/66 90/60 87/54 O2 Sat by Pulse 100 100 100 Oximetry 12/11/17 12/11/17 12/11/17 05:45 06:00 06:16 Pulse Rate 73 75 75 Respiratory 31 H 16 27 H Rate Blood Pressure 94/56 94/56 93/57 O2 Sat by Pulse 100 100 100 Oximetry 12/11/17 12/11/17 12/11/17 06:30 06:46 07:00 Pulse Rate 80 76 74 Respiratory 24 12 30 H Rate Blood Pressure 93/57 124/70 117/68 O2 Sat by Pulse 100 100 98 Oximetry 12/11/17 12/11/17 12/11/17 07:15 07:30 07:45 Pulse Rate 78 77 75 Respiratory 28 H 30 H 25 H Rate Blood Pressure 116/74 121/72 112/68 O2 Sat by Pulse 100 98 99 Oximetry 12/11/17 08:15 Pulse Rate Respiratory Rate Blood Pressure O2 Sat by Pulse 99 Oximetry Constitutional: asleep Eyes: non-icteric Neck: supple, no JVD Ascultation: Bilateral: clear, diminished breath sounds Percussion: Bilateral: not dull Cardiovascular: regular rate and rhythm Gastrointestinal: normoactive bowel sounds, soft Neurologic: non-focal exam, pupils equal and round, CN II-XII normal, other ( appears slightly confused) CBC and BMP: 12/11/17 04:00 12/11/17 04:00 ABG, PT/INR, D-dimer: ABG POC ABG pH 7.420 (7.35-7.45) 12/10/17 04:47 POC ABG pCO2 37.4 (35-45) 12/10/17 04:47 POC ABG pO2 119 (80-105) H 12/10/17 04:47 POC ABG HCO3 24.2 12/10/17 04:47 POC ABG Total CO2 25 12/10/17 04:47 POC ABG O2 Sat 99 12/10/17 04:47 PT/INR, D-dimer PT 20.6 Sec. (12.2-14.9) H 12/07/17 13:16 INR 1.67 (0.87-1.13) H 12/07/17 13:16 Abnormal lab findings: Abnormal Labs 12/07/17 12/07/17 12/07/17 13:16 13:16 13:16 WBC RBC 2.55 L Hgb 7.7 L Hct 28.4 L MCV 111 H MCHC 27 L RDW 17.5 H Seg Neuts % (Manual) 71.0 H Nucleated RBC % 2.0 H PT 20.6 H INR 1.67 H POC ABG pH POC ABG pCO2 POC ABG pO2 VBG pH Sodium 152 H Potassium 9.0 H* Chloride 108.7 H Carbon Dioxide 2 L* BUN 105 H Creatinine 32.6 H Glucose 128 H POC Glucose Lactic Acid Calcium 7.8 L Alkaline Phosphatase 147 H Troponin T Total Protein Albumin 3.3 L Triglycerides LDL Cholesterol Direct HDL Cholesterol Urine WBC (Auto) 12/07/17 12/07/17 12/07/17 13:16 13:16 13:16 WBC RBC Hgb Hct MCV MCHC RDW Seg Neuts % (Manual) Nucleated RBC % PT INR POC ABG pH POC ABG pCO2 POC ABG pO2 VBG pH 6.682 L* Sodium Potassium Chloride Carbon Dioxide BUN Creatinine Glucose POC Glucose Lactic Acid 10.20 H* Calcium Alkaline Phosphatase 148 H Troponin T Total Protein Albumin 3.2 L Triglycerides LDL Cholesterol Direct HDL Cholesterol Urine WBC (Auto) 12/07/17 12/07/17 12/07/17 14:34 15:43 19:00 WBC RBC Hgb Hct MCV MCHC RDW Seg Neuts % (Manual) Nucleated RBC % PT INR POC ABG pH 6.605 L POC ABG pCO2 30.3 L POC ABG pO2 626 H VBG pH Sodium Potassium Chloride Carbon Dioxide BUN Creatinine Glucose POC Glucose Lactic Acid 9.70 H* Calcium Alkaline Phosphatase Troponin T 0.195 H* Total Protein Albumin Triglycerides 368 H LDL Cholesterol Direct 30 L HDL Cholesterol 23 L Urine WBC (Auto) 12/07/17 12/08/17 12/08/17 19:00 03:21 03:25 WBC RBC Hgb Hct MCV MCHC RDW Seg Neuts % (Manual) Nucleated RBC % PT INR POC ABG pH POC ABG pCO2 POC ABG pO2 VBG pH Sodium Potassium 5.5 H D Chloride 96.2 L 94.5 L Carbon Dioxide 15 L D 16 L BUN 39 H 40 H Creatinine 10.1 H D 11.5 H Glucose 200 H 279 H POC Glucose Lactic Acid 3.50 H* Calcium 7.1 L 6.4 L Alkaline Phosphatase Troponin T 0.177 H* Total Protein 6.2 L Albumin 2.7 L Triglycerides LDL Cholesterol Direct HDL Cholesterol Urine WBC (Auto) 12/08/17 12/08/17 12/09/17 04:07 04:54 06:41 WBC RBC Hgb Hct MCV MCHC RDW Seg Neuts % (Manual) Nucleated RBC % PT INR POC ABG pH 7.318 L POC ABG pCO2 POC ABG pO2 168 H 106 H VBG pH Sodium Potassium Chloride Carbon Dioxide BUN Creatinine Glucose POC Glucose Lactic Acid Calcium Alkaline Phosphatase Troponin T Total Protein Albumin Triglycerides LDL Cholesterol Direct HDL Cholesterol Urine WBC (Auto) > 182.0 H 12/09/17 12/09/17 12/09/17 16:12 Unknown Unknown WBC 12.2 H RBC 2.87 L Hgb 8.6 L Hct 26.7 L MCV MCHC RDW 15.7 H Seg Neuts % (Manual) Nucleated RBC % PT INR POC ABG pH POC ABG pCO2 POC ABG pO2 VBG pH Sodium Potassium Chloride 91.8 L Carbon Dioxide 21 L BUN 26 H Creatinine 7.9 H Glucose 187 H POC Glucose 224 H Lactic Acid Calcium 7.1 L Alkaline Phosphatase Troponin T Total Protein Albumin Triglycerides LDL Cholesterol Direct HDL Cholesterol Urine WBC (Auto) 12/10/17 12/10/17 12/10/17 04:47 12:00 12:00 WBC 11.2 H RBC 2.50 L Hgb 7.5 L Hct 23.3 L MCV MCHC RDW 15.3 H Seg Neuts % (Manual) Nucleated RBC % PT INR POC ABG pH POC ABG pCO2 POC ABG pO2 119 H VBG pH Sodium Potassium Chloride 93.5 L Carbon Dioxide BUN 41 H Creatinine 9.2 H Glucose 254 H POC Glucose Lactic Acid Calcium 6.9 L Alkaline Phosphatase Troponin T Total Protein Albumin Triglycerides LDL Cholesterol Direct HDL Cholesterol Urine WBC (Auto) 12/10/17 12/10/17 12/10/17 23:29 Unknown Unknown WBC 12.4 H RBC 2.59 L Hgb 7.8 L Hct 23.8 L MCV MCHC RDW 15.4 H Seg Neuts % (Manual) Nucleated RBC % PT INR POC ABG pH POC ABG pCO2 POC ABG pO2 VBG pH Sodium Potassium Chloride 93.0 L Carbon Dioxide 21 L BUN 35 H Creatinine 8.9 H Glucose 226 H POC Glucose 315 H Lactic Acid Calcium 6.9 L Alkaline Phosphatase Troponin T Total Protein Albumin Triglycerides LDL Cholesterol Direct HDL Cholesterol Urine WBC (Auto) 12/11/17 12/11/17 12/11/17 04:00 04:00 05:47 WBC RBC 2.41 L Hgb 7.4 L Hct 22.4 L MCV MCHC RDW 15.9 H Seg Neuts % (Manual) Nucleated RBC % PT INR POC ABG pH POC ABG pCO2 POC ABG pO2 VBG pH Sodium Potassium Chloride 96.0 L Carbon Dioxide 19 L BUN 59 H Creatinine 10.3 H Glucose 317 H POC Glucose 359 H Lactic Acid Calcium 7.1 L Alkaline Phosphatase Troponin T Total Protein Albumin Triglycerides LDL Cholesterol Direct HDL Cholesterol Urine WBC (Auto) Chest x-ray: report reviewed
--- NOTE | 2017-12-11 10:35 | Progress Note ---
Assessment and Plan Assessment and plan: Patient is a 47-year-old with a history of CHF, COPD, insulin-dependent type 2 diabetes mellitus, tobacco dependency, hypertension, C. difficile, anemia of chronic disease, severe protein calorie malnutrition, skull ulcerations, end- stage renal disease on hemodialysis, DKA and chronically elevated troponin around 0.1. He was just discharged from here on 2017 after missing one week of hemodialysis. He present now after missing hemodialysis and being found unresponsive per chart. 12/08/17: pCXR: Tube placement. An endotracheal tube is in good position. The lungs are clear the mediastinal contour is unremarkable. The cardiopulmonary findings are unchanged compared to November 14, 2017. 12/09/17: pCXR: There is no evidence of an acute cardiopulmonary process. The endotracheal tube ends 6 centimeters above the edyta.. -Acute hypoxic respiratory failure: CCM is following -Shock on vasopressor: trying to wean off José Miguel-syn -Acute on chronic anemia of renal disease: get stat cbc -Acute metabolic encephalopahty, comatose state: supportative care -ESRD, non compliant causing the above: Hopefully hemodialysis will save this patient. -Severe hyperkalemia due to noncompliance: Emergent hemodialysis done -H/o C diffe with diarrhea stool: send for c.diffe -DVT prophylaxis: scd only for now, repeat h/h full code 12/09/17: Still critically ill, the IV ativan has been off since yesterday per RN at bedside. He did grimace when I turned his head but his pupils are dilated and sluggish, He is still on José Miguel vasopressor at 100 mcg/min. Restraints will be renewed because of the grimacing but may not be needed, will re-access daily, He had liquid bowel movement, C.diffe and he does have a history of it. The right groin TLC is surround by diarrhea, I have asked the nurse to page the Irrigation Technician to get permission for Arm picc line to remove the Femoral/Right groin TLC. CCT 35 minutes. 12/10/17: In ICU now, still not moving and off sedation but he did spontaneously open his eyes, and he did cough per RN. He has a mild fever, C. diffe pending, will add iv flagyl, E. coli in urine, Staph epi blood ctx x 2. off vancomycin, consulted ID. CCT 32 mintues. 12/11/17: Extubated yesterday, work up during the night, restless and not following all commands. Will continue restraints, José Miguel gtt weaned off briefly, ok to transfer to tele if off José Miguel drip. C. diffe not resulted, Getting hemodialysis, start diet. History Interval history: Patient was seen and examined. Follow-up on current diagnosis of unresponsiveness. Patient is currently intubated, on José Miguel-Synephrine drip. He received emergent hemodialysis upon admission then the following day. Imaging, nursing note, chart, labs and old chart reviewed. Discussed with nursing at bedside Hospitalist Physical - Physical exam Narrative exam: GEN: he is awake and alert, confused orientated x 2 HEENT: > he has skull lesion which has healed NECK: supple, no adenopathy, no thyromegaly, no JVD CVS/HEART: RRR, NORMAL S1S2, NO JVD, pulses present bilaterally CHEST/LUNGS: , bilateral crackles, Symmetrical chest expansion, good air entry bilaterally GI/Abdomen: soft, ND, + bowel sounds MSK: moving all ext Neuro:follow some commands, no gross deficits Psych: asking for narcotics for back pains - Constitutional Vitals: Temp Pulse Resp BP Pulse Ox 99.8 F H 75 25 H 112/68 99 12/10/17 12:00 12/11/17 07:45 12/11/17 07:45 12/11/17 07:45 12/11/17 08:15 General appearance: Absent: severe distress Results - Labs CBC & Chem 7: 12/11/17 04:00 12/11/17 04:00 Labs: Laboratory Last Values WBC 8.5 K/mm3 (4.5-11.0) 12/11/17 04:00 RBC 2.41 M/mm3 (3.65-5.03) L 12/11/17 04:00 Hgb 7.4 gm/dl (11.8-15.2) L 12/11/17 04:00 Hct 22.4 % (35.5-45.6) L 12/11/17 04:00 MCV 93 fl (84-94) 12/11/17 04:00 MCH 31 pg (28-32) 12/11/17 04:00 MCHC 33 % (32-34) 12/11/17 04:00 RDW 15.9 % (13.2-15.2) H 12/11/17 04:00 Plt Count 159 K/mm3 (140-440) 12/11/17 04:00 Add Manual Diff Complete 12/07/17 13:16 Total Counted 100 12/07/17 13:16 Seg Neuts % (Manual) 71.0 % (40.0-70.0) H 12/07/17 13:16 Band Neutrophils % 0 % 12/07/17 13:16 Lymphocytes % (Manual) 25.0 % (13.4-35.0) 12/07/17 13:16 Reactive Lymphs % (Man) 0 % 12/07/17 13:16 Monocytes % (Manual) 2.0 % (0.0-7.3) 12/07/17 13:16 Eosinophils % (Manual) 0 % (0.0-4.3) 12/07/17 13:16 Basophils % (Manual) 1.0 % (0.0-1.8) 12/07/17 13:16 Metamyelocytes % 1.0 % 12/07/17 13:16 Myelocytes % 0 % 12/07/17 13:16 Promyelocytes % 0 % 12/07/17 13:16 Blast Cells % 0 % 12/07/17 13:16 Nucleated RBC % 2.0 % (0.0-0.9) H 12/07/17 13:16 Seg Neutrophils # Man 6.5 K/mm3 (1.8-7.7) 12/07/17 13:16 Band Neutrophils # 0.0 K/mm3 12/07/17 13:16 Lymphocytes # (Manual) 2.3 K/mm3 (1.2-5.4) 12/07/17 13:16 Abs React Lymphs (Man) 0.0 K/mm3 12/07/17 13:16 Monocytes # (Manual) 0.2 K/mm3 (0.0-0.8) 12/07/17 13:16 Eosinophils # (Manual) 0.0 K/mm3 (0.0-0.4) 12/07/17 13:16 Basophils # (Manual) 0.1 K/mm3 (0.0-0.1) 12/07/17 13:16 Metamyelocytes # 0.1 K/mm3 12/07/17 13:16 Myelocytes # 0.0 K/mm3 12/07/17 13:16 Promyelocytes # 0.0 K/mm3 12/07/17 13:16 Blast Cells # 0.0 K/mm3 12/07/17 13:16 WBC Morphology Not Reportable 12/07/17 13:16 Hypersegmented Neuts Not Reportable 12/07/17 13:16 Hyposegmented Neuts Not Reportable 12/07/17 13:16 Hypogranular Neuts Not Reportable 12/07/17 13:16 Smudge Cells Not Reportable 12/07/17 13:16 Toxic Granulation Few 12/07/17 13:16 Toxic Vacuolation Few 12/07/17 13:16 Dohle Bodies Not Reportable 12/07/17 13:16 Pelger-Huet Anomaly Not Reportable 12/07/17 13:16 Mane Rods Not Reportable 12/07/17 13:16 Platelet Estimate Cons 12/07/17 13:16 Clumped Platelets Not Reportable 12/07/17 13:16 Plt Clumps, EDTA Not Reportable 12/07/17 13:16 Large Platelets Not Reportable 12/07/17 13:16 Giant Platelets Not Reportable 12/07/17 13:16 Platelet Satelliting Not Reportable 12/07/17 13:16 Plt Morphology Comment Not Reportable 12/07/17 13:16 RBC Morphology Not Reportable 12/07/17 13:16 Dimorphic RBCs Not Reportable 12/07/17 13:16 Polychromasia Not Reportable 12/07/17 13:16 Hypochromasia Not Reportable 12/07/17 13:16 Poikilocytosis 1+ 12/07/17 13:16 Anisocytosis 1+ 12/07/17 13:16 Microcytosis Not Reportable 12/07/17 13:16 Macrocytosis Not Reportable 12/07/17 13:16 Spherocytes Not Reportable 12/07/17 13:16 Pappenheimer Bodies Not Reportable 12/07/17 13:16 Sickle Cells Not Reportable 12/07/17 13:16 Target Cells Not Reportable 12/07/17 13:16 Tear Drop Cells Not Reportable 12/07/17 13:16 Ovalocytes Not Reportable 12/07/17 13:16 Helmet Cells Not Reportable 12/07/17 13:16 Tou[place] Bodies Not Reportable 12/07/17 13:16 [place] Rings Not Reportable 12/07/17 13:16 [place] Cells Few 12/07/17 13:16 Bite Cells Not Reportable 12/07/17 13:16 Crenated Cell Not Reportable 12/07/17 13:16 Elliptocytes Not Reportable 12/07/17 13:16 Acanthocytes (Spur) 1+ 12/07/17 13:16 Rouleaux Not Reportable 12/07/17 13:16 Hemoglobin C Crystals Not Reportable 12/07/17 13:16 Schistocytes Not Reportable 12/07/17 13:16 Malaria parasites Not Reportable 12/07/17 13:16 [place] Bodies Not Reportable 12/07/17 13:16 Hem Pathologist Commnt No 12/07/17 13:16 PT 20.6 Sec. (12.2-14.9) H 12/07/17 13:16 INR 1.67 (0.87-1.13) H 12/07/17 13:16 APTT 35.4 Sec. (24.2-36.6) 12/08/17 08:48 POC ABG pH 7.420 (7.35-7.45) 12/10/17 04:47 POC ABG pCO2 37.4 (35-45) 12/10/17 04:47 POC ABG pO2 119 (80-105) H 12/10/17 04:47 POC ABG HCO3 24.2 12/10/17 04:47 POC ABG Total CO2 25 12/10/17 04:47 POC ABG O2 Sat 99 12/10/17 04:47 POC ABG Base Excess 0 12/10/17 04:47 VBG pH 6.682 (7.320-7.420) L* 12/07/17 13:16 FiO2 28 % 12/10/17 04:47 Sodium 144 mmol/L (137-145) 12/11/17 04:00 Potassium 4.3 mmol/L (3.6-5.0) 12/11/17 04:00 Chloride 96.0 mmol/L (98-107) L 12/11/17 04:00 Carbon Dioxide 19 mmol/L (22-30) L 12/11/17 04:00 Anion Gap 33 mmol/L 12/11/17 04:00 BUN 59 mg/dL (9-20) H 12/11/17 04:00 Creatinine 10.3 mg/dL (0.8-1.5) H 12/11/17 04:00 Estimated GFR 7 ml/min 12/11/17 04:00 BUN/Creatinine Ratio 6 % 12/11/17 04:00 Glucose 317 mg/dL (75-100) H 12/11/17 04:00 POC Glucose 359 (70-105) H 12/11/17 05:47 Lactic Acid 3.50 mmol/L (0.7-2.0) H* 12/08/17 03:21 Calcium 7.1 mg/dL (8.4-10.2) L 12/11/17 04:00 Total Bilirubin 0.30 mg/dL (0.1-1.2) 12/08/17 03:25 Direct Bilirubin < 0.2 mg/dL (0-0.2) 12/07/17 13:16 Indirect Bilirubin 0.0 mg/dL 12/07/17 13:16 AST 14 units/L (5-40) 12/08/17 03:25 ALT 11 units/L (7-56) 12/08/17 03:25 Alkaline Phosphatase 129 units/L (35-129) 12/08/17 03:25 Troponin T 0.177 ng/mL (0.00-0.029) H* 12/08/17 03:25 Total Protein 6.2 g/dL (6.3-8.2) L 12/08/17 03:25 Albumin 2.7 g/dL (3.9-5) L 12/08/17 03:25 Albumin/Globulin Ratio 0.8 % 12/08/17 03:25 Triglycerides 368 mg/dL (2-149) H 12/07/17 19:00 Cholesterol 126 mg/dL (50-199) 12/07/17 19:00 LDL Cholesterol Direct 30 mg/dL (50-130) L 12/07/17 19:00 HDL Cholesterol 23 mg/dL (40-59) L 12/07/17 19:00 Cholesterol/HDL Ratio 5.47 % 12/07/17 19:00 Urine Color Ayesha (Yellow) 12/08/17 04:07 Urine Turbidity Slightly cloudy (Clear) 12/08/17 04:07 Urine pH 6.0 (5.0-7.0) 12/08/17 04:07 Ur Specific [place] 1.025 (1.003-1.030) 12/08/17 04:07 Urine Protein 100 mg/dl mg/dL (Negative) 12/08/17 04:07 Urine Glucose (UA) 50 mg/dL (Negative) 12/08/17 04:07 Urine Ketones 20 mg/dL (Negative) 12/08/17 04:07 Urine Blood Mod (Negative) 12/08/17 04:07 Urine Nitrite Neg (Negative) 12/08/17 04:07 Urine Bilirubin Neg (Negative) 12/08/17 04:07 Urine Urobilinogen < 2.0 mg/dL (<2.0) 12/08/17 04:07 Ur Leukocyte Esterase Mod (Negative) 12/08/17 04:07 Urine WBC (Auto) > 182.0 /HPF (0.0-6.0) H 12/08/17 04:07 Urine RBC (Auto) 72.0 /HPF (0.0-6.0) 12/08/17 04:07 Urine Bacteria (Auto) 4+ /HPF (Negative) 12/08/17 04:07 Urine Mucus 3+ /HPF 12/08/17 04:07 Random Vancomycin 11.7 ug/mL (0-40.0) 12/09/17 06:15 Urine Opiates Screen Presumptive negative 12/09/17 20:18 Urine Methadone Screen Presumptive negative 12/09/17 20:18 Ur Barbiturates Screen Presumptive negative 12/09/17 20:18 Ur Phencyclidine Scrn Presumptive negative 12/09/17 20:18 Ur Amphetamines Screen Presumptive negative 12/09/17 20:18 U Benzodiazepines Scrn Presumptive positive 12/09/17 20:18 Urine Cocaine Screen Presumptive negative 12/09/17 20:18 U Marijuana (THC) Screen Presumptive negative 12/09/17 20:18 Drugs of Abuse Note Disclamer 12/09/17 20:18 C. difficile Toxin A&B Negative (Negative) 12/09/17 10:01 Blood Type A POSITIVE 12/07/17 13:16 Antibody Screen Negative 12/07/17 13:16
[2017-12-11] MEDS ORDERED: NACL 0.9% 100 ML IV PRN (11:00)
[2017-12-11] MEDS ORDERED: NACL 0.9% 1000 ML 1,000 ML ONE (12:53)
[2017-12-11] MEDS: PERCOCET 5/325 PO PRN ×2 (16:14→20:53)
--- NOTE | 2017-12-11 17:31 | Consultation ---
History of Present Illness - Reason for Consult Consult date: 12/11/17 bacteremia Requesting physician: ISAMAR ROMERO - History of Present Illness 47 years old male with history of ESRD on HD(M,W,F) via AVF, HTN, DM, CHF, COPD , C. difficile, Noncompliance with Dialysis and Medication, Nicotine Dependence ; admitted from HD clinic after found unresponsive. Patient denies any recent runny nose, cough, SOB, N/V/D, abdominal pain. he does not remember details of admission. In the emergency room initial temperature was 95, then went to 100.2, initial heart rate 55, respiration 20, O2 sat 96%, blood pressure 95/39. Initial white count 9.2. Hemoglobin 7.7. Platelets 210. Creatinine 82. Potassium 9. Lactic acid 9.7. Urinalysis showed more than 182 white blood cells and moderate leukocyte esterase. CVP in the stool was tested negative. Chest x- ray was negative. Pt seen and evaluated in ED and found to have Acute Respiratory failure and is unable to protect his airway. Pt also found to have EKG changes consistent with acute hyperkalemia, and severe metabolic acidosis. Nephrology consulted in ED. Microbiology: Blood cultures: 2/1 MRSE 2 of 4 bottles and GNR 1 of 4 bottles Urine cultures: 2/2 E coli 2/4 ngtd Respiratory cultures: tracheal asp 2/3 GNRs x 2 Wound cultures: Stool cultures: Other: Current Antimicrobials: Zosyn 2/1 Previous Antimicrobials: Past History Past Medical History: diabetes, ESRD, hypertension, other (diabetic gastroparesis) Past Surgical History: cholecystectomy, Other (AVF creation) Social history: , smoking, other (Unable to obtain) Family history: other (Unable to obtain) Medications and Allergies Allergies Allergy/AdvReac Type Severity Reaction Status Date / Time No Known Allergies Allergy Verified 06/20/14 15:21 Home Medications Medication Instructions Recorded Confirmed Last Taken Type Aspirin EC [Aspirin Enteric Coated 81 mg PO QDAY #30 tablet. 11/20/17 Unknown Rx TAB] oxyCODONE /ACETAMINOPHEN [Percocet 1 tab PO Q4H PRN #14 tablet 11/20/17 Unknown Rx 5/325 mg] Active Meds: Active Medications Aspirin (Halfprin Ec) 81 mg PO QDAY OLIVIA Bisacodyl (Dulcolax) 10 mg NH QDAY PRN PRN Reason: constipation unrelieved by MOM Dextrose (D50w (25gm) Syringe) 50 ml IV PRN PRN PRN Reason: Hypoglycemia Epoetin Iker (Epogen) 20,000 unit IV ELISHA PRN PRN Reason: hemodialysis Last Admin: 12/11/17 11:37 Dose: 20,000 unit Hydrocortisone Sodium Succinate (Solu-Cortef) 50 mg IV Q8HR OLIVIA Stop: 12/11/17 23:59 Last Admin: 12/11/17 16:14 Dose: 50 mg Hydrocortisone Sodium Succinate (Solu-Cortef) 50 mg IV BID OLIVIA Stop: 12/12/17 22:01 Hydrophilic Ointment (Vaseline Lip Therapy) 1 applic TP Q2HR PRN PRN Reason: Dry Lips Piperacillin Sod/Tazobactam Sod (Zosyn/Ns 2.25 Gm/50ml) 2.25 gm in 50 mls @ 100 mls/hr IV Q8HR OLIVIA Stop: 12/13/17 14:59 Last Admin: 12/11/17 16:14 Dose: 100 mls/hr Sodium Chloride (Nacl 0.9%) 100 mls @ 999 mls/hr IV ELISHA PRN PRN Reason: Hypotension Last Admin: 12/08/17 00:06 Dose: 999 mls/hr Phenylephrine HCl 100 mg/ (Sodium Chloride) 100 mls @ 3 mls/hr IV TITR OLIVIA; 50 MCG/MIN PRN Reason: Protocol Last Titration: 12/11/17 15:09 Dose: Infused Sodium Chloride (Nacl 0.9%) 100 mls @ 999 mls/hr IV ELISHA PRN PRN Reason: Hypotension Insulin Aspart (Novolog) 0 units SUB-Q Q6HR OLIVIA PRN Reason: Protocol Last Admin: 12/11/17 06:30 Dose: 8 units Multi-Ingred Cream/Lotion/Oil/Oint (Artificial Tears Ophth Oint) 1 applic OU Q4HR PRN PRN Reason: Dry Eye(s) Oxycodone/Acetaminophen (Percocet 5/325) 1 tab PO Q4H PRN PRN Reason: Pain, Moderate (4-6) Last Admin: 12/11/17 16:14 Dose: 1 tab Review of Systems All systems: negative (as per HPI rest neg) Physical Examination - Physical Exam Narrative exam: General appearance: Alert in NAD, conversant, debilitated Eyes: anicteric sclerae, moist conjunctivae; no lid-lag; PERRLA HENT: Atraumatic; oropharynx clear with poor dentiton Neck: Trachea midline; supple, no thyromegaly or lymphadenopathy Lungs: rene coarse BS CV: tachy Abdomen: Soft, non-tender; no masses or hepatosplenomegaly + rectal tube Extremities: No peripheral edema or extremity lymphadenopathy. AVF ? Skin: Normal temperature, turgor and texture; no rash, ulcers or subcutaneous nodules Psych: Appropriate affect, alert and oriented to person, place and time. Neuro: alert and oriented x 3. Moving all extermities Lines: Right fem TLC - Constitutional Vitals: Vital Signs Temp Pulse Resp BP Pulse Ox 98.2 F 85 18 105/74 99 12/11/17 14:15 12/11/17 14:15 12/11/17 14:15 12/11/17 14:15 12/11/17 08:15 Temperature -Last 24 Hours Temperature 98.2 F Temperature 98.7 F Results - Labs CBC & Chem 7: 12/11/17 04:00 12/11/17 04:00 Labs: Abnormal lab results 12/10/17 12/11/17 12/11/17 Range/Units 23:29 04:00 04:00 RBC 2.41 L (3.65-5.03) M/mm3 Hgb 7.4 L (11.8-15.2) gm/dl Hct 22.4 L (35.5-45.6) % RDW 15.9 H (13.2-15.2) % Chloride 96.0 L (98-107) mmol/L Carbon Dioxide 19 L (22-30) mmol/L BUN 59 H (9-20) mg/dL Creatinine 10.3 H (0.8-1.5) mg/dL Glucose 317 H (75-100) mg/dL POC Glucose 315 H (70-105) Calcium 7.1 L (8.4-10.2) mg/dL 12/11/17 Range/Units 05:47 RBC (3.65-5.03) M/mm3 Hgb (11.8-15.2) gm/dl Hct (35.5-45.6) % RDW (13.2-15.2) % Chloride (98-107) mmol/L Carbon Dioxide (22-30) mmol/L BUN (9-20) mg/dL Creatinine (0.8-1.5) mg/dL Glucose (75-100) mg/dL POC Glucose 359 H (70-105) Calcium (8.4-10.2) mg/dL Assessment and Plan Assessment: 1) Sepsis with initial septic shock: Present on admission, manifested by hypothermia then fever, hypotension, increased lactate. Etiology most likely bacteremia. Shock resolved. 2) MRSE and GNRs bacteremia: MRSE ? unclear source ? HD access ? endocarditis. GNRs probably from urine. 3) E coli UTI 4) Respiratory failure-resolved. Tracheal asp + GNRs ? colonizers 5) Encephalopathy - better 6) History of C diff with diarrhea - Cdiff neg 7) COPD 8) CHF Plan: -obtain TTE and C-reactive protein (CRP) -add vancomycin for MRSE bacteremia -stop zosyn -start ceftriaxone for E coli UTI -kidney US -remove femoral line ezekiel -contact isolation due to diarrhea -upon discharge will do vancomycin IV for 2 weeks if TTE negative for vegetations Thank you for your consultation, will follow up with you. Julianna Rosa MD Infectious Diseases Specialist [facility] ([facility]) M [phone] O [phone]
[2017-12-11] MEDS ORDERED: VANCOMYCIN PHARMACY TO DOSE IV SCH (18:00)
[2017-12-11] MEDS ORDERED: VANCOMYCIN VIAL 1,000 MG in NACL 0.9% 100 ML IV SCH (18:00)
[2017-12-11] MEDS ORDERED: VANCOMYCIN/NS 1 GM/250 ML 1 GM/250 ML BAG IV SCH (21:00)
[2017-12-11] MEDS: cefTRIAXone 1 GM in NACL 0.9% 20 ML IV SCH (21:03)
[2017-12-12] MEDS: PERCOCET 5/325 PO PRN ×4 (01:58→22:22)
--- NOTE | 2017-12-12 02:41 | XRay Report ---
FINAL REPORT EXAM: XR CHEST 1V AP HISTORY: follow up respiratory failure TECHNIQUE: A portable upright view the chest was obtained and compared to the study of 12/11/2017. FINDINGS: The heart size and mediastinum appear normal. The lungs are not congested. There are no localized infiltrates or effusions. There are EKG leads overlying the chest wall. The bones and soft tissues otherwise are unremarkable. IMPRESSION: No active chest disease.
[2017-12-12] MEDS: NOVOLOG SUB-Q SCH ×2 (06:00→16:34)
[2017-12-12 06:14] LABS: Hematocrit 21.5 % (35.5-45.6); Mean Corpuscular HGB Conc 33 % (32-34); Mean Corpuscular Hemoglobin 30 pg (28-32); Mean Corpuscular Volume 92 fl (84-94); Platelet Count 120 K/mm3 (140-440); Red Blood Count 2.33 M/mm3 (3.65-5.03); Red Cell Distribution Width 15.7 % (13.2-15.2)
[2017-12-12 06:41] LABS: Calcium 7.5 mg/dL (8.4-10.2)
--- NOTE | 2017-12-12 09:11 | Progress Note ---
Assessment and Plan - Patient Problems (1) ESRD (end stage renal disease) on dialysis Current Visit: Yes Status: Acute Plan to address problem: Impression: * S/P malignant hyperkalemia - improved * S/P Severe metabolic acidosis - Bicarb was 2 at admission, improved * ESRD * Acute respiratory failure-improved * Hypotension / sepsis/bacteremia/ UTI with E.coli Anemia in ESRD * Type I DM-brittle Plan * Hemodialysis MWF; UF as tolerated Epogen TIW prn * Transfuse PRBC per primary team * Pressors to maintain MAP>65 * Antibiotics per ID * Dose medications for renal function * ID consult reviewed (2) DKA (diabetic ketoacidoses) Current Visit: No Status: Resolved Qualifiers: Diabetes mellitus type: type 1 (3) Anemia due to chronic kidney disease Current Visit: No Status: Chronic (4) Hypertension Current Visit: No Status: Chronic Subjective Date of service: 12/12/17 Principal diagnosis: end-stage renal disease with acute decompensation, AMS, hyperkalemia, respi Interval history: Feels weak. Alert, oriented to person Objective - Vital Signs Vital signs: Vital Signs - 12hr 12/11/17 12/11/17 12/11/17 21:16 21:20 21:30 Temperature Pulse Rate 83 82 81 Pulse Rate [ From Monitor] Respiratory 11 L 29 H 23 Rate Blood Pressure 80/45 80/45 83/51 O2 Sat by Pulse 100 100 100 Oximetry 12/11/17 12/11/17 12/11/17 21:46 22:00 22:16 Temperature Pulse Rate 77 75 81 Pulse Rate [ From Monitor] Respiratory 26 H 16 21 Rate Blood Pressure 81/50 84/53 84/53 O2 Sat by Pulse 100 100 100 Oximetry 12/11/17 12/11/17 12/11/17 22:30 22:46 23:00 Temperature Pulse Rate 79 78 77 Pulse Rate [ From Monitor] Respiratory 26 H 23 24 Rate Blood Pressure 90/52 84/53 93/56 O2 Sat by Pulse 99 100 100 Oximetry 12/11/17 12/11/17 12/11/17 23:16 23:30 23:46 Temperature Pulse Rate 78 82 78 Pulse Rate [ From Monitor] Respiratory 24 18 22 Rate Blood Pressure 93/56 94/59 94/59 O2 Sat by Pulse 100 100 99 Oximetry 12/12/17 12/12/17 12/12/17 00:00 00:16 00:30 Temperature 97.0 F L Pulse Rate 76 74 76 Pulse Rate [ 75 From Monitor] Respiratory 19 20 20 Rate Blood Pressure 97/65 97/65 94/61 O2 Sat by Pulse 98 99 97 Oximetry 12/12/17 12/12/17 12/12/17 00:46 01:00 01:16 Temperature Pulse Rate 77 77 74 Pulse Rate [ From Monitor] Respiratory 23 19 20 Rate Blood Pressure 94/61 98/63 94/61 O2 Sat by Pulse 98 99 99 Oximetry 12/12/17 12/12/17 12/12/17 01:30 01:46 02:00 Temperature Pulse Rate 78 77 77 Pulse Rate [ From Monitor] Respiratory 20 18 20 Rate Blood Pressure 94/61 98/63 93/62 O2 Sat by Pulse 99 100 99 Oximetry 12/12/17 12/12/17 12/12/17 02:16 02:30 02:46 Temperature Pulse Rate 77 77 77 Pulse Rate [ From Monitor] Respiratory 22 13 19 Rate Blood Pressure 93/62 93/62 93/62 O2 Sat by Pulse 99 100 99 Oximetry 12/12/17 12/12/17 12/12/17 03:00 03:16 03:30 Temperature Pulse Rate 75 79 76 Pulse Rate [ From Monitor] Respiratory 17 11 L 10 L Rate Blood Pressure 97/62 97/62 97/62 O2 Sat by Pulse 98 96 97 Oximetry 12/12/17 12/12/17 12/12/17 03:46 04:00 04:16 Temperature 97.1 F L Pulse Rate 76 72 73 Pulse Rate [ 74 From Monitor] Respiratory 9 L 18 14 Rate Blood Pressure 97/62 107/73 107/73 O2 Sat by Pulse 98 96 97 Oximetry 12/12/17 12/12/17 12/12/17 04:30 04:46 05:00 Temperature Pulse Rate 74 72 73 Pulse Rate [ From Monitor] Respiratory 16 19 14 Rate Blood Pressure 107/73 98/62 91/56 O2 Sat by Pulse 95 97 98 Oximetry 12/12/17 12/12/17 12/12/17 05:16 05:30 05:46 Temperature Pulse Rate 71 73 76 Pulse Rate [ From Monitor] Respiratory 17 15 17 Rate Blood Pressure 91/56 85/55 85/55 O2 Sat by Pulse 98 96 98 Oximetry 12/12/17 12/12/17 12/12/17 06:00 06:16 06:30 Temperature Pulse Rate 73 72 71 Pulse Rate [ From Monitor] Respiratory 14 18 16 Rate Blood Pressure 95/62 95/62 95/62 O2 Sat by Pulse 95 97 97 Oximetry 12/12/17 12/12/17 12/12/17 06:46 07:00 07:16 Temperature Pulse Rate 76 72 73 Pulse Rate [ From Monitor] Respiratory 11 L 11 L 18 Rate Blood Pressure 100/70 108/66 108/66 O2 Sat by Pulse 97 97 96 Oximetry 12/12/17 12/12/17 12/12/17 07:30 07:46 08:00 Temperature 97.3 F L Pulse Rate 77 73 77 Pulse Rate [ From Monitor] Respiratory 8 L 20 13 Rate Blood Pressure 108/66 88/66 88/66 O2 Sat by Pulse 96 97 99 Oximetry - General Appearance General appearance: chronically ill EENT: mucous membranes dry Neck: no JVD Respiratory: Present: Decreased Breath Sounds Cardiology: regular, systolic murmur Gastrointestinal: normoactive bowel sounds Musculoskeletal: other (no edema) Psychiatric: cooperative - Lab 12/12/17 04:00 12/12/17 04:00 Most recent lab results Calcium 7.5 mg/dL (8.4-10.2) L 12/12/17 04:00
[2017-12-12] MEDS: HALFPRIN EC PO SCH (09:47)
[2017-12-12] MEDS ORDERED: ROCEPHIN/NS 2 GM/100 ML 2 GM/100 ML BAG IV SCH (10:00)
--- NOTE | 2017-12-12 10:01 | Progress Note ---
Assessment and Plan Acute respiratory failure . Currently controlled, resolved Encephalopathy, likely metabolic, appears to be slowly improving Sepsis. On ABX. traches culture w Klebsiella . CXR negative Acute on chronic renal failure. Currently on hemodialysis ESRD Hypotension Recommendations Continue hemodialysis per nephrology Continue ABx per ID, I'll probably complete 7 days ceftriaxone OOB as tolerated probably OK to Transfer out, if on stable HD schedule, stable VS and oxygen status DC femoral line, PICC if needed Critical care time was 31 minutes of [id number] evaluation and coordination of care Subjective Date of service: 12/12/17 Principal diagnosis: end-stage renal disease with acute decompensation, AMS, hyperkalemia, respi Interval history: No cough or chast complains. Tired, sleepy Objective Vital Signs - 12hr 12/11/17 12/11/17 12/11/17 22:16 22:30 22:46 Temperature Pulse Rate 81 79 78 Pulse Rate [ From Monitor] Respiratory 21 26 H 23 Rate Blood Pressure 84/53 90/52 84/53 O2 Sat by Pulse 100 99 100 Oximetry 12/11/17 12/11/17 12/11/17 23:00 23:16 23:30 Temperature Pulse Rate 77 78 82 Pulse Rate [ From Monitor] Respiratory 24 24 18 Rate Blood Pressure 93/56 93/56 94/59 O2 Sat by Pulse 100 100 100 Oximetry 12/11/17 12/12/17 12/12/17 23:46 00:00 00:16 Temperature 97.0 F L Pulse Rate 78 76 74 Pulse Rate [ 75 From Monitor] Respiratory 22 19 20 Rate Blood Pressure 94/59 97/65 97/65 O2 Sat by Pulse 99 98 99 Oximetry 12/12/17 12/12/17 12/12/17 00:30 00:46 01:00 Temperature Pulse Rate 76 77 77 Pulse Rate [ From Monitor] Respiratory 20 23 19 Rate Blood Pressure 94/61 94/61 98/63 O2 Sat by Pulse 97 98 99 Oximetry 12/12/17 12/12/17 12/12/17 01:16 01:30 01:46 Temperature Pulse Rate 74 78 77 Pulse Rate [ From Monitor] Respiratory 20 20 18 Rate Blood Pressure 94/61 94/61 98/63 O2 Sat by Pulse 99 99 100 Oximetry 12/12/17 12/12/17 12/12/17 02:00 02:16 02:30 Temperature Pulse Rate 77 77 77 Pulse Rate [ From Monitor] Respiratory 20 22 13 Rate Blood Pressure 93/62 93/62 93/62 O2 Sat by Pulse 99 99 100 Oximetry 12/12/17 12/12/17 12/12/17 02:46 03:00 03:16 Temperature Pulse Rate 77 75 79 Pulse Rate [ From Monitor] Respiratory 19 17 11 L Rate Blood Pressure 93/62 97/62 97/62 O2 Sat by Pulse 99 98 96 Oximetry 12/12/17 12/12/17 12/12/17 03:30 03:46 04:00 Temperature 97.1 F L Pulse Rate 76 76 72 Pulse Rate [ 74 From Monitor] Respiratory 10 L 9 L 18 Rate Blood Pressure 97/62 97/62 107/73 O2 Sat by Pulse 97 98 96 Oximetry 12/12/17 12/12/17 12/12/17 04:16 04:30 04:46 Temperature Pulse Rate 73 74 72 Pulse Rate [ From Monitor] Respiratory 14 16 19 Rate Blood Pressure 107/73 107/73 98/62 O2 Sat by Pulse 97 95 97 Oximetry 12/12/17 12/12/17 12/12/17 05:00 05:16 05:30 Temperature Pulse Rate 73 71 73 Pulse Rate [ From Monitor] Respiratory 14 17 15 Rate Blood Pressure 91/56 91/56 85/55 O2 Sat by Pulse 98 98 96 Oximetry 12/12/17 12/12/17 12/12/17 05:46 06:00 06:16 Temperature Pulse Rate 76 73 72 Pulse Rate [ From Monitor] Respiratory 17 14 18 Rate Blood Pressure 85/55 95/62 95/62 O2 Sat by Pulse 98 95 97 Oximetry 12/12/17 12/12/17 12/12/17 06:30 06:46 07:00 Temperature Pulse Rate 71 76 72 Pulse Rate [ From Monitor] Respiratory 16 11 L 11 L Rate Blood Pressure 95/62 100/70 108/66 O2 Sat by Pulse 97 97 97 Oximetry 12/12/17 12/12/17 12/12/17 07:16 07:30 07:46 Temperature Pulse Rate 73 77 73 Pulse Rate [ From Monitor] Respiratory 18 8 L 20 Rate Blood Pressure 108/66 108/66 88/66 O2 Sat by Pulse 96 96 97 Oximetry 12/12/17 08:00 Temperature 97.3 F L Pulse Rate 77 Pulse Rate [ From Monitor] Respiratory 13 Rate Blood Pressure 88/66 O2 Sat by Pulse 99 Oximetry Constitutional: alert Eyes: non-icteric ENT: other (orally intubated on sedation) Neck: supple, no JVD Ascultation: Bilateral: clear, diminished breath sounds Percussion: Bilateral: not dull Cardiovascular: regular rate and rhythm Gastrointestinal: normoactive bowel sounds, soft Neurologic: non-focal exam, pupils equal and round, CN II-XII normal CBC and BMP: 12/12/17 04:00 12/12/17 04:00 ABG, PT/INR, D-dimer: ABG POC ABG pH 7.420 (7.35-7.45) 12/10/17 04:47 POC ABG pCO2 37.4 (35-45) 12/10/17 04:47 POC ABG pO2 119 (80-105) H 12/10/17 04:47 POC ABG HCO3 24.2 12/10/17 04:47 POC ABG Total CO2 25 12/10/17 04:47 POC ABG O2 Sat 99 12/10/17 04:47 PT/INR, D-dimer PT 20.6 Sec. (12.2-14.9) H 12/07/17 13:16 INR 1.67 (0.87-1.13) H 12/07/17 13:16 Abnormal lab findings: Abnormal Labs 12/07/17 12/07/17 12/07/17 13:16 13:16 13:16 WBC RBC 2.55 L Hgb 7.7 L Hct 28.4 L MCV 111 H MCHC 27 L RDW 17.5 H Plt Count Seg Neuts % (Manual) 71.0 H Nucleated RBC % 2.0 H PT 20.6 H INR 1.67 H POC ABG pH POC ABG pCO2 POC ABG pO2 VBG pH Sodium 152 H Potassium 9.0 H* Chloride 108.7 H Carbon Dioxide 2 L* BUN 105 H Creatinine 32.6 H Glucose 128 H POC Glucose Lactic Acid Calcium 7.8 L Alkaline Phosphatase 147 H Troponin T Total Protein Albumin 3.3 L Triglycerides LDL Cholesterol Direct HDL Cholesterol Urine WBC (Auto) 12/07/17 12/07/17 12/07/17 13:16 13:16 13:16 WBC RBC Hgb Hct MCV MCHC RDW Plt Count Seg Neuts % (Manual) Nucleated RBC % PT INR POC ABG pH POC ABG pCO2 POC ABG pO2 VBG pH 6.682 L* Sodium Potassium Chloride Carbon Dioxide BUN Creatinine Glucose POC Glucose Lactic Acid 10.20 H* Calcium Alkaline Phosphatase 148 H Troponin T Total Protein Albumin 3.2 L Triglycerides LDL Cholesterol Direct HDL Cholesterol Urine WBC (Auto) 12/07/17 12/07/17 12/07/17 14:34 15:43 19:00 WBC RBC Hgb Hct MCV MCHC RDW Plt Count Seg Neuts % (Manual) Nucleated RBC % PT INR POC ABG pH 6.605 L POC ABG pCO2 30.3 L POC ABG pO2 626 H VBG pH Sodium Potassium Chloride Carbon Dioxide BUN Creatinine Glucose POC Glucose Lactic Acid 9.70 H* Calcium Alkaline Phosphatase Troponin T 0.195 H* Total Protein Albumin Triglycerides 368 H LDL Cholesterol Direct 30 L HDL Cholesterol 23 L Urine WBC (Auto) 12/07/17 12/08/17 12/08/17 19:00 03:21 03:25 WBC RBC Hgb Hct MCV MCHC RDW Plt Count Seg Neuts % (Manual) Nucleated RBC % PT INR POC ABG pH POC ABG pCO2 POC ABG pO2 VBG pH Sodium Potassium 5.5 H D Chloride 96.2 L 94.5 L Carbon Dioxide 15 L D 16 L BUN 39 H 40 H Creatinine 10.1 H D 11.5 H Glucose 200 H 279 H POC Glucose Lactic Acid 3.50 H* Calcium 7.1 L 6.4 L Alkaline Phosphatase Troponin T 0.177 H* Total Protein 6.2 L Albumin 2.7 L Triglycerides LDL Cholesterol Direct HDL Cholesterol Urine WBC (Auto) 12/08/17 12/08/17 12/09/17 04:07 04:54 06:41 WBC RBC Hgb Hct MCV MCHC RDW Plt Count Seg Neuts % (Manual) Nucleated RBC % PT INR POC ABG pH 7.318 L POC ABG pCO2 POC ABG pO2 168 H 106 H VBG pH Sodium Potassium Chloride Carbon Dioxide BUN Creatinine Glucose POC Glucose Lactic Acid Calcium Alkaline Phosphatase Troponin T Total Protein Albumin Triglycerides LDL Cholesterol Direct HDL Cholesterol Urine WBC (Auto) > 182.0 H 12/09/17 12/09/17 12/09/17 16:12 Unknown Unknown WBC 12.2 H RBC 2.87 L Hgb 8.6 L Hct 26.7 L MCV MCHC RDW 15.7 H Plt Count Seg Neuts % (Manual) Nucleated RBC % PT INR POC ABG pH POC ABG pCO2 POC ABG pO2 VBG pH Sodium Potassium Chloride 91.8 L Carbon Dioxide 21 L BUN 26 H Creatinine 7.9 H Glucose 187 H POC Glucose 224 H Lactic Acid Calcium 7.1 L Alkaline Phosphatase Troponin T Total Protein Albumin Triglycerides LDL Cholesterol Direct HDL Cholesterol Urine WBC (Auto) 12/10/17 12/10/17 12/10/17 04:47 12:00 12:00 WBC 11.2 H RBC 2.50 L Hgb 7.5 L Hct 23.3 L MCV MCHC RDW 15.3 H Plt Count Seg Neuts % (Manual) Nucleated RBC % PT INR POC ABG pH POC ABG pCO2 POC ABG pO2 119 H VBG pH Sodium Potassium Chloride 93.5 L Carbon Dioxide BUN 41 H Creatinine 9.2 H Glucose 254 H POC Glucose Lactic Acid Calcium 6.9 L Alkaline Phosphatase Troponin T Total Protein Albumin Triglycerides LDL Cholesterol Direct HDL Cholesterol Urine WBC (Auto) 12/10/17 12/10/17 12/10/17 23:29 Unknown Unknown WBC 12.4 H RBC 2.59 L Hgb 7.8 L Hct 23.8 L MCV MCHC RDW 15.4 H Plt Count Seg Neuts % (Manual) Nucleated RBC % PT INR POC ABG pH POC ABG pCO2 POC ABG pO2 VBG pH Sodium Potassium Chloride 93.0 L Carbon Dioxide 21 L BUN 35 H Creatinine 8.9 H Glucose 226 H POC Glucose 315 H Lactic Acid Calcium 6.9 L Alkaline Phosphatase Troponin T Total Protein Albumin Triglycerides LDL Cholesterol Direct HDL Cholesterol Urine WBC (Auto) 12/11/17 12/11/17 12/11/17 04:00 04:00 05:47 WBC RBC 2.41 L Hgb 7.4 L Hct 22.4 L MCV MCHC RDW 15.9 H Plt Count Seg Neuts % (Manual) Nucleated RBC % PT INR POC ABG pH POC ABG pCO2 POC ABG pO2 VBG pH Sodium Potassium Chloride 96.0 L Carbon Dioxide 19 L BUN 59 H Creatinine 10.3 H Glucose 317 H POC Glucose 359 H Lactic Acid Calcium 7.1 L Alkaline Phosphatase Troponin T Total Protein Albumin Triglycerides LDL Cholesterol Direct HDL Cholesterol Urine WBC (Auto) 12/11/17 12/11/17 12/12/17 18:42 23:53 04:00 WBC RBC 2.33 L Hgb 7.0 L Hct 21.5 L MCV MCHC RDW 15.7 H Plt Count 120 L Seg Neuts % (Manual) Nucleated RBC % PT INR POC ABG pH POC ABG pCO2 POC ABG pO2 VBG pH Sodium Potassium Chloride Carbon Dioxide BUN Creatinine Glucose POC Glucose 372 H 349 H Lactic Acid Calcium Alkaline Phosphatase Troponin T Total Protein Albumin Triglycerides LDL Cholesterol Direct HDL Cholesterol Urine WBC (Auto) 12/12/17 12/12/17 12/12/17 04:00 05:43 08:39 WBC RBC Hgb Hct MCV MCHC RDW Plt Count Seg Neuts % (Manual) Nucleated RBC % PT INR POC ABG pH POC ABG pCO2 POC ABG pO2 VBG pH Sodium Potassium Chloride 97.3 L Carbon Dioxide BUN 41 H Creatinine 5.9 H Glucose 271 H POC Glucose 321 H 245 H Lactic Acid Calcium 7.5 L Alkaline Phosphatase Troponin T Total Protein Albumin Triglycerides LDL Cholesterol Direct HDL Cholesterol Urine WBC (Auto) Chest x-ray: report reviewed, image reviewed
--- NOTE | 2017-12-12 12:59 | Progress Note ---
Assessment and Plan Assessment and plan: Patient is a 47-year-old with a history of CHF, COPD, insulin-dependent type 2 diabetes mellitus, tobacco dependency, hypertension, C. difficile, anemia of chronic disease, severe protein calorie malnutrition, skull ulcerations, end- stage renal disease on hemodialysis, DKA and chronically elevated troponin around 0.1. He was just discharged from here on 2017 after missing one week of hemodialysis. He present now after missing hemodialysis and being found unresponsive per chart. 12/08/17: pCXR: Tube placement. An endotracheal tube is in good position. The lungs are clear the mediastinal contour is unremarkable. The cardiopulmonary findings are unchanged compared to November 14, 2017. 12/09/17: pCXR: There is no evidence of an acute cardiopulmonary process. The endotracheal tube ends 6 centimeters above the edyta.. -Acute hypoxic respiratory failure: CCM is following -Shock, circulatory, on vasopressor, resolved -Acute on chronic anemia of renal disease: get stat cbc -Acute metabolic encephalopahty, comatose state: supportative care -ESRD, non compliant causing the above: Hopefully hemodialysis will save this patient. -Severe hyperkalemia due to noncompliance: Emergent hemodialysis done -H/o C diffe with diarrhea stool: send for c.diffe -DVT prophylaxis: scd only for now, repeat h/h full code 12/09/17: Still critically ill, the IV ativan has been off since yesterday per RN at bedside. He did grimace when I turned his head but his pupils are dilated and sluggish, He is still on José Miguel vasopressor at 100 mcg/min. Restraints will be renewed because of the grimacing but may not be needed, will re-access daily, He had liquid bowel movement, C.diffe and he does have a history of it. The right groin TLC is surround by diarrhea, I have asked the nurse to page the Sr. [employer] Manager to get permission for Arm picc line to remove the Femoral/Right groin TLC. CCT 35 minutes. 12/10/17: In ICU now, still not moving and off sedation but he did spontaneously open his eyes, and he did cough per RN. He has a mild fever, C. diffe pending, will add iv flagyl, E. coli in urine, Staph epi blood ctx x 2. off vancomycin, consulted ID. CCT 32 mintues. 2/5/18: Extubated yesterday, work up during the night, restless and not following all commands. Will continue restraints, José Miguel gtt weaned off briefly, ok to transfer to tele if off José Miguel drip. C. diffe not resulted, Getting hemodialysis, start diet. 12/12/17: off josé miguel gtt, d/w CCM, will transfer to med surg. d/c right femoral TLC, d/w nursing. History Interval history: Patient was seen and examined. Follow-up on current diagnosis of unresponsiveness. Patient is currently extubated and off José Miguel-Synephrine drip. He received emergent hemodialysis upon admission then the following day. Imaging , nursing note, chart, labs and old chart reviewed. Discussed with nursing at bedside. We discussed compliance, he blames other people for missing his dialysis session. Hospitalist Physical - Physical exam Narrative exam: GEN: he is awake and alert, confused orientated x 2 HEENT: > he has skull lesion which has healed NECK: supple, no adenopathy, no thyromegaly, no JVD CVS/HEART: RRR, NORMAL S1S2, NO JVD, pulses present bilaterally CHEST/LUNGS: , bilateral crackles, Symmetrical chest expansion, good air entry bilaterally GI/Abdomen: soft, ND, + bowel sounds MSK: moving all ext Neuro:follow some commands, no gross deficits Psych: asking for narcotics for back pains - Constitutional Vitals: Temp Pulse Resp BP Pulse Ox 98.4 F 77 13 88/66 99 12/12/17 11:53 12/12/17 08:00 12/12/17 08:00 12/12/17 08:00 12/12/17 08:00 General appearance: Absent: severe distress Results - Labs CBC & Chem 7: 12/12/17 04:00 12/12/17 04:00 Labs: Laboratory Last Values WBC 6.0 K/mm3 (4.5-11.0) 12/12/17 04:00 RBC 2.33 M/mm3 (3.65-5.03) L 12/12/17 04:00 Hgb 7.0 gm/dl (11.8-15.2) L 12/12/17 04:00 Hct 21.5 % (35.5-45.6) L 12/12/17 04:00 MCV 92 fl (84-94) 12/12/17 04:00 MCH 30 pg (28-32) 12/12/17 04:00 MCHC 33 % (32-34) 12/12/17 04:00 RDW 15.7 % (13.2-15.2) H 12/12/17 04:00 Plt Count 120 K/mm3 (140-440) L 12/12/17 04:00 Add Manual Diff Complete 12/07/17 13:16 Total Counted 100 12/07/17 13:16 Seg Neuts % (Manual) 71.0 % (40.0-70.0) H 12/07/17 13:16 Band Neutrophils % 0 % 12/07/17 13:16 Lymphocytes % (Manual) 25.0 % (13.4-35.0) 12/07/17 13:16 Reactive Lymphs % (Man) 0 % 12/07/17 13:16 Monocytes % (Manual) 2.0 % (0.0-7.3) 12/07/17 13:16 Eosinophils % (Manual) 0 % (0.0-4.3) 12/07/17 13:16 Basophils % (Manual) 1.0 % (0.0-1.8) 12/07/17 13:16 Metamyelocytes % 1.0 % 12/07/17 13:16 Myelocytes % 0 % 12/07/17 13:16 Promyelocytes % 0 % 12/07/17 13:16 Blast Cells % 0 % 12/07/17 13:16 Nucleated RBC % 2.0 % (0.0-0.9) H 12/07/17 13:16 Seg Neutrophils # Man 6.5 K/mm3 (1.8-7.7) 12/07/17 13:16 Band Neutrophils # 0.0 K/mm3 12/07/17 13:16 Lymphocytes # (Manual) 2.3 K/mm3 (1.2-5.4) 12/07/17 13:16 Abs React Lymphs (Man) 0.0 K/mm3 12/07/17 13:16 Monocytes # (Manual) 0.2 K/mm3 (0.0-0.8) 12/07/17 13:16 Eosinophils # (Manual) 0.0 K/mm3 (0.0-0.4) 12/07/17 13:16 Basophils # (Manual) 0.1 K/mm3 (0.0-0.1) 12/07/17 13:16 Metamyelocytes # 0.1 K/mm3 12/07/17 13:16 Myelocytes # 0.0 K/mm3 12/07/17 13:16 Promyelocytes # 0.0 K/mm3 12/07/17 13:16 Blast Cells # 0.0 K/mm3 12/07/17 13:16 WBC Morphology Not Reportable 12/07/17 13:16 Hypersegmented Neuts Not Reportable 12/07/17 13:16 Hyposegmented Neuts Not Reportable 12/07/17 13:16 Hypogranular Neuts Not Reportable 12/07/17 13:16 Smudge Cells Not Reportable 12/07/17 13:16 Toxic Granulation Few 12/07/17 13:16 Toxic Vacuolation Few 12/07/17 13:16 Dohle Bodies Not Reportable 12/07/17 13:16 Pelger-Huet Anomaly Not Reportable 12/07/17 13:16 Mane Rods Not Reportable 12/07/17 13:16 Platelet Estimate Cons 12/07/17 13:16 Clumped Platelets Not Reportable 12/07/17 13:16 Plt Clumps, EDTA Not Reportable 12/07/17 13:16 Large Platelets Not Reportable 12/07/17 13:16 Giant Platelets Not Reportable 12/07/17 13:16 Platelet Satelliting Not Reportable 12/07/17 13:16 Plt Morphology Comment Not Reportable 12/07/17 13:16 RBC Morphology Not Reportable 12/07/17 13:16 Dimorphic RBCs Not Reportable 12/07/17 13:16 Polychromasia Not Reportable 12/07/17 13:16 Hypochromasia Not Reportable 12/07/17 13:16 Poikilocytosis 1+ 12/07/17 13:16 Anisocytosis 1+ 12/07/17 13:16 Microcytosis Not Reportable 12/07/17 13:16 Macrocytosis Not Reportable 12/07/17 13:16 Spherocytes Not Reportable 12/07/17 13:16 Pappenheimer Bodies Not Reportable 12/07/17 13:16 Sickle Cells Not Reportable 12/07/17 13:16 Target Cells Not Reportable 12/07/17 13:16 Tear Drop Cells Not Reportable 12/07/17 13:16 Ovalocytes Not Reportable 12/07/17 13:16 Helmet Cells Not Reportable 12/07/17 13:16 [place] Bodies Not Reportable 12/07/17 13:16 [place] Rings Not Reportable 12/07/17 13:16 Nelson Cells Few 12/07/17 13:16 Bite Cells Not Reportable 12/07/17 13:16 Crenated Cell Not Reportable 12/07/17 13:16 Elliptocytes Not Reportable 12/07/17 13:16 Acanthocytes (Spur) 1+ 12/07/17 13:16 Rouleaux Not Reportable 12/07/17 13:16 Hemoglobin C Crystals Not Reportable 12/07/17 13:16 Schistocytes Not Reportable 12/07/17 13:16 Malaria parasites Not Reportable 12/07/17 13:16 Dillon Bodies Not Reportable 12/07/17 13:16 Hem Pathologist Commnt No 12/07/17 13:16 PT 20.6 Sec. (12.2-14.9) H 12/07/17 13:16 INR 1.67 (0.87-1.13) H 12/07/17 13:16 APTT 35.4 Sec. (24.2-36.6) 12/08/17 08:48 POC ABG pH 7.420 (7.35-7.45) 12/10/17 04:47 POC ABG pCO2 37.4 (35-45) 12/10/17 04:47 POC ABG pO2 119 (80-105) H 12/10/17 04:47 POC ABG HCO3 24.2 12/10/17 04:47 POC ABG Total CO2 25 12/10/17 04:47 POC ABG O2 Sat 99 12/10/17 04:47 POC ABG Base Excess 0 12/10/17 04:47 VBG pH 6.682 (7.320-7.420) L* 12/07/17 13:16 FiO2 28 % 12/10/17 04:47 Sodium 140 mmol/L (137-145) 12/12/17 04:00 Potassium 3.7 mmol/L (3.6-5.0) 12/12/17 04:00 Chloride 97.3 mmol/L (98-107) L 12/12/17 04:00 Carbon Dioxide 28 mmol/L (22-30) D 12/12/17 04:00 Anion Gap 18 mmol/L 12/12/17 04:00 BUN 41 mg/dL (9-20) H 12/12/17 04:00 Creatinine 5.9 mg/dL (0.8-1.5) H 12/12/17 04:00 Estimated GFR 12 ml/min 12/12/17 04:00 BUN/Creatinine Ratio 7 % 12/12/17 04:00 Glucose 271 mg/dL (75-100) H 12/12/17 04:00 POC Glucose 386 (70-105) H 12/12/17 11:33 Lactic Acid 3.50 mmol/L (0.7-2.0) H* 12/08/17 03:21 Calcium 7.5 mg/dL (8.4-10.2) L 12/12/17 04:00 Total Bilirubin 0.30 mg/dL (0.1-1.2) 12/08/17 03:25 Direct Bilirubin < 0.2 mg/dL (0-0.2) 12/07/17 13:16 Indirect Bilirubin 0.0 mg/dL 12/07/17 13:16 AST 14 units/L (5-40) 12/08/17 03:25 ALT 11 units/L (7-56) 12/08/17 03:25 Alkaline Phosphatase 129 units/L (35-129) 12/08/17 03:25 Troponin T 0.177 ng/mL (0.00-0.029) H* 12/08/17 03:25 Total Protein 6.2 g/dL (6.3-8.2) L 12/08/17 03:25 Albumin 2.7 g/dL (3.9-5) L 12/08/17 03:25 Albumin/Globulin Ratio 0.8 % 12/08/17 03:25 Triglycerides 368 mg/dL (2-149) H 12/07/17 19:00 Cholesterol 126 mg/dL (50-199) 12/07/17 19:00 LDL Cholesterol Direct 30 mg/dL (50-130) L 12/07/17 19:00 HDL Cholesterol 23 mg/dL (40-59) L 12/07/17 19:00 Cholesterol/HDL Ratio 5.47 % 12/07/17 19:00 Urine Color Ayesha (Yellow) 12/08/17 04:07 Urine Turbidity Slightly cloudy (Clear) 12/08/17 04:07 Urine pH 6.0 (5.0-7.0) 12/08/17 04:07 Ur Specific [place] 1.025 (1.003-1.030) 12/08/17 04:07 Urine Protein 100 mg/dl mg/dL (Negative) 12/08/17 04:07 Urine Glucose (UA) 50 mg/dL (Negative) 12/08/17 04:07 Urine Ketones 20 mg/dL (Negative) 12/08/17 04:07 Urine Blood Mod (Negative) 12/08/17 04:07 Urine Nitrite Neg (Negative) 12/08/17 04:07 Urine Bilirubin Neg (Negative) 12/08/17 04:07 Urine Urobilinogen < 2.0 mg/dL (<2.0) 12/08/17 04:07 Ur Leukocyte Esterase Mod (Negative) 12/08/17 04:07 Urine WBC (Auto) > 182.0 /HPF (0.0-6.0) H 12/08/17 04:07 Urine RBC (Auto) 72.0 /HPF (0.0-6.0) 12/08/17 04:07 Urine Bacteria (Auto) 4+ /HPF (Negative) 12/08/17 04:07 Urine Mucus 3+ /HPF 12/08/17 04:07 Random Vancomycin 11.7 ug/mL (0-40.0) 12/09/17 06:15 Urine Opiates Screen Presumptive negative 12/09/17 20:18 Urine Methadone Screen Presumptive negative 12/09/17 20:18 Ur Barbiturates Screen Presumptive negative 12/09/17 20:18 Ur Phencyclidine Scrn Presumptive negative 12/09/17 20:18 Ur Amphetamines Screen Presumptive negative 12/09/17 20:18 U Benzodiazepines Scrn Presumptive positive 12/09/17 20:18 Urine Cocaine Screen Presumptive negative 12/09/17 20:18 U Marijuana (THC) Screen Presumptive negative 12/09/17 20:18 Drugs of Abuse Note Disclamer 12/09/17 20:18 C. difficile Toxin A&B Negative (Negative) 12/09/17 10:01 Blood Type A POSITIVE 12/07/17 13:16 Antibody Screen Negative 12/07/17 13:16
--- NOTE | 2017-12-12 14:38 | Progress Note ---
Assessment and Plan Assessment: 1) Sepsis with initial septic shock: better. Etiology most likely bacteremia. 2) MRSE and GNRs bacteremia: MRSE ? unclear source ? HD access ? endocarditis. GNRs probably from urine. 3) E coli UTI 4) Respiratory failure-resolved. Tracheal asp + GNRs ? colonizers 5) Encephalopathy - better 6) History of C diff with diarrhea - Cdiff neg 7) COPD 8) CHF Plan: -f/u TTE and C-reactive protein (CRP) - pending -continue vancomycin for MRSE bacteremia and ceftriaxone for E coli UTI -kidney US-pending -contact isolation due to diarrhea -upon discharge will do vancomycin IV for 2 weeks if TTE negative for vegetations Thank you for your consultation, will follow up with you. Julianna Rosa MD Infectious Diseases Specialist [facility] ([facility]) M [phone] O [phone] Subjective Date of service: 12/12/17 Principal diagnosis: end-stage renal disease with acute decompensation, AMS, hyperkalemia, respi Interval history: Feels some better, diarrhea has decreased. No fever. Microbiology: Blood cultures: 2/1 MRSE 2 of 4 bottles and GNR 1 of 4 bottles 2/4 ngtd Urine cultures: 2/2 MDR E coli 2/4 ngtd Respiratory cultures: tracheal asp 2/3 MDR Kleb, Serratia and Wound cultures: Stool cultures: Other: Current Antimicrobials: ceftriaxone 2/5 vanco 2/5 Previous Antimicrobials: Zosyn 2/1 Objective - Exam Narrative Exam: General appearance: Alert in NAD, conversant, debilitated Eyes: anicteric sclerae, moist conjunctivae; no lid-lag; PERRLA HENT: Atraumatic; oropharynx clear with poor dentiton Neck: Trachea midline; supple, no thyromegaly or lymphadenopathy Lungs: rene coarse BS CV: rrr Abdomen: Soft, non-tender; no masses or hepatosplenomegaly + rectal tube Extremities: No peripheral edema or extremity lymphadenopathy. AVF ? Skin: Normal temperature, turgor and texture; no rash, ulcers or subcutaneous nodules Psych: Appropriate affect, alert and oriented to person, place and time. Neuro: alert and oriented x 3. Moving all extermities Lines: Right fem TLC - Constitutional Vitals: Vital Signs Temp Pulse Resp BP Pulse Ox 98.4 F 77 13 88/66 99 12/12/17 11:53 12/12/17 08:00 12/12/17 08:00 12/12/17 08:00 12/12/17 08:00 Temperature -Last 24 Hours Temperature 98.4 F Temperature 97.3 F Temperature 97.1 F Temperature 97.0 F Temperature 97.8 F - Labs CBC & Chem 7: 12/12/17 04:00 12/12/17 04:00 Labs: Abnormal lab results 12/11/17 12/11/17 12/12/17 Range/Units 18:42 23:53 04:00 RBC 2.33 L (3.65-5.03) M/mm3 Hgb 7.0 L (11.8-15.2) gm/dl Hct 21.5 L (35.5-45.6) % RDW 15.7 H (13.2-15.2) % Plt Count 120 L (140-440) K/mm3 Chloride (98-107) mmol/L BUN (9-20) mg/dL Creatinine (0.8-1.5) mg/dL Glucose (75-100) mg/dL POC Glucose 372 H 349 H (70-105) Calcium (8.4-10.2) mg/dL 12/12/17 12/12/17 12/12/17 Range/Units 04:00 05:43 08:39 RBC (3.65-5.03) M/mm3 Hgb (11.8-15.2) gm/dl Hct (35.5-45.6) % RDW (13.2-15.2) % Plt Count (140-440) K/mm3 Chloride 97.3 L (98-107) mmol/L BUN 41 H (9-20) mg/dL Creatinine 5.9 H (0.8-1.5) mg/dL Glucose 271 H (75-100) mg/dL POC Glucose 321 H 245 H (70-105) Calcium 7.5 L (8.4-10.2) mg/dL 12/12/17 Range/Units 11:33 RBC (3.65-5.03) M/mm3 Hgb (11.8-15.2) gm/dl Hct (35.5-45.6) % RDW (13.2-15.2) % Plt Count (140-440) K/mm3 Chloride (98-107) mmol/L BUN (9-20) mg/dL Creatinine (0.8-1.5) mg/dL Glucose (75-100) mg/dL POC Glucose 386 H (70-105) Calcium (8.4-10.2) mg/dL
[2017-12-12] MEDS: cefTRIAXone 1 GM in NACL 0.9% 20 ML IV SCH (21:05)
[2017-12-13] MEDS: NOVOLOG SUB-Q SCH ×6 (01:37→22:26)
[2017-12-13] MEDS: PERCOCET 5/325 PO PRN ×3 (05:09→22:34)
[2017-12-13] MEDS ORDERED: NOVOLOG SUB-Q ONE (06:23)
[2017-12-13 08:27] LABS: Calcium 7.7 mg/dL (8.4-10.2)
--- NOTE | 2017-12-13 09:28 | Progress Note ---
Assessment and Plan - Patient Problems (1) ESRD (end stage renal disease) on dialysis Current Visit: Yes Status: Acute Plan to address problem: Impression: * S/P malignant hyperkalemia - improved * S/P Severe metabolic acidosis - Bicarb was 2 at admission, improved * ESRD-HD on M/W/F * Acute respiratory failure-improved * Hypotension / sepsis/bacteremia/ UTI with E.coli Anemia in ESRD * Type I DM-brittle Plan * Hemodialysis MWF; UF as tolerated Epogen per protocol * Transfuse PRBC per primary team * Antibiotics per ID * Dose medications for renal function * DM management per primary team (2) Anemia due to chronic kidney disease Current Visit: No Status: Chronic (3) Hypertension Current Visit: No Status: Chronic Subjective Date of service: 12/13/17 Principal diagnosis: end-stage renal disease with acute decompensation, AMS, hyperkalemia, respi Interval history: Feels weak. Alert, oriented to person, denies CP or SOB. Appetite-poor Objective - Vital Signs Vital signs: Vital Signs - 12hr 12/13/17 12/13/17 00:19 00:40 Temperature 98.1 F Pulse Rate 80 Respiratory 18 Rate Blood Pressure 106/66 100/64 O2 Sat by Pulse 63 L Oximetry - General Appearance General appearance: chronically ill EENT: mucous membranes dry Neck: no JVD Respiratory: Present: Decreased Breath Sounds Cardiology: regular, systolic murmur Gastrointestinal: normoactive bowel sounds Neurologic: alert and oriented x3 Psychiatric: cooperative - Lab 12/12/17 04:00 12/13/17 07:19 Most recent lab results Calcium 7.7 mg/dL (8.4-10.2) L 12/13/17 07:19
--- NOTE | 2017-12-13 10:08 | Progress Note ---
Assessment and Plan Assessment: 1) Sepsis with initial septic shock: better. Etiology most likely bacteremia. ? skin lessions CRP=14.10 2) MRSE and GNRs bacteremia: MRSE ? unclear source ? HD access ? endocarditis. GNRs probably from urine. 3) E coli UTI 4) Respiratory failure-resolved. Tracheal asp + GNRs ? colonizers 5) Encephalopathy - better 6) History of C diff with diarrhea - Cdiff neg 7) COPD 8) CHF 9) Diarrhea; chronic for last 7 yes due to DM, Plan: -f/u TTE - pending -continue vancomycin for MRSE bacteremia and ceftriaxone for E coli UTI day 3 -kidney US-pending -continue contact isolation due to diarrhea -upon discharge will do vancomycin 1 gm IV on HD for 2 weeks until 12/24 if TTE negative for vegetations, levaquin 500 mg po Q 48hrs until 12/24 Thank you for your consultation, will follow up with you. Stephanie Arcos NP for Dr. Julianna Rosa MD Infectious Diseases Specialist [facility] ([facility]) M [phone] O [phone] Subjective Date of service: 12/13/17 Principal diagnosis: end-stage renal disease with acute decompensation, AMS, hyperkalemia, respi Interval history: Microbiology: Blood cultures: 2/1 MRSE 2 of 4 bottles and GNR 1 of 4 bottles 2/4 ngtd Urine cultures: 2/2 MDR E coli 2/4 ngtd Respiratory cultures: tracheal asp 2/3 MDR Kleb, Serratia and Wound cultures: Stool cultures: Other: Current Antimicrobials: ceftriaxone 2/5 vanco 2/5 Previous Antimicrobials: Zosyn 2/1 Objective - Exam Narrative Exam: General appearance: Alert in NAD, conversant Eyes: anicteric sclerae, moist conjunctivae; no lid-lag; PERRLA HENT: Atraumatic; oropharynx clear with poor dentiton Neck: Trachea midline; supple, no thyromegaly or lymphadenopathy Lungs: rene coarse BS CV: rrr Abdomen: Soft, non-tender; no masses or hepatosplenomegaly + rectal tube Extremities: No peripheral edema or extremity lymphadenopathy. AVF ? Skin: Normal temperature, turgor and texture; no rash, ulcers or subcutaneous nodules Psych: Appropriate affect, calm and cooperative Neuro: alert, periods of confusion. Moving all extermities Lines: Right fem TLC - Constitutional Vitals: Vital Signs Temp Pulse Resp BP Pulse Ox 97.7 F 71 18 102/75 99 12/13/17 09:00 12/13/17 09:00 12/13/17 09:00 12/13/17 09:00 12/13/17 09:00 Temperature -Last 24 Hours Temperature 97.7 F Temperature 98.1 F Temperature 97.8 F Temperature 97.6 F Temperature 98.4 F - Labs CBC & Chem 7: 12/12/17 04:00 12/13/17 07:19 Labs: Abnormal lab results 12/12/17 12/12/17 12/12/17 Range/Units 04:00 11:33 16:15 Sodium (137-145) mmol/L Potassium (3.6-5.0) mmol/L Chloride (98-107) mmol/L BUN (9-20) mg/dL Creatinine (0.8-1.5) mg/dL Glucose (75-100) mg/dL POC Glucose 386 H 454 H (70-105) Calcium (8.4-10.2) mg/dL C-Reactive Protein 14.10 H (0.00-1.30) mg/dL 12/13/17 12/13/17 12/13/17 Range/Units 01:22 04:35 05:42 Sodium (137-145) mmol/L Potassium (3.6-5.0) mmol/L Chloride (98-107) mmol/L BUN (9-20) mg/dL Creatinine (0.8-1.5) mg/dL Glucose 589 H* (75-100) mg/dL POC Glucose > 500 H 493 H (70-105) Calcium (8.4-10.2) mg/dL C-Reactive Protein (0.00-1.30) mg/dL 12/13/17 12/13/17 12/13/17 Range/Units 06:51 07:19 08:32 Sodium 135 L (137-145) mmol/L Potassium 3.5 L (3.6-5.0) mmol/L Chloride 88.8 L (98-107) mmol/L BUN 71 H (9-20) mg/dL Creatinine 6.7 H (0.8-1.5) mg/dL Glucose 545 H* (75-100) mg/dL POC Glucose > 500 H 405 H (70-105) Calcium 7.7 L (8.4-10.2) mg/dL C-Reactive Protein (0.00-1.30) mg/dL
[2017-12-13] MEDS: LEVEMIR SUB-Q SCH (10:15)
[2017-12-13] MEDS: HALFPRIN EC PO SCH (10:15)
--- NOTE | 2017-12-13 11:25 | Progress Note ---
Assessment and Plan Acute respiratory failure . Episode salt, status post intubation or mechanical ventilation support Encephalopathy, resolved Sepsis. On ABX. traches culture w Klebsiella . CXR negative Diarrhea. Currently also being monitored by ID Acute on chronic renal failure. Currently on hemodialysis ESRD Hypotension DM/Severe hyperglycemia. This was controlled at the ICU Level but Currently High Recommendations Continue hemodialysis per nephrology Continue ABx per ID. Monitor diarrhea output/c. diff sampling Serial blood sugar monitoring, short/long acting insulin adjustment. Hospitalist to monitor this. Subjective Date of service: 12/13/17 Principal diagnosis: end-stage renal disease with acute decompensation, AMS, hyperkalemia, respi Interval history: The patient reports no respiratory complaints this morning. Denies cough expectoration or shortness of breath. No fever Objective Vital Signs - 12hr 12/13/17 12/13/17 12/13/17 00:19 00:40 09:00 Temperature 98.1 F 97.7 F Pulse Rate 80 71 Respiratory 18 18 Rate Blood Pressure 106/66 100/64 102/75 O2 Sat by Pulse 63 L 99 Oximetry Constitutional: alert Eyes: non-icteric Neck: supple, no JVD Ascultation: Bilateral: clear, diminished breath sounds Percussion: Bilateral: not dull Cardiovascular: regular rate and rhythm Gastrointestinal: normoactive bowel sounds, soft Neurologic: non-focal exam, pupils equal and round, CN II-XII normal CBC and BMP: 12/12/17 04:00 12/13/17 07:19 ABG, PT/INR, D-dimer: ABG POC ABG pH 7.420 (7.35-7.45) 12/10/17 04:47 POC ABG pCO2 37.4 (35-45) 12/10/17 04:47 POC ABG pO2 119 (80-105) H 12/10/17 04:47 POC ABG HCO3 24.2 12/10/17 04:47 POC ABG Total CO2 25 12/10/17 04:47 POC ABG O2 Sat 99 12/10/17 04:47 PT/INR, D-dimer PT 20.6 Sec. (12.2-14.9) H 12/07/17 13:16 INR 1.67 (0.87-1.13) H 12/07/17 13:16 Abnormal lab findings: Abnormal Labs 0212/07/17 12/07/17 13:16 13:16 13:16 WBC RBC 2.55 L Hgb 7.7 L Hct 28.4 L MCV 111 H MCHC 27 L RDW 17.5 H Plt Count Seg Neuts % (Manual) 71.0 H Nucleated RBC % 2.0 H PT 20.6 H INR 1.67 H POC ABG pH POC ABG pCO2 POC ABG pO2 VBG pH Sodium 152 H Potassium 9.0 H* Chloride 108.7 H Carbon Dioxide 2 L* BUN 105 H Creatinine 32.6 H Glucose 128 H POC Glucose Lactic Acid Calcium 7.8 L Alkaline Phosphatase 147 H Troponin T C-Reactive Protein Total Protein Albumin 3.3 L Triglycerides LDL Cholesterol Direct HDL Cholesterol Urine WBC (Auto) 12/07/17 12/07/17 12/07/17 13:16 13:16 13:16 WBC RBC Hgb Hct MCV MCHC RDW Plt Count Seg Neuts % (Manual) Nucleated RBC % PT INR POC ABG pH POC ABG pCO2 POC ABG pO2 VBG pH 6.682 L* Sodium Potassium Chloride Carbon Dioxide BUN Creatinine Glucose POC Glucose Lactic Acid 10.20 H* Calcium Alkaline Phosphatase 148 H Troponin T C-Reactive Protein Total Protein Albumin 3.2 L Triglycerides LDL Cholesterol Direct HDL Cholesterol Urine WBC (Auto) 12/07/17 12/07/17 12/07/17 14:34 15:43 19:00 WBC RBC Hgb Hct MCV MCHC RDW Plt Count Seg Neuts % (Manual) Nucleated RBC % PT INR POC ABG pH 6.605 L POC ABG pCO2 30.3 L POC ABG pO2 626 H VBG pH Sodium Potassium Chloride Carbon Dioxide BUN Creatinine Glucose POC Glucose Lactic Acid 9.70 H* Calcium Alkaline Phosphatase Troponin T 0.195 H* C-Reactive Protein Total Protein Albumin Triglycerides 368 H LDL Cholesterol Direct 30 L HDL Cholesterol 23 L Urine WBC (Auto) 12/07/17 12/08/17 12/08/17 19:00 03:21 03:25 WBC RBC Hgb Hct MCV MCHC RDW Plt Count Seg Neuts % (Manual) Nucleated RBC % PT INR POC ABG pH POC ABG pCO2 POC ABG pO2 VBG pH Sodium Potassium 5.5 H D Chloride 96.2 L 94.5 L Carbon Dioxide 15 L D 16 L BUN 39 H 40 H Creatinine 10.1 H D 11.5 H Glucose 200 H 279 H POC Glucose Lactic Acid 3.50 H* Calcium 7.1 L 6.4 L Alkaline Phosphatase Troponin T 0.177 H* C-Reactive Protein Total Protein 6.2 L Albumin 2.7 L Triglycerides LDL Cholesterol Direct HDL Cholesterol Urine WBC (Auto) 12/08/17 12/08/17 12/09/17 04:07 04:54 06:41 WBC RBC Hgb Hct MCV MCHC RDW Plt Count Seg Neuts % (Manual) Nucleated RBC % PT INR POC ABG pH 7.318 L POC ABG pCO2 POC ABG pO2 168 H 106 H VBG pH Sodium Potassium Chloride Carbon Dioxide BUN Creatinine Glucose POC Glucose Lactic Acid Calcium Alkaline Phosphatase Troponin T C-Reactive Protein Total Protein Albumin Triglycerides LDL Cholesterol Direct HDL Cholesterol Urine WBC (Auto) > 182.0 H 12/09/17 12/09/17 12/09/17 16:12 Unknown Unknown WBC 12.2 H RBC 2.87 L Hgb 8.6 L Hct 26.7 L MCV MCHC RDW 15.7 H Plt Count Seg Neuts % (Manual) Nucleated RBC % PT INR POC ABG pH POC ABG pCO2 POC ABG pO2 VBG pH Sodium Potassium Chloride 91.8 L Carbon Dioxide 21 L BUN 26 H Creatinine 7.9 H Glucose 187 H POC Glucose 224 H Lactic Acid Calcium 7.1 L Alkaline Phosphatase Troponin T C-Reactive Protein Total Protein Albumin Triglycerides LDL Cholesterol Direct HDL Cholesterol Urine WBC (Auto) 12/10/17 12/10/17 12/10/17 04:47 12:00 12:00 WBC 11.2 H RBC 2.50 L Hgb 7.5 L Hct 23.3 L MCV MCHC RDW 15.3 H Plt Count Seg Neuts % (Manual) Nucleated RBC % PT INR POC ABG pH POC ABG pCO2 POC ABG pO2 119 H VBG pH Sodium Potassium Chloride 93.5 L Carbon Dioxide BUN 41 H Creatinine 9.2 H Glucose 254 H POC Glucose Lactic Acid Calcium 6.9 L Alkaline Phosphatase Troponin T C-Reactive Protein Total Protein Albumin Triglycerides LDL Cholesterol Direct HDL Cholesterol Urine WBC (Auto) 12/10/17 12/10/17 12/10/17 23:29 Unknown Unknown WBC 12.4 H RBC 2.59 L Hgb 7.8 L Hct 23.8 L MCV MCHC RDW 15.4 H Plt Count Seg Neuts % (Manual) Nucleated RBC % PT INR POC ABG pH POC ABG pCO2 POC ABG pO2 VBG pH Sodium Potassium Chloride 93.0 L Carbon Dioxide 21 L BUN 35 H Creatinine 8.9 H Glucose 226 H POC Glucose 315 H Lactic Acid Calcium 6.9 L Alkaline Phosphatase Troponin T C-Reactive Protein Total Protein Albumin Triglycerides LDL Cholesterol Direct HDL Cholesterol Urine WBC (Auto) 12/11/17 12/11/17 12/11/17 04:00 04:00 05:47 WBC RBC 2.41 L Hgb 7.4 L Hct 22.4 L MCV MCHC RDW 15.9 H Plt Count Seg Neuts % (Manual) Nucleated RBC % PT INR POC ABG pH POC ABG pCO2 POC ABG pO2 VBG pH Sodium Potassium Chloride 96.0 L Carbon Dioxide 19 L BUN 59 H Creatinine 10.3 H Glucose 317 H POC Glucose 359 H Lactic Acid Calcium 7.1 L Alkaline Phosphatase Troponin T C-Reactive Protein Total Protein Albumin Triglycerides LDL Cholesterol Direct HDL Cholesterol Urine WBC (Auto) 12/11/17 12/11/17 12/12/17 18:42 23:53 04:00 WBC RBC 2.33 L Hgb 7.0 L Hct 21.5 L MCV MCHC RDW 15.7 H Plt Count 120 L Seg Neuts % (Manual) Nucleated RBC % PT INR POC ABG pH POC ABG pCO2 POC ABG pO2 VBG pH Sodium Potassium Chloride Carbon Dioxide BUN Creatinine Glucose POC Glucose 372 H 349 H Lactic Acid Calcium Alkaline Phosphatase Troponin T C-Reactive Protein Total Protein Albumin Triglycerides LDL Cholesterol Direct HDL Cholesterol Urine WBC (Auto) 12/12/17 12/12/17 12/12/17 04:00 04:00 05:43 WBC RBC Hgb Hct MCV MCHC RDW Plt Count Seg Neuts % (Manual) Nucleated RBC % PT INR POC ABG pH POC ABG pCO2 POC ABG pO2 VBG pH Sodium Potassium Chloride 97.3 L Carbon Dioxide BUN 41 H Creatinine 5.9 H Glucose 271 H POC Glucose 321 H Lactic Acid Calcium 7.5 L Alkaline Phosphatase Troponin T C-Reactive Protein 14.10 H Total Protein Albumin Triglycerides LDL Cholesterol Direct HDL Cholesterol Urine WBC (Auto) 12/12/17 12/12/17 12/12/17 08:39 11:33 16:15 WBC RBC Hgb Hct MCV MCHC RDW Plt Count Seg Neuts % (Manual) Nucleated RBC % PT INR POC ABG pH POC ABG pCO2 POC ABG pO2 VBG pH Sodium Potassium Chloride Carbon Dioxide BUN Creatinine Glucose POC Glucose 245 H 386 H 454 H Lactic Acid Calcium Alkaline Phosphatase Troponin T C-Reactive Protein Total Protein Albumin Triglycerides LDL Cholesterol Direct HDL Cholesterol Urine WBC (Auto) 12/13/17 12/13/17 12/13/17 01:22 04:35 05:42 WBC RBC Hgb Hct MCV MCHC RDW Plt Count Seg Neuts % (Manual) Nucleated RBC % PT INR POC ABG pH POC ABG pCO2 POC ABG pO2 VBG pH Sodium Potassium Chloride Carbon Dioxide BUN Creatinine Glucose 589 H* POC Glucose > 500 H 493 H Lactic Acid Calcium Alkaline Phosphatase Troponin T C-Reactive Protein Total Protein Albumin Triglycerides LDL Cholesterol Direct HDL Cholesterol Urine WBC (Auto) 12/13/17 12/13/17 12/13/17 06:51 07:19 08:32 WBC RBC Hgb Hct MCV MCHC RDW Plt Count Seg Neuts % (Manual) Nucleated RBC % PT INR POC ABG pH POC ABG pCO2 POC ABG pO2 VBG pH Sodium 135 L Potassium 3.5 L Chloride 88.8 L Carbon Dioxide BUN 71 H Creatinine 6.7 H Glucose 545 H* POC Glucose > 500 H 405 H Lactic Acid Calcium 7.7 L Alkaline Phosphatase Troponin T C-Reactive Protein Total Protein Albumin Triglycerides LDL Cholesterol Direct HDL Cholesterol Urine WBC (Auto)
[2017-12-13] MEDS ORDERED: NACL 0.9 (PRIMING MACHINE ONLY DIALYSIS) MC ONE (12:24)
--- NOTE | 2017-12-13 13:40 | Progress Note ---
Assessment and Plan Assessment and plan: Patient is a 47-year-old with a history of CHF, COPD, insulin-dependent type 2 diabetes mellitus, tobacco dependency, hypertension, C. difficile, anemia of chronic disease, severe protein calorie malnutrition, skull ulcerations, end- stage renal disease on hemodialysis, DKA and chronically elevated troponin around 0.1. He was just discharged from here on 2017 after missing one week of hemodialysis. He present now after missing hemodialysis and being found unresponsive per chart. 12/08/17: pCXR: Tube placement. An endotracheal tube is in good position. The lungs are clear the mediastinal contour is unremarkable. The cardiopulmonary findings are unchanged compared to November 14, 2017. 12/09/17: pCXR: There is no evidence of an acute cardiopulmonary process. The endotracheal tube ends 6 centimeters above the edyta.. -Acute hypoxic respiratory failure: CCM is following -Shock, circulatory, on vasopressor, resolved -Acute on chronic anemia of renal disease: get stat cbc -Acute metabolic encephalopahty, comatose state: supportative care -ESRD, non compliant causing the above: Hopefully hemodialysis will save this patient. -Severe hyperkalemia due to noncompliance: Emergent hemodialysis done -H/o C diffe with diarrhea stool: send for c.diffe-->negative -DVT prophylaxis: scd only for now, repeat h/h full code 12/09/17: Still critically ill, the IV ativan has been off since yesterday per RN at bedside. He did grimace when I turned his head but his pupils are dilated and sluggish, He is still on José Miguel vasopressor at 100 mcg/min. Restraints will be renewed because of the grimacing but may not be needed, will re-access daily, He had liquid bowel movement, C.diffe and he does have a history of it. The right groin TLC is surround by diarrhea, I have asked the nurse to page the Vice President Process to get permission for Arm picc line to remove the Femoral/Right groin TLC. CCT 35 minutes. 12/10/17: In ICU now, still not moving and off sedation but he did spontaneously open his eyes, and he did cough per RN. He has a mild fever, C. diffe pending, will add iv flagyl, E. coli in urine, Staph epi blood ctx x 2. off vancomycin, consulted ID. CCT 32 mintues. 12/11/17: Extubated yesterday, work up during the night, restless and not following all commands. Will continue restraints, José Miguel gtt weaned off briefly, ok to transfer to tele if off José Miguel drip. C. diffe not resulted, Getting hemodialysis, start diet. 12/12/17: off josé miguel gtt, d/w CCM, will transfer to med surg. d/c right femoral TLC, d/w nursing. 12/13/17: continue iv vancomycin with renal monitoring, Infectious Disease is setting up abx with hemodialysis, once that is setup then he can go once cleared by ID History Interval history: Patient was seen and examined. Follow-up on current diagnosis of unresponsiveness. Patient is currently extubated and off José Miguel-Synephrine drip. He received emergent hemodialysis upon admission then the following day. Imaging , nursing note, chart, labs and old chart reviewed. Discussed with nursing at bedside. We discussed compliance, he blames other people for missing his dialysis session. Hospitalist Physical - Physical exam Narrative exam: GEN: he is awake and alert, confused orientated x 2 HEENT: > he has skull lesion which has healed NECK: supple, no adenopathy, no thyromegaly, no JVD CVS/HEART: RRR, NORMAL S1S2, NO JVD, pulses present bilaterally CHEST/LUNGS: , bilateral crackles, Symmetrical chest expansion, good air entry bilaterally GI/Abdomen: soft, ND, + bowel sounds MSK: moving all ext Neuro:follow some commands, no gross deficits Psych: asking for narcotics for back pains - Constitutional Vitals: Temp Pulse Resp BP Pulse Ox 94.4 F L 70 16 97/64 99 12/13/17 11:45 12/13/17 12:45 12/13/17 11:45 12/13/17 12:45 12/13/17 09:00 General appearance: Absent: severe distress Results - Labs CBC & Chem 7: 12/12/17 04:00 12/13/17 07:19 Labs: Laboratory Last Values WBC 6.0 K/mm3 (4.5-11.0) 12/12/17 04:00 RBC 2.33 M/mm3 (3.65-5.03) L 12/12/17 04:00 Hgb 7.0 gm/dl (11.8-15.2) L 12/12/17 04:00 Hct 21.5 % (35.5-45.6) L 12/12/17 04:00 MCV 92 fl (84-94) 12/12/17 04:00 MCH 30 pg (28-32) 12/12/17 04:00 MCHC 33 % (32-34) 12/12/17 04:00 RDW 15.7 % (13.2-15.2) H 12/12/17 04:00 Plt Count 120 K/mm3 (140-440) L 12/12/17 04:00 Add Manual Diff Complete 12/07/17 13:16 Total Counted 100 12/07/17 13:16 Seg Neuts % (Manual) 71.0 % (40.0-70.0) H 12/07/17 13:16 Band Neutrophils % 0 % 12/07/17 13:16 Lymphocytes % (Manual) 25.0 % (13.4-35.0) 12/07/17 13:16 Reactive Lymphs % (Man) 0 % 12/07/17 13:16 Monocytes % (Manual) 2.0 % (0.0-7.3) 12/07/17 13:16 Eosinophils % (Manual) 0 % (0.0-4.3) 12/07/17 13:16 Basophils % (Manual) 1.0 % (0.0-1.8) 12/07/17 13:16 Metamyelocytes % 1.0 % 12/07/17 13:16 Myelocytes % 0 % 12/07/17 13:16 Promyelocytes % 0 % 12/07/17 13:16 Blast Cells % 0 % 12/07/17 13:16 Nucleated RBC % 2.0 % (0.0-0.9) H 12/07/17 13:16 Seg Neutrophils # Man 6.5 K/mm3 (1.8-7.7) 12/07/17 13:16 Band Neutrophils # 0.0 K/mm3 12/07/17 13:16 Lymphocytes # (Manual) 2.3 K/mm3 (1.2-5.4) 12/07/17 13:16 Abs React Lymphs (Man) 0.0 K/mm3 12/07/17 13:16 Monocytes # (Manual) 0.2 K/mm3 (0.0-0.8) 12/07/17 13:16 Eosinophils # (Manual) 0.0 K/mm3 (0.0-0.4) 12/07/17 13:16 Basophils # (Manual) 0.1 K/mm3 (0.0-0.1) 12/07/17 13:16 Metamyelocytes # 0.1 K/mm3 12/07/17 13:16 Myelocytes # 0.0 K/mm3 12/07/17 13:16 Promyelocytes # 0.0 K/mm3 12/07/17 13:16 Blast Cells # 0.0 K/mm3 12/07/17 13:16 WBC Morphology Not Reportable 12/07/17 13:16 Hypersegmented Neuts Not Reportable 12/07/17 13:16 Hyposegmented Neuts Not Reportable 12/07/17 13:16 Hypogranular Neuts Not Reportable 12/07/17 13:16 Smudge Cells Not Reportable 12/07/17 13:16 Toxic Granulation Few 12/07/17 13:16 Toxic Vacuolation Few 12/07/17 13:16 Dohle Bodies Not Reportable 12/07/17 13:16 Pelger-Huet Anomaly Not Reportable 12/07/17 13:16 Mane Rods Not Reportable 12/07/17 13:16 Platelet Estimate Cons 12/07/17 13:16 Clumped Platelets Not Reportable 12/07/17 13:16 Plt Clumps, EDTA Not Reportable 12/07/17 13:16 Large Platelets Not Reportable 12/07/17 13:16 Giant Platelets Not Reportable 12/07/17 13:16 Platelet Satelliting Not Reportable 12/07/17 13:16 Plt Morphology Comment Not Reportable 12/07/17 13:16 RBC Morphology Not Reportable 12/07/17 13:16 Dimorphic RBCs Not Reportable 12/07/17 13:16 Polychromasia Not Reportable 12/07/17 13:16 Hypochromasia Not Reportable 12/07/17 13:16 Poikilocytosis 1+ 12/07/17 13:16 Anisocytosis 1+ 12/07/17 13:16 Microcytosis Not Reportable 12/07/17 13:16 Macrocytosis Not Reportable 12/07/17 13:16 Spherocytes Not Reportable 12/07/17 13:16 Pappenheimer Bodies Not Reportable 12/07/17 13:16 Sickle Cells Not Reportable 12/07/17 13:16 Target Cells Not Reportable 12/07/17 13:16 Tear Drop Cells Not Reportable 12/07/17 13:16 Ovalocytes Not Reportable 12/07/17 13:16 Helmet Cells Not Reportable 12/07/17 13:16 Toure-[place] Bodies Not Reportable 12/07/17 13:16 [place] Rings Not Reportable 12/07/17 13:16 Skyler Cells Few 12/07/17 13:16 Bite Cells Not Reportable 12/07/17 13:16 Crenated Cell Not Reportable 12/07/17 13:16 Elliptocytes Not Reportable 12/07/17 13:16 Acanthocytes (Spur) 1+ 12/07/17 13:16 Rouleaux Not Reportable 12/07/17 13:16 Hemoglobin C Crystals Not Reportable 12/07/17 13:16 Schistocytes Not Reportable 12/07/17 13:16 Malaria parasites Not Reportable 12/07/17 13:16 Dillon Bodies Not Reportable 12/07/17 13:16 Hem Pathologist Commnt No 12/07/17 13:16 PT 20.6 Sec. (12.2-14.9) H 12/07/17 13:16 INR 1.67 (0.87-1.13) H 12/07/17 13:16 APTT 35.4 Sec. (24.2-36.6) 12/08/17 08:48 POC ABG pH 7.420 (7.35-7.45) 12/10/17 04:47 POC ABG pCO2 37.4 (35-45) 12/10/17 04:47 POC ABG pO2 119 (80-105) H 12/10/17 04:47 POC ABG HCO3 24.2 12/10/17 04:47 POC ABG Total CO2 25 12/10/17 04:47 POC ABG O2 Sat 99 12/10/17 04:47 POC ABG Base Excess 0 12/10/17 04:47 VBG pH 6.682 (7.320-7.420) L* 12/07/17 13:16 FiO2 28 % 12/10/17 04:47 Sodium 135 mmol/L (137-145) L 12/13/17 07:19 Potassium 3.5 mmol/L (3.6-5.0) L 12/13/17 07:19 Chloride 88.8 mmol/L (98-107) L 12/13/17 07:19 Carbon Dioxide 22 mmol/L (22-30) 12/13/17 07:19 Anion Gap 28 mmol/L 12/13/17 07:19 BUN 71 mg/dL (9-20) H 12/13/17 07:19 Creatinine 6.7 mg/dL (0.8-1.5) H 12/13/17 07:19 Estimated GFR 11 ml/min 12/13/17 07:19 BUN/Creatinine Ratio 11 % 12/13/17 07:19 Glucose 545 mg/dL (75-100) H* 12/13/17 07:19 POC Glucose 405 (70-105) H 12/13/17 08:32 Lactic Acid 3.50 mmol/L (0.7-2.0) H* 12/08/17 03:21 Calcium 7.7 mg/dL (8.4-10.2) L 12/13/17 07:19 Total Bilirubin 0.30 mg/dL (0.1-1.2) 12/08/17 03:25 Direct Bilirubin < 0.2 mg/dL (0-0.2) 12/07/17 13:16 Indirect Bilirubin 0.0 mg/dL 12/07/17 13:16 AST 14 units/L (5-40) 12/08/17 03:25 ALT 11 units/L (7-56) 12/08/17 03:25 Alkaline Phosphatase 129 units/L (35-129) 12/08/17 03:25 Troponin T 0.177 ng/mL (0.00-0.029) H* 12/08/17 03:25 C-Reactive Protein 14.10 mg/dL (0.00-1.30) H 12/12/17 04:00 Total Protein 6.2 g/dL (6.3-8.2) L 12/08/17 03:25 Albumin 2.7 g/dL (3.9-5) L 12/08/17 03:25 Albumin/Globulin Ratio 0.8 % 12/08/17 03:25 Triglycerides 368 mg/dL (2-149) H 12/07/17 19:00 Cholesterol 126 mg/dL (50-199) 12/07/17 19:00 LDL Cholesterol Direct 30 mg/dL (50-130) L 12/07/17 19:00 HDL Cholesterol 23 mg/dL (40-59) L 12/07/17 19:00 Cholesterol/HDL Ratio 5.47 % 12/07/17 19:00 Urine Color Ayesha (Yellow) 12/08/17 04:07 Urine Turbidity Slightly cloudy (Clear) 12/08/17 04:07 Urine pH 6.0 (5.0-7.0) 12/08/17 04:07 Ur Specific Beggs 1.025 (1.003-1.030) 12/08/17 04:07 Urine Protein 100 mg/dl mg/dL (Negative) 12/08/17 04:07 Urine Glucose (UA) 50 mg/dL (Negative) 12/08/17 04:07 Urine Ketones 20 mg/dL (Negative) 12/08/17 04:07 Urine Blood Mod (Negative) 12/08/17 04:07 Urine Nitrite Neg (Negative) 12/08/17 04:07 Urine Bilirubin Neg (Negative) 12/08/17 04:07 Urine Urobilinogen < 2.0 mg/dL (<2.0) 12/08/17 04:07 Ur Leukocyte Esterase Mod (Negative) 12/08/17 04:07 Urine WBC (Auto) > 182.0 /HPF (0.0-6.0) H 12/08/17 04:07 Urine RBC (Auto) 72.0 /HPF (0.0-6.0) 12/08/17 04:07 Urine Bacteria (Auto) 4+ /HPF (Negative) 12/08/17 04:07 Urine Mucus 3+ /HPF 12/08/17 04:07 Random Vancomycin 11.7 ug/mL (0-40.0) 12/09/17 06:15 Urine Opiates Screen Presumptive negative 12/09/17 20:18 Urine Methadone Screen Presumptive negative 12/09/17 20:18 Ur Barbiturates Screen Presumptive negative 12/09/17 20:18 Ur Phencyclidine Scrn Presumptive negative 12/09/17 20:18 Ur Amphetamines Screen Presumptive negative 12/09/17 20:18 U Benzodiazepines Scrn Presumptive positive 12/09/17 20:18 Urine Cocaine Screen Presumptive negative 12/09/17 20:18 U Marijuana (THC) Screen Presumptive negative 12/09/17 20:18 Drugs of Abuse Note Disclamer 12/09/17 20:18 C. difficile Toxin A&B Negative (Negative) 12/09/17 10:01 Blood Type A POSITIVE 12/07/17 13:16 Antibody Screen Negative 12/07/17 13:16
[2017-12-13] MEDS ORDERED: VANCOMYCIN/NS 1 GM/250 ML 1 GM/250 ML BAG IV SCH (20:00)
[2017-12-13] MEDS: cefTRIAXone 1 GM in NACL 0.9% 20 ML IV SCH (22:24)
[2017-12-14] MEDS: PERCOCET 5/325 PO PRN ×3 (07:39→18:14)
[2017-12-14] MEDS: NOVOLOG SUB-Q SCH ×4 (07:41→23:20)
--- NOTE | 2017-12-14 08:30 | Progress Note ---
Assessment and Plan -Acute hypoxic respiratory failure: resolved, extubated, CCM is following -Shock, circulatory, on vasopressor, resolved -Acute on chronic anemia of renal disease: for blood xfusion durign HD -Acute metabolic encephalopahty, Imporved. confused: supportive care -ESRD, non compliant continue hemodialysis MWF per nephrology -Severe hyperkalemia resolved -H/o C diffe with diarrhea stool: send for c.diffe-->negative -DVT prophylaxis: scd only for now, repeat h/h - Discussed at length with pt's sister full code Subjective Date of service: 12/14/17 Principal diagnosis: end-stage renal disease with acute decompensation, AMS, hyperkalemia, respi Interval history: Patient was seen and is doing well. Objective - Constitutional Vitals: Vital Signs - 12hr 12/14/17 12/14/17 05:35 07:39 Temperature 98.1 F Pulse Rate 78 Respiratory 20 18 Rate Blood Pressure 116/73 O2 Sat by Pulse 100 Oximetry General appearance: Present: no acute distress, well-nourished - EENT Eyes: PERRL, EOM intact - Neck Neck: supple, normal ROM - Respiratory Respiratory effort: normal Respiratory: bilateral: diminished - Cardiovascular Rhythm: regular Heart Sounds: Present: S1 & S2. Absent: gallop, rub Extremities: pulses intact, No edema, normal color, Full ROM - Gastrointestinal General gastrointestinal: Present: soft, non-tender, non-distended, normal bowel sounds - Integumentary Integumentary: clear, warm, dry - Musculoskeletal Musculoskeletal: 1, strength equal bilaterally - Neurologic Neurologic: moves all extremities - Labs CBC & Chem 7: 12/12/17 04:00 12/13/17 07:19 Labs: Abnormal lab results 12/13/17 12/13/17 12/13/17 Range/Units 07:19 08:32 17:24 Glucose 545 H* (75-100) mg/dL POC Glucose 405 H 232 H (70-105) 12/13/17 Range/Units 22:29 Glucose (75-100) mg/dL POC Glucose 107 H (70-105)
--- NOTE | 2017-12-14 09:24 | Progress Note ---
Assessment and Plan - Patient Problems (1) ESRD (end stage renal disease) on dialysis Current Visit: Yes Status: Acute Plan to address problem: Impression: * S/P malignant hyperkalemia - improved * S/P Severe metabolic acidosis - Bicarb was 2 at admission, improved * ESRD-HD on M/W/F (2) IDDM (insulin dependent diabetes mellitus) Current Visit: No Status: Chronic Plan to address problem: brittle-S/P DKA (3) Anemia due to chronic kidney disease Current Visit: No Status: Chronic Plan to address problem: consider PRBC (4) Hypertension Current Visit: No Status: Chronic (5) Malnutrition Current Visit: No Status: Acute Subjective Date of service: 12/14/17 Principal diagnosis: end-stage renal disease with acute decompensation, AMS, hyperkalemia, respi Interval history: Feels weak. Alert, oriented to person, denies CP or SOB. Objective - Vital Signs Vital signs: Vital Signs - 12hr 12/14/17 12/14/17 12/14/17 05:35 07:39 08:03 Temperature 98.1 F 98.3 F Pulse Rate 78 88 Respiratory 20 18 20 Rate Blood Pressure 116/73 141/87 O2 Sat by Pulse 100 100 Oximetry - General Appearance General appearance: chronically ill EENT: mucous membranes dry Neck: no JVD Respiratory: Present: Clear to Ascultation Cardiology: regular, systolic murmur Gastrointestinal: normoactive bowel sounds Neurologic: alert and oriented x3 - Lab 12/12/17 04:00 12/13/17 07:19 Most recent lab results Calcium 7.7 mg/dL (8.4-10.2) L 12/13/17 07:19
[2017-12-14] MEDS: LEVEMIR SUB-Q SCH (09:47)
[2017-12-14] MEDS: HALFPRIN EC PO SCH (09:47)
--- NOTE | 2017-12-14 10:06 | Progress Note ---
<STEPHANIE ARCOS - Last Filed: 12/14/17 13:02> Assessment and Plan Assessment: 1) Sepsis with initial septic shock: better. Etiology most likely bacteremia. ? skin lessions CRP=14.10 2) MRSE and GNRs bacteremia: MRSE ? unclear source ? HD access ? endocarditis. GNRs culture did not grow. probably from urine. 3) E coli UTI 4) Respiratory failure-resolved. Tracheal asp + GNRs ? colonizers 5) Encephalopathy - better 6) History of C diff with diarrhea - Cdiff neg 7) COPD 8) CHF 9) Diarrhea; chronic for last 7 years due to DM, Plan: -f/u TTE - pending -continue vancomycin for MRSE bacteremia and ceftriaxone for E coli UTI day 4 -f/u kidney US-pending -continue contact isolation due to diarrhea -upon discharge will do vancomycin 1 gm IV on HD for 2 weeks until 12/24 if TTE negative for vegetations, levaquin 500 mg po Q 48hrs until 12/24 Thank you for your consultation, will follow up with you. Stephanie Arcos NP for Dr. Julianna Rosa MD Infectious Diseases Specialist [facility] ([facility] M [phone] O [phone] Subjective Date of service: 12/14/17 Principal diagnosis: end-stage renal disease with acute decompensation, AMS, hyperkalemia, respi Interval history: I just want to go home, no fever Microbiology: Blood cultures: 2/1 MRSE 2 of 4 bottles and GNR 1 of 4 bottles 2/4 ngtd Urine cultures: 2/2 MDR E coli 2/4 ngtd Respiratory cultures: tracheal asp 2/3 MDR Kleb, Serratia and Wound cultures: Stool cultures: Other: Current Antimicrobials: ceftriaxone 2/5 vanco 2/5 Previous Antimicrobials: Zosyn 2/1 Objective - Exam Narrative Exam: General appearance: Alert in NAD, conversant Eyes: anicteric sclerae, moist conjunctivae; no lid-lag; PERRLA HENT: Atraumatic; oropharynx clear with poor dentiton Neck: Trachea midline; supple, no thyromegaly or lymphadenopathy Lungs: diminish bilaterally CV: rrr Abdomen: Soft, non-tender; no masses or hepatosplenomegaly Extremities: No peripheral edema or extremity lymphadenopathy. AVF ? Skin: Normal temperature, turgor and texture; no rash, ulcers or subcutaneous nodules Psych: Appropriate affect, calm and cooperative Neuro: alert, periods of confusion. Moving all extermities Lines: Right fem TLC - Constitutional Vitals: Vital Signs Temp Pulse Resp BP Pulse Ox 98.3 F 88 20 141/87 100 12/14/17 08:03 12/14/17 08:03 12/14/17 08:39 12/14/17 08:03 12/14/17 09:40 Temperature -Last 24 Hours Temperature 98.3 F Temperature 98.1 F Temperature 97.9 F Temperature 97.6 F Temperature 98.2 F Temperature 94.4 F - Labs CBC & Chem 7: 12/12/17 04:00 12/13/17 07:19 Labs: Abnormal lab results 12/13/17 12/13/17 Range/Units 17:24 22:29 POC Glucose 232 H 107 H (70-105) <JULIANNA AGUILAR - Last Filed: 12/14/17 16:09> Assessment and Plan I have personally interviewed and examined patient. I personally discussed and directed assessment and management with COMPOSITION FLOOR SETTER Stephanie. TTE is pending-if vegetation will do 6 weeks IV vancomycin. Patient wants to go home today I told him we were wating for echo result. Julianna Bailey MD Objective - Constitutional Vitals: Vital Signs Temp Pulse Resp BP Pulse Ox 98.3 F 88 18 141/87 100 12/14/17 08:03 12/14/17 08:03 12/14/17 12:27 12/14/17 08:03 12/14/17 09:40 Temperature -Last 24 Hours Temperature 98.3 F Temperature 98.1 F Temperature 97.9 F Temperature 97.6 F - Labs CBC & Chem 7: 12/12/17 04:00 12/13/17 07:19 Labs: Abnormal lab results 12/13/17 12/13/17 Range/Units 17:24 22:29 POC Glucose 232 H 107 H (70-105)
--- NOTE | 2017-12-14 11:22 | Progress Note ---
Assessment and Plan Acute respiratory failure . Episode resolved, status post intubation , mechanical ventilation support Encephalopathy, resolved Sepsis. Completing ABX. + culture w Klebsiella . CXR negative Diarrhea. Currently also being monitored by ID,less this am Acute on chronic renal failure. Currently on hemodialysis ESRD Hypotension .resolved DM/Severe hyperglycemia. This was controlled at the ICU Level but Currently High Recommendations Hemodialysis per nephrology Continue ABx per ID. Monitor diarrhea output/c. diff sampling Serial blood sugar monitoring, better today Incentive spirometry DVT prophylaxis Subjective Date of service: 12/14/17 Principal diagnosis: end-stage renal disease with acute decompensation, AMS, hyperkalemia, respi Interval history: No SOB. Some RT costal pain yesterday. No cough or expectoration. Less diarrhea this am. Objective Vital Signs - 12hr 12/14/17 12/14/17 12/14/17 05:35 07:39 08:03 Temperature 98.1 F 98.3 F Pulse Rate 78 88 Respiratory 20 18 20 Rate Blood Pressure 116/73 141/87 O2 Sat by Pulse 100 100 Oximetry 12/14/17 12/14/17 08:39 09:40 Temperature Pulse Rate Respiratory 20 Rate Blood Pressure O2 Sat by Pulse 100 Oximetry Constitutional: alert Eyes: non-icteric Neck: supple, no JVD Ascultation: Bilateral: clear, diminished breath sounds Percussion: Bilateral: not dull Cardiovascular: regular rate and rhythm Gastrointestinal: normoactive bowel sounds, soft Neurologic: normal mental status, non-focal exam, pupils equal and round, CN II- XII normal Psychiatric: mood appropriate CBC and BMP: 12/12/17 04:00 12/13/17 07:19 ABG, PT/INR, D-dimer: ABG POC ABG pH 7.420 (7.35-7.45) 12/10/17 04:47 POC ABG pCO2 37.4 (35-45) 12/10/17 04:47 POC ABG pO2 119 (80-105) H 12/10/17 04:47 POC ABG HCO3 24.2 12/10/17 04:47 POC ABG Total CO2 25 12/10/17 04:47 POC ABG O2 Sat 99 12/10/17 04:47 PT/INR, D-dimer PT 20.6 Sec. (12.2-14.9) H 12/07/17 13:16 INR 1.67 (0.87-1.13) H 12/07/17 13:16 Abnormal lab findings: Abnormal Labs 12/07/17 12/07/17 12/07/17 13:16 13:16 13:16 WBC RBC 2.55 L Hgb 7.7 L Hct 28.4 L MCV 111 H MCHC 27 L RDW 17.5 H Plt Count Seg Neuts % (Manual) 71.0 H Nucleated RBC % 2.0 H PT 20.6 H INR 1.67 H POC ABG pH POC ABG pCO2 POC ABG pO2 VBG pH Sodium 152 H Potassium 9.0 H* Chloride 108.7 H Carbon Dioxide 2 L* BUN 105 H Creatinine 32.6 H Glucose 128 H POC Glucose Lactic Acid Calcium 7.8 L Alkaline Phosphatase 147 H Troponin T C-Reactive Protein Total Protein Albumin 3.3 L Triglycerides LDL Cholesterol Direct HDL Cholesterol Urine WBC (Auto) 12/07/17 12/07/17 12/07/17 13:16 13:16 13:16 WBC RBC Hgb Hct MCV MCHC RDW Plt Count Seg Neuts % (Manual) Nucleated RBC % PT INR POC ABG pH POC ABG pCO2 POC ABG pO2 VBG pH 6.682 L* Sodium Potassium Chloride Carbon Dioxide BUN Creatinine Glucose POC Glucose Lactic Acid 10.20 H* Calcium Alkaline Phosphatase 148 H Troponin T C-Reactive Protein Total Protein Albumin 3.2 L Triglycerides LDL Cholesterol Direct HDL Cholesterol Urine WBC (Auto) 12/07/17 12/07/17 12/07/17 14:34 15:43 19:00 WBC RBC Hgb Hct MCV MCHC RDW Plt Count Seg Neuts % (Manual) Nucleated RBC % PT INR POC ABG pH 6.605 L POC ABG pCO2 30.3 L POC ABG pO2 626 H VBG pH Sodium Potassium Chloride Carbon Dioxide BUN Creatinine Glucose POC Glucose Lactic Acid 9.70 H* Calcium Alkaline Phosphatase Troponin T 0.195 H* C-Reactive Protein Total Protein Albumin Triglycerides 368 H LDL Cholesterol Direct 30 L HDL Cholesterol 23 L Urine WBC (Auto) 12/07/17 12/08/17 12/08/17 19:00 03:21 03:25 WBC RBC Hgb Hct MCV MCHC RDW Plt Count Seg Neuts % (Manual) Nucleated RBC % PT INR POC ABG pH POC ABG pCO2 POC ABG pO2 VBG pH Sodium Potassium 5.5 H D Chloride 96.2 L 94.5 L Carbon Dioxide 15 L D 16 L BUN 39 H 40 H Creatinine 10.1 H D 11.5 H Glucose 200 H 279 H POC Glucose Lactic Acid 3.50 H* Calcium 7.1 L 6.4 L Alkaline Phosphatase Troponin T 0.177 H* C-Reactive Protein Total Protein 6.2 L Albumin 2.7 L Triglycerides LDL Cholesterol Direct HDL Cholesterol Urine WBC (Auto) 12/08/17 12/08/17 12/09/17 04:07 04:54 06:41 WBC RBC Hgb Hct MCV MCHC RDW Plt Count Seg Neuts % (Manual) Nucleated RBC % PT INR POC ABG pH 7.318 L POC ABG pCO2 POC ABG pO2 168 H 106 H VBG pH Sodium Potassium Chloride Carbon Dioxide BUN Creatinine Glucose POC Glucose Lactic Acid Calcium Alkaline Phosphatase Troponin T C-Reactive Protein Total Protein Albumin Triglycerides LDL Cholesterol Direct HDL Cholesterol Urine WBC (Auto) > 182.0 H 12/09/17 12/09/17 12/09/17 16:12 Unknown Unknown WBC 12.2 H RBC 2.87 L Hgb 8.6 L Hct 26.7 L MCV MCHC RDW 15.7 H Plt Count Seg Neuts % (Manual) Nucleated RBC % PT INR POC ABG pH POC ABG pCO2 POC ABG pO2 VBG pH Sodium Potassium Chloride 91.8 L Carbon Dioxide 21 L BUN 26 H Creatinine 7.9 H Glucose 187 H POC Glucose 224 H Lactic Acid Calcium 7.1 L Alkaline Phosphatase Troponin T C-Reactive Protein Total Protein Albumin Triglycerides LDL Cholesterol Direct HDL Cholesterol Urine WBC (Auto) 12/10/17 12/10/17 12/10/17 04:47 12:00 12:00 WBC 11.2 H RBC 2.50 L Hgb 7.5 L Hct 23.3 L MCV MCHC RDW 15.3 H Plt Count Seg Neuts % (Manual) Nucleated RBC % PT INR POC ABG pH POC ABG pCO2 POC ABG pO2 119 H VBG pH Sodium Potassium Chloride 93.5 L Carbon Dioxide BUN 41 H Creatinine 9.2 H Glucose 254 H POC Glucose Lactic Acid Calcium 6.9 L Alkaline Phosphatase Troponin T C-Reactive Protein Total Protein Albumin Triglycerides LDL Cholesterol Direct HDL Cholesterol Urine WBC (Auto) 12/10/17 12/10/17 12/10/17 23:29 Unknown Unknown WBC 12.4 H RBC 2.59 L Hgb 7.8 L Hct 23.8 L MCV MCHC RDW 15.4 H Plt Count Seg Neuts % (Manual) Nucleated RBC % PT INR POC ABG pH POC ABG pCO2 POC ABG pO2 VBG pH Sodium Potassium Chloride 93.0 L Carbon Dioxide 21 L BUN 35 H Creatinine 8.9 H Glucose 226 H POC Glucose 315 H Lactic Acid Calcium 6.9 L Alkaline Phosphatase Troponin T C-Reactive Protein Total Protein Albumin Triglycerides LDL Cholesterol Direct HDL Cholesterol Urine WBC (Auto) 12/11/17 12/11/17 12/11/17 04:00 04:00 05:47 WBC RBC 2.41 L Hgb 7.4 L Hct 22.4 L MCV MCHC RDW 15.9 H Plt Count Seg Neuts % (Manual) Nucleated RBC % PT INR POC ABG pH POC ABG pCO2 POC ABG pO2 VBG pH Sodium Potassium Chloride 96.0 L Carbon Dioxide 19 L BUN 59 H Creatinine 10.3 H Glucose 317 H POC Glucose 359 H Lactic Acid Calcium 7.1 L Alkaline Phosphatase Troponin T C-Reactive Protein Total Protein Albumin Triglycerides LDL Cholesterol Direct HDL Cholesterol Urine WBC (Auto) 12/11/17 12/11/17 12/12/17 18:42 23:53 04:00 WBC RBC 2.33 L Hgb 7.0 L Hct 21.5 L MCV MCHC RDW 15.7 H Plt Count 120 L Seg Neuts % (Manual) Nucleated RBC % PT INR POC ABG pH POC ABG pCO2 POC ABG pO2 VBG pH Sodium Potassium Chloride Carbon Dioxide BUN Creatinine Glucose POC Glucose 372 H 349 H Lactic Acid Calcium Alkaline Phosphatase Troponin T C-Reactive Protein Total Protein Albumin Triglycerides LDL Cholesterol Direct HDL Cholesterol Urine WBC (Auto) 12/12/17 12/12/17 12/12/17 04:00 04:00 05:43 WBC RBC Hgb Hct MCV MCHC RDW Plt Count Seg Neuts % (Manual) Nucleated RBC % PT INR POC ABG pH POC ABG pCO2 POC ABG pO2 VBG pH Sodium Potassium Chloride 97.3 L Carbon Dioxide BUN 41 H Creatinine 5.9 H Glucose 271 H POC Glucose 321 H Lactic Acid Calcium 7.5 L Alkaline Phosphatase Troponin T C-Reactive Protein 14.10 H Total Protein Albumin Triglycerides LDL Cholesterol Direct HDL Cholesterol Urine WBC (Auto) 12/12/17 12/12/17 12/12/17 08:39 11:33 16:15 WBC RBC Hgb Hct MCV MCHC RDW Plt Count Seg Neuts % (Manual) Nucleated RBC % PT INR POC ABG pH POC ABG pCO2 POC ABG pO2 VBG pH Sodium Potassium Chloride Carbon Dioxide BUN Creatinine Glucose POC Glucose 245 H 386 H 454 H Lactic Acid Calcium Alkaline Phosphatase Troponin T C-Reactive Protein Total Protein Albumin Triglycerides LDL Cholesterol Direct HDL Cholesterol Urine WBC (Auto) 12/13/17 12/13/17 12/13/17 01:22 04:35 05:42 WBC RBC Hgb Hct MCV MCHC RDW Plt Count Seg Neuts % (Manual) Nucleated RBC % PT INR POC ABG pH POC ABG pCO2 POC ABG pO2 VBG pH Sodium Potassium Chloride Carbon Dioxide BUN Creatinine Glucose 589 H* POC Glucose > 500 H 493 H Lactic Acid Calcium Alkaline Phosphatase Troponin T C-Reactive Protein Total Protein Albumin Triglycerides LDL Cholesterol Direct HDL Cholesterol Urine WBC (Auto) 12/13/17 12/13/17 12/13/17 06:51 07:19 08:32 WBC RBC Hgb Hct MCV MCHC RDW Plt Count Seg Neuts % (Manual) Nucleated RBC % PT INR POC ABG pH POC ABG pCO2 POC ABG pO2 VBG pH Sodium 135 L Potassium 3.5 L Chloride 88.8 L Carbon Dioxide BUN 71 H Creatinine 6.7 H Glucose 545 H* POC Glucose > 500 H 405 H Lactic Acid Calcium 7.7 L Alkaline Phosphatase Troponin T C-Reactive Protein Total Protein Albumin Triglycerides LDL Cholesterol Direct HDL Cholesterol Urine WBC (Auto) 12/13/17 12/13/17 17:24 22:29 WBC RBC Hgb Hct MCV MCHC RDW Plt Count Seg Neuts % (Manual) Nucleated RBC % PT INR POC ABG pH POC ABG pCO2 POC ABG pO2 VBG pH Sodium Potassium Chloride Carbon Dioxide BUN Creatinine Glucose POC Glucose 232 H 107 H Lactic Acid Calcium Alkaline Phosphatase Troponin T C-Reactive Protein Total Protein Albumin Triglycerides LDL Cholesterol Direct HDL Cholesterol Urine WBC (Auto)
[2017-12-14] MEDS ORDERED: NACL 0.9% 500 ML 500 ML IV ONE (21:29)
[2017-12-14] MEDS: cefTRIAXone 1 GM in NACL 0.9% 20 ML IV SCH (23:43)
[2017-12-15] MEDS: PERCOCET 5/325 PO PRN ×4 (00:16→17:03)
[2017-12-15 06:47] LABS: Eosinophils % (Auto) 0.6 % (0.0-4.3); Hemoglobin 6.4 gm/dl (11.8-15.2); Lymphocytes # (Auto) 0.5 K/mm3 (1.2-5.4); Mean Corpuscular HGB Conc 33 % (32-34); Mean Corpuscular Hemoglobin 30 pg (28-32); Mean Corpuscular Volume 92 fl (84-94); Monocytes # (Auto) 0.5 K/mm3 (0.0-0.8); Monocytes % (Auto) 7.7 % (0.0-7.3); Platelet Count 146 K/mm3 (140-440); Red Blood Count 2.11 M/mm3 (3.65-5.03); Red Cell Distribution Width 14.8 % (13.2-15.2)
[2017-12-15 06:54] LABS: Hematocrit 20.2 % (35.5-45.6)
[2017-12-15 07:00] LABS: Albumin 2.2 g/dL (3.9-5); Calcium 7.1 mg/dL (8.4-10.2)
--- NOTE | 2017-12-15 08:20 | Progress Note ---
Assessment and Plan -Acute hypoxic respiratory failure: resolved, extubated, [facility] is following -Shock, circulatory, on vasopressor, resolved -Acute on chronic anemia of renal disease: for blood xfusion durign HD -Acute metabolic encephalopahty, Imporved. confused: supportive care -ESRD, non compliant continue hemodialysis MWF per nephrology -Severe hyperkalemia resolved -H/o C diffe with diarrhea stool: send for c.diffe-->negative -DVT prophylaxis: scd only for now, repeat h/h Discussed with feller seam operator. Patient potassium to be supplemented during hemodialysis. He's also going to have blood transfusion at the same time Discussed with this management regarding placement. Patient is not very lucid and this time though much improved from his mental status is original admission Full code Subjective Date of service: 12/15/17 Principal diagnosis: end-stage renal disease with acute decompensation, AMS, hyperkalemia, respi Interval history: Patient was seen and is doing well. More alert Objective - Exam Narrative Exam: Constitutional: Well-nourished well-developed. In no distress Head: Normocephalic atraumatic Eyes: Pupils are equal round and reactive to light Nose: No enlarged turbinates, no septal deviation. Mouth: Moist mucous membranes. Neck: Supple no thyromegaly. No bruit. No JVD Heart: Regular rate and rhythm, S1-S2 abnormal. No rubs murmurs or gallop Lungs: Clear to auscultation bilaterally no rales or rhonchi Abdomen: Soft, nontender. Bowel sound are present. Extremities: No edema no cyanosis and no clubbing. Neuro: Alert oriented Oriented x1. No focal sensory or motor deficit. Skin: No rashes no hyperemic spots Psychiatry: Euthymic. Calm. - Constitutional Vitals: Vital Signs - 12hr 12/14/17 23:56 Temperature 98.7 F Pulse Rate 86 Respiratory 16 Rate Blood Pressure 99/56 O2 Sat by Pulse 98 Oximetry - Labs CBC & Chem 7: 12/15/17 06:14 12/15/17 06:14 Labs: Abnormal lab results 12/14/17 12/15/17 12/15/17 Range/Units 11:49 05:29 06:14 RBC (3.65-5.03) M/mm3 Hgb (11.8-15.2) gm/dl Hct (35.5-45.6) % Lymph % (Auto) (13.4-35.0) % [place] % (Auto) (0.0-7.3) % Lymph # (1.2-5.4) K/mm3 Seg Neutrophils % (40.0-70.0) % Potassium (3.6-5.0) mmol/L Chloride (98-107) mmol/L BUN (9-20) mg/dL Creatinine (0.8-1.5) mg/dL Glucose (75-100) mg/dL POC Glucose 120 H 130 H (70-105) Calcium (8.4-10.2) mg/dL ALT (7-56) units/L Total Protein (6.3-8.2) g/dL Albumin (3.9-5) g/dL Crossmatch See Detail 12/15/17 12/15/17 Range/Units 06:14 06:14 RBC 2.11 L (3.65-5.03) M/mm3 Hgb 6.4 L (11.8-15.2) gm/dl Hct 20.2 L (35.5-45.6) % Lymph % (Auto) 9.0 L (13.4-35.0) % [place] % (Auto) 7.7 H (0.0-7.3) % Lymph # 0.5 L (1.2-5.4) K/mm3 Seg Neutrophils % 82.7 H (40.0-70.0) % Potassium 2.9 L* (3.6-5.0) mmol/L Chloride 94.9 L (98-107) mmol/L BUN 38 H (9-20) mg/dL Creatinine 5.6 H (0.8-1.5) mg/dL Glucose 134 H (75-100) mg/dL POC Glucose (70-105) Calcium 7.1 L (8.4-10.2) mg/dL ALT 57 H (7-56) units/L Total Protein 5.6 L (6.3-8.2) g/dL Albumin 2.2 L (3.9-5) g/dL Crossmatch
[2017-12-15] MEDS: LEVEMIR SUB-Q SCH (08:47)
[2017-12-15] MEDS: NOVOLOG SUB-Q SCH (08:49)
[2017-12-15] MEDS ORDERED: K-DUR PO NR (09:00)
[2017-12-15] MEDS: LEVAQUIN PO SCH (10:23)
[2017-12-15] MEDS: HALFPRIN EC PO SCH (10:23)
--- NOTE | 2017-12-15 10:47 | Progress Note ---
<STEPHANIE ARCOS - Last Filed: 12/15/17 14:03> Assessment and Plan Assessment: 1) Sepsis with initial septic shock: better. Etiology most likely bacteremia. ? skin lessions CRP=14.10 2) MRSE and GNRs bacteremia: MRSE ? unclear source ? HD access ? endocarditis. GNRs culture did not grow. probably from urine. 3) E coli UTI 4) Respiratory failure-resolved. Tracheal asp + GNRs ? colonizers 5) Encephalopathy - better 6) History of C diff with diarrhea - Cdiff neg 7) COPD 8) CHF 9) Diarrhea; chronic for last 7 years due to DM, Plan: -f/u TTE - ordered STAT, call if vegetation present -continue vancomycin for MRSE bacteremia -ceftriaxone for E coli UTI day 4 -levaquin 500 mg po q 48 hrs -f/u kidney US-pending -continue contact isolation due to diarrhea -upon discharge will do vancomycin 1 gm IV on HD for 2 weeks until 12/24 if TTE negative for vegetations, levaquin 500 mg po Q 48hrs until 12/24 We will sign off Thank you for your consultation, will follow up with you. Stephanie Arcos NP for Dr. Julianna Rosa MD Infectious Diseases Specialist [facility] M [phone] O [phone] Subjective Date of service: 12/15/17 Principal diagnosis: end-stage renal disease with acute decompensation, AMS, hyperkalemia, respi Interval history: I just want to go home, no fever Microbiology: Blood cultures: 2/1 MRSE 2 of 4 bottles and GNR 1 of 4 bottles 2/4 ngtd Urine cultures: 2/2 MDR E coli 2/4 ngtd Respiratory cultures: tracheal asp 2/3 MDR Kleb, Serratia and Wound cultures: Stool cultures: Other: Current Antimicrobials: Levaquin po 2/8 vanco 2/5 Previous Antimicrobials: Zosyn 2/1 ceftriaxone Objective - Exam Narrative Exam: General appearance: Alert in NAD, conversant Eyes: anicteric sclerae, moist conjunctivae; no lid-lag; PERRLA HENT: Atraumatic; oropharynx clear with poor dentiton Neck: Trachea midline; supple, no thyromegaly or lymphadenopathy Lungs: diminish bilaterally CV: rrr Abdomen: Soft, non-tender; no masses or hepatosplenomegaly Extremities: No peripheral edema or extremity lymphadenopathy. AVF ? Skin: Normal temperature, turgor and texture; no rash, ulcers or subcutaneous nodules Psych: Appropriate affect, calm and cooperative Neuro: alert, periods of confusion. Moving all extermities Lines: Right fem TLC - Constitutional Vitals: Vital Signs Temp Pulse Resp BP Pulse Ox 98.1 F 86 18 109/69 95 12/15/17 07:45 12/15/17 07:45 12/15/17 08:46 12/15/17 07:45 12/15/17 08:52 Temperature -Last 24 Hours Temperature 98.1 F Temperature 98.6 F Temperature 98.7 F Temperature 97.8 F Temperature 98.0 F - Labs CBC & Chem 7: 12/15/17 06:14 12/15/17 06:14 Labs: Abnormal lab results 12/14/17 12/15/17 12/15/17 Range/Units 11:49 05:29 06:14 RBC (3.65-5.03) M/mm3 Hgb (11.8-15.2) gm/dl Hct (35.5-45.6) % Lymph % (Auto) (13.4-35.0) % [place] % (Auto) (0.0-7.3) % Lymph # (1.2-5.4) K/mm3 Seg Neutrophils % (40.0-70.0) % Potassium (3.6-5.0) mmol/L Chloride (98-107) mmol/L BUN (9-20) mg/dL Creatinine (0.8-1.5) mg/dL Glucose (75-100) mg/dL POC Glucose 120 H 130 H (70-105) Calcium (8.4-10.2) mg/dL ALT (7-56) units/L Total Protein (6.3-8.2) g/dL Albumin (3.9-5) g/dL Crossmatch See Detail 12/15/17 12/15/17 Range/Units 06:14 06:14 RBC 2.11 L (3.65-5.03) M/mm3 Hgb 6.4 L (11.8-15.2) gm/dl Hct 20.2 L (35.5-45.6) % Lymph % (Auto) 9.0 L (13.4-35.0) % [place] % (Auto) 7.7 H (0.0-7.3) % Lymph # 0.5 L (1.2-5.4) K/mm3 Seg Neutrophils % 82.7 H (40.0-70.0) % Potassium 2.9 L* (3.6-5.0) mmol/L Chloride 94.9 L (98-107) mmol/L BUN 38 H (9-20) mg/dL Creatinine 5.6 H (0.8-1.5) mg/dL Glucose 134 H (75-100) mg/dL POC Glucose (70-105) Calcium 7.1 L (8.4-10.2) mg/dL ALT 57 H (7-56) units/L Total Protein 5.6 L (6.3-8.2) g/dL Albumin 2.2 L (3.9-5) g/dL Crossmatch <JULIANNA AGUILAR - Last Filed: 12/15/17 16:01> Assessment and Plan I have personally interviewed and examined patient. I personally discussed and directed assessment and management with FURNACE BUILDER Nballu. I personally spoke with IM attending regarding delay on TTE. Julianna Bailey MD Objective - Constitutional Vitals: Vital Signs Temp Pulse Resp BP Pulse Ox 98.8 F 74 20 97/59 95 12/15/17 14:45 12/15/17 14:45 12/15/17 14:45 12/15/17 14:45 12/15/17 08:52 Temperature -Last 24 Hours Temperature 98.8 F Temperature 98.2 F Temperature 98.8 F Temperature 97.8 F Temperature 98.1 F Temperature 98.6 F Temperature 98.7 F Temperature 97.8 F Temperature 98.0 F - Labs CBC & Chem 7: 12/15/17 06:14 12/15/17 06:14 Labs: Abnormal lab results 12/14/17 12/15/17 12/15/17 Range/Units 11:49 05:29 06:14 RBC (3.65-5.03) M/mm3 Hgb (11.8-15.2) gm/dl Hct (35.5-45.6) % Lymph % (Auto) (13.4-35.0) % [place] % (Auto) (0.0-7.3) % Lymph # (1.2-5.4) K/mm3 Seg Neutrophils % (40.0-70.0) % Potassium (3.6-5.0) mmol/L Chloride (98-107) mmol/L BUN (9-20) mg/dL Creatinine (0.8-1.5) mg/dL Glucose (75-100) mg/dL POC Glucose 120 H 130 H (70-105) Calcium (8.4-10.2) mg/dL ALT (7-56) units/L Total Protein (6.3-8.2) g/dL Albumin (3.9-5) g/dL Crossmatch See Detail 12/15/17 12/15/17 Range/Units 06:14 06:14 RBC 2.11 L (3.65-5.03) M/mm3 Hgb 6.4 L (11.8-15.2) gm/dl Hct 20.2 L (35.5-45.6) % Lymph % (Auto) 9.0 L (13.4-35.0) % [place] % (Auto) 7.7 H (0.0-7.3) % Lymph # 0.5 L (1.2-5.4) K/mm3 Seg Neutrophils % 82.7 H (40.0-70.0) % Potassium 2.9 L* (3.6-5.0) mmol/L Chloride 94.9 L (98-107) mmol/L BUN 38 H (9-20) mg/dL Creatinine 5.6 H (0.8-1.5) mg/dL Glucose 134 H (75-100) mg/dL POC Glucose (70-105) Calcium 7.1 L (8.4-10.2) mg/dL ALT 57 H (7-56) units/L Total Protein 5.6 L (6.3-8.2) g/dL Albumin 2.2 L (3.9-5) g/dL Crossmatch
--- NOTE | 2017-12-15 11:18 | Progress Note ---
Assessment and Plan - Patient Problems (1) Acute respiratory failure Current Visit: Yes Status: Acute Qualifiers: Respiratory failure complication: hypoxia Qualified Code(s): J96.01 - Acute respiratory failure with hypoxia (2) ESRD needing dialysis Current Visit: Yes Status: Chronic (3) Sepsis Current Visit: Yes Status: Acute (4) Diarrhea Current Visit: No Status: Acute Qualifiers: Diarrhea type: unspecified type Qualified Code(s): R19.7 - Diarrhea, unspecified Subjective Principal diagnosis: end-stage renal disease with acute decompensation, AMS, hyperkalemia, respi Interval history: pt in HD Objective Vital Signs - 12hr 12/14/17 12/15/17 12/15/17 23:56 03:50 07:45 Temperature 98.7 F 98.6 F 98.1 F Pulse Rate 86 86 86 Respiratory 16 16 14 Rate Blood Pressure 99/56 107/70 109/69 O2 Sat by Pulse 98 98 100 Oximetry 12/15/17 12/15/17 08:46 08:52 Temperature Pulse Rate Respiratory 18 Rate Blood Pressure O2 Sat by Pulse 95 Oximetry Constitutional: alert Eyes: non-icteric ENT: other (orally intubated on sedation) Neck: supple, no JVD Ascultation: Bilateral: diminished breath sounds Percussion: Bilateral: not dull Cardiovascular: regular rate and rhythm Gastrointestinal: normoactive bowel sounds, soft Neurologic: normal mental status, non-focal exam, pupils equal and round, CN II- XII normal Psychiatric: mood appropriate CBC and BMP: 12/15/17 06:14 12/15/17 06:14 ABG, PT/INR, D-dimer: ABG POC ABG pH 7.420 (7.35-7.45) 12/10/17 04:47 POC ABG pCO2 37.4 (35-45) 12/10/17 04:47 POC ABG pO2 119 (80-105) H 12/10/17 04:47 POC ABG HCO3 24.2 12/10/17 04:47 POC ABG Total CO2 25 12/10/17 04:47 POC ABG O2 Sat 99 12/10/17 04:47 PT/INR, D-dimer PT 20.6 Sec. (12.2-14.9) H 12/07/17 13:16 INR 1.67 (0.87-1.13) H 12/07/17 13:16 Abnormal lab findings: Abnormal Labs 12/07/17 12/07/17 12/07/17 13:16 13:16 13:16 WBC RBC 2.55 L Hgb 7.7 L Hct 28.4 L MCV 111 H MCHC 27 L RDW 17.5 H Plt Count Lymph % (Auto) Dick[place] % (Auto) Lymph # Seg Neutrophils % Seg Neuts % (Manual) 71.0 H Nucleated RBC % 2.0 H PT 20.6 H INR 1.67 H POC ABG pH POC ABG pCO2 POC ABG pO2 VBG pH Sodium 152 H Potassium 9.0 H* Chloride 108.7 H Carbon Dioxide 2 L* BUN 105 H Creatinine 32.6 H Glucose 128 H POC Glucose Lactic Acid Calcium 7.8 L ALT Alkaline Phosphatase 147 H Troponin T C-Reactive Protein Total Protein Albumin 3.3 L Triglycerides LDL Cholesterol Direct HDL Cholesterol Urine WBC (Auto) Crossmatch 12/07/17 12/07/17 12/07/17 13:16 13:16 13:16 WBC RBC Hgb Hct MCV MCHC RDW Plt Count Lymph % (Auto) Dick[place] % (Auto) Lymph # Seg Neutrophils % Seg Neuts % (Manual) Nucleated RBC % PT INR POC ABG pH POC ABG pCO2 POC ABG pO2 VBG pH 6.682 L* Sodium Potassium Chloride Carbon Dioxide BUN Creatinine Glucose POC Glucose Lactic Acid 10.20 H* Calcium ALT Alkaline Phosphatase 148 H Troponin T C-Reactive Protein Total Protein Albumin 3.2 L Triglycerides LDL Cholesterol Direct HDL Cholesterol Urine WBC (Auto) Crossmatch 12/07/17 12/07/17 12/07/17 14:34 15:43 19:00 WBC RBC Hgb Hct MCV MCHC RDW Plt Count Lymph % (Auto) Dick[place] % (Auto) Lymph # Seg Neutrophils % Seg Neuts % (Manual) Nucleated RBC % PT INR POC ABG pH 6.605 L POC ABG pCO2 30.3 L POC ABG pO2 626 H VBG pH Sodium Potassium Chloride Carbon Dioxide BUN Creatinine Glucose POC Glucose Lactic Acid 9.70 H* Calcium ALT Alkaline Phosphatase Troponin T 0.195 H* C-Reactive Protein Total Protein Albumin Triglycerides 368 H LDL Cholesterol Direct 30 L HDL Cholesterol 23 L Urine WBC (Auto) Crossmatch 12/07/17 12/08/17 12/08/17 19:00 03:21 03:25 WBC RBC Hgb Hct MCV MCHC RDW Plt Count Lymph % (Auto) Dick[place] % (Auto) Lymph # Seg Neutrophils % Seg Neuts % (Manual) Nucleated RBC % PT INR POC ABG pH POC ABG pCO2 POC ABG pO2 VBG pH Sodium Potassium 5.5 H D Chloride 96.2 L 94.5 L Carbon Dioxide 15 L D 16 L BUN 39 H 40 H Creatinine 10.1 H D 11.5 H Glucose 200 H 279 H POC Glucose Lactic Acid 3.50 H* Calcium 7.1 L 6.4 L ALT Alkaline Phosphatase Troponin T 0.177 H* C-Reactive Protein Total Protein 6.2 L Albumin 2.7 L Triglycerides LDL Cholesterol Direct HDL Cholesterol Urine WBC (Auto) Crossmatch 12/08/17 12/08/17 12/09/17 04:07 04:54 06:41 WBC RBC Hgb Hct MCV MCHC RDW Plt Count Lymph % (Auto) Dick[place] % (Auto) Lymph # Seg Neutrophils % Seg Neuts % (Manual) Nucleated RBC % PT INR POC ABG pH 7.318 L POC ABG pCO2 POC ABG pO2 168 H 106 H VBG pH Sodium Potassium Chloride Carbon Dioxide BUN Creatinine Glucose POC Glucose Lactic Acid Calcium ALT Alkaline Phosphatase Troponin T C-Reactive Protein Total Protein Albumin Triglycerides LDL Cholesterol Direct HDL Cholesterol Urine WBC (Auto) > 182.0 H Crossmatch 12/09/17 12/09/17 12/09/17 16:12 Unknown Unknown WBC 12.2 H RBC 2.87 L Hgb 8.6 L Hct 26.7 L MCV MCHC RDW 15.7 H Plt Count Lymph % (Auto) Dick[place] % (Auto) Lymph # Seg Neutrophils % Seg Neuts % (Manual) Nucleated RBC % PT INR POC ABG pH POC ABG pCO2 POC ABG pO2 VBG pH Sodium Potassium Chloride 91.8 L Carbon Dioxide 21 L BUN 26 H Creatinine 7.9 H Glucose 187 H POC Glucose 224 H Lactic Acid Calcium 7.1 L ALT Alkaline Phosphatase Troponin T C-Reactive Protein Total Protein Albumin Triglycerides LDL Cholesterol Direct HDL Cholesterol Urine WBC (Auto) Crossmatch 12/10/17 12/10/17 12/10/17 04:47 12:00 12:00 WBC 11.2 H RBC 2.50 L Hgb 7.5 L Hct 23.3 L MCV MCHC RDW 15.3 H Plt Count Lymph % (Auto) Dick[place] % (Auto) Lymph # Seg Neutrophils % Seg Neuts % (Manual) Nucleated RBC % PT INR POC ABG pH POC ABG pCO2 POC ABG pO2 119 H VBG pH Sodium Potassium Chloride 93.5 L Carbon Dioxide BUN 41 H Creatinine 9.2 H Glucose 254 H POC Glucose Lactic Acid Calcium 6.9 L ALT Alkaline Phosphatase Troponin T C-Reactive Protein Total Protein Albumin Triglycerides LDL Cholesterol Direct HDL Cholesterol Urine WBC (Auto) Crossmatch 12/10/17 12/10/17 12/10/17 23:29 Unknown Unknown WBC 12.4 H RBC 2.59 L Hgb 7.8 L Hct 23.8 L MCV MCHC RDW 15.4 H Plt Count Lymph % (Auto) Dick[place] % (Auto) Lymph # Seg Neutrophils % Seg Neuts % (Manual) Nucleated RBC % PT INR POC ABG pH POC ABG pCO2 POC ABG pO2 VBG pH Sodium Potassium Chloride 93.0 L Carbon Dioxide 21 L BUN 35 H Creatinine 8.9 H Glucose 226 H POC Glucose 315 H Lactic Acid Calcium 6.9 L ALT Alkaline Phosphatase Troponin T C-Reactive Protein Total Protein Albumin Triglycerides LDL Cholesterol Direct HDL Cholesterol Urine WBC (Auto) Crossmatch 12/11/17 12/11/17 12/11/17 04:00 04:00 05:47 WBC RBC 2.41 L Hgb 7.4 L Hct 22.4 L MCV MCHC RDW 15.9 H Plt Count Lymph % (Auto) Dick[place] % (Auto) Lymph # Seg Neutrophils % Seg Neuts % (Manual) Nucleated RBC % PT INR POC ABG pH POC ABG pCO2 POC ABG pO2 VBG pH Sodium Potassium Chloride 96.0 L Carbon Dioxide 19 L BUN 59 H Creatinine 10.3 H Glucose 317 H POC Glucose 359 H Lactic Acid Calcium 7.1 L ALT Alkaline Phosphatase Troponin T C-Reactive Protein Total Protein Albumin Triglycerides LDL Cholesterol Direct HDL Cholesterol Urine WBC (Auto) Crossmatch 12/11/17 12/11/17 12/12/17 18:42 23:53 04:00 WBC RBC 2.33 L Hgb 7.0 L Hct 21.5 L MCV MCHC RDW 15.7 H Plt Count 120 L Lymph % (Auto) Dick[place] % (Auto) Lymph # Seg Neutrophils % Seg Neuts % (Manual) Nucleated RBC % PT INR POC ABG pH POC ABG pCO2 POC ABG pO2 VBG pH Sodium Potassium Chloride Carbon Dioxide BUN Creatinine Glucose POC Glucose 372 H 349 H Lactic Acid Calcium ALT Alkaline Phosphatase Troponin T C-Reactive Protein Total Protein Albumin Triglycerides LDL Cholesterol Direct HDL Cholesterol Urine WBC (Auto) Crossmatch 12/12/17 12/12/17 12/12/17 04:00 04:00 05:43 WBC RBC Hgb Hct MCV MCHC RDW Plt Count Lymph % (Auto) Dick[place] % (Auto) Lymph # Seg Neutrophils % Seg Neuts % (Manual) Nucleated RBC % PT INR POC ABG pH POC ABG pCO2 POC ABG pO2 VBG pH Sodium Potassium Chloride 97.3 L Carbon Dioxide BUN 41 H Creatinine 5.9 H Glucose 271 H POC Glucose 321 H Lactic Acid Calcium 7.5 L ALT Alkaline Phosphatase Troponin T C-Reactive Protein 14.10 H Total Protein Albumin Triglycerides LDL Cholesterol Direct HDL Cholesterol Urine WBC (Auto) Crossmatch 12/12/17 12/12/17 12/12/17 08:39 11:33 16:15 WBC RBC Hgb Hct MCV MCHC RDW Plt Count Lymph % (Auto) [place] % (Auto) Lymph # Seg Neutrophils % Seg Neuts % (Manual) Nucleated RBC % PT INR POC ABG pH POC ABG pCO2 POC ABG pO2 VBG pH Sodium Potassium Chloride Carbon Dioxide BUN Creatinine Glucose POC Glucose 245 H 386 H 454 H Lactic Acid Calcium ALT Alkaline Phosphatase Troponin T C-Reactive Protein Total Protein Albumin Triglycerides LDL Cholesterol Direct HDL Cholesterol Urine WBC (Auto) Crossmatch 12/13/17 12/13/17 12/13/17 01:22 04:35 05:42 WBC RBC Hgb Hct MCV MCHC RDW Plt Count Lymph % (Auto) [place] % (Auto) Lymph # Seg Neutrophils % Seg Neuts % (Manual) Nucleated RBC % PT INR POC ABG pH POC ABG pCO2 POC ABG pO2 VBG pH Sodium Potassium Chloride Carbon Dioxide BUN Creatinine Glucose 589 H* POC Glucose > 500 H 493 H Lactic Acid Calcium ALT Alkaline Phosphatase Troponin T C-Reactive Protein Total Protein Albumin Triglycerides LDL Cholesterol Direct HDL Cholesterol Urine WBC (Auto) Crossmatch 12/13/17 12/13/17 12/13/17 06:51 07:19 08:32 WBC RBC Hgb Hct MCV MCHC RDW Plt Count Lymph % (Auto) [place] % (Auto) Lymph # Seg Neutrophils % Seg Neuts % (Manual) Nucleated RBC % PT INR POC ABG pH POC ABG pCO2 POC ABG pO2 VBG pH Sodium 135 L Potassium 3.5 L Chloride 88.8 L Carbon Dioxide BUN 71 H Creatinine 6.7 H Glucose 545 H* POC Glucose > 500 H 405 H Lactic Acid Calcium 7.7 L ALT Alkaline Phosphatase Troponin T C-Reactive Protein Total Protein Albumin Triglycerides LDL Cholesterol Direct HDL Cholesterol Urine WBC (Auto) Crossmatch 12/13/17 12/13/17 12/14/17 17:24 22:29 11:49 WBC RBC Hgb Hct MCV MCHC RDW Plt Count Lymph % (Auto) [place] % (Auto) Lymph # Seg Neutrophils % Seg Neuts % (Manual) Nucleated RBC % PT INR POC ABG pH POC ABG pCO2 POC ABG pO2 VBG pH Sodium Potassium Chloride Carbon Dioxide BUN Creatinine Glucose POC Glucose 232 H 107 H 120 H Lactic Acid Calcium ALT Alkaline Phosphatase Troponin T C-Reactive Protein Total Protein Albumin Triglycerides LDL Cholesterol Direct HDL Cholesterol Urine WBC (Auto) Crossmatch 12/15/17 12/15/17 12/15/17 05:29 06:14 06:14 WBC RBC 2.11 L Hgb 6.4 L Hct 20.2 L MCV MCHC RDW Plt Count Lymph % (Auto) 9.0 L Dick[place] % (Auto) 7.7 H Lymph # 0.5 L Seg Neutrophils % 82.7 H Seg Neuts % (Manual) Nucleated RBC % PT INR POC ABG pH POC ABG pCO2 POC ABG pO2 VBG pH Sodium Potassium Chloride Carbon Dioxide BUN Creatinine Glucose POC Glucose 130 H Lactic Acid Calcium ALT Alkaline Phosphatase Troponin T C-Reactive Protein Total Protein Albumin Triglycerides LDL Cholesterol Direct HDL Cholesterol Urine WBC (Auto) Crossmatch See Detail 12/15/17 06:14 WBC RBC Hgb Hct MCV MCHC RDW Plt Count Lymph % (Auto) [place] % (Auto) Lymph # Seg Neutrophils % Seg Neuts % (Manual) Nucleated RBC % PT INR POC ABG pH POC ABG pCO2 POC ABG pO2 VBG pH Sodium Potassium 2.9 L* Chloride 94.9 L Carbon Dioxide BUN 38 H Creatinine 5.6 H Glucose 134 H POC Glucose Lactic Acid Calcium 7.1 L ALT 57 H Alkaline Phosphatase Troponin T C-Reactive Protein Total Protein 5.6 L Albumin 2.2 L Triglycerides LDL Cholesterol Direct HDL Cholesterol Urine WBC (Auto) Crossmatch
[2017-12-15] MEDS ORDERED: NACL 0.9 (PRIMING MACHINE ONLY DIALYSIS) MC ONE (12:28)
--- NOTE | 2017-12-15 12:47 | Progress Note ---
Assessment and Plan Impression: * Severe hyperkalemia - K 9 at admission, improved * Severe metabolic acidosis secondary to ESRD vs lactic acidosis - Bicarb 2 at admission, improved * ESRD * Acute respiratory failure * Hypotension r/o sepsis --Blood cx - coag negative staph (?contaminant) * Anemia secondary to ESRD vs other * Type I DM Plan * Hemodialysis MWF; UF as tolerated * UF as tolerated * Epogen TIW prn * Transfuse pRBC per primary team * adjust k bath with HD * Empiric abx per primary team * Dose medications for renal function Subjective Date of service: 12/15/17 Principal diagnosis: end-stage renal disease with acute decompensation, AMS, hyperkalemia, respi Interval history: resting well in bed today Objective - Exam Narrative Exam: General appearance: NAD EENT: ATNC, other (ETT in place) Neck: no JVD Respiratory: Present: Clear to Ascultation Cardiology: regular, S1S2 Gastrointestinal: normal, no tenderness, no distended Integumentary: no rash, warm and dry Neurologic: other (opens eyes to verbal stimuli; nods head to questions) Musculoskeletal: other (no edema) - Vital Signs Vital signs: Vital Signs - 12hr 12/15/17 12/15/17 12/15/17 03:50 07:45 08:46 Temperature 98.6 F 98.1 F Pulse Rate 86 86 Respiratory 16 14 18 Rate Blood Pressure 107/70 109/69 O2 Sat by Pulse 98 100 Oximetry 12/15/17 12/15/17 12/15/17 08:52 10:50 11:00 Temperature 97.8 F Pulse Rate 85 82 Respiratory 18 Rate Blood Pressure 114/75 113/72 O2 Sat by Pulse 95 Oximetry 12/15/17 12/15/17 12/15/17 11:15 11:30 11:45 Temperature Pulse Rate 81 80 84 Respiratory Rate Blood Pressure 111/70 103/62 94/58 O2 Sat by Pulse Oximetry 12/15/17 12/15/17 12/15/17 12:00 12:15 12:20 Temperature 98.8 F Pulse Rate 79 77 77 Respiratory 18 Rate Blood Pressure 120/63 108/64 108/64 O2 Sat by Pulse Oximetry 12/15/17 12:39 Temperature 98.2 F Pulse Rate 75 Respiratory 20 Rate Blood Pressure 106/64 O2 Sat by Pulse Oximetry - Lab 12/15/17 06:14 12/15/17 06:14 Most recent lab results Calcium 7.1 mg/dL (8.4-10.2) L 12/15/17 06:14
[2017-12-15] MEDS: D50W (25GM) Syringe IV PRN (23:13)
[2017-12-16] MEDS: NOVOLOG SUB-Q SCH ×8 (04:32→22:16)
[2017-12-16] MEDS: PERCOCET 5/325 PO PRN ×4 (04:37→23:31)
[2017-12-16 07:09] LABS: Basophils % (Auto) 0.1 % (0.0-1.8); Eosinophils # (Auto) 0.1 K/mm3 (0.0-0.4); Eosinophils % (Auto) 0.8 % (0.0-4.3); Hematocrit 25.2 % (35.5-45.6); Hemoglobin 8.5 gm/dl (11.8-15.2); Lymphocytes # (Auto) 0.7 K/mm3 (1.2-5.4); Lymphocytes % (Auto) 8.3 % (13.4-35.0); Mean Corpuscular HGB Conc 34 % (32-34); Mean Corpuscular Hemoglobin 30 pg (28-32); Mean Corpuscular Volume 90 fl (84-94); Monocytes # (Auto) 0.6 K/mm3 (0.0-0.8); Monocytes % (Auto) 7.2 % (0.0-7.3); Platelet Count 180 K/mm3 (140-440)
[2017-12-16 07:45] LABS: Albumin 2.6 g/dL (3.9-5); Calcium 7.3 mg/dL (8.4-10.2)
[2017-12-16] MEDS: LEVEMIR SUB-Q SCH ×2 (09:59→13:22)
[2017-12-16] MEDS: HALFPRIN EC PO SCH (09:59)
--- NOTE | 2017-12-16 11:33 | Progress Note ---
Assessment and Plan Acute respiratory failure . Resolved Encephalopathy, resolved Sepsis. Completing ABX. This per ID recommendations Diarrhea. Get a better Congestive heart failure with low ejection fraction Acute on chronic renal failure. ESRD Hypotension .Resolved DM/Severe hyperglycemia. Recommendations Hemodialysis per nephrology Continue ABx per ID. Monitor diarrhea output. Serial blood sugar monitoring, better today Incentive spirometry On the bed as tolerated DVT prophylaxis Reportedly plan is to discharge to nursing facility for additional care Patient can be discharged from pulmonary standpoint We'll follow up as needed Subjective Date of service: 12/16/17 Principal diagnosis: end-stage renal disease with acute decompensation, AMS, hyperkalemia, respi Interval history: No respiratory or chest complaints Objective Vital Signs - 12hr 12/15/17 12/16/17 12/16/17 23:50 04:05 07:38 Temperature 98.5 F 99.0 F 99.5 F Pulse Rate 86 95 H 89 Respiratory 18 18 18 Rate Blood Pressure 115/71 111/62 97/58 O2 Sat by Pulse 100 97 99 Oximetry Constitutional: alert Eyes: non-icteric Neck: supple, no JVD Ascultation: Bilateral: clear, diminished breath sounds Percussion: Bilateral: not dull Cardiovascular: regular rate and rhythm Gastrointestinal: normoactive bowel sounds, soft Neurologic: normal mental status, non-focal exam, pupils equal and round, CN II- XII normal Psychiatric: mood appropriate CBC and BMP: 12/16/17 06:49 12/16/17 06:49 ABG, PT/INR, D-dimer: ABG POC ABG pH 7.420 (7.35-7.45) 12/10/17 04:47 POC ABG pCO2 37.4 (35-45) 12/10/17 04:47 POC ABG pO2 119 (80-105) H 12/10/17 04:47 POC ABG HCO3 24.2 12/10/17 04:47 POC ABG Total CO2 25 12/10/17 04:47 POC ABG O2 Sat 99 12/10/17 04:47 PT/INR, D-dimer PT 20.6 Sec. (12.2-14.9) H 12/07/17 13:16 INR 1.67 (0.87-1.13) H 12/07/17 13:16 Abnormal lab findings: Abnormal Labs 12/07/17 12/07/17 12/07/17 13:16 13:16 13:16 WBC RBC 2.55 L Hgb 7.7 L Hct 28.4 L MCV 111 H MCHC 27 L RDW 17.5 H Plt Count Lymph % (Auto) [place] % (Auto) Lymph # Seg Neutrophils % Seg Neuts % (Manual) 71.0 H Nucleated RBC % 2.0 H PT 20.6 H INR 1.67 H POC ABG pH POC ABG pCO2 POC ABG pO2 VBG pH Sodium 152 H Potassium 9.0 H* Chloride 108.7 H Carbon Dioxide 2 L* BUN 105 H Creatinine 32.6 H Glucose 128 H POC Glucose Lactic Acid Calcium 7.8 L ALT Alkaline Phosphatase 147 H Troponin T C-Reactive Protein Total Protein Albumin 3.3 L Triglycerides LDL Cholesterol Direct HDL Cholesterol Urine WBC (Auto) Crossmatch 12/07/17 12/07/17 12/07/17 13:16 13:16 13:16 WBC RBC Hgb Hct MCV MCHC RDW Plt Count Lymph % (Auto) [place] % (Auto) Lymph # Seg Neutrophils % Seg Neuts % (Manual) Nucleated RBC % PT INR POC ABG pH POC ABG pCO2 POC ABG pO2 VBG pH 6.682 L* Sodium Potassium Chloride Carbon Dioxide BUN Creatinine Glucose POC Glucose Lactic Acid 10.20 H* Calcium ALT Alkaline Phosphatase 148 H Troponin T C-Reactive Protein Total Protein Albumin 3.2 L Triglycerides LDL Cholesterol Direct HDL Cholesterol Urine WBC (Auto) Crossmatch 12/07/17 12/07/17 12/07/17 14:34 15:43 19:00 WBC RBC Hgb Hct MCV MCHC RDW Plt Count Lymph % (Auto) [place] % (Auto) Lymph # Seg Neutrophils % Seg Neuts % (Manual) Nucleated RBC % PT INR POC ABG pH 6.605 L POC ABG pCO2 30.3 L POC ABG pO2 626 H VBG pH Sodium Potassium Chloride Carbon Dioxide BUN Creatinine Glucose POC Glucose Lactic Acid 9.70 H* Calcium ALT Alkaline Phosphatase Troponin T 0.195 H* C-Reactive Protein Total Protein Albumin Triglycerides 368 H LDL Cholesterol Direct 30 L HDL Cholesterol 23 L Urine WBC (Auto) Crossmatch 12/07/17 12/08/17 12/08/17 19:00 03:21 03:25 WBC RBC Hgb Hct MCV MCHC RDW Plt Count Lymph % (Auto) [place] % (Auto) Lymph # Seg Neutrophils % Seg Neuts % (Manual) Nucleated RBC % PT INR POC ABG pH POC ABG pCO2 POC ABG pO2 VBG pH Sodium Potassium 5.5 H D Chloride 96.2 L 94.5 L Carbon Dioxide 15 L D 16 L BUN 39 H 40 H Creatinine 10.1 H D 11.5 H Glucose 200 H 279 H POC Glucose Lactic Acid 3.50 H* Calcium 7.1 L 6.4 L ALT Alkaline Phosphatase Troponin T 0.177 H* C-Reactive Protein Total Protein 6.2 L Albumin 2.7 L Triglycerides LDL Cholesterol Direct HDL Cholesterol Urine WBC (Auto) Crossmatch 12/08/17 12/08/17 12/09/17 04:07 04:54 06:41 WBC RBC Hgb Hct MCV MCHC RDW Plt Count Lymph % (Auto) [place] % (Auto) Lymph # Seg Neutrophils % Seg Neuts % (Manual) Nucleated RBC % PT INR POC ABG pH 7.318 L POC ABG pCO2 POC ABG pO2 168 H 106 H VBG pH Sodium Potassium Chloride Carbon Dioxide BUN Creatinine Glucose POC Glucose Lactic Acid Calcium ALT Alkaline Phosphatase Troponin T C-Reactive Protein Total Protein Albumin Triglycerides LDL Cholesterol Direct HDL Cholesterol Urine WBC (Auto) > 182.0 H Crossmatch 12/09/17 12/09/17 12/09/17 16:12 Unknown Unknown WBC 12.2 H RBC 2.87 L Hgb 8.6 L Hct 26.7 L MCV MCHC RDW 15.7 H Plt Count Lymph % (Auto) [place] % (Auto) Lymph # Seg Neutrophils % Seg Neuts % (Manual) Nucleated RBC % PT INR POC ABG pH POC ABG pCO2 POC ABG pO2 VBG pH Sodium Potassium Chloride 91.8 L Carbon Dioxide 21 L BUN 26 H Creatinine 7.9 H Glucose 187 H POC Glucose 224 H Lactic Acid Calcium 7.1 L ALT Alkaline Phosphatase Troponin T C-Reactive Protein Total Protein Albumin Triglycerides LDL Cholesterol Direct HDL Cholesterol Urine WBC (Auto) Crossmatch 12/10/17 12/10/17 12/10/17 04:47 12:00 12:00 WBC 11.2 H RBC 2.50 L Hgb 7.5 L Hct 23.3 L MCV MCHC RDW 15.3 H Plt Count Lymph % (Auto) [place] % (Auto) Lymph # Seg Neutrophils % Seg Neuts % (Manual) Nucleated RBC % PT INR POC ABG pH POC ABG pCO2 POC ABG pO2 119 H VBG pH Sodium Potassium Chloride 93.5 L Carbon Dioxide BUN 41 H Creatinine 9.2 H Glucose 254 H POC Glucose Lactic Acid Calcium 6.9 L ALT Alkaline Phosphatase Troponin T C-Reactive Protein Total Protein Albumin Triglycerides LDL Cholesterol Direct HDL Cholesterol Urine WBC (Auto) Crossmatch 12/10/17 12/10/17 12/10/17 23:29 Unknown Unknown WBC 12.4 H RBC 2.59 L Hgb 7.8 L Hct 23.8 L MCV MCHC RDW 15.4 H Plt Count Lymph % (Auto) [place] % (Auto) Lymph # Seg Neutrophils % Seg Neuts % (Manual) Nucleated RBC % PT INR POC ABG pH POC ABG pCO2 POC ABG pO2 VBG pH Sodium Potassium Chloride 93.0 L Carbon Dioxide 21 L BUN 35 H Creatinine 8.9 H Glucose 226 H POC Glucose 315 H Lactic Acid Calcium 6.9 L ALT Alkaline Phosphatase Troponin T C-Reactive Protein Total Protein Albumin Triglycerides LDL Cholesterol Direct HDL Cholesterol Urine WBC (Auto) Crossmatch 12/11/17 12/11/17 12/11/17 04:00 04:00 05:47 WBC RBC 2.41 L Hgb 7.4 L Hct 22.4 L MCV MCHC RDW 15.9 H Plt Count Lymph % (Auto) [place] % (Auto) Lymph # Seg Neutrophils % Seg Neuts % (Manual) Nucleated RBC % PT INR POC ABG pH POC ABG pCO2 POC ABG pO2 VBG pH Sodium Potassium Chloride 96.0 L Carbon Dioxide 19 L BUN 59 H Creatinine 10.3 H Glucose 317 H POC Glucose 359 H Lactic Acid Calcium 7.1 L ALT Alkaline Phosphatase Troponin T C-Reactive Protein Total Protein Albumin Triglycerides LDL Cholesterol Direct HDL Cholesterol Urine WBC (Auto) Crossmatch 12/11/17 12/11/17 12/12/17 18:42 23:53 04:00 WBC RBC 2.33 L Hgb 7.0 L Hct 21.5 L MCV MCHC RDW 15.7 H Plt Count 120 L Lymph % (Auto) [place] % (Auto) Lymph # Seg Neutrophils % Seg Neuts % (Manual) Nucleated RBC % PT INR POC ABG pH POC ABG pCO2 POC ABG pO2 VBG pH Sodium Potassium Chloride Carbon Dioxide BUN Creatinine Glucose POC Glucose 372 H 349 H Lactic Acid Calcium ALT Alkaline Phosphatase Troponin T C-Reactive Protein Total Protein Albumin Triglycerides LDL Cholesterol Direct HDL Cholesterol Urine WBC (Auto) Crossmatch 12/12/17 12/12/17 12/12/17 04:00 04:00 05:43 WBC RBC Hgb Hct MCV MCHC RDW Plt Count Lymph % (Auto) [place] % (Auto) Lymph # Seg Neutrophils % Seg Neuts % (Manual) Nucleated RBC % PT INR POC ABG pH POC ABG pCO2 POC ABG pO2 VBG pH Sodium Potassium Chloride 97.3 L Carbon Dioxide BUN 41 H Creatinine 5.9 H Glucose 271 H POC Glucose 321 H Lactic Acid Calcium 7.5 L ALT Alkaline Phosphatase Troponin T C-Reactive Protein 14.10 H Total Protein Albumin Triglycerides LDL Cholesterol Direct HDL Cholesterol Urine WBC (Auto) Crossmatch 12/12/17 12/12/17 12/12/17 08:39 11:33 16:15 WBC RBC Hgb Hct MCV MCHC RDW Plt Count Lymph % (Auto) [place] % (Auto) Lymph # Seg Neutrophils % Seg Neuts % (Manual) Nucleated RBC % PT INR POC ABG pH POC ABG pCO2 POC ABG pO2 VBG pH Sodium Potassium Chloride Carbon Dioxide BUN Creatinine Glucose POC Glucose 245 H 386 H 454 H Lactic Acid Calcium ALT Alkaline Phosphatase Troponin T C-Reactive Protein Total Protein Albumin Triglycerides LDL Cholesterol Direct HDL Cholesterol Urine WBC (Auto) Crossmatch 12/13/17 12/13/17 12/13/17 01:22 04:35 05:42 WBC RBC Hgb Hct MCV MCHC RDW Plt Count Lymph % (Auto) [place] % (Auto) Lymph # Seg Neutrophils % Seg Neuts % (Manual) Nucleated RBC % PT INR POC ABG pH POC ABG pCO2 POC ABG pO2 VBG pH Sodium Potassium Chloride Carbon Dioxide BUN Creatinine Glucose 589 H* POC Glucose > 500 H 493 H Lactic Acid Calcium ALT Alkaline Phosphatase Troponin T C-Reactive Protein Total Protein Albumin Triglycerides LDL Cholesterol Direct HDL Cholesterol Urine WBC (Auto) Crossmatch 12/13/17 12/13/17 12/13/17 06:51 07:19 08:32 WBC RBC Hgb Hct MCV MCHC RDW Plt Count Lymph % (Auto) [place] % (Auto) Lymph # Seg Neutrophils % Seg Neuts % (Manual) Nucleated RBC % PT INR POC ABG pH POC ABG pCO2 POC ABG pO2 VBG pH Sodium 135 L Potassium 3.5 L Chloride 88.8 L Carbon Dioxide BUN 71 H Creatinine 6.7 H Glucose 545 H* POC Glucose > 500 H 405 H Lactic Acid Calcium 7.7 L ALT Alkaline Phosphatase Troponin T C-Reactive Protein Total Protein Albumin Triglycerides LDL Cholesterol Direct HDL Cholesterol Urine WBC (Auto) Crossmatch 12/13/17 12/13/17 12/14/17 17:24 22:29 11:49 WBC RBC Hgb Hct MCV MCHC RDW Plt Count Lymph % (Auto) [place] % (Auto) Lymph # Seg Neutrophils % Seg Neuts % (Manual) Nucleated RBC % PT INR POC ABG pH POC ABG pCO2 POC ABG pO2 VBG pH Sodium Potassium Chloride Carbon Dioxide BUN Creatinine Glucose POC Glucose 232 H 107 H 120 H Lactic Acid Calcium ALT Alkaline Phosphatase Troponin T C-Reactive Protein Total Protein Albumin Triglycerides LDL Cholesterol Direct HDL Cholesterol Urine WBC (Auto) Crossmatch 12/15/17 12/15/17 12/15/17 05:29 06:14 06:14 WBC RBC 2.11 L Hgb 6.4 L Hct 20.2 L MCV MCHC RDW Plt Count Lymph % (Auto) 9.0 L [place] % (Auto) 7.7 H Lymph # 0.5 L Seg Neutrophils % 82.7 H Seg Neuts % (Manual) Nucleated RBC % PT INR POC ABG pH POC ABG pCO2 POC ABG pO2 VBG pH Sodium Potassium Chloride Carbon Dioxide BUN Creatinine Glucose POC Glucose 130 H Lactic Acid Calcium ALT Alkaline Phosphatase Troponin T C-Reactive Protein Total Protein Albumin Triglycerides LDL Cholesterol Direct HDL Cholesterol Urine WBC (Auto) Crossmatch See Detail 12/15/17 12/15/17 12/16/17 06:14 23:04 00:02 WBC RBC Hgb Hct MCV MCHC RDW Plt Count Lymph % (Auto) [place] % (Auto) Lymph # Seg Neutrophils % Seg Neuts % (Manual) Nucleated RBC % PT INR POC ABG pH POC ABG pCO2 POC ABG pO2 VBG pH Sodium Potassium 2.9 L* Chloride 94.9 L Carbon Dioxide BUN 38 H Creatinine 5.6 H Glucose 134 H POC Glucose 47 L 153 H Lactic Acid Calcium 7.1 L ALT 57 H Alkaline Phosphatase Troponin T C-Reactive Protein Total Protein 5.6 L Albumin 2.2 L Triglycerides LDL Cholesterol Direct HDL Cholesterol Urine WBC (Auto) Crossmatch 12/16/17 12/16/17 12/16/17 06:00 06:49 06:49 WBC RBC 2.80 L Hgb 8.5 L Hct 25.2 L MCV MCHC RDW Plt Count Lymph % (Auto) 8.3 L [place] % (Auto) Lymph # 0.7 L Seg Neutrophils % 83.6 H Seg Neuts % (Manual) Nucleated RBC % PT INR POC ABG pH POC ABG pCO2 POC ABG pO2 VBG pH Sodium 136 L Potassium 3.4 L Chloride 95.3 L Carbon Dioxide BUN Creatinine 3.6 H Glucose 139 H POC Glucose 146 H Lactic Acid Calcium 7.3 L ALT Alkaline Phosphatase Troponin T C-Reactive Protein Total Protein Albumin 2.6 L Triglycerides LDL Cholesterol Direct HDL Cholesterol Urine WBC (Auto) Crossmatch Additional Studies: Echo report noted, ejection fraction 45%
--- NOTE | 2017-12-16 12:09 | Progress Note ---
Assessment and Plan Impression: * Severe hyperkalemia - K 9 at admission, improved * Severe metabolic acidosis secondary to ESRD vs lactic acidosis - Bicarb 2 at admission, improved * ESRD * Acute respiratory failure * Hypotension r/o sepsis --Blood cx - coag negative staph (?contaminant) * Anemia secondary to ESRD vs other * Type I DM Plan * Hemodialysis MWF; UF as tolerated * UF as tolerated * Epogen TIW prn * Transfuse pRBC per primary team * adjust k bath with HD * Empiric abx per primary team * Dose medications for renal function Subjective Date of service: 12/16/17 Principal diagnosis: end-stage renal disease with acute decompensation, AMS, hyperkalemia, respi Interval history: resting well in bed today Objective - Exam Narrative Exam: General appearance: NAD EENT: ATNC, other (ETT in place) Neck: no JVD Respiratory: Present: Clear to Ascultation Cardiology: regular, S1S2 Gastrointestinal: normal, no tenderness, no distended Integumentary: no rash, warm and dry Neurologic: other (opens eyes to verbal stimuli; nods head to questions) Musculoskeletal: other (no edema) - Vital Signs Vital signs: Vital Signs - 12hr 12/16/17 12/16/17 04:05 07:38 Temperature 99.0 F 99.5 F Pulse Rate 95 H 89 Respiratory 18 18 Rate Blood Pressure 111/62 97/58 O2 Sat by Pulse 97 99 Oximetry - Lab 12/16/17 06:49 12/16/17 06:49 Most recent lab results Calcium 7.3 mg/dL (8.4-10.2) L 12/16/17 06:49
[2017-12-16] MEDS: ZOFRAN IV PRN (14:41)
--- NOTE | 2017-12-16 15:43 | Progress Note ---
Assessment and Plan Total Time Spent with Patient (Minutes): 27min - Patient Problems (1) Acute respiratory failure Current Visit: Yes Status: Acute Qualifiers: Respiratory failure complication: hypoxia Qualified Code(s): J96.01 - Acute respiratory failure with hypoxia Plan to address problem: Patient acute hypoxic respiratory failure now extubated resolved. Patient talking without difficulty. Alert and oriented. Stable with 2 L O2. (2) ESRD (end stage renal disease) on dialysis Current Visit: Yes Status: Acute Plan to address problem: Continue hemodialysis as we're doing. Encouraged responsibility for going to dialysis. (3) Hyperkalemia Current Visit: Yes Status: Acute Plan to address problem: Resolved secondary to missed dialysis. (4) Sepsis Current Visit: Yes Status: Acute Plan to address problem: Sepsis septic shock Escherichia coli patient has a history of C. difficile but that is been negative. Continue Rocephin for Escherichia coli and vancomycin for resistant staph bacteremia. We can do the vancomycin at hemodialysis for 2 weeks Wednesdays and Fridays and the Levaquin 500 milligrams every 48 hours when patient is discharged. Discharge planning patient waiting on [facility] facility. (5) ESRD needing dialysis Current Visit: Yes Status: Chronic (6) Diarrhea Current Visit: No Status: Resolved Qualifiers: Diarrhea type: unspecified type Qualified Code(s): R19.7 - Diarrhea, unspecified Plan to address problem: History of C. difficile diarrhea has now resolved. I will folllwl up electrolytes. (7) Hyperkalemia Current Visit: No Status: Acute (8) Noncompliance with medication regimen Current Visit: No Status: Acute Plan to address problem: Encourage compliance. Patient appears to be remorseful (9) Debility Current Visit: Yes Status: Acute (10) Metabolic encephalopathy Current Visit: Yes Status: Acute History Interval history: Patient states he feels much better. Remains weak. Patient very difficult for him to get out of the bed. Spoke with who was driving back to [place] today about [facility] for assistance with rehabilitation and she agreed. health workers has been made aware. Hospitalist Physical - Constitutional Vitals: Temp Pulse Resp BP Pulse Ox 98.7 F 85 15 90/46 99 12/16/17 14:38 12/16/17 14:38 12/16/17 14:38 12/16/17 14:38 12/16/17 14:38 General appearance: Present: no acute distress, well-nourished - EENT Eyes: Present: PERRL, EOM intact - Neck Neck: Present: supple, normal ROM - Respiratory Respiratory: bilateral: diminished - Cardiovascular Rhythm: regular Heart Sounds: Present: S1 & S2, gallop - Extremities Extremities: no ischemia, pulses intact, pulses symmetrical - Abdominal General gastrointestinal: soft, non-tender, distended - Psychiatric Psychiatric: appropriate mood/affect, cooperative, other (debility bilateral weakness) - Neurologic Neurologic: CNII-XII intact, focal deficits Results - Labs CBC & Chem 7: 12/16/17 06:49 02 06:49 Labs: Laboratory Last Values WBC 8.4 K/mm3 (4.5-11.0) 12/16/17 06:49 RBC 2.80 M/mm3 (3.65-5.03) L 12/16/17 06:49 Hgb 8.5 gm/dl (11.8-15.2) L 12/16/17 06:49 Hct 25.2 % (35.5-45.6) L 12/16/17 06:49 MCV 90 fl (84-94) 12/16/17 06:49 MCH 30 pg (28-32) 12/16/17 06:49 MCHC 34 % (32-34) 12/16/17 06:49 RDW 15.0 % (13.2-15.2) 12/16/17 06:49 Plt Count 180 K/mm3 (140-440) 12/16/17 06:49 Lymph % (Auto) 8.3 % (13.4-35.0) L 12/16/17 06:49 [place] % (Auto) 7.2 % (0.0-7.3) 12/16/17 06:49 Eos % (Auto) 0.8 % (0.0-4.3) 12/16/17 06:49 Baso % (Auto) 0.1 % (0.0-1.8) 12/16/17 06:49 Lymph # 0.7 K/mm3 (1.2-5.4) L 12/16/17 06:49 [place] # 0.6 K/mm3 (0.0-0.8) 12/16/17 06:49 Eos # 0.1 K/mm3 (0.0-0.4) 12/16/17 06:49 Baso # 0.0 K/mm3 (0.0-0.1) 12/16/17 06:49 Add Manual Diff Complete 12/07/17 13:16 Total Counted 100 12/07/17 13:16 Seg Neutrophils % 83.6 % (40.0-70.0) H 12/16/17 06:49 Seg Neuts % (Manual) 71.0 % (40.0-70.0) H 12/07/17 13:16 Band Neutrophils % 0 % 12/07/17 13:16 Lymphocytes % (Manual) 25.0 % (13.4-35.0) 12/07/17 13:16 Reactive Lymphs % (Man) 0 % 12/07/17 13:16 Monocytes % (Manual) 2.0 % (0.0-7.3) 12/07/17 13:16 Eosinophils % (Manual) 0 % (0.0-4.3) 12/07/17 13:16 Basophils % (Manual) 1.0 % (0.0-1.8) 12/07/17 13:16 Metamyelocytes % 1.0 % 12/07/17 13:16 Myelocytes % 0 % 12/07/17 13:16 Promyelocytes % 0 % 12/07/17 13:16 Blast Cells % 0 % 12/07/17 13:16 Nucleated RBC % 2.0 % (0.0-0.9) H 12/07/17 13:16 Seg Neutrophils # 7.0 K/mm3 (1.8-7.7) 12/16/17 06:49 Seg Neutrophils # Man 6.5 K/mm3 (1.8-7.7) 12/07/17 13:16 Band Neutrophils # 0.0 K/mm3 12/07/17 13:16 Lymphocytes # (Manual) 2.3 K/mm3 (1.2-5.4) 12/07/17 13:16 Abs React Lymphs (Man) 0.0 K/mm3 12/07/17 13:16 Monocytes # (Manual) 0.2 K/mm3 (0.0-0.8) 12/07/17 13:16 Eosinophils # (Manual) 0.0 K/mm3 (0.0-0.4) 12/07/17 13:16 Basophils # (Manual) 0.1 K/mm3 (0.0-0.1) 12/07/17 13:16 Metamyelocytes # 0.1 K/mm3 12/07/17 13:16 Myelocytes # 0.0 K/mm3 12/07/17 13:16 Promyelocytes # 0.0 K/mm3 12/07/17 13:16 Blast Cells # 0.0 K/mm3 12/07/17 13:16 WBC Morphology Not Reportable 12/07/17 13:16 Hypersegmented Neuts Not Reportable 12/07/17 13:16 Hyposegmented Neuts Not Reportable 12/07/17 13:16 Hypogranular Neuts Not Reportable 12/07/17 13:16 Smudge Cells Not Reportable 12/07/17 13:16 Toxic Granulation Few 12/07/17 13:16 Toxic Vacuolation Few 12/07/17 13:16 Dohle Bodies Not Reportable 12/07/17 13:16 Pelger-Huet Anomaly Not Reportable 12/07/17 13:16 Mane Rods Not Reportable 12/07/17 13:16 Platelet Estimate Cons 12/07/17 13:16 Clumped Platelets Not Reportable 12/07/17 13:16 Plt Clumps, EDTA Not Reportable 12/07/17 13:16 Large Platelets Not Reportable 12/07/17 13:16 Giant Platelets Not Reportable 12/07/17 13:16 Platelet Satelliting Not Reportable 12/07/17 13:16 Plt Morphology Comment Not Reportable 12/07/17 13:16 RBC Morphology Not Reportable 12/07/17 13:16 Dimorphic RBCs Not Reportable 12/07/17 13:16 Polychromasia Not Reportable 12/07/17 13:16 Hypochromasia Not Reportable 12/07/17 13:16 Poikilocytosis 1+ 12/07/17 13:16 Anisocytosis 1+ 12/07/17 13:16 Microcytosis Not Reportable 12/07/17 13:16 Macrocytosis Not Reportable 12/07/17 13:16 Spherocytes Not Reportable 12/07/17 13:16 Pappenheimer Bodies Not Reportable 12/07/17 13:16 Sickle Cells Not Reportable 12/07/17 13:16 Target Cells Not Reportable 12/07/17 13:16 Tear Drop Cells Not Reportable 12/07/17 13:16 Ovalocytes Not Reportable 12/07/17 13:16 Helmet Cells Not Reportable 12/07/17 13:16 Toure-Avant Bodies Not Reportable 12/07/17 13:16 [place] Rings Not Reportable 12/07/17 13:16 [place] Cells Few 12/07/17 13:16 Bite Cells Not Reportable 12/07/17 13:16 Crenated Cell Not Reportable 12/07/17 13:16 Elliptocytes Not Reportable 12/07/17 13:16 Acanthocytes (Spur) 1+ 12/07/17 13:16 Rouleaux Not Reportable 12/07/17 13:16 Hemoglobin C Crystals Not Reportable 12/07/17 13:16 Schistocytes Not Reportable 12/07/17 13:16 Malaria parasites Not Reportable 12/07/17 13:16 [place] Bodies Not Reportable 12/07/17 13:16 Hem Pathologist Commnt No 12/07/17 13:16 PT 20.6 Sec. (12.2-14.9) H 12/07/17 13:16 INR 1.67 (0.87-1.13) H 12/07/17 13:16 APTT 35.4 Sec. (24.2-36.6) 12/08/17 08:48 POC ABG pH 7.420 (7.35-7.45) 12/10/17 04:47 POC ABG pCO2 37.4 (35-45) 12/10/17 04:47 POC ABG pO2 119 (80-105) H 12/10/17 04:47 POC ABG HCO3 24.2 12/10/17 04:47 POC ABG Total CO2 25 12/10/17 04:47 POC ABG O2 Sat 99 12/10/17 04:47 POC ABG Base Excess 0 12/10/17 04:47 VBG pH 6.682 (7.320-7.420) L* 12/07/17 13:16 FiO2 28 % 12/10/17 04:47 Sodium 136 mmol/L (137-145) L 12/16/17 06:49 Potassium 3.4 mmol/L (3.6-5.0) L 12/16/17 06:49 Chloride 95.3 mmol/L (98-107) L 12/16/17 06:49 Carbon Dioxide 27 mmol/L (22-30) 12/16/17 06:49 Anion Gap 17 mmol/L 12/16/17 06:49 BUN 14 mg/dL (9-20) 12/16/17 06:49 Creatinine 3.6 mg/dL (0.8-1.5) H 12/16/17 06:49 Estimated GFR 22 ml/min 12/16/17 06:49 BUN/Creatinine Ratio 4 % 12/16/17 06:49 Glucose 139 mg/dL (75-100) H 12/16/17 06:49 POC Glucose 392 (70-105) H 12/16/17 13:15 Lactic Acid 3.50 mmol/L (0.7-2.0) H* 12/08/17 03:21 Calcium 7.3 mg/dL (8.4-10.2) L 12/16/17 06:49 Total Bilirubin 0.40 mg/dL (0.1-1.2) 12/16/17 06:49 Direct Bilirubin < 0.2 mg/dL (0-0.2) 12/07/17 13:16 Indirect Bilirubin 0.0 mg/dL 12/07/17 13:16 AST 16 units/L (5-40) 12/16/17 06:49 ALT 50 units/L (7-56) 12/16/17 06:49 Alkaline Phosphatase 115 units/L (35-129) 12/16/17 06:49 Troponin T 0.177 ng/mL (0.00-0.029) H* 12/08/17 03:25 C-Reactive Protein 14.10 mg/dL (0.00-1.30) H 12/12/17 04:00 Total Protein 6.5 g/dL (6.3-8.2) 12/16/17 06:49 Albumin 2.6 g/dL (3.9-5) L 12/16/17 06:49 Albumin/Globulin Ratio 0.7 % 12/16/17 06:49 Triglycerides 368 mg/dL (2-149) H 12/07/17 19:00 Cholesterol 126 mg/dL (50-199) 12/07/17 19:00 LDL Cholesterol Direct 30 mg/dL (50-130) L 12/07/17 19:00 HDL Cholesterol 23 mg/dL (40-59) L 12/07/17 19:00 Cholesterol/HDL Ratio 5.47 % 12/07/17 19:00 Urine Color Ayesha (Yellow) 12/08/17 04:07 Urine Turbidity Slightly cloudy (Clear) 12/08/17 04:07 Urine pH 6.0 (5.0-7.0) 12/08/17 04:07 Ur Specific [employer] [place] 1.025 (1.003-1.030) 12/08/17 04:07 Urine Protein 100 mg/dl mg/dL (Negative) 12/08/17 04:07 Urine Glucose (UA) 50 mg/dL (Negative) 12/08/17 04:07 Urine Ketones 20 mg/dL (Negative) 12/08/17 04:07 Urine Blood Mod (Negative) 12/08/17 04:07 Urine Nitrite Neg (Negative) 12/08/17 04:07 Urine Bilirubin Neg (Negative) 12/08/17 04:07 Urine Urobilinogen < 2.0 mg/dL (<2.0) 12/08/17 04:07 Ur Leukocyte Esterase Mod (Negative) 12/08/17 04:07 Urine WBC (Auto) > 182.0 /HPF (0.0-6.0) H 12/08/17 04:07 Urine RBC (Auto) 72.0 /HPF (0.0-6.0) 12/08/17 04:07 Urine Bacteria (Auto) 4+ /HPF (Negative) 12/08/17 04:07 Urine Mucus 3+ /HPF 12/08/17 04:07 Random Vancomycin 11.7 ug/mL (0-40.0) 12/09/17 06:15 Urine Opiates Screen Presumptive negative 12/09/17 20:18 Urine Methadone Screen Presumptive negative 12/09/17 20:18 Ur Barbiturates Screen Presumptive negative 12/09/17 20:18 Ur Phencyclidine Scrn Presumptive negative 12/09/17 20:18 Ur Amphetamines Screen Presumptive negative 12/09/17 20:18 U Benzodiazepines Scrn Presumptive positive 12/09/17 20:18 Urine Cocaine Screen Presumptive negative 12/09/17 20:18 U Marijuana (THC) Screen Presumptive negative 12/09/17 20:18 Drugs of Abuse Note Disclamer 12/09/17 20:18 C. difficile Toxin A&B Negative (Negative) 12/09/17 10:01 Blood Type A POSITIVE 12/15/17 06:14 Antibody Screen Negative 12/15/17 06:14 Crossmatch See Detail 12/15/17 06:14 - Imaging and Cardiology EKG: report reviewed, image reviewed Chest x-ray: image reviewed CT Scan - head: image reviewed Imaging and Cardiology: JUSTINO is
[2017-12-16] MEDS: VANCOMYCIN/0.45 NS 1 GM/250 ML 1 GM/250 ML BAG IV SCH (19:42)
[2017-12-16] MEDS: D50W (25GM) Syringe IV PRN (22:17)
[2017-12-17] MEDS: PERCOCET 5/325 PO PRN ×4 (06:02→21:46)
[2017-12-17] MEDS: NOVOLOG SUB-Q SCH ×3 (07:57→17:12)
[2017-12-17] MEDS: LEVEMIR SUB-Q SCH ×2 (08:05→17:19)
[2017-12-17 08:51] LABS: Basophils % (Auto) 0.1 % (0.0-1.8); Eosinophils # (Auto) 0.1 K/mm3 (0.0-0.4); Hemoglobin 8.5 gm/dl (11.8-15.2); Lymphocytes # (Auto) 0.9 K/mm3 (1.2-5.4); Mean Corpuscular HGB Conc 33 % (32-34); Mean Corpuscular Hemoglobin 30 pg (28-32); Mean Corpuscular Volume 91 fl (84-94); Monocytes # (Auto) 1.1 K/mm3 (0.0-0.8); Monocytes % (Auto) 7.7 % (0.0-7.3); Platelet Count 234 K/mm3 (140-440); Red Blood Count 2.86 M/mm3 (3.65-5.03); Red Cell Distribution Width 15.6 % (13.2-15.2)
[2017-12-17 09:08] LABS: Albumin 2.4 g/dL (3.9-5); Calcium 6.9 mg/dL (8.4-10.2)
[2017-12-17] MEDS: ZOFRAN IV PRN ×3 (09:08→21:46)
[2017-12-17] MEDS: HALFPRIN EC PO SCH (10:52)
[2017-12-17] MEDS: LEVAQUIN PO SCH (10:53)
--- NOTE | 2017-12-17 11:55 | Progress Note ---
Assessment and Plan - Patient Problems (1) Acute respiratory failure Current Visit: Yes Status: Acute Qualifiers: Respiratory failure complication: hypoxia Qualified Code(s): J96.01 - Acute respiratory failure with hypoxia Plan to address problem: Patient acute hypoxic respiratory failure now extubated resolved. Patient talking without difficulty. Alert and oriented. Stable with 2 L O2. (2) ESRD (end stage renal disease) on dialysis Current Visit: Yes Status: Acute Plan to address problem: Continue hemodialysis as we're doing. Encouraged responsibility for going to dialysis. Proceed with hemodialysis tomorrow (3) Hyperkalemia Current Visit: Yes Status: Resolved Plan to address problem: Resolved (4) Sepsis Current Visit: Yes Status: Acute Plan to address problem: Sepsis septic shock Escherichia coli patient has a history of C. difficile but that is been negative. Continue Rocephin for Escherichia coli and vancomycin for resistant staph bacteremia. We can do the vancomycin at hemodialysis for 2 weeks Wednesdays and Fridays and the Levaquin 500 milligrams every 48 hours when patient is discharged. Discharge planning patient waiting on [facility] facility. (5) ESRD needing dialysis Current Visit: Yes Status: Chronic (6) Diarrhea Current Visit: No Status: Resolved Qualifiers: Diarrhea type: unspecified type Qualified Code(s): R19.7 - Diarrhea, unspecified (7) Hyperkalemia Current Visit: No Status: Acute (8) Noncompliance with medication regimen Current Visit: No Status: Acute Plan to address problem: Encourage compliance. Patient appears to be remorseful (9) Debility Current Visit: Yes Status: Acute Plan to address problem: Patient awaiting skilled nurse facility. Difficult for patient to get out of bed for get up and go test. Case management aware. (10) Metabolic encephalopathy Current Visit: Yes Status: Resolved Plan to address problem: Resolved. History Interval history: Patient states he feels much better. Remains weak. Patient very difficult for him to get out of the bed. Hospital course complicated by an episode of hypoglycemia Hospitalist Physical - Constitutional Vitals: Temp Pulse Resp BP Pulse Ox 98.7 F 80 16 100/59 100 12/17/17 07:30 12/17/17 07:30 12/17/17 07:30 12/17/17 07:30 12/17/17 07:30 General appearance: Present: no acute distress, well-nourished, other (weakness) - EENT Eyes: Absent: PERRL, EOM intact, conjunctival injection, exopthalmos ENT: no hearing intact, no clear oral mucosa, no dentition normal, no oropharyngeal erythema, no poor dentition - Neck Neck: Present: supple, normal ROM - Cardiovascular Rhythm: regular Heart Sounds: Present: systolic murmur - Extremities Extremities: no ischemia, pulses intact, pulses symmetrical, No edema, normal temperature, normal color, Full ROM Peripheral Pulses: within normal limits - Abdominal General gastrointestinal: soft, non-tender, non-distended, normal bowel sounds - Psychiatric Psychiatric: appropriate mood/affect, intact judgment & insight - Neurologic Neurologic: CNII-XII intact, moves all extremities Results - Labs CBC & Chem 7: 12/17/17 07:01 12/17/17 07:01 Labs: Laboratory Last Values WBC 14.4 K/mm3 (4.5-11.0) H 12/17/17 07:01 RBC 2.86 M/mm3 (3.65-5.03) L 12/17/17 07:01 Hgb 8.5 gm/dl (11.8-15.2) L 12/17/17 07:01 Hct 26.0 % (35.5-45.6) L 12/17/17 07:01 MCV 91 fl (84-94) 12/17/17 07:01 MCH 30 pg (28-32) 12/17/17 07:01 MCHC 33 % (32-34) 12/17/17 07:01 RDW 15.6 % (13.2-15.2) H 12/17/17 07:01 Plt Count 234 K/mm3 (140-440) 12/17/17 07:01 Lymph % (Auto) 6.0 % (13.4-35.0) L 12/17/17 07:01 [place] % (Auto) 7.7 % (0.0-7.3) H 12/17/17 07:01 Eos % (Auto) 1.0 % (0.0-4.3) 12/17/17 07:01 Baso % (Auto) 0.1 % (0.0-1.8) 12/17/17 07:01 Lymph # 0.9 K/mm3 (1.2-5.4) L 12/17/17 07:01 [place] # 1.1 K/mm3 (0.0-0.8) H 12/17/17 07:01 Eos # 0.1 K/mm3 (0.0-0.4) 12/17/17 07:01 Baso # 0.0 K/mm3 (0.0-0.1) 12/17/17 07:01 Add Manual Diff Complete 12/07/17 13:16 Total Counted 100 12/07/17 13:16 Seg Neutrophils % 85.2 % (40.0-70.0) H 12/17/17 07:01 Seg Neuts % (Manual) 71.0 % (40.0-70.0) H 12/07/17 13:16 Band Neutrophils % 0 % 12/07/17 13:16 Lymphocytes % (Manual) 25.0 % (13.4-35.0) 12/07/17 13:16 Reactive Lymphs % (Man) 0 % 12/07/17 13:16 Monocytes % (Manual) 2.0 % (0.0-7.3) 12/07/17 13:16 Eosinophils % (Manual) 0 % (0.0-4.3) 12/07/17 13:16 Basophils % (Manual) 1.0 % (0.0-1.8) 12/07/17 13:16 Metamyelocytes % 1.0 % 12/07/17 13:16 Myelocytes % 0 % 12/07/17 13:16 Promyelocytes % 0 % 12/07/17 13:16 Blast Cells % 0 % 12/07/17 13:16 Nucleated RBC % 2.0 % (0.0-0.9) H 12/07/17 13:16 Seg Neutrophils # 12.3 K/mm3 (1.8-7.7) H 12/17/17 07:01 Seg Neutrophils # Man 6.5 K/mm3 (1.8-7.7) 12/07/17 13:16 Band Neutrophils # 0.0 K/mm3 12/07/17 13:16 Lymphocytes # (Manual) 2.3 K/mm3 (1.2-5.4) 12/07/17 13:16 Abs React Lymphs (Man) 0.0 K/mm3 12/07/17 13:16 Monocytes # (Manual) 0.2 K/mm3 (0.0-0.8) 12/07/17 13:16 Eosinophils # (Manual) 0.0 K/mm3 (0.0-0.4) 12/07/17 13:16 Basophils # (Manual) 0.1 K/mm3 (0.0-0.1) 12/07/17 13:16 Metamyelocytes # 0.1 K/mm3 12/07/17 13:16 Myelocytes # 0.0 K/mm3 12/07/17 13:16 Promyelocytes # 0.0 K/mm3 12/07/17 13:16 Blast Cells # 0.0 K/mm3 12/07/17 13:16 WBC Morphology Not Reportable 12/07/17 13:16 Hypersegmented Neuts Not Reportable 12/07/17 13:16 Hyposegmented Neuts Not Reportable 12/07/17 13:16 Hypogranular Neuts Not Reportable 12/07/17 13:16 Smudge Cells Not Reportable 12/07/17 13:16 Toxic Granulation Few 12/07/17 13:16 Toxic Vacuolation Few 12/07/17 13:16 Dohle Bodies Not Reportable 12/07/17 13:16 Pelger-Huet Anomaly Not Reportable 12/07/17 13:16 Mane Rods Not Reportable 12/07/17 13:16 Platelet Estimate Cons 12/07/17 13:16 Clumped Platelets Not Reportable 12/07/17 13:16 Plt Clumps, EDTA Not Reportable 12/07/17 13:16 Large Platelets Not Reportable 12/07/17 13:16 Giant Platelets Not Reportable 12/07/17 13:16 Platelet Satelliting Not Reportable 12/07/17 13:16 Plt Morphology Comment Not Reportable 12/07/17 13:16 RBC Morphology Not Reportable 12/07/17 13:16 Dimorphic RBCs Not Reportable 12/07/17 13:16 Polychromasia Not Reportable 12/07/17 13:16 Hypochromasia Not Reportable 12/07/17 13:16 Poikilocytosis 1+ 12/07/17 13:16 Anisocytosis 1+ 12/07/17 13:16 Microcytosis Not Reportable 12/07/17 13:16 Macrocytosis Not Reportable 12/07/17 13:16 Spherocytes Not Reportable 12/07/17 13:16 Pappenheimer Bodies Not Reportable 12/07/17 13:16 Sickle Cells Not Reportable 12/07/17 13:16 Target Cells Not Reportable 12/07/17 13:16 Tear Drop Cells Not Reportable 12/07/17 13:16 Ovalocytes Not Reportable 12/07/17 13:16 Helmet Cells Not Reportable 12/07/17 13:16 Tou[place] Bodies Not Reportable 12/07/17 13:16 [place] Rings Not Reportable 12/07/17 13:16 [place] Cells Few 12/07/17 13:16 Bite Cells Not Reportable 12/07/17 13:16 Crenated Cell Not Reportable 12/07/17 13:16 Elliptocytes Not Reportable 12/07/17 13:16 Acanthocytes (Spur) 1+ 12/07/17 13:16 Rouleaux Not Reportable 12/07/17 13:16 Hemoglobin C Crystals Not Reportable 12/07/17 13:16 Schistocytes Not Reportable 12/07/17 13:16 Malaria parasites Not Reportable 12/07/17 13:16 [place] Bodies Not Reportable 12/07/17 13:16 Hem Pathologist Commnt No 12/07/17 13:16 PT 20.6 Sec. (12.2-14.9) H 12/07/17 13:16 INR 1.67 (0.87-1.13) H 12/07/17 13:16 APTT 35.4 Sec. (24.2-36.6) 12/08/17 08:48 POC ABG pH 7.420 (7.35-7.45) 12/10/17 04:47 POC ABG pCO2 37.4 (35-45) 12/10/17 04:47 POC ABG pO2 119 (80-105) H 12/10/17 04:47 POC ABG HCO3 24.2 12/10/17 04:47 POC ABG Total CO2 25 12/10/17 04:47 POC ABG O2 Sat 99 12/10/17 04:47 POC ABG Base Excess 0 12/10/17 04:47 VBG pH 6.682 (7.320-7.420) L* 12/07/17 13:16 FiO2 28 % 12/10/17 04:47 Sodium 136 mmol/L (137-145) L 12/17/17 07:01 Potassium 3.5 mmol/L (3.6-5.0) L 12/17/17 07:01 Chloride 96.6 mmol/L (98-107) L 12/17/17 07:01 Carbon Dioxide 25 mmol/L (22-30) 12/17/17 07:01 Anion Gap 18 mmol/L 12/17/17 07:01 BUN 20 mg/dL (9-20) 12/17/17 07:01 Creatinine 5.5 mg/dL (0.8-1.5) H D 12/17/17 07:01 Estimated GFR 13 ml/min 12/17/17 07:01 BUN/Creatinine Ratio 4 % 12/17/17 07:01 Glucose 72 mg/dL (75-100) L 12/17/17 07:01 POC Glucose 72 (70-105) 12/17/17 06:11 Lactic Acid 3.50 mmol/L (0.7-2.0) H* 12/08/17 03:21 Calcium 6.9 mg/dL (8.4-10.2) L 12/17/17 07:01 Total Bilirubin 0.40 mg/dL (0.1-1.2) 12/17/17 07:01 Direct Bilirubin < 0.2 mg/dL (0-0.2) 12/07/17 13:16 Indirect Bilirubin 0.0 mg/dL 12/07/17 13:16 AST 12 units/L (5-40) 12/17/17 07:01 ALT 35 units/L (7-56) 12/17/17 07:01 Alkaline Phosphatase 115 units/L (35-129) 12/17/17 07:01 Troponin T 0.177 ng/mL (0.00-0.029) H* 12/08/17 03:25 C-Reactive Protein 14.10 mg/dL (0.00-1.30) H 12/12/17 04:00 Total Protein 6.4 g/dL (6.3-8.2) 12/17/17 07:01 Albumin 2.4 g/dL (3.9-5) L 12/17/17 07:01 Albumin/Globulin Ratio 0.6 % 12/17/17 07:01 Triglycerides 368 mg/dL (2-149) H 12/07/17 19:00 Cholesterol 126 mg/dL (50-199) 12/07/17 19:00 LDL Cholesterol Direct 30 mg/dL (50-130) L 12/07/17 19:00 HDL Cholesterol 23 mg/dL (40-59) L 12/07/17 19:00 Cholesterol/HDL Ratio 5.47 % 12/07/17 19:00 Urine Color Ayesha (Yellow) 12/08/17 04:07 Urine Turbidity Slightly cloudy (Clear) 12/08/17 04:07 Urine pH 6.0 (5.0-7.0) 12/08/17 04:07 Ur Specific [place] 1.025 (1.003-1.030) 12/08/17 04:07 Urine Protein 100 mg/dl mg/dL (Negative) 12/08/17 04:07 Urine Glucose (UA) 50 mg/dL (Negative) 12/08/17 04:07 Urine Ketones 20 mg/dL (Negative) 12/08/17 04:07 Urine Blood Mod (Negative) 12/08/17 04:07 Urine Nitrite Neg (Negative) 12/08/17 04:07 Urine Bilirubin Neg (Negative) 12/08/17 04:07 Urine Urobilinogen < 2.0 mg/dL (<2.0) 12/08/17 04:07 Ur Leukocyte Esterase Mod (Negative) 12/08/17 04:07 Urine WBC (Auto) > 182.0 /HPF (0.0-6.0) H 12/08/17 04:07 Urine RBC (Auto) 72.0 /HPF (0.0-6.0) 12/08/17 04:07 Urine Bacteria (Auto) 4+ /HPF (Negative) 12/08/17 04:07 Urine Mucus 3+ /HPF 12/08/17 04:07 Random Vancomycin 11.7 ug/mL (0-40.0) 12/09/17 06:15 Urine Opiates Screen Presumptive negative 12/09/17 20:18 Urine Methadone Screen Presumptive negative 12/09/17 20:18 Ur Barbiturates Screen Presumptive negative 12/09/17 20:18 Ur Phencyclidine Scrn Presumptive negative 12/09/17 20:18 Ur Amphetamines Screen Presumptive negative 12/09/17 20:18 U Benzodiazepines Scrn Presumptive positive 12/09/17 20:18 Urine Cocaine Screen Presumptive negative 12/09/17 20:18 U Marijuana (THC) Screen Presumptive negative 12/09/17 20:18 Drugs of Abuse Note Disclamer 12/09/17 20:18 C. difficile Toxin A&B Negative (Negative) 12/09/17 10:01 Blood Type A POSITIVE 12/15/17 06:14 Antibody Screen Negative 12/15/17 06:14 Crossmatch See Detail 12/15/17 06:14
--- NOTE | 2017-12-17 12:21 | Progress Note ---
Assessment and Plan Impression: * Severe hyperkalemia - K 9 at admission, improved * Severe metabolic acidosis secondary to ESRD vs lactic acidosis - Bicarb 2 at admission, improved * ESRD * Acute respiratory failure * Hypotension r/o sepsis --Blood cx - coag negative staph (?contaminant) * Anemia secondary to ESRD vs other * Type I DM Plan * Hemodialysis MWF; UF as tolerated * UF as tolerated * add phoslo * Epogen TIW prn * Transfuse pRBC per primary team * 4 k bath with HD * Empiric abx per primary team * Dose medications for renal function Subjective Date of service: 12/17/17 Principal diagnosis: end-stage renal disease with acute decompensation, AMS, hyperkalemia, respi Interval history: resting well in bed today Objective - Exam Narrative Exam: General appearance: NAD EENT: ATNC, other (ETT in place) Neck: no JVD Respiratory: Present: Clear to Ascultation Cardiology: regular, S1S2 Gastrointestinal: normal, no tenderness, no distended Integumentary: no rash, warm and dry Neurologic: other (opens eyes to verbal stimuli; nods head to questions) Musculoskeletal: other (no edema) - Vital Signs Vital signs: Vital Signs - 12hr 12/17/17 12/17/17 06:16 07:30 Temperature 98.7 F Pulse Rate 80 Respiratory 16 Rate Blood Pressure 80/48 100/59 O2 Sat by Pulse 100 Oximetry - Lab 12/17/17 07:01 12/17/17 07:01 Most recent lab results Calcium 6.9 mg/dL (8.4-10.2) L 12/17/17 07:01
[2017-12-17] MEDS: PHOSLO PO SCH ×2 (17:13→21:40)
[2017-12-18] MEDS: PERCOCET 5/325 PO PRN ×4 (04:59→20:22)
[2017-12-18] MEDS: ZOFRAN IV PRN ×4 (04:59→20:24)
[2017-12-18] MEDS: NOVOLOG SUB-Q SCH ×4 (08:24→17:45)
--- NOTE | 2017-12-18 08:46 | Progress Note ---
Assessment and Plan Assessment and plan: Patient is a 47-year-old with a history of CHF, COPD, insulin-dependent type 2 diabetes mellitus, tobacco dependency, hypertension, C. difficile, anemia of chronic disease, severe protein calorie malnutrition, skull ulcerations, end- stage renal disease on hemodialysis, DKA and chronically elevated troponin around 0.1. He was just discharged from here on 2017 after missing one week of hemodialysis. He present now after missing hemodialysis and being found unresponsive per chart. Patient was subsequently admitted to the ICU and eventually extubated remained remarkably weak with recommendation to go to subacute rehabilitation on discharge. Patient continued to obtain dialysis while in the hospital. Infectious disease did recommend vancomycin at hemodialysis for 2 weeks Wednesdays and Fridays and the Levaquin 500 milligrams every 48 hours when patient is discharged. Discharge planning patient waiting on correction facility. -Acute hypoxic respiratory failure: Has been extubated and doing well on the medical floor, continue duo nebs. Pulmonary following. Will possibly need oxygen on discharge -Severe metabolic acidosis secondary to ESRD -Sepsis secondary to Escherichia coli ruled out C. difficile. Vancomycin and Levaquin per ID and discharge. Echocardiogram not revealing any evidence of vegetation. Mild elevation and WBC today no evidence of seizure of this time we 'll monitor. -Shock, circulatory, on vasopressor, resolved -Acute on chronic anemia of renal disease: Stable we'll continue to monitor -Acute metabolic encephalopahty, resolving supportative care -ESRD, non compliant causing the above: Hopefully hemodialysis will save this patient. -Severe hyperkalemia due to noncompliance: Emergent hemodialysis done on admission. -Hypertension stable continue current treatment -Diabetes mellitus with hypoglycemia stable continue current treatment well decreased sliding scale to moderate dose. Will discuss with nursing to watch how much patient has eaten and dose accordingly. -Chronic nausea start on Bentyl -Status post DKA-corrected -Severe debility: Failed get up and go test. We'll recommend correction facility for acute rehabilitation and discharge -H/o C diffe with diarrhea stool: send for c.diffe-->negative -DVT prophylaxis: scd only for now, repeat h/h full code Patient was clinically stable for discharge awaiting placement. History Interval history: Patient seen and examined this morning and not acute distress although still with intermittent nausea and vomiting the patient reports the nausea and is chronic for him. He did not have any further fever today. He is ambulating around the hallway and basilar inflammation case management does not feel the patient will benefit from inpatient rehabilitation. Likely discharge in a.m. if remains stable with home health. Hospitalist Physical - Physical exam Narrative exam: VITAL SIGNS: Reviewed. GENERAL: The patient appeared marked temporal wasting vital signs as documented. HEAD: No signs of head trauma. Temporal wasting EYES: Pupils are equal. Extraocular motions intact. EARS: Hearing grossly intact. MOUTH: Oropharynx is normal. NECK: No adenopathy, no JVD. CHEST: Chest with clear breath sounds bilaterally. No wheezes, rales, or rhonchi. CARDIAC: Regular rate and rhythm. S1 and S2, without murmurs, gallops, or rubs. VASCULAR: No Edema. Peripheral pulses normal and equal in all extremities. ABDOMEN: Soft, without detectable tenderness. Scaphoid No rebound or guarding, and no masses palpated. Bowel Sounds normal. MUSCULOSKELETAL: Good range of motion of all major joints. Extremities without clubbing, cyanosis or edema. NEUROLOGIC EXAM: Alert and oriented x 3. No focal sensory or strength deficits. Speech normal. Follows commands. PSYCHIATRIC: Mood normal. SKIN: Left upper extremity fistula. - Constitutional Vitals: Temp Pulse Resp BP Pulse Ox 99.7 F H 84 20 99/62 100 12/18/17 08:29 12/18/17 08:29 12/18/17 08:29 12/18/17 08:29 12/18/17 08:29 General appearance: Present: no acute distress, well-nourished, other (weakness) Results - Labs CBC & Chem 7: 12/17/17 07:01 12/17/17 07:01 Labs: Laboratory Last Values WBC 14.4 K/mm3 (4.5-11.0) H 12/17/17 07:01 RBC 2.86 M/mm3 (3.65-5.03) L 12/17/17 07:01 Hgb 8.5 gm/dl (11.8-15.2) L 12/17/17 07:01 Hct 26.0 % (35.5-45.6) L 12/17/17 07:01 MCV 91 fl (84-94) 12/17/17 07:01 MCH 30 pg (28-32) 12/17/17 07:01 MCHC 33 % (32-34) 12/17/17 07:01 RDW 15.6 % (13.2-15.2) H 12/17/17 07:01 Plt Count 234 K/mm3 (140-440) 12/17/17 07:01 Lymph % (Auto) 6.0 % (13.4-35.0) L 12/17/17 07:01 [place] % (Auto) 7.7 % (0.0-7.3) H 12/17/17 07:01 Eos % (Auto) 1.0 % (0.0-4.3) 12/17/17 07:01 Baso % (Auto) 0.1 % (0.0-1.8) 12/17/17 07:01 Lymph # 0.9 K/mm3 (1.2-5.4) L 12/17/17 07:01 [place] # 1.1 K/mm3 (0.0-0.8) H 12/17/17 07:01 Eos # 0.1 K/mm3 (0.0-0.4) 12/17/17 07:01 Baso # 0.0 K/mm3 (0.0-0.1) 12/17/17 07:01 Add Manual Diff Complete 12/07/17 13:16 Total Counted 100 12/07/17 13:16 Seg Neutrophils % 85.2 % (40.0-70.0) H 12/17/17 07:01 Seg Neuts % (Manual) 71.0 % (40.0-70.0) H 12/07/17 13:16 Band Neutrophils % 0 % 12/07/17 13:16 Lymphocytes % (Manual) 25.0 % (13.4-35.0) 12/07/17 13:16 Reactive Lymphs % (Man) 0 % 12/07/17 13:16 Monocytes % (Manual) 2.0 % (0.0-7.3) 12/07/17 13:16 Eosinophils % (Manual) 0 % (0.0-4.3) 12/07/17 13:16 Basophils % (Manual) 1.0 % (0.0-1.8) 12/07/17 13:16 Metamyelocytes % 1.0 % 12/07/17 13:16 Myelocytes % 0 % 12/07/17 13:16 Promyelocytes % 0 % 12/07/17 13:16 Blast Cells % 0 % 12/07/17 13:16 Nucleated RBC % 2.0 % (0.0-0.9) H 12/07/17 13:16 Seg Neutrophils # 12.3 K/mm3 (1.8-7.7) H 12/17/17 07:01 Seg Neutrophils # Man 6.5 K/mm3 (1.8-7.7) 12/07/17 13:16 Band Neutrophils # 0.0 K/mm3 12/07/17 13:16 Lymphocytes # (Manual) 2.3 K/mm3 (1.2-5.4) 12/07/17 13:16 Abs React Lymphs (Man) 0.0 K/mm3 12/07/17 13:16 Monocytes # (Manual) 0.2 K/mm3 (0.0-0.8) 12/07/17 13:16 Eosinophils # (Manual) 0.0 K/mm3 (0.0-0.4) 12/07/17 13:16 Basophils # (Manual) 0.1 K/mm3 (0.0-0.1) 12/07/17 13:16 Metamyelocytes # 0.1 K/mm3 12/07/17 13:16 Myelocytes # 0.0 K/mm3 12/07/17 13:16 Promyelocytes # 0.0 K/mm3 12/07/17 13:16 Blast Cells # 0.0 K/mm3 12/07/17 13:16 WBC Morphology Not Reportable 12/07/17 13:16 Hypersegmented Neuts Not Reportable 12/07/17 13:16 Hyposegmented Neuts Not Reportable 12/07/17 13:16 Hypogranular Neuts Not Reportable 12/07/17 13:16 Smudge Cells Not Reportable 12/07/17 13:16 Toxic Granulation Few 12/07/17 13:16 Toxic Vacuolation Few 12/07/17 13:16 Dohle Bodies Not Reportable 12/07/17 13:16 Pelger-Huet Anomaly Not Reportable 12/07/17 13:16 Mane Rods Not Reportable 12/07/17 13:16 Platelet Estimate Cons 12/07/17 13:16 Clumped Platelets Not Reportable 12/07/17 13:16 Plt Clumps, EDTA Not Reportable 12/07/17 13:16 Large Platelets Not Reportable 12/07/17 13:16 Giant Platelets Not Reportable 12/07/17 13:16 Platelet Satelliting Not Reportable 12/07/17 13:16 Plt Morphology Comment Not Reportable 12/07/17 13:16 RBC Morphology Not Reportable 12/07/17 13:16 Dimorphic RBCs Not Reportable 12/07/17 13:16 Polychromasia Not Reportable 12/07/17 13:16 Hypochromasia Not Reportable 12/07/17 13:16 Poikilocytosis 1+ 12/07/17 13:16 Anisocytosis 1+ 12/07/17 13:16 Microcytosis Not Reportable 12/07/17 13:16 Macrocytosis Not Reportable 12/07/17 13:16 Spherocytes Not Reportable 12/07/17 13:16 Pappenheimer Bodies Not Reportable 12/07/17 13:16 Sickle Cells Not Reportable 12/07/17 13:16 Target Cells Not Reportable 12/07/17 13:16 Tear Drop Cells Not Reportable 12/07/17 13:16 Ovalocytes Not Reportable 12/07/17 13:16 Helmet Cells Not Reportable 12/07/17 13:16 Toure-[place] Bodies Not Reportable 12/07/17 13:16 [place] Rings Not Reportable 12/07/17 13:16 [place] Cells Few 12/07/17 13:16 Bite Cells Not Reportable 12/07/17 13:16 Crenated Cell Not Reportable 12/07/17 13:16 Elliptocytes Not Reportable 12/07/17 13:16 Acanthocytes (Spur) 1+ 12/07/17 13:16 Rouleaux Not Reportable 12/07/17 13:16 Hemoglobin C Crystals Not Reportable 12/07/17 13:16 Schistocytes Not Reportable 12/07/17 13:16 Malaria parasites Not Reportable 12/07/17 13:16 [place] Bodies Not Reportable 12/07/17 13:16 Hem Pathologist Commnt No 12/07/17 13:16 PT 20.6 Sec. (12.2-14.9) H 12/07/17 13:16 INR 1.67 (0.87-1.13) H 12/07/17 13:16 APTT 35.4 Sec. (24.2-36.6) 12/08/17 08:48 POC ABG pH 7.420 (7.35-7.45) 12/10/17 04:47 POC ABG pCO2 37.4 (35-45) 12/10/17 04:47 POC ABG pO2 119 (80-105) H 12/10/17 04:47 POC ABG HCO3 24.2 12/10/17 04:47 POC ABG Total CO2 25 12/10/17 04:47 POC ABG O2 Sat 99 12/10/17 04:47 POC ABG Base Excess 0 12/10/17 04:47 VBG pH 6.682 (7.320-7.420) L* 12/07/17 13:16 FiO2 28 % 12/10/17 04:47 Sodium 136 mmol/L (137-145) L 12/17/17 07:01 Potassium 3.5 mmol/L (3.6-5.0) L 12/17/17 07:01 Chloride 96.6 mmol/L (98-107) L 12/17/17 07:01 Carbon Dioxide 25 mmol/L (22-30) 12/17/17 07:01 Anion Gap 18 mmol/L 12/17/17 07:01 BUN 20 mg/dL (9-20) 12/17/17 07:01 Creatinine 5.5 mg/dL (0.8-1.5) H D 12/17/17 07:01 Estimated GFR 13 ml/min 12/17/17 07:01 BUN/Creatinine Ratio 4 % 12/17/17 07:01 Glucose 72 mg/dL (75-100) L 12/17/17 07:01 POC Glucose 84 (70-105) 12/18/17 08:32 Lactic Acid 3.50 mmol/L (0.7-2.0) H* 12/08/17 03:21 Calcium 6.9 mg/dL (8.4-10.2) L 12/17/17 07:01 Total Bilirubin 0.40 mg/dL (0.1-1.2) 12/17/17 07:01 Direct Bilirubin < 0.2 mg/dL (0-0.2) 12/07/17 13:16 Indirect Bilirubin 0.0 mg/dL 12/07/17 13:16 AST 12 units/L (5-40) 12/17/17 07:01 ALT 35 units/L (7-56) 12/17/17 07:01 Alkaline Phosphatase 115 units/L (35-129) 12/17/17 07:01 Troponin T 0.177 ng/mL (0.00-0.029) H* 12/08/17 03:25 C-Reactive Protein 14.10 mg/dL (0.00-1.30) H 12/12/17 04:00 Total Protein 6.4 g/dL (6.3-8.2) 12/17/17 07:01 Albumin 2.4 g/dL (3.9-5) L 12/17/17 07:01 Albumin/Globulin Ratio 0.6 % 12/17/17 07:01 Triglycerides 368 mg/dL (2-149) H 12/07/17 19:00 Cholesterol 126 mg/dL (50-199) 12/07/17 19:00 LDL Cholesterol Direct 30 mg/dL (50-130) L 12/07/17 19:00 HDL Cholesterol 23 mg/dL (40-59) L 12/07/17 19:00 Cholesterol/HDL Ratio 5.47 % 12/07/17 19:00 Urine Color Ayesha (Yellow) 12/08/17 04:07 Urine Turbidity Slightly cloudy (Clear) 12/08/17 04:07 Urine pH 6.0 (5.0-7.0) 12/08/17 04:07 Ur Specific [place] 1.025 (1.003-1.030) 12/08/17 04:07 Urine Protein 100 mg/dl mg/dL (Negative) 12/08/17 04:07 Urine Glucose (UA) 50 mg/dL (Negative) 12/08/17 04:07 Urine Ketones 20 mg/dL (Negative) 12/08/17 04:07 Urine Blood Mod (Negative) 12/08/17 04:07 Urine Nitrite Neg (Negative) 12/08/17 04:07 Urine Bilirubin Neg (Negative) 12/08/17 04:07 Urine Urobilinogen < 2.0 mg/dL (<2.0) 12/08/17 04:07 Ur Leukocyte Esterase Mod (Negative) 12/08/17 04:07 Urine WBC (Auto) > 182.0 /HPF (0.0-6.0) H 12/08/17 04:07 Urine RBC (Auto) 72.0 /HPF (0.0-6.0) 12/08/17 04:07 Urine Bacteria (Auto) 4+ /HPF (Negative) 12/08/17 04:07 Urine Mucus 3+ /HPF 12/08/17 04:07 Random Vancomycin 11.7 ug/mL (0-40.0) 12/09/17 06:15 Urine Opiates Screen Presumptive negative 12/09/17 20:18 Urine Methadone Screen Presumptive negative 12/09/17 20:18 Ur Barbiturates Screen Presumptive negative 12/09/17 20:18 Ur Phencyclidine Scrn Presumptive negative 12/09/17 20:18 Ur Amphetamines Screen Presumptive negative 12/09/17 20:18 U Benzodiazepines Scrn Presumptive positive 12/09/17 20:18 Urine Cocaine Screen Presumptive negative 12/09/17 20:18 U Marijuana (THC) Screen Presumptive negative 12/09/17 20:18 Drugs of Abuse Note Disclamer 12/09/17 20:18 C. difficile Toxin A&B Negative (Negative) 12/09/17 10:01 Blood Type A POSITIVE 12/15/17 06:14 Antibody Screen Negative 12/15/17 06:14 Crossmatch See Detail 12/15/17 06:14
[2017-12-18] MEDS: LEVEMIR SUB-Q SCH (08:54)
[2017-12-18] MEDS: PHOSLO PO SCH ×2 (09:14→15:22)
[2017-12-18] MEDS: HALFPRIN EC PO SCH (09:14)
--- NOTE | 2017-12-18 09:21 | Progress Note ---
Assessment and Plan Impression: * ESRD * Acute respiratory failure * Hypotension r/o sepsis --Blood cx - coag negative staph (?contaminant) * Anemia secondary to ESRD vs other * Type I DM Plan * Hemodialysis MWF; UF as tolerated * UF as tolerated * added phoslo * Epogen TIW prn * Transfuse pRBC per primary team * 4 k bath with HD * Empiric abx per primary team * Dose medications for renal function Subjective Date of service: 12/18/17 Principal diagnosis: end-stage renal disease with acute decompensation, AMS, hyperkalemia, respi Interval history: resting well in bed today Objective - Exam Narrative Exam: General appearance: NAD EENT: ATNC, other (ETT in place) Neck: no JVD Respiratory: Present: Clear to Ascultation Cardiology: regular, S1S2 Gastrointestinal: normal, no tenderness, no distended Integumentary: no rash, warm and dry Neurologic: other (opens eyes to verbal stimuli; nods head to questions) Musculoskeletal: other (no edema) - Vital Signs Vital signs: Vital Signs - 12hr 12/17/17 12/18/17 12/18/17 21:50 04:44 08:29 Temperature 99.6 F 99.7 F H Pulse Rate 86 84 Pulse Rate [ 89 From Monitor] Respiratory 18 16 20 Rate Blood Pressure 90/55 99/62 O2 Sat by Pulse 99 100 Oximetry - Lab 12/17/17 07:01 12/17/17 07:01 Most recent lab results Calcium 6.9 mg/dL (8.4-10.2) L 12/17/17 07:01
[2017-12-18] MEDS ORDERED: NACL 0.9 (PRIMING MACHINE ONLY DIALYSIS) MC ONE (13:38)
[2017-12-18] MEDS: VANCOMYCIN/0.45 NS 1 GM/250 ML 1 GM/250 ML BAG IV SCH (17:51)
[2017-12-18] MEDS: BENTYL PO SCH (20:20)
[2017-12-19] MEDS: NOVOLOG SUB-Q SCH ×5 (00:22→22:00)
[2017-12-19] MEDS: PHOSLO PO SCH ×4 (00:25→17:25)
[2017-12-19] MEDS: PERCOCET 5/325 PO PRN ×5 (01:45→22:14)
[2017-12-19] MEDS: BENTYL PO SCH ×5 (01:45→22:14)
[2017-12-19] MEDS: ZOFRAN IV PRN ×4 (01:46→22:14)
[2017-12-19] MEDS ORDERED: TYLENOL PO PRN (06:39)
[2017-12-19 07:40] LABS: Hematocrit 25.1 % (35.5-45.6); Mean Corpuscular HGB Conc 32 % (32-34); Mean Corpuscular Hemoglobin 29 pg (28-32); Mean Corpuscular Volume 92 fl (84-94); Platelet Count 338 K/mm3 (140-440); Red Blood Count 2.73 M/mm3 (3.65-5.03); Red Cell Distribution Width 15.9 % (13.2-15.2)
--- NOTE | 2017-12-19 09:19 | Progress Note ---
Assessment and Plan Impression: * ESRD * Acute respiratory failure * Hypotension r/o sepsis --Blood cx - coag negative staph (?contaminant) * Anemia secondary to ESRD vs other * Type I DM Plan * Hemodialysis MWF; UF as tolerated * UF as tolerated * added phoslo * Epogen TIW prn * Transfuse pRBC per primary team * 4 k bath with HD * Empiric abx per primary team * Dose medications for renal function Subjective Date of service: 12/19/17 Principal diagnosis: end-stage renal disease with acute decompensation, AMS, hyperkalemia, respi Interval history: resting well in bed today Objective - Exam Narrative Exam: General appearance: NAD EENT: ATNC, other (ETT in place) Neck: no JVD Respiratory: Present: Clear to Ascultation Cardiology: regular, S1S2 Gastrointestinal: normal, no tenderness, no distended Integumentary: no rash, warm and dry Neurologic: other (opens eyes to verbal stimuli; nods head to questions) Musculoskeletal: other (no edema) - Vital Signs Vital signs: Vital Signs - 12hr 12/18/17 12/19/17 12/19/17 22:00 04:41 07:51 Temperature 101.8 F H 99.1 F Pulse Rate 98 H Pulse Rate [ 98 H Left Radial] Respiratory 18 18 Rate Blood Pressure 96/50 O2 Sat by Pulse 94 94 Oximetry 12/19/17 08:27 Temperature 99.2 F Pulse Rate 90 Pulse Rate [ Left Radial] Respiratory 18 Rate Blood Pressure 77/35 O2 Sat by Pulse 96 Oximetry - Lab 12/19/17 06:16 12/19/17 06:16 Most recent lab results Calcium 8.0 mg/dL (8.4-10.2) L D 12/19/17 06:16
[2017-12-19] MEDS: HALFPRIN EC PO SCH (09:31)
[2017-12-19] MEDS: LEVAQUIN PO SCH (09:31)
--- NOTE | 2017-12-19 09:36 | Progress Note ---
Assessment and Plan Assessment and plan: Patient is a 47-year-old with a history of CHF, COPD, insulin-dependent type 2 diabetes mellitus, tobacco dependency, hypertension, C. difficile, anemia of chronic disease, severe protein calorie malnutrition, skull ulcerations, end- stage renal disease on hemodialysis, DKA and chronically elevated troponin around 0.1. He was just discharged from here on 2017 after missing one week of hemodialysis. He present now after missing hemodialysis and being found unresponsive per chart. Patient was subsequently admitted to the ICU and eventually extubated remained remarkably weak with recommendation to go to subacute rehabilitation on discharge. Patient continued to obtain dialysis while in the hospital. Infectious disease did recommend vancomycin at hemodialysis for 2 weeks Wednesdays and Fridays and the Levaquin 500 milligrams every 48 hours when patient is discharged. Discharge planning patient waiting on custodial facility. -Sepsis secondary to Escherichia coli ruled out C. difficile. Vancomycin and Levaquin per ID and discharge. Echocardiogram not revealing any evidence of vegetation. Mild elevation and WBC today no evidence of seizure of this time we 'll monitor. Still with intermittent fever-Continue to monitor. WBC elevated. Give 250cc bolus and recheck BP -Severe Protien calorie malnutrition * Licensed [employer] consult. Still with poor PO intake, Nausea with an episode of vomiting yesterday -Acute hypoxic respiratory failure: Has been extubated and doing well on the medical floor, continue duo nebs. Pulmonary following. Will possibly need oxygen on discharge -Severe metabolic acidosis secondary to ESRD -Shock, circulatory, on vasopressor, resolved -Acute on chronic anemia of renal disease: Stable we'll continue to monitor -Acute metabolic encephalopahty, resolving supportative care -ESRD, non compliant causing the above: Hopefully hemodialysis will save this patient. -Severe hyperkalemia due to noncompliance: Emergent hemodialysis done on admission. -Hypertension stable continue current treatment -Diabetes mellitus with hypoglycemia stable continue current treatment well decreased sliding scale to moderate dose. Will discuss with nursing to watch how much patient has eaten and dose accordingly. -Chronic nausea start on Bentyl -Status post DKA-corrected -Severe debility: Failed get up and go test. We'll recommend custodial facility for acute rehabilitation and discharge -H/o C diffe with diarrhea stool: send for c.diffe-->negative -DVT prophylaxis: scd only for now, repeat h/h full code Patient was clinically stable for discharge awaiting placement. History Interval history: Patient seen and examined this morning and not acute distress, still with fever and hypotension. Hospitalist Physical - Physical exam Narrative exam: VITAL SIGNS: Reviewed. GENERAL: The patient appeared marked temporal wasting vital signs as documented. HEAD: No signs of head trauma. Temporal wasting EYES: Pupils are equal. Extraocular motions intact. EARS: Hearing grossly intact. MOUTH: Oropharynx is normal. NECK: No adenopathy, no JVD. CHEST: Chest with clear breath sounds bilaterally. No wheezes, rales, or rhonchi. CARDIAC: Regular rate and rhythm. S1 and S2, without murmurs, gallops, or rubs. VASCULAR: No Edema. Peripheral pulses normal and equal in all extremities. ABDOMEN: Soft, without detectable tenderness. Scaphoid No rebound or guarding, and no masses palpated. Bowel Sounds normal. MUSCULOSKELETAL: Good range of motion of all major joints. Extremities without clubbing, cyanosis or edema. NEUROLOGIC EXAM: Alert and oriented x 3. No focal sensory or strength deficits. Speech normal. Follows commands. PSYCHIATRIC: Mood normal. SKIN: Left upper extremity fistula. 1. - Constitutional Vitals: Temp Pulse Resp BP Pulse Ox 99.2 F 90 18 77/35 96 12/19/17 08:27 12/19/17 08:27 12/19/17 08:27 12/19/17 08:27 12/19/17 08:27 General appearance: Present: no acute distress, well-nourished, other (weakness) Results - Labs CBC & Chem 7: 12/19/17 06:16 12/19/17 06:16 Labs: Laboratory Last Values WBC 23.2 K/mm3 (4.5-11.0) H 12/19/17 06:16 RBC 2.73 M/mm3 (3.65-5.03) L 12/19/17 06:16 Hgb 8.0 gm/dl (11.8-15.2) L 12/19/17 06:16 Hct 25.1 % (35.5-45.6) L 12/19/17 06:16 MCV 92 fl (84-94) 12/19/17 06:16 MCH 29 pg (28-32) 12/19/17 06:16 MCHC 32 % (32-34) 12/19/17 06:16 RDW 15.9 % (13.2-15.2) H 12/19/17 06:16 Plt Count 338 K/mm3 (140-440) 12/19/17 06:16 Lymph % (Auto) 6.0 % (13.4-35.0) L 12/17/17 07:01 [place] % (Auto) 7.7 % (0.0-7.3) H 12/17/17 07:01 Eos % (Auto) 1.0 % (0.0-4.3) 12/17/17 07:01 Baso % (Auto) 0.1 % (0.0-1.8) 12/17/17 07:01 Lymph # 0.9 K/mm3 (1.2-5.4) L 12/17/17 07:01 [place] # 1.1 K/mm3 (0.0-0.8) H 12/17/17 07:01 Eos # 0.1 K/mm3 (0.0-0.4) 12/17/17 07:01 Baso # 0.0 K/mm3 (0.0-0.1) 12/17/17 07:01 Add Manual Diff Complete 12/07/17 13:16 Total Counted 100 12/07/17 13:16 Seg Neutrophils % 85.2 % (40.0-70.0) H 12/17/17 07:01 Seg Neuts % (Manual) 71.0 % (40.0-70.0) H 12/07/17 13:16 Band Neutrophils % 0 % 12/07/17 13:16 Lymphocytes % (Manual) 25.0 % (13.4-35.0) 12/07/17 13:16 Reactive Lymphs % (Man) 0 % 12/07/17 13:16 Monocytes % (Manual) 2.0 % (0.0-7.3) 12/07/17 13:16 Eosinophils % (Manual) 0 % (0.0-4.3) 12/07/17 13:16 Basophils % (Manual) 1.0 % (0.0-1.8) 12/07/17 13:16 Metamyelocytes % 1.0 % 12/07/17 13:16 Myelocytes % 0 % 12/07/17 13:16 Promyelocytes % 0 % 12/07/17 13:16 Blast Cells % 0 % 12/07/17 13:16 Nucleated RBC % 2.0 % (0.0-0.9) H 12/07/17 13:16 Seg Neutrophils # 12.3 K/mm3 (1.8-7.7) H 12/17/17 07:01 Seg Neutrophils # Man 6.5 K/mm3 (1.8-7.7) 12/07/17 13:16 Band Neutrophils # 0.0 K/mm3 12/07/17 13:16 Lymphocytes # (Manual) 2.3 K/mm3 (1.2-5.4) 12/07/17 13:16 Abs React Lymphs (Man) 0.0 K/mm3 12/07/17 13:16 Monocytes # (Manual) 0.2 K/mm3 (0.0-0.8) 12/07/17 13:16 Eosinophils # (Manual) 0.0 K/mm3 (0.0-0.4) 12/07/17 13:16 Basophils # (Manual) 0.1 K/mm3 (0.0-0.1) 12/07/17 13:16 Metamyelocytes # 0.1 K/mm3 12/07/17 13:16 Myelocytes # 0.0 K/mm3 12/07/17 13:16 Promyelocytes # 0.0 K/mm3 12/07/17 13:16 Blast Cells # 0.0 K/mm3 12/07/17 13:16 WBC Morphology Not Reportable 12/07/17 13:16 Hypersegmented Neuts Not Reportable 12/07/17 13:16 Hyposegmented Neuts Not Reportable 12/07/17 13:16 Hypogranular Neuts Not Reportable 12/07/17 13:16 Smudge Cells Not Reportable 12/07/17 13:16 Toxic Granulation Few 12/07/17 13:16 Toxic Vacuolation Few 12/07/17 13:16 Dohle Bodies Not Reportable 12/07/17 13:16 Pelger-Huet Anomaly Not Reportable 12/07/17 13:16 Mane Rods Not Reportable 12/07/17 13:16 Platelet Estimate Cons 12/07/17 13:16 Clumped Platelets Not Reportable 12/07/17 13:16 Plt Clumps, EDTA Not Reportable 12/07/17 13:16 Large Platelets Not Reportable 12/07/17 13:16 Giant Platelets Not Reportable 12/07/17 13:16 Platelet Satelliting Not Reportable 12/07/17 13:16 Plt Morphology Comment Not Reportable 12/07/17 13:16 RBC Morphology Not Reportable 12/07/17 13:16 Dimorphic RBCs Not Reportable 12/07/17 13:16 Polychromasia Not Reportable 12/07/17 13:16 Hypochromasia Not Reportable 12/07/17 13:16 Poikilocytosis 1+ 12/07/17 13:16 Anisocytosis 1+ 12/07/17 13:16 Microcytosis Not Reportable 12/07/17 13:16 Macrocytosis Not Reportable 12/07/17 13:16 Spherocytes Not Reportable 12/07/17 13:16 Pappenheimer Bodies Not Reportable 12/07/17 13:16 Sickle Cells Not Reportable 12/07/17 13:16 Target Cells Not Reportable 12/07/17 13:16 Tear Drop Cells Not Reportable 12/07/17 13:16 Ovalocytes Not Reportable 12/07/17 13:16 Helmet Cells Not Reportable 12/07/17 13:16 Toure-[place] Bodies Not Reportable 12/07/17 13:16 [place] Rings Not Reportable 12/07/17 13:16 [place] Cells Few 12/07/17 13:16 Bite Cells Not Reportable 12/07/17 13:16 Crenated Cell Not Reportable 12/07/17 13:16 Elliptocytes Not Reportable 12/07/17 13:16 Acanthocytes (Spur) 1+ 12/07/17 13:16 Rouleaux Not Reportable 12/07/17 13:16 Hemoglobin C Crystals Not Reportable 12/07/17 13:16 Schistocytes Not Reportable 12/07/17 13:16 Malaria parasites Not Reportable 12/07/17 13:16 [place] Bodies Not Reportable 12/07/17 13:16 Hem Pathologist Commnt No 12/07/17 13:16 PT 20.6 Sec. (12.2-14.9) H 12/07/17 13:16 INR 1.67 (0.87-1.13) H 12/07/17 13:16 APTT 35.4 Sec. (24.2-36.6) 12/08/17 08:48 POC ABG pH 7.420 (7.35-7.45) 12/10/17 04:47 POC ABG pCO2 37.4 (35-45) 12/10/17 04:47 POC ABG pO2 119 (80-105) H 12/10/17 04:47 POC ABG HCO3 24.2 12/10/17 04:47 POC ABG Total CO2 25 12/10/17 04:47 POC ABG O2 Sat 99 12/10/17 04:47 POC ABG Base Excess 0 12/10/17 04:47 VBG pH 6.682 (7.320-7.420) L* 12/07/17 13:16 FiO2 28 % 12/10/17 04:47 Sodium 135 mmol/L (137-145) L 12/19/17 06:16 Potassium 4.2 mmol/L (3.6-5.0) 12/19/17 06:16 Chloride 95.0 mmol/L (98-107) L 12/19/17 06:16 Carbon Dioxide 27 mmol/L (22-30) 12/19/17 06:16 Anion Gap 17 mmol/L 12/19/17 06:16 BUN 15 mg/dL (9-20) 12/19/17 06:16 Creatinine 4.4 mg/dL (0.8-1.5) H 12/19/17 06:16 Estimated GFR 17 ml/min 12/19/17 06:16 BUN/Creatinine Ratio 3 % 12/19/17 06:16 Glucose 238 mg/dL (75-100) H 12/19/17 06:16 POC Glucose 252 (70-105) H 12/19/17 06:19 Lactic Acid 3.50 mmol/L (0.7-2.0) H* 12/08/17 03:21 Calcium 8.0 mg/dL (8.4-10.2) L D 12/19/17 06:16 Total Bilirubin 0.40 mg/dL (0.1-1.2) 12/17/17 07:01 Direct Bilirubin < 0.2 mg/dL (0-0.2) 12/07/17 13:16 Indirect Bilirubin 0.0 mg/dL 12/07/17 13:16 AST 12 units/L (5-40) 12/17/17 07:01 ALT 35 units/L (7-56) 12/17/17 07:01 Alkaline Phosphatase 115 units/L (35-129) 12/17/17 07:01 Troponin T 0.177 ng/mL (0.00-0.029) H* 12/08/17 03:25 C-Reactive Protein 14.10 mg/dL (0.00-1.30) H 12/12/17 04:00 Total Protein 6.4 g/dL (6.3-8.2) 12/17/17 07:01 Albumin 2.4 g/dL (3.9-5) L 12/17/17 07:01 Albumin/Globulin Ratio 0.6 % 12/17/17 07:01 Triglycerides 368 mg/dL (2-149) H 12/07/17 19:00 Cholesterol 126 mg/dL (50-199) 12/07/17 19:00 LDL Cholesterol Direct 30 mg/dL (50-130) L 12/07/17 19:00 HDL Cholesterol 23 mg/dL (40-59) L 12/07/17 19:00 Cholesterol/HDL Ratio 5.47 % 12/07/17 19:00 Urine Color Ayesha (Yellow) 12/08/17 04:07 Urine Turbidity Slightly cloudy (Clear) 12/08/17 04:07 Urine pH 6.0 (5.0-7.0) 12/08/17 04:07 Ur Specific [place] 1.025 (1.003-1.030) 12/08/17 04:07 Urine Protein 100 mg/dl mg/dL (Negative) 12/08/17 04:07 Urine Glucose (UA) 50 mg/dL (Negative) 12/08/17 04:07 Urine Ketones 20 mg/dL (Negative) 12/08/17 04:07 Urine Blood Mod (Negative) 12/08/17 04:07 Urine Nitrite Neg (Negative) 12/08/17 04:07 Urine Bilirubin Neg (Negative) 12/08/17 04:07 Urine Urobilinogen < 2.0 mg/dL (<2.0) 12/08/17 04:07 Ur Leukocyte Esterase Mod (Negative) 12/08/17 04:07 Urine WBC (Auto) > 182.0 /HPF (0.0-6.0) H 12/08/17 04:07 Urine RBC (Auto) 72.0 /HPF (0.0-6.0) 12/08/17 04:07 Urine Bacteria (Auto) 4+ /HPF (Negative) 12/08/17 04:07 Urine Mucus 3+ /HPF 12/08/17 04:07 Random Vancomycin 11.7 ug/mL (0-40.0) 12/09/17 06:15 Urine Opiates Screen Presumptive negative 12/09/17 20:18 Urine Methadone Screen Presumptive negative 12/09/17 20:18 Ur Barbiturates Screen Presumptive negative 12/09/17 20:18 Ur Phencyclidine Scrn Presumptive negative 12/09/17 20:18 Ur Amphetamines Screen Presumptive negative 12/09/17 20:18 U Benzodiazepines Scrn Presumptive positive 12/09/17 20:18 Urine Cocaine Screen Presumptive negative 12/09/17 20:18 U Marijuana (THC) Screen Presumptive negative 12/09/17 20:18 Drugs of Abuse Note Disclamer 12/09/17 20:18 C. difficile Toxin A&B Negative (Negative) 12/09/17 10:01 Blood Type A POSITIVE 12/15/17 06:14 Antibody Screen Negative 12/15/17 06:14 Crossmatch See Detail 12/15/17 06:14
[2017-12-19] MEDS ORDERED: NACL 0.9% 250ML 250 ML IV ONE (10:09)
[2017-12-19] MEDS: LEVEMIR SUB-Q SCH (11:07)
[2017-12-19] MEDS ORDERED: NACL 0.9% 250ML 250 ML IV NR (16:00)
[2017-12-19] MEDS: D50W (25GM) Syringe IV PRN (16:51)
[2017-12-20 05:45] LABS: Hematocrit 22.2 % (35.5-45.6); Mean Corpuscular HGB Conc 32 % (32-34); Mean Corpuscular Hemoglobin 29 pg (28-32); Mean Corpuscular Volume 92 fl (84-94); Platelet Count 341 K/mm3 (140-440); Red Cell Distribution Width 15.3 % (13.2-15.2)
[2017-12-20 06:02] LABS: Calcium 7.4 mg/dL (8.4-10.2)
[2017-12-20] MEDS: LEVEMIR SUB-Q SCH (08:00)
[2017-12-20] MEDS: NOVOLOG SUB-Q SCH ×3 (08:00→17:08)
[2017-12-20] MEDS: PHOSLO PO SCH ×3 (08:05→17:11)
--- NOTE | 2017-12-20 09:26 | Progress Note ---
Assessment and Plan Impression: * ESRD * Acute respiratory failure * Hypotension r/o sepsis --Blood cx - coag negative staph (?contaminant) * Anemia secondary to ESRD vs other * Type I DM Plan * Hemodialysis MWF; UF as tolerated * UF as tolerated * added phoslo * Epogen TIW prn * Transfuse pRBC per primary team * 4 k bath with HD * Empiric abx per primary team * Dose medications for renal function * awaiting snf placement Subjective Date of service: 12/20/17 Principal diagnosis: end-stage renal disease with acute decompensation, AMS, hyperkalemia, respi Interval history: resting well in bed today Objective - Exam Narrative Exam: General appearance: NAD EENT: ATNC, other (ETT in place) Neck: no JVD Respiratory: Present: Clear to Ascultation Cardiology: regular, S1S2 Gastrointestinal: normal, no tenderness, no distended Integumentary: no rash, warm and dry Neurologic: other (opens eyes to verbal stimuli; nods head to questions) Musculoskeletal: other (no edema) - Vital Signs Vital signs: Vital Signs - 12hr 12/19/17 12/20/17 12/20/17 22:00 00:04 06:01 Temperature 101.5 F H 99.4 F Pulse Rate 83 96 H Pulse Rate [ 93 H Right Radial] Respiratory 18 19 17 Rate Blood Pressure 100/68 76/40 Blood Pressure [Right] O2 Sat by Pulse 96 96 Oximetry 12/20/17 12/20/17 06:08 08:05 Temperature 99.4 F 98.7 F Pulse Rate 85 88 Pulse Rate [ Right Radial] Respiratory 17 20 Rate Blood Pressure 91/51 Blood Pressure 80/41 [Right] O2 Sat by Pulse 97 92 Oximetry - Lab 12/20/17 04:59 12/20/17 04:59 Most recent lab results Calcium 7.4 mg/dL (8.4-10.2) L 12/20/17 04:59
[2017-12-20] MEDS: HALFPRIN EC PO SCH (09:42)
[2017-12-20] MEDS: BENTYL PO SCH ×4 (09:43→22:54)
[2017-12-20] MEDS: ZOFRAN IV PRN ×3 (09:51→22:53)
[2017-12-20] MEDS: PERCOCET 5/325 PO PRN ×3 (09:52→22:53)
--- NOTE | 2017-12-20 11:25 | Progress Note ---
<STEPHANIE HARTMAN - Last Filed: 12/20/17 14:25> Assessment and Plan Assessment: 1) Sepsis with initial septic shock: better. Etiology most likely bacteremia. ? skin lessions CRP=14.10 -TTE 2) MRSE and GNRs bacteremia: MRSE ? unclear source ? HD access ? endocarditis. GNRs culture did not grow. probably from urine. 3) E coli UTI 4) Respiratory failure-resolved. Tracheal asp + GNRs ? colonizers 5) Encephalopathy - better 6) History of C diff with diarrhea - Cdiff neg 7) COPD 8) CHF 9) Diarrhea; chronic for last 7 years due to DM, Plan: -obtain blood cultures -obtain chest x-ray -obtain UA -repeat CRP -continue vancomycin for MRSE bacteremia -add flagyl iv for diarrhea -stop levaquin 500 mg po q 48 hrs -continue contact isolation due to diarrhea -upon discharge will do vancomycin 1 gm IV on HD for 2 weeks until 12/24, levaquin 500 mg po Q 48hrs until 12/24 Thank you for your consultation, will follow up with you. Stephanie Hartman NP for Dr. Julianna Rosa MD Infectious Diseases Specialist [facility] ([facility] M [phone] O [phone] Subjective Date of service: 12/20/17 Principal diagnosis: end-stage renal disease with acute decompensation, AMS, hyperkalemia, respi Objective - Constitutional Vitals: Vital Signs Temp Pulse Resp BP Pulse Ox 98.7 F 88 20 91/51 92 12/20/17 08:05 12/20/17 08:05 12/20/17 08:05 12/20/17 08:05 12/20/17 08:05 Temperature -Last 24 Hours Temperature 98.7 F Temperature 99.4 F Temperature 99.4 F Temperature 101.5 F Temperature 98.6 F Temperature 99.5 F Temperature 99.0 F - Labs CBC & Chem 7: 12/20/17 04:59 12/20/17 04:59 Labs: Abnormal lab results 12/19/17 12/19/17 12/19/17 Range/Units 11:29 16:42 17:21 WBC (4.5-11.0) K/mm3 RBC (3.65-5.03) M/mm3 Hgb (11.8-15.2) gm/dl Hct (35.5-45.6) % RDW (13.2-15.2) % Sodium (137-145) mmol/L Chloride (98-107) mmol/L Creatinine (0.8-1.5) mg/dL Glucose (75-100) mg/dL POC Glucose 200 H < 40 L 149 H (70-105) Calcium (8.4-10.2) mg/dL 12/19/17 12/20/17 12/20/17 Range/Units 17:34 00:10 02:29 WBC (4.5-11.0) K/mm3 RBC (3.65-5.03) M/mm3 Hgb (11.8-15.2) gm/dl Hct (35.5-45.6) % RDW (13.2-15.2) % Sodium (137-145) mmol/L Chloride (98-107) mmol/L Creatinine (0.8-1.5) mg/dL Glucose 132 H (75-100) mg/dL POC Glucose 49 L 139 H (70-105) Calcium (8.4-10.2) mg/dL 12/20/17 12/20/17 12/20/17 Range/Units 04:59 04:59 06:20 WBC 30.2 H (4.5-11.0) K/mm3 RBC 2.40 L (3.65-5.03) M/mm3 Hgb 7.0 L (11.8-15.2) gm/dl Hct 22.2 L (35.5-45.6) % RDW 15.3 H (13.2-15.2) % Sodium 134 L (137-145) mmol/L Chloride 95.6 L (98-107) mmol/L Creatinine 5.8 H (0.8-1.5) mg/dL Glucose 126 H (75-100) mg/dL POC Glucose 170 H (70-105) Calcium 7.4 L (8.4-10.2) mg/dL <JULIANNA AGUILAR - Last Filed: 12/20/17 16:19> Assessment and Plan I have personally interviewed and examined patient. I personally discussed and directed assessment and management with VICE PRESIDENT OF COMPLIANCE Nballu. Patient was initially seen for sepsis with initial septic shock. Etiology most likely MRSE bacteremia, source was unclear ? HD access ? endocarditis was ruled out. He also had E coli UTI. CRP=14.10. He had Respiratory failure-resolved. Tracheal asp + Serratia, E coli and Kleb which were felt to be ? colonizers. 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 He has history of C diff . Cdiff was checked and neg. He was treated with ceftriaxone and vancomycin, plan was to do vancomycin 1 g IV on HD for 2 weeks until 12/24, levaquin 500 mg po Q 48hrs until 12/24. Unfortunately, he started spiking fever on 12/19 at 101.8. He feels fine except for a new productive cough. Still has diarrhea which is at baseline. Denies abdominal pain, nausea. He reports vomiting last 2 days. However, on exam there is abdominal tenderness. Requested CXR, CRP, added flagyl. we stopped levaquin. I will add Tamiflu and r/o influenza, and ask for renal to eval AVG for source of infection. Agree with abdominal CT. Will see him tomorrow. Thanks Subjective Interval history: Interval history: Patient was initially seen for sepsis with initial septic shock. Etiology most likely MRSE bacteremia, source was unclear ? HD access ? endocarditis was ruled out. He also had E coli UTI. CRP=14.10. He has Respiratory failure-resolved. Tracheal asp + Serratia, E coli and Kleb which were felt to be ? colonizers. 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 He has history of C diff . Cdiff was checked and neg. He was treated with ceftriaxone and vancomycin, plan was to do vancomycin 1 gm IV on HD for 2 weeks until 12/24, levaquin 500 mg po Q 48hrs until 12/24. Unfortunately, he started spiking fever on 12/19 at 101.8. He feels fine except for a new productive cough. Still has diarrhea which is at baseline. Denies abdominal pain, nausea. He reports vomiting last 2 days. Microbiology: Blood cultures: 2 MRSE 2 of 4 bottles and GNR 1 of 4 bottles 12/10 ngtd Urine cultures: 2/2 MDR E coli 2/ ngtd Respiratory cultures: tracheal asp 2/3 MDR Kleb, Serratia and E coli Wound cultures: Stool cultures: Other: Current Antimicrobials: Levaquin po 12/14 vanco 12/11 Previous Antimicrobials: Zosyn 2 ceftriaxone Objective - Exam Narrative Exam: General appearance: Alert in NAD, conversant Eyes: anicteric sclerae, moist conjunctivae; no lid-lag; PERRLA HENT: Atraumatic; oropharynx clear with poor dentiton Neck: Trachea midline; supple, no thyromegaly or lymphadenopathy Lungs: rene coarse BS CV: rrr Abdomen: Soft, +TTP diffusely; no masses or hepatosplenomegaly Extremities: No peripheral edema or extremity lymphadenopathy. AVF ? Skin: Normal temperature, turgor and texture; no rash, ulcers or subcutaneous nodules Psych: Appropriate affect, alert and oriented to person, place and time. Neuro: alert and oriented x 3. Moving all extermities Lines: Right fem TLC - Constitutional Vitals: Vital Signs Temp Pulse Resp BP Pulse Ox 98.2 F 88 18 134/73 92 12/20/17 13:50 12/20/17 13:50 12/20/17 13:50 12/20/17 13:50 12/20/17 08:05 Temperature -Last 24 Hours Temperature 98.2 F Temperature 98.6 F Temperature 98.7 F Temperature 99.4 F Temperature 99.4 F Temperature 101.5 F Temperature 98.6 F - Labs CBC & Chem 7: 12/20/17 04:59 12/20/17 04:59 Labs: Abnormal lab results 12/19/17 12/19/17 12/19/17 Range/Units 16:42 17:21 17:34 WBC (4.5-11.0) K/mm3 RBC (3.65-5.03) M/mm3 Hgb (11.8-15.2) gm/dl Hct (35.5-45.6) % RDW (13.2-15.2) % Sodium (137-145) mmol/L Chloride (98-107) mmol/L Creatinine (0.8-1.5) mg/dL Glucose 132 H (75-100) mg/dL POC Glucose < 40 L 149 H (70-105) Calcium (8.4-10.2) mg/dL C-Reactive Protein (0.00-1.30) mg/dL 12/20/17 12/20/17 12/20/17 Range/Units 00:10 02:29 04:59 WBC 30.2 H (4.5-11.0) K/mm3 RBC 2.40 L (3.65-5.03) M/mm3 Hgb 7.0 L (11.8-15.2) gm/dl Hct 22.2 L (35.5-45.6) % RDW 15.3 H (13.2-15.2) % Sodium (137-145) mmol/L Chloride (98-107) mmol/L Creatinine (0.8-1.5) mg/dL Glucose (75-100) mg/dL POC Glucose 49 L 139 H (70-105) Calcium (8.4-10.2) mg/dL C-Reactive Protein (0.00-1.30) mg/dL 12/20/17 12/20/17 12/20/17 Range/Units 04:59 04:59 06:20 WBC (4.5-11.0) K/mm3 RBC (3.65-5.03) M/mm3 Hgb (11.8-15.2) gm/dl Hct (35.5-45.6) % RDW (13.2-15.2) % Sodium 134 L (137-145) mmol/L Chloride 95.6 L (98-107) mmol/L Creatinine 5.8 H (0.8-1.5) mg/dL Glucose 126 H (75-100) mg/dL POC Glucose 170 H (70-105) Calcium 7.4 L (8.4-10.2) mg/dL C-Reactive Protein 19.70 H (0.00-1.30) mg/dL
[2017-12-20] MEDS ORDERED: NACL 0.9 (PRIMING MACHINE ONLY DIALYSIS) MC ONE (11:47)
--- NOTE | 2017-12-20 16:02 | Progress Note ---
Assessment and Plan Assessment and plan: Patient is a 47-year-old with a history of CHF, COPD, insulin-dependent type 2 diabetes mellitus, tobacco dependency, hypertension, C. difficile, anemia of chronic disease, severe protein calorie malnutrition, skull ulcerations, end- stage renal disease on hemodialysis, DKA and chronically elevated troponin around 0.1. He was just discharged from here on 2017 after missing one week of hemodialysis. He present now after missing hemodialysis and being found unresponsive per chart. Patient was subsequently admitted to the ICU and eventually extubated remained remarkably weak with recommendation to go to subacute rehabilitation on discharge. Patient continued to obtain dialysis while in the hospital. Infectious disease did recommend vancomycin at hemodialysis for 2 weeks Wednesdays and Fridays and the Levaquin 500 milligrams every 48 hours when patient is discharged. Discharge planning patient waiting on longterm facility. -Sepsis secondary to Escherichia coli ruled out C. difficile. Vancomycin and Levaquin per ID and discharge. Echocardiogram not revealing any evidence of vegetation. Mild elevation and WBC today no evidence of seizure of this time we 'll monitor. Still with intermittent fever-Continue to monitor. WBC elevated. Reconsulted ID -Acute Cystitis secondary to Ecoli * Reconsulted ID Today -Severe Protein calorie malnutrition * Admitted Attorneys consult. Still with poor PO intake, Nausea with an episode of vomiting yesterday -Acute hypoxic respiratory failure: Has been extubated and doing well on the medical floor, continue duo nebs. Pulmonary following. Will possibly need oxygen on discharge -Severe metabolic acidosis secondary to ESRD -Shock, circulatory, on vasopressor, resolved -Acute on chronic anemia of renal disease: Stable we'll continue to monitor -Acute metabolic encephalopahty, resolving supportative care -ESRD, non compliant causing the above: Hopefully hemodialysis will save this patient. -Severe hyperkalemia due to noncompliance: Emergent hemodialysis done on admission. -Hypertension stable continue current treatment -Diabetes mellitus with hypoglycemia stable continue current treatment well decreased sliding scale to moderate dose. Will discuss with nursing to watch how much patient has eaten and dose accordingly. -Chronic nausea start on Bentyl -Status post DKA-corrected -Severe debility: Failed get up and go test. We'll recommend longterm facility for acute rehabilitation and discharge -H/o C diffe with diarrhea stool: send for c.diffe-->negative -DVT prophylaxis: scd only for now, repeat h/h full code Patient was clinically stable for discharge awaiting placement. History Interval history: Patient seen and examined this morning and not acute distress, still with fever and hypotension. Blood sugar was low. Hospitalist Physical - Physical exam Narrative exam: VITAL SIGNS: Reviewed. GENERAL: The patient appeared marked temporal wasting vital signs as documented. HEAD: No signs of head trauma. Temporal wasting EYES: Pupils are equal. Extraocular motions intact. EARS: Hearing grossly intact. MOUTH: Oropharynx is normal. NECK: No adenopathy, no JVD. CHEST: Chest with clear breath sounds bilaterally. No wheezes, rales, or rhonchi. CARDIAC: Regular rate and rhythm. S1 and S2, without murmurs, gallops, or rubs. VASCULAR: No Edema. Peripheral pulses normal and equal in all extremities. ABDOMEN: Soft, without detectable tenderness. Scaphoid. No rebound or guarding, and no masses palpated. Bowel Sounds normal. MUSCULOSKELETAL: Good range of motion of all major joints. Extremities without clubbing, cyanosis or edema. NEUROLOGIC EXAM: Alert and oriented x 3. No focal sensory or strength deficits. Speech normal. Follows commands. PSYCHIATRIC: Mood normal. SKIN: Left upper extremity fistula. 1. - Constitutional Vitals: Temp Pulse Resp BP Pulse Ox 98.2 F 88 18 134/73 92 12/20/17 13:50 12/20/17 13:50 12/20/17 13:50 12/20/17 13:50 12/20/17 08:05 General appearance: Present: no acute distress, well-nourished, other (weakness) Results - Labs CBC & Chem 7: 12/20/17 04:59 12/20/17 04:59 Labs: Laboratory Last Values WBC 30.2 K/mm3 (4.5-11.0) H 12/20/17 04:59 RBC 2.40 M/mm3 (3.65-5.03) L 12/20/17 04:59 Hgb 7.0 gm/dl (11.8-15.2) L 12/20/17 04:59 Hct 22.2 % (35.5-45.6) L 12/20/17 04:59 MCV 92 fl (84-94) 12/20/17 04:59 MCH 29 pg (28-32) 12/20/17 04:59 MCHC 32 % (32-34) 12/20/17 04:59 RDW 15.3 % (13.2-15.2) H 12/20/17 04:59 Plt Count 341 K/mm3 (140-440) 12/20/17 04:59 Lymph % (Auto) 6.0 % (13.4-35.0) L 12/17/17 07:01 [place] % (Auto) 7.7 % (0.0-7.3) H 12/17/17 07:01 Eos % (Auto) 1.0 % (0.0-4.3) 12/17/17 07:01 Baso % (Auto) 0.1 % (0.0-1.8) 12/17/17 07:01 Lymph # 0.9 K/mm3 (1.2-5.4) L 12/17/17 07:01 [place] # 1.1 K/mm3 (0.0-0.8) H 12/17/17 07:01 Eos # 0.1 K/mm3 (0.0-0.4) 12/17/17 07:01 Baso # 0.0 K/mm3 (0.0-0.1) 12/17/17 07:01 Add Manual Diff Complete 12/07/17 13:16 Total Counted 100 12/07/17 13:16 Seg Neutrophils % 85.2 % (40.0-70.0) H 12/17/17 07:01 Seg Neuts % (Manual) 71.0 % (40.0-70.0) H 12/07/17 13:16 Band Neutrophils % 0 % 12/07/17 13:16 Lymphocytes % (Manual) 25.0 % (13.4-35.0) 12/07/17 13:16 Reactive Lymphs % (Man) 0 % 12/07/17 13:16 Monocytes % (Manual) 2.0 % (0.0-7.3) 12/07/17 13:16 Eosinophils % (Manual) 0 % (0.0-4.3) 12/07/17 13:16 Basophils % (Manual) 1.0 % (0.0-1.8) 12/07/17 13:16 Metamyelocytes % 1.0 % 12/07/17 13:16 Myelocytes % 0 % 12/07/17 13:16 Promyelocytes % 0 % 12/07/17 13:16 Blast Cells % 0 % 12/07/17 13:16 Nucleated RBC % 2.0 % (0.0-0.9) H 12/07/17 13:16 Seg Neutrophils # 12.3 K/mm3 (1.8-7.7) H 12/17/17 07:01 Seg Neutrophils # Man 6.5 K/mm3 (1.8-7.7) 12/07/17 13:16 Band Neutrophils # 0.0 K/mm3 12/07/17 13:16 Lymphocytes # (Manual) 2.3 K/mm3 (1.2-5.4) 12/07/17 13:16 Abs React Lymphs (Man) 0.0 K/mm3 12/07/17 13:16 Monocytes # (Manual) 0.2 K/mm3 (0.0-0.8) 12/07/17 13:16 Eosinophils # (Manual) 0.0 K/mm3 (0.0-0.4) 12/07/17 13:16 Basophils # (Manual) 0.1 K/mm3 (0.0-0.1) 12/07/17 13:16 Metamyelocytes # 0.1 K/mm3 12/07/17 13:16 Myelocytes # 0.0 K/mm3 12/07/17 13:16 Promyelocytes # 0.0 K/mm3 12/07/17 13:16 Blast Cells # 0.0 K/mm3 12/07/17 13:16 WBC Morphology Not Reportable 12/07/17 13:16 Hypersegmented Neuts Not Reportable 12/07/17 13:16 Hyposegmented Neuts Not Reportable 12/07/17 13:16 Hypogranular Neuts Not Reportable 12/07/17 13:16 Smudge Cells Not Reportable 12/07/17 13:16 Toxic Granulation Few 12/07/17 13:16 Toxic Vacuolation Few 12/07/17 13:16 Dohle Bodies Not Reportable 12/07/17 13:16 Pelger-Huet Anomaly Not Reportable 12/07/17 13:16 Mane Rods Not Reportable 12/07/17 13:16 Platelet Estimate Cons 12/07/17 13:16 Clumped Platelets Not Reportable 12/07/17 13:16 Plt Clumps, EDTA Not Reportable 12/07/17 13:16 Large Platelets Not Reportable 12/07/17 13:16 Giant Platelets Not Reportable 12/07/17 13:16 Platelet Satelliting Not Reportable 12/07/17 13:16 Plt Morphology Comment Not Reportable 12/07/17 13:16 RBC Morphology Not Reportable 12/07/17 13:16 Dimorphic RBCs Not Reportable 12/07/17 13:16 Polychromasia Not Reportable 12/07/17 13:16 Hypochromasia Not Reportable 12/07/17 13:16 Poikilocytosis 1+ 12/07/17 13:16 Anisocytosis 1+ 12/07/17 13:16 Microcytosis Not Reportable 12/07/17 13:16 Macrocytosis Not Reportable 12/07/17 13:16 Spherocytes Not Reportable 12/07/17 13:16 Pappenheimer Bodies Not Reportable 12/07/17 13:16 Sickle Cells Not Reportable 12/07/17 13:16 Target Cells Not Reportable 12/07/17 13:16 Tear Drop Cells Not Reportable 12/07/17 13:16 Ovalocytes Not Reportable 12/07/17 13:16 Helmet Cells Not Reportable 12/07/17 13:16 Toure-Fair Play Bodies Not Reportable 12/07/17 13:16 George Rings Not Reportable 12/07/17 13:16 Skyler Cells Few 12/07/17 13:16 Bite Cells Not Reportable 12/07/17 13:16 Crenated Cell Not Reportable 12/07/17 13:16 Elliptocytes Not Reportable 12/07/17 13:16 Acanthocytes (Spur) 1+ 12/07/17 13:16 Rouleaux Not Reportable 12/07/17 13:16 Hemoglobin C Crystals Not Reportable 12/07/17 13:16 Schistocytes Not Reportable 12/07/17 13:16 Malaria parasites Not Reportable 12/07/17 13:16 Dillon Bodies Not Reportable 12/07/17 13:16 Hem Pathologist Commnt No 12/07/17 13:16 PT 20.6 Sec. (12.2-14.9) H 12/07/17 13:16 INR 1.67 (0.87-1.13) H 12/07/17 13:16 APTT 35.4 Sec. (24.2-36.6) 12/08/17 08:48 POC ABG pH 7.420 (7.35-7.45) 12/10/17 04:47 POC ABG pCO2 37.4 (35-45) 12/10/17 04:47 POC ABG pO2 119 (80-105) H 12/10/17 04:47 POC ABG HCO3 24.2 12/10/17 04:47 POC ABG Total CO2 25 12/10/17 04:47 POC ABG O2 Sat 99 12/10/17 04:47 POC ABG Base Excess 0 12/10/17 04:47 VBG pH 6.682 (7.320-7.420) L* 12/07/17 13:16 FiO2 28 % 12/10/17 04:47 Sodium 134 mmol/L (137-145) L 12/20/17 04:59 Potassium 4.8 mmol/L (3.6-5.0) 12/20/17 04:59 Chloride 95.6 mmol/L (98-107) L 12/20/17 04:59 Carbon Dioxide 26 mmol/L (22-30) 12/20/17 04:59 Anion Gap 17 mmol/L 12/20/17 04:59 BUN 20 mg/dL (9-20) 12/20/17 04:59 Creatinine 5.8 mg/dL (0.8-1.5) H 12/20/17 04:59 Estimated GFR 13 ml/min 12/20/17 04:59 BUN/Creatinine Ratio 3 % 12/20/17 04:59 Glucose 126 mg/dL (75-100) H 12/20/17 04:59 POC Glucose 170 (70-105) H 12/20/17 06:20 Lactic Acid 3.50 mmol/L (0.7-2.0) H* 12/08/17 03:21 Calcium 7.4 mg/dL (8.4-10.2) L 12/20/17 04:59 Total Bilirubin 0.40 mg/dL (0.1-1.2) 12/17/17 07:01 Direct Bilirubin < 0.2 mg/dL (0-0.2) 12/07/17 13:16 Indirect Bilirubin 0.0 mg/dL 12/07/17 13:16 AST 12 units/L (5-40) 12/17/17 07:01 ALT 35 units/L (7-56) 12/17/17 07:01 Alkaline Phosphatase 115 units/L (35-129) 12/17/17 07:01 Troponin T 0.177 ng/mL (0.00-0.029) H* 12/08/17 03:25 C-Reactive Protein 19.70 mg/dL (0.00-1.30) H 12/20/17 04:59 Total Protein 6.4 g/dL (6.3-8.2) 12/17/17 07:01 Albumin 2.4 g/dL (3.9-5) L 12/17/17 07:01 Albumin/Globulin Ratio 0.6 % 12/17/17 07:01 Triglycerides 368 mg/dL (2-149) H 12/07/17 19:00 Cholesterol 126 mg/dL (50-199) 12/07/17 19:00 LDL Cholesterol Direct 30 mg/dL (50-130) L 12/07/17 19:00 HDL Cholesterol 23 mg/dL (40-59) L 12/07/17 19:00 Cholesterol/HDL Ratio 5.47 % 12/07/17 19:00 Urine Color Ayesha (Yellow) 12/08/17 04:07 Urine Turbidity Slightly cloudy (Clear) 12/08/17 04:07 Urine pH 6.0 (5.0-7.0) 12/08/17 04:07 Ur Specific Lissie 1.025 (1.003-1.030) 12/08/17 04:07 Urine Protein 100 mg/dl mg/dL (Negative) 12/08/17 04:07 Urine Glucose (UA) 50 mg/dL (Negative) 12/08/17 04:07 Urine Ketones 20 mg/dL (Negative) 12/08/17 04:07 Urine Blood Mod (Negative) 12/08/17 04:07 Urine Nitrite Neg (Negative) 12/08/17 04:07 Urine Bilirubin Neg (Negative) 12/08/17 04:07 Urine Urobilinogen < 2.0 mg/dL (<2.0) 12/08/17 04:07 Ur Leukocyte Esterase Mod (Negative) 12/08/17 04:07 Urine WBC (Auto) > 182.0 /HPF (0.0-6.0) H 12/08/17 04:07 Urine RBC (Auto) 72.0 /HPF (0.0-6.0) 12/08/17 04:07 Urine Bacteria (Auto) 4+ /HPF (Negative) 12/08/17 04:07 Urine Mucus 3+ /HPF 12/08/17 04:07 Random Vancomycin 26.8 ug/mL (0-40.0) 12/20/17 04:59 Urine Opiates Screen Presumptive negative 12/09/17 20:18 Urine Methadone Screen Presumptive negative 12/09/17 20:18 Ur Barbiturates Screen Presumptive negative 12/09/17 20:18 Ur Phencyclidine Scrn Presumptive negative 12/09/17 20:18 Ur Amphetamines Screen Presumptive negative 12/09/17 20:18 U Benzodiazepines Scrn Presumptive positive 12/09/17 20:18 Urine Cocaine Screen Presumptive negative 12/09/17 20:18 U Marijuana (THC) Screen Presumptive negative 12/09/17 20:18 Drugs of Abuse Note Disclamer 12/09/17 20:18 C. difficile Toxin A&B Negative (Negative) 12/09/17 10:01 Blood Type A POSITIVE 12/15/17 06:14 Antibody Screen Negative 12/15/17 06:14 Crossmatch See Detail 12/15/17 06:14
--- NOTE | 2017-12-20 17:05 | Cat Scan Report ---
FINAL REPORT EXAM: CT ABDOMEN PELVIS WO CON HISTORY: sepsis. Nausea, vomiting TECHNIQUE: CT examination of the ABDOMEN without IV contrast CT examination of the PELVIS without IV contrast PRIORS: 05/13/2017 FINDINGS: Nonspecific patchy opacities widely scattered in both lung bases. Linear atelectasis in right lung base. Multifocal small consolidations in left lung base posteriorly. These findings may be edema, atelectasis, and/or pneumonia, worse in left lower lobe. Surgically absent gallbladder. Normal noncontrast appearance of the liver, adrenals, pancreas, and spleen. Normal caliber abdominal aorta with slight calcified atherosclerotic plaque. Normal caliber IVC. The exam is limited from a paucity of natural intra-abdominal fat, and lack of contrast, to separate adjacent organs and structures. The ureters are largely obscured by adjacent soft tissues. Intestinal loops are also difficult to visualize separately. In addition, there is scattered fat stranding throughout the mesentery, further limiting the examination. It limits the examination for detection of intestinal inflammation. This fat stranding may be due to anasarca. Differential includes mesenteritis. Findings are new from comparison. 3 mm nonobstructing right renal calculus. No evidence of left renal calculi. No gross hydronephrosis. Ureters obscured by adjacent anatomy. Fat stranding adjacent to each kidney, nonspecific, is more prominent than comparison. This may reflect pyelonephritis. No gross stomach or duodenal abnormality. Nonspecific new prominence of small bowel loops throughout the abdomen and pelvis may be secondary to paralytic ileus. The differential includes enteritis. No definite pelvic free fluid. Pelvic structures partly obscured by multifocal mesenteric fat stranding. No definite urinary bladder abnormality. Normal-appearing prostate, seminal vesicles, and rectum. Normal visible sigmoid colon. No gross ascites, free air, or colonic distention. No focal cecal abnormality. Terminal ileum and appendix are obscured. IMPRESSION: The exam is limited from a paucity of natural intra-abdominal fat, and lack of contrast, to separate adjacent organs and structures. The ureters are largely obscured by adjacent soft tissues. Intestinal loops are also difficult to visualize separately. The examination is further limited by multifocal slight fat stranding in the mesentery which may be secondary to mesenteritis and/or anasarca Greater fat stranding adjacent to both kidneys may be from anasarca or reflect pyelonephritis New patchy and consolidated opacities in both lung bases may be atelectasis, edema, and/or pneumonia, worse in the left lower lobe New nonspecific prominence of small bowel loops in the abdomen and pelvis may paralytic ileus and/or enteritis 3 mm nonobstructing right renal calculus Surgically absent gallbladder
[2017-12-20] MEDS ORDERED: VANCOMYCIN 750 MG in NACL 0.9% 250ML 250 ML IV SCH (18:00)
--- NOTE | 2017-12-20 22:42 | XRay Report ---
FINAL REPORT PROCEDURE: XR CHEST ROUTINE 2V TECHNIQUE: PA and lateral chest radiographs were obtained. CPT 28468 HISTORY: new fever eval for pneumonia COMPARISON: 12/12/2017 FINDINGS: Heart: Normal. Mediastinum/Vessels: Normal. Lungs/Pleural space: Inhomogeneous patchy densities are noted in the left lower lobe. Right lung and bilateral pleural spaces are clear.. Bony thorax: No acute osseous abnormality. Other: IMPRESSION: Findings are consistent with pneumonia left lower lobe..
[2017-12-21] MEDS: NOVOLOG SUB-Q SCH ×5 (02:08→23:34)
[2017-12-21] MEDS: LEVEMIR SUB-Q SCH (08:00)
--- NOTE | 2017-12-21 08:53 | Progress Note ---
Assessment and Plan Assessment and plan: Patient is a 47-year-old with a history of CHF, COPD, insulin-dependent type 2 diabetes mellitus, tobacco dependency, hypertension, C. difficile, anemia of chronic disease, severe protein calorie malnutrition, skull ulcerations, end- stage renal disease on hemodialysis, DKA and chronically elevated troponin around 0.1. He was just discharged from here on 2017 after missing one week of hemodialysis. He present now after missing hemodialysis and being found unresponsive per chart. Patient was subsequently admitted to the ICU and eventually extubated remained remarkably weak with recommendation to go to subacute rehabilitation on discharge. Patient continued to obtain dialysis while in the hospital. Infectious disease did recommend vancomycin at hemodialysis for 2 weeks Wednesdays and Fridays and the Levaquin 500 milligrams every 48 hours when patient is discharged. Discharge planning patient waiting on alf facility. -Sepsis secondary to Escherichia coli ruled out C. difficile. Vancomycin and Levaquin per ID and discharge. Echocardiogram not revealing any evidence of vegetation. Mild elevation and WBC today no evidence of seizure of this time we 'll monitor. No new fever last night ID was reconsulted yesterday. Input appreciated. If patient's WBC continues to trend down on also has normal fever in the next 24 hours will plan for discharge. -Acute Cystitis secondary to Ecoli * Reconsulted ID Today -Possible lobar pneumonia-continue antibiotics. -Severe Protein calorie malnutrition * Disability Manager consult. Still with poor PO intake, Nausea with an episode of vomiting yesterday -Acute hypoxic respiratory failure: Has been extubated and doing well on the medical floor, continue duo nebs. Pulmonary following. Evaluate for home O2 -Severe metabolic acidosis secondary to ESRD -Shock, circulatory, on vasopressor, resolved -Acute on chronic anemia of renal disease: Stable we'll continue to monitor -Acute metabolic encephalopahty, resolving supportative care -ESRD, non compliant causing the above: Hopefully hemodialysis will save this patient. -Severe hyperkalemia due to noncompliance: Emergent hemodialysis done on admission. -Hypertension stable continue current treatment -Diabetes mellitus with hypoglycemia stable continue current treatment well decreased sliding scale to moderate dose. Will discuss with nursing to watch how much patient has eaten and dose accordingly. -Chronic nausea start on Bentyl -Status post DKA-corrected -Chronic diarrhea-stable -Severe debility: Failed get up and go test. We'll recommend alf facility for acute rehabilitation and discharge -H/o C diffe with diarrhea stool: send for c.diffe-->negative -DVT prophylaxis: scd only for now, repeat h/h full code Patient was clinically stable for discharge awaiting placement. History Interval history: Patient seen and examined this morning and not acute distress, no new fever today. Hospitalist Physical - Physical exam Narrative exam: VITAL SIGNS: Reviewed. GENERAL: The patient appeared marked temporal wasting vital signs as documented. HEAD: No signs of head trauma. Temporal wasting EYES: Pupils are equal. Extraocular motions intact. EARS: Hearing grossly intact. MOUTH: Oropharynx is normal. NECK: No adenopathy, no JVD. CHEST: Chest with clear breath sounds bilaterally. No wheezes, rales, or rhonchi. CARDIAC: Regular rate and rhythm. S1 and S2, without murmurs, gallops, or rubs. VASCULAR: No Edema. Peripheral pulses normal and equal in all extremities. ABDOMEN: Soft, without detectable tenderness. Scaphoid. No rebound or guarding, and no masses palpated. Bowel Sounds normal. MUSCULOSKELETAL: Good range of motion of all major joints. Extremities without clubbing, cyanosis or edema. NEUROLOGIC EXAM: Alert and oriented x 3. No focal sensory or strength deficits. Speech normal. Follows commands. PSYCHIATRIC: Mood normal. SKIN: Left upper extremity fistula. 1. - Constitutional Vitals: Temp Pulse Resp BP Pulse Ox 99.0 F 83 17 91/54 99 12/21/17 05:05 12/21/17 05:05 12/21/17 05:05 12/21/17 05:05 12/21/17 05:05 General appearance: Present: no acute distress, well-nourished, other (weakness) Results - Labs CBC & Chem 7: 12/21/17 09:06 12/20/17 04:59 Labs: Laboratory Last Values WBC 30.2 K/mm3 (4.5-11.0) H 12/20/17 04:59 RBC 2.40 M/mm3 (3.65-5.03) L 12/20/17 04:59 Hgb 7.0 gm/dl (11.8-15.2) L 12/20/17 04:59 Hct 22.2 % (35.5-45.6) L 12/20/17 04:59 MCV 92 fl (84-94) 12/20/17 04:59 MCH 29 pg (28-32) 12/20/17 04:59 MCHC 32 % (32-34) 12/20/17 04:59 RDW 15.3 % (13.2-15.2) H 12/20/17 04:59 Plt Count 341 K/mm3 (140-440) 12/20/17 04:59 Lymph % (Auto) 6.0 % (13.4-35.0) L 12/17/17 07:01 [place] % (Auto) 7.7 % (0.0-7.3) H 12/17/17 07:01 Eos % (Auto) 1.0 % (0.0-4.3) 12/17/17 07:01 Baso % (Auto) 0.1 % (0.0-1.8) 12/17/17 07:01 Lymph # 0.9 K/mm3 (1.2-5.4) L 12/17/17 07:01 [place] # 1.1 K/mm3 (0.0-0.8) H 12/17/17 07:01 Eos # 0.1 K/mm3 (0.0-0.4) 12/17/17 07:01 Baso # 0.0 K/mm3 (0.0-0.1) 12/17/17 07:01 Add Manual Diff Complete 12/07/17 13:16 Total Counted 100 12/07/17 13:16 Seg Neutrophils % 85.2 % (40.0-70.0) H 12/17/17 07:01 Seg Neuts % (Manual) 71.0 % (40.0-70.0) H 12/07/17 13:16 Band Neutrophils % 0 % 12/07/17 13:16 Lymphocytes % (Manual) 25.0 % (13.4-35.0) 12/07/17 13:16 Reactive Lymphs % (Man) 0 % 12/07/17 13:16 Monocytes % (Manual) 2.0 % (0.0-7.3) 12/07/17 13:16 Eosinophils % (Manual) 0 % (0.0-4.3) 12/07/17 13:16 Basophils % (Manual) 1.0 % (0.0-1.8) 12/07/17 13:16 Metamyelocytes % 1.0 % 12/07/17 13:16 Myelocytes % 0 % 12/07/17 13:16 Promyelocytes % 0 % 12/07/17 13:16 Blast Cells % 0 % 12/07/17 13:16 Nucleated RBC % 2.0 % (0.0-0.9) H 12/07/17 13:16 Seg Neutrophils # 12.3 K/mm3 (1.8-7.7) H 12/17/17 07:01 Seg Neutrophils # Man 6.5 K/mm3 (1.8-7.7) 12/07/17 13:16 Band Neutrophils # 0.0 K/mm3 12/07/17 13:16 Lymphocytes # (Manual) 2.3 K/mm3 (1.2-5.4) 12/07/17 13:16 Abs React Lymphs (Man) 0.0 K/mm3 12/07/17 13:16 Monocytes # (Manual) 0.2 K/mm3 (0.0-0.8) 12/07/17 13:16 Eosinophils # (Manual) 0.0 K/mm3 (0.0-0.4) 12/07/17 13:16 Basophils # (Manual) 0.1 K/mm3 (0.0-0.1) 12/07/17 13:16 Metamyelocytes # 0.1 K/mm3 12/07/17 13:16 Myelocytes # 0.0 K/mm3 12/07/17 13:16 Promyelocytes # 0.0 K/mm3 12/07/17 13:16 Blast Cells # 0.0 K/mm3 12/07/17 13:16 WBC Morphology Not Reportable 12/07/17 13:16 Hypersegmented Neuts Not Reportable 12/07/17 13:16 Hyposegmented Neuts Not Reportable 12/07/17 13:16 Hypogranular Neuts Not Reportable 12/07/17 13:16 Smudge Cells Not Reportable 12/07/17 13:16 Toxic Granulation Few 12/07/17 13:16 Toxic Vacuolation Few 12/07/17 13:16 Dohle Bodies Not Reportable 12/07/17 13:16 Pelger-Huet Anomaly Not Reportable 12/07/17 13:16 Mane Rods Not Reportable 12/07/17 13:16 Platelet Estimate Cons 12/07/17 13:16 Clumped Platelets Not Reportable 12/07/17 13:16 Plt Clumps, EDTA Not Reportable 12/07/17 13:16 Large Platelets Not Reportable 12/07/17 13:16 Giant Platelets Not Reportable 12/07/17 13:16 Platelet Satelliting Not Reportable 12/07/17 13:16 Plt Morphology Comment Not Reportable 12/07/17 13:16 RBC Morphology Not Reportable 12/07/17 13:16 Dimorphic RBCs Not Reportable 12/07/17 13:16 Polychromasia Not Reportable 12/07/17 13:16 Hypochromasia Not Reportable 12/07/17 13:16 Poikilocytosis 1+ 12/07/17 13:16 Anisocytosis 1+ 12/07/17 13:16 Microcytosis Not Reportable 12/07/17 13:16 Macrocytosis Not Reportable 12/07/17 13:16 Spherocytes Not Reportable 12/07/17 13:16 Pappenheimer Bodies Not Reportable 12/07/17 13:16 Sickle Cells Not Reportable 12/07/17 13:16 Target Cells Not Reportable 12/07/17 13:16 Tear Drop Cells Not Reportable 12/07/17 13:16 Ovalocytes Not Reportable 12/07/17 13:16 Helmet Cells Not Reportable 12/07/17 13:16 Toure-Isanti Bodies Not Reportable 12/07/17 13:16 Vian Rings Not Reportable 12/07/17 13:16 [place] Cells Few 12/07/17 13:16 Bite Cells Not Reportable 12/07/17 13:16 Crenated Cell Not Reportable 12/07/17 13:16 Elliptocytes Not Reportable 12/07/17 13:16 Acanthocytes (Spur) 1+ 12/07/17 13:16 Rouleaux Not Reportable 12/07/17 13:16 Hemoglobin C Crystals Not Reportable 12/07/17 13:16 Schistocytes Not Reportable 12/07/17 13:16 Malaria parasites Not Reportable 12/07/17 13:16 Dillon Bodies Not Reportable 12/07/17 13:16 Hem Pathologist Commnt No 12/07/17 13:16 PT 20.6 Sec. (12.2-14.9) H 12/07/17 13:16 INR 1.67 (0.87-1.13) H 12/07/17 13:16 APTT 35.4 Sec. (24.2-36.6) 12/08/17 08:48 POC ABG pH 7.420 (7.35-7.45) 12/10/17 04:47 POC ABG pCO2 37.4 (35-45) 12/10/17 04:47 POC ABG pO2 119 (80-105) H 12/10/17 04:47 POC ABG HCO3 24.2 12/10/17 04:47 POC ABG Total CO2 25 12/10/17 04:47 POC ABG O2 Sat 99 12/10/17 04:47 POC ABG Base Excess 0 12/10/17 04:47 VBG pH 6.682 (7.320-7.420) L* 12/07/17 13:16 FiO2 28 % 12/10/17 04:47 Sodium 134 mmol/L (137-145) L 12/20/17 04:59 Potassium 4.8 mmol/L (3.6-5.0) 12/20/17 04:59 Chloride 95.6 mmol/L (98-107) L 12/20/17 04:59 Carbon Dioxide 26 mmol/L (22-30) 12/20/17 04:59 Anion Gap 17 mmol/L 12/20/17 04:59 BUN 20 mg/dL (9-20) 12/20/17 04:59 Creatinine 5.8 mg/dL (0.8-1.5) H 12/20/17 04:59 Estimated GFR 13 ml/min 12/20/17 04:59 BUN/Creatinine Ratio 3 % 12/20/17 04:59 Glucose 126 mg/dL (75-100) H 12/20/17 04:59 POC Glucose 233 (70-105) H 12/21/17 05:14 Lactic Acid 3.50 mmol/L (0.7-2.0) H* 12/08/17 03:21 Calcium 7.4 mg/dL (8.4-10.2) L 12/20/17 04:59 Total Bilirubin 0.40 mg/dL (0.1-1.2) 12/17/17 07:01 Direct Bilirubin < 0.2 mg/dL (0-0.2) 12/07/17 13:16 Indirect Bilirubin 0.0 mg/dL 12/07/17 13:16 AST 12 units/L (5-40) 12/17/17 07:01 ALT 35 units/L (7-56) 12/17/17 07:01 Alkaline Phosphatase 115 units/L (35-129) 12/17/17 07:01 Troponin T 0.177 ng/mL (0.00-0.029) H* 12/08/17 03:25 C-Reactive Protein 19.70 mg/dL (0.00-1.30) H 12/20/17 04:59 Total Protein 6.4 g/dL (6.3-8.2) 12/17/17 07:01 Albumin 2.4 g/dL (3.9-5) L 12/17/17 07:01 Albumin/Globulin Ratio 0.6 % 12/17/17 07:01 Triglycerides 368 mg/dL (2-149) H 12/07/17 19:00 Cholesterol 126 mg/dL (50-199) 12/07/17 19:00 LDL Cholesterol Direct 30 mg/dL (50-130) L 12/07/17 19:00 HDL Cholesterol 23 mg/dL (40-59) L 12/07/17 19:00 Cholesterol/HDL Ratio 5.47 % 12/07/17 19:00 Urine Color Ayesha (Yellow) 12/08/17 04:07 Urine Turbidity Slightly cloudy (Clear) 12/08/17 04:07 Urine pH 6.0 (5.0-7.0) 12/08/17 04:07 Ur Specific [place] 1.025 (1.003-1.030) 12/08/17 04:07 Urine Protein 100 mg/dl mg/dL (Negative) 12/08/17 04:07 Urine Glucose (UA) 50 mg/dL (Negative) 12/08/17 04:07 Urine Ketones 20 mg/dL (Negative) 12/08/17 04:07 Urine Blood Mod (Negative) 12/08/17 04:07 Urine Nitrite Neg (Negative) 12/08/17 04:07 Urine Bilirubin Neg (Negative) 12/08/17 04:07 Urine Urobilinogen < 2.0 mg/dL (<2.0) 12/08/17 04:07 Ur Leukocyte Esterase Mod (Negative) 12/08/17 04:07 Urine WBC (Auto) > 182.0 /HPF (0.0-6.0) H 12/08/17 04:07 Urine RBC (Auto) 72.0 /HPF (0.0-6.0) 12/08/17 04:07 Urine Bacteria (Auto) 4+ /HPF (Negative) 12/08/17 04:07 Urine Mucus 3+ /HPF 12/08/17 04:07 Random Vancomycin 26.8 ug/mL (0-40.0) 12/20/17 04:59 Urine Opiates Screen Presumptive negative 12/09/17 20:18 Urine Methadone Screen Presumptive negative 12/09/17 20:18 Ur Barbiturates Screen Presumptive negative 12/09/17 20:18 Ur Phencyclidine Scrn Presumptive negative 12/09/17 20:18 Ur Amphetamines Screen Presumptive negative 12/09/17 20:18 U Benzodiazepines Scrn Presumptive positive 12/09/17 20:18 Urine Cocaine Screen Presumptive negative 12/09/17 20:18 U Marijuana (THC) Screen Presumptive negative 12/09/17 20:18 Drugs of Abuse Note Disclamer 12/09/17 20:18 C. difficile Toxin A&B Negative (Negative) 12/09/17 10:01 Blood Type A POSITIVE 12/15/17 06:14 Antibody Screen Negative 12/15/17 06:14 Crossmatch See Detail 12/15/17 06:14
--- NOTE | 2017-12-21 09:49 | Progress Note ---
Assessment and Plan Impression: * ESRD * Acute respiratory failure * Hypotension r/o sepsis --Blood cx - coag negative staph (?contaminant) * Anemia secondary to ESRD vs other * Type I DM Plan * Hemodialysis MWF; UF as tolerated * UF as tolerated * added phoslo * Epogen TIW prn * Transfuse pRBC per primary team * 4 k bath with HD * Empiric abx per primary team * Dose medications for renal function * awaiting snf placement Subjective Date of service: 12/21/17 Principal diagnosis: end-stage renal disease with acute decompensation, AMS, hyperkalemia, respi Interval history: resting well in bed today Objective - Exam Narrative Exam: General appearance: NAD EENT: ATNC, other (ETT in place) Neck: no JVD Respiratory: Present: Clear to Ascultation Cardiology: regular, S1S2 Gastrointestinal: normal, no tenderness, no distended Integumentary: no rash, warm and dry Neurologic: other (opens eyes to verbal stimuli; nods head to questions) Musculoskeletal: other (no edema) - Vital Signs Vital signs: Vital Signs - 12hr 12/20/17 12/21/17 12/21/17 22:00 00:12 05:05 Temperature 99.5 F 99.0 F Pulse Rate 91 H 83 Pulse Rate [ 90 From Monitor] Respiratory 16 18 17 Rate Blood Pressure 87/46 91/54 O2 Sat by Pulse 92 99 Oximetry 12/21/17 08:46 Temperature 99.6 F Pulse Rate 91 H Pulse Rate [ From Monitor] Respiratory 18 Rate Blood Pressure 92/50 O2 Sat by Pulse 95 Oximetry - Lab 12/20/17 04:59 12/20/17 04:59 Most recent lab results Calcium 7.4 mg/dL (8.4-10.2) L 12/20/17 04:59
--- NOTE | 2017-12-21 09:51 | Progress Note ---
Assessment and Plan Assessment: 1) Sepsis with initial septic shock: new fever. Etiology most likely LLL PNA -CRP=14.10-->19.70 -TTE did not show any vegetation 2) Hospital acquired pneumonia -Chest x-ray 12/20 showed LLL pneumonia -CT A/P 12/20 showed new patchy and consolidated opacitiesin bothe lung bases may be atelectasis, jasmyn, and/or pneumonia worse in LLL; new non specific prominence of smal bowel loops in the abdomen andpelvis may represent paralytic ileus and /or enteritis 2) MRSE and GNRs bacteremia: MRSE ? unclear source ? HD access ? endocarditis. GNRs culture did not grow. probably from urine. 3) E coli UTI 4) Respiratory failure-resolved. Tracheal asp + GNRs ? colonizers 5) Encephalopathy - better 6) History of C diff with diarrhea - Cdiff neg 7) COPD 8) CHF 9) Diarrhea; chronic for last 7 years due to DM, Plan: -surgical evaluation appreciated for paralytic ileus and/or enteritis -obtain sputum cultures -f/u blood cultures -start cefepime -f/u UA -continue vancomycin for MRSE bacteremia -continue flagyl iv for diarrhea day 2 -continue contact isolation due to diarrhea -upon discharge will do vancomycin 1 gm IV on HD for 2 weeks until 12/24 Thank you for your consultation, will follow up with you. Stephanie Arcos NP for Dr. Julianna Rosa MD Infectious Diseases Specialist [facility] ([facility] M [phone] O [phone] Subjective Date of service: 12/21/17 Principal diagnosis: end-stage renal disease with acute decompensation, AMS, hyperkalemia, respi Interval history: I just want to go home, new fever Microbiology: Blood cultures: 2/1 MRSE 2 of 4 bottles and GNR 1 of 4 bottles 2/4 ngtd Urine cultures: 2/2 MDR E coli 2/4 ngtd Respiratory cultures: tracheal asp 2/3 MDR Kleb, Serratia and Wound cultures: Stool cultures: Other: Current Antimicrobials: vanco 2/5 Previous Antimicrobials: Zosyn 2/1 ceftriaxone Levaquin po 28 Objective - Exam Narrative Exam: General appearance: Alert in NAD, conversant Eyes: anicteric sclerae, moist conjunctivae; no lid-lag; PERRLA HENT: Atraumatic; oropharynx clear with poor dentiton Neck: Trachea midline; supple, no thyromegaly or lymphadenopathy Lungs: diminish bilaterally CV: RRR S1S2 Abdomen: Soft, non-tender; no masses or hepatosplenomegaly Extremities: No peripheral edema or extremity lymphadenopathy. AVF ? Skin: Normal temperature, turgor and texture; no rash, ulcers or subcutaneous nodules Psych: Appropriate affect, calm and cooperative Neuro: alert, periods of confusion. Moving all extermities Lines: Left upper arm AV graft - Constitutional Vitals: Vital Signs Temp Pulse Resp BP Pulse Ox 99.6 F 91 H 18 92/50 95 12/21/17 08:46 12/21/17 08:46 12/21/17 08:46 12/21/17 08:46 12/21/17 08:46 Temperature -Last 24 Hours Temperature 99.6 F Temperature 99.0 F Temperature 99.5 F Temperature 98.7 F Temperature 98.9 F Temperature 98.2 F Temperature 98.6 F - Labs CBC & Chem 7: 12/21/17 09:06 12/20/17 04:59 Labs: Abnormal lab results 12/20/17 12/20/17 12/20/17 Range/Units 04:59 16:53 21:36 POC Glucose 327 H 306 H (70-105) C-Reactive Protein 19.70 H (0.00-1.30) mg/dL 12/21/17 12/21/17 Range/Units 01:43 05:14 POC Glucose 383 H 233 H (70-105) C-Reactive Protein (0.00-1.30) mg/dL
[2017-12-21 09:54] LABS: Basophils # (Auto) 0.1 K/mm3 (0.0-0.1); Basophils % (Auto) 0.3 % (0.0-1.8); Eosinophils # (Auto) 0.2 K/mm3 (0.0-0.4); Eosinophils % (Auto) 1.1 % (0.0-4.3); Hematocrit 22.7 % (35.5-45.6); Lymphocytes % (Auto) 4.8 % (13.4-35.0); Mean Corpuscular HGB Conc 31 % (32-34); Mean Corpuscular Hemoglobin 29 pg (28-32); Mean Corpuscular Volume 94 fl (84-94); Monocytes # (Auto) 1.2 K/mm3 (0.0-0.8); Platelet Count 388 K/mm3 (140-440); Red Blood Count 2.42 M/mm3 (3.65-5.03); Red Cell Distribution Width 15.8 % (13.2-15.2)
[2017-12-21] MEDS ORDERED: TAMIFLU PO ONE (10:00)
[2017-12-21] MEDS ORDERED: TAMIFLU PO SCH (10:00)
[2017-12-21] MEDS: PERCOCET 5/325 PO PRN ×3 (10:33→21:49)
[2017-12-21] MEDS: HALFPRIN EC PO SCH (10:33)
[2017-12-21] MEDS: LEVAQUIN PO SCH (10:33)
[2017-12-21] MEDS: BENTYL PO SCH ×4 (10:33→21:48)
[2017-12-21] MEDS: ZOFRAN IV PRN ×2 (10:35→15:21)
[2017-12-21] MEDS: PHOSLO PO SCH ×3 (11:44→17:46)
[2017-12-21] MEDS ORDERED: ZOSYN/NS 4.5GM/100ML 4.5 GM/100 ML VIAL IV SCH (14:00)
[2017-12-21] MEDS: ZOSYN/NS 2.25 GM/50ML 2.25 GM/50 ML BAG IV SCH ×2 (17:46→21:48)
[2017-12-22] MEDS: PERCOCET 5/325 PO PRN ×3 (05:24→14:57)
[2017-12-22] MEDS: ZOSYN/NS 2.25 GM/50ML 2.25 GM/50 ML BAG IV SCH (05:25)
[2017-12-22 07:42] LABS: Basophils # (Auto) 0.1 K/mm3 (0.0-0.1); Basophils % (Auto) 0.9 % (0.0-1.8); Eosinophils # (Auto) 0.2 K/mm3 (0.0-0.4); Eosinophils % (Auto) 1.5 % (0.0-4.3); Hematocrit 23.4 % (35.5-45.6); Hemoglobin 7.3 gm/dl (11.8-15.2); Lymphocytes # (Auto) 0.9 K/mm3 (1.2-5.4); Lymphocytes % (Auto) 7.2 % (13.4-35.0); Mean Corpuscular HGB Conc 31 % (32-34); Mean Corpuscular Hemoglobin 29 pg (28-32); Mean Corpuscular Volume 94 fl (84-94); Monocytes # (Auto) 0.6 K/mm3 (0.0-0.8); Monocytes % (Auto) 5.1 % (0.0-7.3); Platelet Count 396 K/mm3 (140-440); Red Cell Distribution Width 15.6 % (13.2-15.2)
[2017-12-22] MEDS ORDERED: FLAGYL 500 MG/100 ML 500 MG/100 ML BAG IV SCH (08:30)
--- NOTE | 2017-12-22 08:37 | Progress Note ---
Assessment and Plan Impression: * ESRD * Severe hyperkalemia - K 9 at admission, resolved * Severe metabolic acidosis secondary to ESRD vs lactic acidosis - Bicarb 2 at admission; resolved * Acute respiratory failure * Hypotension r/o sepsis --Blood cx - coag negative staph (?contaminant) * Anemia secondary to ESRD vs other * Type I DM Plan * Hemodialysis MWF * UF as tolerated * Epogen TIW prn * Transfuse pRBC per primary team * Renal diet * Binders with meals * Dose medications for renal function * Awaiting SNF placement Subjective Date of service: 12/22/17 Principal diagnosis: end-stage renal disease with acute decompensation, AMS, hyperkalemia, respi Objective - Vital Signs Vital signs: Vital Signs - 12hr 12/21/17 12/21/17 12/21/17 21:49 22:00 22:23 Temperature 99.2 F Pulse Rate 88 Respiratory 18 16 Rate Respiratory 18 Rate [Bilateral Shoulder] Blood Pressure 90/42 O2 Sat by Pulse 94 Oximetry 12/21/17 12/22/17 12/22/17 22:49 05:24 06:24 Temperature Pulse Rate Respiratory 18 18 18 Rate Respiratory Rate [Bilateral Shoulder] Blood Pressure O2 Sat by Pulse Oximetry - Lab 12/22/17 06:58 12/20/17 04:59 Most recent lab results Calcium 7.4 mg/dL (8.4-10.2) L 12/20/17 04:59
[2017-12-22] MEDS: LEVEMIR SUB-Q SCH (09:08)
[2017-12-22] MEDS: NOVOLOG SUB-Q SCH ×3 (09:08→17:48)
[2017-12-22] MEDS: BENTYL PO SCH (09:15)
[2017-12-22] MEDS: HALFPRIN EC PO SCH (09:15)
[2017-12-22] MEDS: PHOSLO PO SCH ×2 (09:15→17:48)
--- NOTE | 2017-12-22 09:47 | Progress Note ---
<STEPHANIE ARCOS - Last Filed: 12/22/17 13:56> Assessment and Plan Assessment: 1) Sepsis with initial septic shock: new fever. Better. Etiology most likely LLL PNA -CRP=14.10-->19.70 -TTE did not show any vegetation -blood cultures 12/20 negative 2) Hospital acquired pneumonia -Chest x-ray 12/20 showed LLL pneumonia -CT A/P 12/20 showed new patchy and consolidated opacitiesin bothe lung bases may be atelectasis, jasmyn, and/or pneumonia worse in LLL; new non specific prominence of smal bowel loops in the abdomen andpelvis may represent paralytic ileus and /or enteritis 2) MRSE and GNRs bacteremia: MRSE ? unclear source ? HD access ? endocarditis. GNRs culture did not grow. probably from urine. 3) E coli UTI 4) Respiratory failure-resolved. Tracheal asp + GNRs ? colonizers 5) Encephalopathy - better 6) History of C diff with diarrhea - Cdiff neg 7) COPD 8) CHF 9) Diarrhea; chronic for last 7 years due to DM, Plan: -surgical evaluation appreciated for paralytic ileus and/or enteritis -f/u sputum cultures -continue cefepime -continue tamiflu, renally dosed day 3 of 5 -f/u UA -continue vancomycin for MRSE bacteremia -continue flagyl iv for diarrhea day 3 -continue contact isolation due to diarrhea -upon discharge will do vancomycin 1 gm IV on HD for 2 weeks until 12/24 Thank you for your consultation, will follow up with you. Stephanie Arcos NP for Dr. Julianna Rosa MD Infectious Diseases Specialist [facility] ([facility] M [phone] O [phone] Subjective Date of service: 12/22/17 Principal diagnosis: end-stage renal disease with acute decompensation, AMS, hyperkalemia, respi Interval history: I want a nausea shot, no fever Microbiology: Blood cultures: 2/1 MRSE 2 of 4 bottles and GNR 1 of 4 bottles 2/4 ngtd Urine cultures: 2/2 MDR E coli 2/4 ngtd Respiratory cultures: tracheal asp 2/3 MDR Kleb, Serratia and Wound cultures: Stool cultures: Other: Current Antimicrobials: vanco 2/5 Previous Antimicrobials: Zosyn 2 ceftriaxone Levaquin po 12/14 Objective - Exam Narrative Exam: General appearance: Alert in NAD, conversant Eyes: anicteric sclerae, moist conjunctivae; no lid-lag; PERRLA HENT: Atraumatic; oropharynx clear with poor dentiton Neck: Trachea midline; supple, no thyromegaly or lymphadenopathy Lungs: diminish bilaterally CV: RRR S1S2 Abdomen: Soft, non-tender; no masses or hepatosplenomegaly Extremities: No peripheral edema or extremity lymphadenopathy. AVF ? Skin: Normal temperature, turgor and texture; no rash, ulcers or subcutaneous nodules Psych: Appropriate affect, calm and cooperative Neuro: alert, periods of confusion. Moving all extermities Lines: Left upper arm AV graft - Constitutional Vitals: Vital Signs Temp Pulse Resp BP Pulse Ox 98.4 F 80 18 95/62 98 12/22/17 08:10 12/22/17 08:10 12/22/17 08:10 12/22/17 08:10 12/22/17 08:10 Temperature -Last 24 Hours Temperature 98.4 F Temperature 99.2 F Temperature 99.1 F - Labs CBC & Chem 7: 12/22/17 06:58 12/22/17 10:30 Labs: Abnormal lab results 12/21/17 12/21/17 12/21/17 Range/Units 09:06 12:13 16:40 WBC 19.8 H (4.5-11.0) K/mm3 RBC 2.42 L (3.65-5.03) M/mm3 Hgb 7.0 L (11.8-15.2) gm/dl Hct 22.7 L (35.5-45.6) % MCHC 31 L (32-34) % RDW 15.8 H (13.2-15.2) % Lymph % (Auto) 4.8 L (13.4-35.0) % Lymph # 1.0 L (1.2-5.4) K/mm3 [place] # 1.2 H (0.0-0.8) K/mm3 Seg Neutrophils % 87.8 H (40.0-70.0) % Seg Neutrophils # 17.4 H (1.8-7.7) K/mm3 POC Glucose 308 H 207 H (70-105) 12/21/17 12/22/17 12/22/17 Range/Units 21:23 05:51 06:58 WBC 12.4 H (4.5-11.0) K/mm3 RBC 2.50 L (3.65-5.03) M/mm3 Hgb 7.3 L (11.8-15.2) gm/dl Hct 23.4 L (35.5-45.6) % MCHC 31 L (32-34) % RDW 15.6 H (13.2-15.2) % Lymph % (Auto) 7.2 L (13.4-35.0) % Lymph # 0.9 L (1.2-5.4) K/mm3 [place] # (0.0-0.8) K/mm3 Seg Neutrophils % 85.3 H (40.0-70.0) % Seg Neutrophils # 10.6 H (1.8-7.7) K/mm3 POC Glucose 325 H 336 H (70-105) <JULIANNA AGUILAR - Last Filed: 12/22/17 17:33> Assessment and Plan I have personally interviewed and examined patient. I personally discussed and directed assessment and management with [employer] ATTENDANT Nballu. Clinically improving. Leukocytosis better, fever resolved. Will continue cefepime for HAP pneumonia, on vancomycin for MRSE septicemia. Julianna Bailey MD Objective - Constitutional Vitals: Vital Signs Temp Pulse Resp BP Pulse Ox 97.9 F 82 18 132/74 98 12/22/17 13:30 12/22/17 13:30 12/22/17 13:30 12/22/17 13:30 12/22/17 08:10 Temperature -Last 24 Hours Temperature 97.9 F Temperature 98.4 F Temperature 98.4 F Temperature 99.2 F - Labs CBC & Chem 7: 12/22/17 06:58 12/22/17 10:30 Labs: Abnormal lab results 12/21/17 12/22/17 12/22/17 Range/Units 21:23 05:51 06:58 WBC 12.4 H (4.5-11.0) K/mm3 RBC 2.50 L (3.65-5.03) M/mm3 Hgb 7.3 L (11.8-15.2) gm/dl Hct 23.4 L (35.5-45.6) % MCHC 31 L (32-34) % RDW 15.6 H (13.2-15.2) % Lymph % (Auto) 7.2 L (13.4-35.0) % Lymph # 0.9 L (1.2-5.4) K/mm3 Seg Neutrophils % 85.3 H (40.0-70.0) % Seg Neutrophils # 10.6 H (1.8-7.7) K/mm3 POC Glucose 325 H 336 H (70-105) 12/22/17 Range/Units 16:40 WBC (4.5-11.0) K/mm3 RBC (3.65-5.03) M/mm3 Hgb (11.8-15.2) gm/dl Hct (35.5-45.6) % MCHC (32-34) % RDW (13.2-15.2) % Lymph % (Auto) (13.4-35.0) % Lymph # (1.2-5.4) K/mm3 Seg Neutrophils % (40.0-70.0) % Seg Neutrophils # (1.8-7.7) K/mm3 POC Glucose 238 H (70-105)
[2017-12-22] MEDS ORDERED: MAXIPIME/NS 1 GM/100 ML 1 GM/100 ML BAG IV SCH (10:00)
--- NOTE | 2017-12-22 10:39 | Discharge Summary ---
Providers - Providers Date of Admission: 12/07/17 14:10 Attending physician: THELMA WONG MD 12/07/17 13:32 Speech Therapy Evaluation and Treat [CONS] Routine Reason For Exam: ventilation 12/07/17 14:05 Consult to Physician [CONS] Urgent Consulting Provider: LORI GAFFNEY Reason For Exam: ESRD needs emergency dialysis Place consult to:: [facility] Notified:: yes Was contact made?: Yes 12/10/17 12:04 Consult to Physician [CONS] Routine Consulting Provider: STEVE AGUILAR Reason For Exam: Bacteremia Place consult to:: [place] Notified:: yes Phone number called:: [phone] 12/10/17 15:46 Consult to Dietitian/Nutrition [CONS] Routine Physician Instructions: Reason For Exam: Reason for Consult: Write/Manage Tube Feeding 12/11/17 01:16 Consult to Dietitian/Nutrition [CONS] Routine Physician Instructions: Reason For Exam: Reason for Consult: Poor oral intake 12/11/17 16:22 Consult to Wound/ET Nurse [CONS] Routine Reason For Exam: wound eval Occupational Therapy Evaluate and Treat [CONS] Routine Comment: Reason For Exam: ADLs evaluation Physical Therapy Evaluation and Treat [CONS] Routine Comment: Reason For Exam: ADLs evaluation 12/12/17 12:49 PICC Line Insertion [Consult to PICC Line RN] [CONS] Urgent Reason For Exam: IV access Type Line:: PICC Primary care physician: CHARLES JOHNSON Hospitalization Condition: Stable Hospital course: Patient is a 47-year-old with a history of CHF, COPD, insulin-dependent type 2 diabetes mellitus, tobacco dependency, hypertension, C. difficile, anemia of chronic disease, severe protein calorie malnutrition, skull ulcerations, end- stage renal disease on hemodialysis, DKA and chronically elevated troponin around 0.1. He was just discharged from here on 2017 after missing one week of hemodialysis. He present now after missing hemodialysis and being found unresponsive per chart. Patient was subsequently admitted to the ICU and eventually extubated remained remarkably weak with recommendation to go to subacute rehabilitation on discharge. Patient continued to obtain dialysis while in the hospital. Infectious disease did recommend vancomycin at hemodialysis for 2 weeks Wednesdays and Fridays and the Levaquin 500 milligrams every 48 hours when patient is discharged. Discharge planning patient waiting on long term facility. -Sepsis secondary to Escherichia coli ruled out C. difficile. Vancomycin and Levaquin per ID and discharge. Echocardiogram not revealing any evidence of vegetation. Mild elevation and WBC today no evidence of seizure of this time we 'll monitor. No new fever last night ID was reconsulted yesterday. Input appreciated. If patient's WBC continues to trend down on also has normal fever in the next 24 hours will plan for discharge. -Acute Cystitis secondary to Ecoli * Reconsulted ID Today -Possible lobar pneumonia-continue antibiotics. -Severe Protein calorie malnutrition * It Training Specialist consult. Still with poor PO intake, Nausea with an episode of vomiting yesterday -Acute hypoxic respiratory failure: Has been extubated and doing well on the medical floor, continue duo nebs. Pulmonary following. Evaluate for home O2 -Severe metabolic acidosis secondary to ESRD -Shock, circulatory, on vasopressor, resolved -Acute on chronic anemia of renal disease: Stable we'll continue to monitor -Acute metabolic encephalopahty, resolving supportative care -ESRD, non compliant causing the above: Hopefully hemodialysis will save this patient. -Severe hyperkalemia due to noncompliance: Emergent hemodialysis done on admission. -Hypertension stable continue current treatment -Diabetes mellitus with hypoglycemia stable continue current treatment well decreased sliding scale to moderate dose. Will discuss with nursing to watch how much patient has eaten and dose accordingly. -Chronic nausea start on Bentyl -Status post DKA-corrected -Chronic diarrhea-stable -Severe debility: Failed get up and go test. We'll recommend long term facility for acute rehabilitation and discharge -H/o C diffe with diarrhea stool: send for c.diffe-->negative -DVT prophylaxis: scd only for now, repeat h/h full code Patient was clinically stable for discharge awaiting placement. Disposition: [id number]/[place] Time spent for discharge: 35 mins Exam - Constitutional Vitals: Temp Pulse Resp BP Pulse Ox 98.4 F 80 18 95/62 98 12/22/17 08:10 12/22/17 08:10 12/22/17 08:10 12/22/17 08:10 12/22/17 08:10 Plan Activity: advance as tolerated, fall precautions Diet: diabetic, renal Special Instructions: record daily BP diary, record blood sugar diary, physical therapy Follow up with: PRIMARY CARE, [Referring] - 3-5 Days JERI EAST MD [Staff Physician] - 7 Days STEVE AGUILAR MD [Staff Physician] - 7 Days Prescriptions: Calcium Acetate [Phoslo] 2,001 mg PO TIDWM #90 capsule Dicyclomine [Bentyl] 10 mg PO QID #90 oral.liqd Insulin Detemir [Levemir] 12 units SUB-Q QAMDIAB 30 Days units Insulin Regular, Human [HumuLIN R] See Protocol SC ACHS 30 Days units Oseltamivir Phosphate [Tamiflu] 30 mg PO MoWeFr@1800 #4 oralsyr oxyCODONE /ACETAMINOPHEN [Percocet 5/325 mg] 1 tab PO Q4H PRN #14 tablet PRN Reason: Pain, Moderate (4-6) Vancomycin 750 mg IV MoWeFr@1800 #5 mg
[2017-12-22] MEDS ORDERED: NACL 0.9% 100 ML IV PRN (10:40)
[2017-12-22] MEDS ORDERED: NACL 0.9 (PRIMING MACHINE ONLY DIALYSIS) MC ONE (11:15)
[2017-12-22] MEDS: ZOFRAN IV PRN (11:59)
[2017-12-22] MEDS ORDERED: MAXIPIME 1 GM in NACL 0.9% 20 ML IV SCH (14:00)
[2017-12-22 17:59] VITALS: BP 102/57
[2017-12-22] MEDS ORDERED: TAMIFLU PO SCH (18:00)
== END 2017-12-22 19:29 | DRG 871 ==
LOC: ED 12:49 → CC1 14:10 → 3A 12-12 17:26
PROVIDERS: ADMIT Internal Medicine; ATTEND Internal Medicine
PROC: 5A1945Z Respiratory Ventilation, 24-96 Consecutive Hours (ICD-10-PCS; principal; 2017-12-07)
PROC: 0BH17EZ Insertion of Endotracheal Airway into Trachea, Via Natural or Artificial Opening (ICD-10-PCS; 2017-12-07)
PROC: 4A033R1 Measurement of Arterial Saturation, Peripheral, Percutaneous Approach (ICD-10-PCS; 2017-12-07)
PROC: 5A1D70Z Performance of Urinary Filtration, Intermittent, Less than 6 Hours Per Day (ICD-10-PCS; 2017-12-07)
PROC: 05HY33Z Insertion of Infusion Device into Upper Vein, Percutaneous Approach (ICD-10-PCS; 2017-12-07)
PROC: 5A1D70Z Performance of Urinary Filtration, Intermittent, Less than 6 Hours Per Day (ICD-10-PCS; 2017-12-08)
PROC: 5A1D70Z Performance of Urinary Filtration, Intermittent, Less than 6 Hours Per Day (ICD-10-PCS; 2017-12-11)
PROC: 5A1D70Z Performance of Urinary Filtration, Intermittent, Less than 6 Hours Per Day (ICD-10-PCS; 2017-12-13)
PROC: 30233N1 Transfusion of Nonautologous Red Blood Cells into Peripheral Vein, Percutaneous Approach (ICD-10-PCS; 2017-12-15)
PROC: 5A1D70Z Performance of Urinary Filtration, Intermittent, Less than 6 Hours Per Day (ICD-10-PCS; 2017-12-15)
PROC: 5A1D70Z Performance of Urinary Filtration, Intermittent, Less than 6 Hours Per Day (ICD-10-PCS; 2017-12-18)
PROC: 5A1D70Z Performance of Urinary Filtration, Intermittent, Less than 6 Hours Per Day (ICD-10-PCS; 2017-12-20)
PROC: 5A1D70Z Performance of Urinary Filtration, Intermittent, Less than 6 Hours Per Day (ICD-10-PCS; 2017-12-22)
DX: A41.51 Sepsis due to Escherichia coli [E. coli] (principal); J96.01 Acute respiratory failure with hypoxia; G93.41 Metabolic encephalopathy; N18.6 End stage renal disease; R65.21 Severe sepsis with septic shock; E10.10 Type 1 diabetes mellitus with ketoacidosis without coma; E43 Unspecified severe protein-calorie malnutrition; J18.1 Lobar pneumonia, unspecified organism; N17.9 Acute kidney failure, unspecified; I13.2 Hypertensive heart and chronic kidney disease with heart failure and with stage 5 chronic kidney disease, or end stage renal disease; Z68.1 Body mass index [BMI] 19.9 or less, adult; N30.00 Acute cystitis without hematuria; J44.0 Chronic obstructive pulmonary disease with (acute) lower respiratory infection; Z99.2 Dependence on renal dialysis; E87.5 Hyperkalemia; Z90.49 Acquired absence of other specified parts of digestive tract; Z79.82 Long term (current) use of aspirin; F17.200 Nicotine dependence, unspecified, uncomplicated; Z91.15 Patient's noncompliance with renal dialysis; E10.22 Type 1 diabetes mellitus with diabetic chronic kidney disease; I50.9 Heart failure, unspecified; D63.1 Anemia in chronic kidney disease; B96.20 Unspecified Escherichia coli [E. coli] as the cause of diseases classified elsewhere; E10.649 Type 1 diabetes mellitus with hypoglycemia without coma
CPT/HCPCS: 36415; 36600; 70450; 71045; 71046; 74018; 74176; 80048; 80053; 80061; 80074; 80202; 80307; 81001; 82140; 82803; 82805; 82947; 82962; 84132; 84484; 85007; 85025; 85027; 85610; 85730; 86140; 86850; 86900; 86901; 86920; 87040; 87070; 87076; 87086; 87186; 87205; 87324; 93005; 93010; 93306; 94002; 94003; 94760; 99291; G8978-GP; G8979-GP; J0692; J0696; J0885; J1720; J1815; J1818; J1953; J2060; J2370; J2405; J2543; J3370; J7030; J7050; J7070; P9016